=== PATIENT | female | born 1985 | race Caucasian/White ===

== ENCOUNTER 2017-04-29 09:31 | Day surgery (SDC) | payer BC, SELFPAY ==
[2017-04-29] VITALS (7 sets, daily range): BP systolic 102–147; BP diastolic 75–96; PULSE 61–97; RESP 16; TEMP 35.9–37.1; O2SAT 97–99; BMI 26.3
[2017-04-29 10:06] LABS: Internal QC Validated? YES +Cl - CLEAR BKGD; Pregnancy, Urine Negative Negative
[2017-04-29 10:07] LABS: Hematocrit 41.3 % (37-47); Hemoglobin 13.9 g/dl (12.0-15.0); Mean Corp Hgb Conc 33.7 g/gl (32-36); Mean Corpuscular Volume 89.2 fL (81-99); Mean Platelet Vol. 10.2 fl (6.2-12.0); Platelet Count 238 K/mm3 (150-450); RBC Distribution Width CV 13.4 % (11.6-14.6); RBC Distribution Width SD 43.4 fl (35.1-43.9); Red Blood Count 4.63 M/mm3 (4.2-5.4)
[2017-04-29 10:08] LABS: Scan Indicated on CBC? Y/N NO
[2017-04-29] MEDS: Bupivacaine 0.25% 30 ML Vial (10:28)
--- NOTE | 2017-04-29 10:47 | DCINST_ITS ---
You will use the following diet at home:: No restrictions Discharge Activity: Return to Normal Activity, May not drive while taking narcotic pain medications., May Shower May shower in (days): 1 May resume sexual activity in: 4 weeks Call your doctor if your incision/area has: Continuous Slow Oozing, Sudden Increased Bleeding, Increased Pain/ Swelling, Increased Redness, Foul Smelling Discharge, Swelling at the incision site Call your doctor if you observe: Fever of 101 or Higher, Uncontrolled pain Cleanse incision/area with: Soap & Water, - - you have glue over your incisions , do not pick it off. You may let soap and water run over them and dab dry. Allergies/Adverse Reactions: Allergies amoxicillin Allergy (Verified 04/27/17 08:18) Other SHARP PAIN TO ABD Z-PACK Allergy (Uncoded 04/27/17 08:18) Other SHARP PAINS TO ABD Medications to take at Discharge Norethindrone-E.estradiol-Iron [Junel Fe 24 Tablet] 1 each PO DAILY 04/27/17 Primary Care Physician: All Rodriguez MD [Primary Care Provider] - Please Follow Up With: Pily Izquierdo MD When: 2 weeks post op
--- NOTE | 2017-04-29 11:45 | FALS_PTH ---
PATIENT: SREE VERDUGO LOC: [facility] [place] U#:[id number] AGE/SX: 31/F ROOM: RE04/29/[address]: Dr. Pily Izquierdo, MDDOB: 1985 BED: DIS: 04/29/2017 SPEC #: [id number] RECD: 04/29/17 12:12 STATUS: CECILIO RAFAEL #: [id number] YANELY: 04/29/17 11:[address]: Pily Izquierdo DEPT: SURGICAL PATHOLOGY RECD BY: Jus Bustillo ENTERED: 04/29/17 13:12 SP TYPE: FALL TUBES OTHR DR: Dr. All Rodriguez MD Tissues: Fallopian tube Procedures: Surgery Specimen Level II HEADER OPERATION: Laparoscopic salpingectomy PRE-OP DIAGNOSIS: Sterilization request TISSUE SUBMITTED: Bilateral fallopian tubes MICROSCOPIC DIAGNOSIS Bilateral fallopian tubes, salpingectomy: Bilateral fallopian tubes including fimbrial ends, no pathologic diagnosis. SJ:yaya 04/30/17 MICROSCOPIC DESCRIPTION Slides are reviewed. GROSS DESCRIPTION Received is one container labeled with the patient's name and designated bilateral fallopian tubes. The specimen consists of bilateral fallopian tubes. The fallopian tubes are not identified as right or left. One fallopian tube measures 4.5 cm in length and 0.4 cm in diameter. The fimbrial end is identified. The second fallopian tube is received in two pieces. The proximal end measures 3.5 cm in length and 0.4 cm in diameter. The fimbrial end is noted separately and measures 0.5 x 0.5 x 0.2 cm. Sections of both fallopian tubes reveal unremarkable cut surfaces. Representatives sections are submitted in two cassettes as follows: 1 ? one fallopian tube, 2 ? the second fallopian tube received in two pieces. / TIMUR:yaya 04/29/17 TC:4 CPT: 96890 x2
--- NOTE | 2017-04-29 11:58 | PCM.OP.BLANK ---
Operative Report Date of Procedure: 04/29/17 Surgeon: Dr. Pily Izquierdo Android Platform Developer: none Preoperative diagnosis: Sterilization request Procedure performed: Laparoscopic bilateral salpingectomy Postoperative diagnosis: Sterilization request complications: none Estimated blood loss: minimal Drains: none Specimens collected: Bilateral tubes Findings: Normal tubes and ovaries bilaterally uterus sounded to approximately 7 cm. anesthesia: General Operative note: After informed consent was obtained patient was taken to the operating room she was placed in supine position she was given anesthesia. She was then placed in the [facility] and she was prepped and draped in normal sterile fashion. Bladder was drained prior to the start of procedure approximately 75 cc of clear yellow urine was expelled. At this time attention was turned to the vaginal portion where weighted speculum placed at posterior fornix vagina single-tooth tenaculum was used to gently grasp the internal the cervix. uterus was gently sounded to approximately 7cm. Uterine manipulator was placed without difficulty. Legs then placed in parallel with the abdomen the tenaculum and the weighted speculum were removed. 2 towel clamps were placed superior to umbilicus. After Marcaine was injected superior to umbilicus a small incision was made and a 5 mm trocar was placed under direct visualization. CO2 gas was used to insufflate the intra-abdominal cavity. Upon inspection no gross abnormalities uterus tubes and ovaries appeared to be normal. At this time then the LLQ port was placed again Marcaine was injected small incision was made a knife and the 5 mm trocar was placed. Alligator clamp was then placed suprapubically. At this time then tubes were traced back to the fimbriated ends. Ligasure was used to coagulate and ligate along mesosalpinx bilaterally until tubes removed completely. Good hemostasis was appreciated. At this time procedure was deemed complete successful. The gas was desufflated on from the intra-abdominal cavity. The trochars were removed. Skin was closed using 4-0 Monocryl in a subcutaneous fashion. Dermabond glue was placed. Instrument lap and needle counts were correct ?2. The uterine manipulator was removed. Vaginal sweep was performed it was negative. There were no complications anticipated normal postoperative course for this patient.
== END 2017-04-29 12:55 | disposition home or self-care (01) ==
LOC: SDC 09:35 → AC 09:35
PROVIDERS: Anesthesiology; Family Provider Family Medicine; PCP Family Medicine; Visit Provider Obstetrics & Gynecology
PROC: (CPT 58661; principal; 2017-04-29 11:30)
DX: Z30.2 Encounter for sterilization (principal); F17.210 Nicotine dependence, cigarettes, uncomplicated
CPT/HCPCS: 58661; 36415; 81025; 85027; 88302; J7120; J2405

== ENCOUNTER → 2018-03-16 08:55 | Outpatient (CLI) | payer BC, SELFPAY ==
--- NOTE | 2018-03-16 09:00 | RAD_ITS ---
STUDY: X-RAY - LEFT ANKLE REASON FOR EXAM: Female, 32 years old. Pain. No known injury. TECHNIQUE: 3 view(s) of the ankle. COMPARISON: None. FINDINGS: Normal visualized distal tibia and fibula. Normal medial and lateral malleoli. Normal tibiotalar articulation and ankle mortise. Plantar spur. The visualized subtalar, talonavicular, calcaneocuboid and tarsal articulations are normal. The soft tissue structures are unremarkable. RAD/Ankle min 3 Views IMPRESSION: Plantar spur. Electronically Signed: Sabino Wood MD at 16:01 EST Tel [phone], Service support ,
--- OUTSIDE RECORDS SUMMARY | 2018-05-21 00:23 | XMS RPT_ITS ---
:1985 Author Organization OHIP Care Team Providers Name Role Phone YOMI GALLARDO Attending Unavailable ANTONIO LUGO (CN) Referring Unavailable YOMI GALLARDO Attending Unavailable YOMI GALLARDO Attending Unavailable Farzana Sierra Attending Unavailable Farzana Sierra Referring Unavailable All Rodriguez Primary Care Unavailable Yomi Izquierdo Attending Unavailable Yomi Izquierdo Referring Unavailable Rodriguez, All Primary Care Unavailable PROBLEMS PROBLEMS DATE TYPE CONDITION / CODE ATTENDING STATUS SOURCE 03/16/2018 Unknown M77.52 - Other Farzana Sierra Active [place] [facility] left foot / Hospital M77.52(ICD-10) Repository 04/06/2017 Active Unknown / NECAIO Active [facility] UNK(Unknown) AVINASH [facility] YOMI Repository PROCEDURES PROCEDURES No Procedure Records FoundRESULTS RESULTS ANKLE MIN 3 VIEWS Observed: 03/16/2018 Status: F Source: [place] 9:00 AM [facility] [place] [facility] Imaging Services [address] [place] [address] Ankle min 3 Views MR#: [id number] Acct: [id number] Name: SREE VERDUGO Rep #: [id number] : 1985 F 32 From: Sabino Wood MD PCP: All Rodriguez MD Status: REG CLI Study: Ankle min 3 Views Date of Exam: 03/16/18 Exam# [id number] Ordering Dr: Farzana Sierra MD STUDY: X-RAY - LEFT ANKLE REASON FOR EXAM: Female, 32 years old. Pain. No known injury. TECHNIQUE: 3 view(s) of the ankle. COMPARISON: None. FINDINGS: Normal visualized distal tibia and fibula. Normal medial and lateral malleoli. Normal tibiotalar articulation and ankle mortise. Plantar spur. The visualized subtalar, talonavicular, calcaneocuboid and tarsal articulations are normal. The soft tissue structures are unremarkable. RAD/Ankle min 3 Views IMPRESSION: Plantar spur. Electronically Signed: Sabino Wood MD at 16:01 EST Tel [phone], Service support , CC: Farzana Sierra MD; All Rodriguez MD Montessori Lead Teacher: Signed LUIS ALBERTO Observed: 05/14/2017 Status: COMPLETED Source: [place] 9:40 AM [facility] REPOSITORY Office Visit (WOOB) SREE VERDUGO ([id number]) 1985 F Date Time Provider Department 05/14/17 9:40 AM YOMI GALLARDO During your visit today, we recorded the following information about you: Blood pressure Weight 110/60 73.5 kg Yomi Izquierdo MD 05/14/2017 9:53 AM Signed SUBJECTIVE: 31 year old female presents for 2 week post-op exam. Pt reports new pain on RLQ. OBJECTIVE: Incision: Healed Abdomen: Soft, Non-tender and No palpable masses PLAN: RTO for annual exams and PRN Motrin for pain Likely ovarian cyst- recently stopped ocps. Monitor and if worsening- call office. I have reviewed and updated past medical and surgical history, medications and allergies. Yomi Izquierdo MD Referring Provider: SELF [200] Allergies As of Date: 05/14/2017 Noted Allergy Reaction AMOXICILLIN 08/30/2007 8 - GI Upset Comments: ABD. PAIN, NAUSEA, DIZZINESS ZITHROMAX (AZITHROMYCIN) 08/10/2008 8 - GI Upset Comments: Nausea and stomach pains Date Reviewed: 05/14/2017 Reviewed by: Yomi Mccord - Fully Assessed Reason for Visit: Post-Op Visit [1236] Primary Visit Diagnosis:Post-operative state [Z98.890] Order(s):ibuprofen (MOTRIN) 600 mg tabletTake 1 tablet by mouth every 6 hours as needed for Pain.Disp: 30 tabletRfl: 1 Prescriptions as of 05/14/2017 Sig: IBUPROFEN 600 MG TABLET Take 1 tablet by mouth every * NORETHINDRONE 1.5 MG-ETHINYL * Take 1 tablet by mouth once d* Problem List As Of Date 05/14/2017 Noted Resolved Premenopausal menorrhagia [N92.4] INVALID FOR* Tobacco abuse [Z72.0] INVALID FOR* Prescriptions ordered this encounter Disp Refills Start End IBUPROFEN 600 MG TABLET 30 t* 1 05/14/2017 Route: ORAL Sig: Take 1 tablet by mouth every 6 hours as needed for Pain. Medications Discontinued During This Encounter ibuprofen (MOTRIN) 600 mg tablet 30 t* 0 04/26/2017 05/14/2017 Route: ORAL Sig: Take 1 tablet by mouth every 6 hours as needed for Pain. Disc: Reason for discontinue is not on file. Encounter Status:Closed by YOMI MCCORD MD on 05/14/17 PROGRESS Observed: 05/14/2017 Status: COMPLETED Source: [place] 9:34 AM [facility] [place] REPOSITORY O ID: [id number] Author: Yomi Mccord Service: (none) Author Type: Physician Type: Progress Notes Filed: 05/14/2017 9:53 AM Note Text: SUBJECTIVE: 31 year old female presents for 2 week post-op exam. Pt reports new pain on RLQ. OBJECTIVE: Incision: Healed Abdomen: Soft, Non-tender and No palpable masses PLAN: RTO for annual exams and PRN Motrin for pain Likely ovarian cyst- recently stopped ocps. Monitor and if worsening- call office. I have reviewed and updated past medical and surgical history, medications and allergies. Yomi Izquierdo MD OPERATIVE REPORT Observed: 04/29/2017 Status: F Source: [place] 12:01 PM [facility] [place] [facility] Medical Records Department [address] [place] [address] Operative Report 04/29/17 1158 MR#: [id number] Acct: [id number] Name: SREE VERDUGO Rep #: [id number] : 1985 31 From: Yomi Mccord MD PCP: All Rodriguez MD Status: [facility] [place] Location: [place] [address] Operative Report Date of Procedure: 04/29/17 Surgeon: Dr. Yomi Izquierdo Apple Turner: none Preoperative diagnosis: Sterilization request Procedure performed: Laparoscopic bilateral salpingectomy Postoperative diagnosis: Sterilization request complications: none Estimated blood loss: minimal Drains: none Specimens collected: Bilateral tubes Findings: Normal tubes and ovaries bilaterally uterus sounded to approximately 7 cm. anesthesia: General Operative note: After informed consent was obtained patient was taken to the operating room she was placed in supine position she was given anesthesia. She was then placed in the [facility] and she was prepped and draped in normal sterile fashion. Bladder was drained prior to the start of procedure approximately 75 cc of clear yellow urine was expelled. At this time attention was turned to the vaginal portion where weighted speculum placed at posterior fornix vagina single-tooth tenaculum was used to gently grasp the internal the cervix. uterus was gently sounded to approximately 7cm. Uterine manipulator was placed without difficulty. Legs then placed in parallel with the abdomen the tenaculum and the weighted speculum were removed. 2 towel clamps were placed superior to umbilicus. After Marcaine was injected superior to umbilicus a small incision was made and a 5 mm trocar was placed under direct visualization. CO2 gas was used to insufflate the intra-abdominal cavity. Upon inspection no gross abnormalities uterus tubes and ovaries appeared to be normal. At this time then the LLQ port was placed again Marcaine was injected small incision was made a knife and the 5 mm trocar was placed. Alligator clamp was then placed suprapubically. At this time then tubes were traced back to the fimbriated ends. Ligasure was used to coagulate and ligate along mesosalpinx bilaterally until tubes removed completely. Good hemostasis was appreciated. At this time procedure was deemed complete successful. The gas was desufflated on from the intra-abdominal cavity. The trochars were removed. Skin was closed using 4-0 Monocryl in a subcutaneous fashion. Dermabond glue was placed. Instrument lap and needle counts were correct 2. The uterine manipulator was removed. Vaginal sweep was performed it was negative. There were no complications anticipated normal postoperative course for this patient. 04/29/17 1201 <Electronically signed by Yomi Mccord MD> Date Yomi Izquierdo MD CC: Yomi Izquierdo MD; All Rodriguez MD Signed FALLOPIAN TUBES/STERILIZATION Observed: 04/29/2017 Status: F Source: [place] 11:45 AM [facility] [place] Patient: SREE VERDUGO : 1985 (31/F) Acct Num: [id number] Phys: Felecia SALAZAR,Yomi Unit Num: [id number] [place] [facility] Specimen: [id number] Received: 04/29/17 1212 Spec Type: FALL TUBES TISSUES TISSUES: Fallopian tube GROSS DESCRIPTION Received is one container labeled with the patient's name and designated bilateral fallopian tubes. The specimen consists of bilateral fallopian tubes. The fallopian tubes are not identified as right or left. One fallopian tube measures 4.5 cm in length and 0.4 cm in diameter. The fimbrial end is identified. The second fallopian tube is received in two pieces. The proximal end measures 3.5 cm in length and 0.4 cm in diameter. The fimbrial end is noted separately and measures 0.5 x 0.5 x 0.2 cm. Sections of both fallopian tubes reveal unremarkable cut surfaces. Representatives sections are submitted in two cassettes as follows: 1 one fallopian tube, 2 the second fallopian tube received in two pieces. / SJ:yaya 04/29/17 TC:4 CPT: 55932 x2 HEADER OPERATION: Laparoscopic salpingectomy PRE-OP DIAGNOSIS: Sterilization request TISSUE SUBMITTED: Bilateral fallopian tubes MICROSCOPIC DESCRIPTION Slides are reviewed. MICROSCOPIC DIAGNOSIS Bilateral fallopian tubes, salpingectomy: Bilateral fallopian tubes including fimbrial ends, no pathologic diagnosis. SJ:yaya 04/30/17 Signed Jorge Fernandes 04/30/17 <signature on file> Performed By: #### PFALS #### [facility] [address] [place], [address] DISCHARGE INSTRUCTION Observed: 04/29/2017 Status: F Source: [place] 10:47 AM [facility] [place] [facility] Medical Records Department [address] [place] [address] Instructions for Home/Discharge Instructions 04/29/17 1045 MR#: [id number] Acct: [id number] Name: SREE VERDUGO Venkat Rep #: [id number] : 1985 31 From: Yomi Mccord MD PCP: All Rodriguez MD Status: [facility] You will use the following diet at home:: No restrictions Discharge Activity: Return to Normal Activity, May not drive while taking narcotic pain medications., May Shower May shower in (days): 1 May resume sexual activity in: 4 weeks Call your doctor if your incision/area has: Continuous Slow Oozing, Sudden Increased Bleeding, Increased Pain/ Swelling, Increased Redness, Foul Smelling Discharge, Swelling at the incision site Call your doctor if you observe: Fever of 101 or Higher, Uncontrolled pain Cleanse incision/area with: Soap AND Water, - - you have glue over your incisions, do not pick it off. You may let soap and water run over them and dab dry. Allergies/Adverse Reactions: Allergies amoxicillin Allergy (Verified 04/27/17 08:18) Other SHARP PAIN TO ABD Z-PACK Allergy (Uncoded 04/27/17 08:18) Other SHARP PAINS TO ABD Medications to take at Discharge Norethindrone-E.estradiol-Iron [June Fe 24 Tablet] 1 each PO DAILY 04/27/17 Primary Care Physician: All Rodriguez MD [Primary Care Provider] - Please Follow Up With: Yomi Izquierdo MD When: 2 weeks post op 04/29/17 1047 <Electronically signed by Yomi Mccord MD> Date Yomi Izquierdo MD CC: All Rodriguez MD CBC-COMPLETE BLOOD CNT Collected: 04/29/2017 Status: F Source: [place] 9:50 AM [facility] [place] TYPE CODE TESTS RESULT OUT OF RANGE REFERENCE UNITS LAB L100.1000 4.4-11.0 K/mm3 Normal WBC 7.0 LAB L100.1200 4.2-5.4 M/mm3 Normal RBC 4.63 LAB L100.1300 12.0-15.0 g/dl Normal HGB 13.9 LAB L100.1400 37-47 % Normal HCT 41.3 LAB L100.1500 81-99 fL Normal MCV 89.2 LAB L100.1600 27.0-32.0 pg Normal MCH 30.0 LAB L100.1700 32-36 g/gl Normal MCHC 33.7 LAB L100.1810 11.6-14.6 % Normal RDW CV 13.4 LAB L100.1820 35.1-43.9 fl Normal RDW SD 43.4 LAB L100.1900 150-450 K/mm3 Normal PLT 238 LAB L100.2000 6.2-12.0 fl Normal MPV 10.2 Performed By: #### L400.7600, L100.0500 #### [facility] [address] [place], [address] ,URINE Collected: 04/29/2017 Status: F Source: [place] 9:45 AM [facility] [place] TYPE CODE TESTS RESULT OUT OF REFERENCE UNITS RANGE LAB L400.8000 Negative Normal HCGUQUAL Negative Result Comment: Very dilute urine specimens, as indicated by a low specific gravity, may not contain sales representative leather goods levels of hCG. If is still suspected, a first morning urine specimen should be collected 48 hours later and tested. Performed By: #### L400.7600, L100.0500 #### [facility] [address] [place], [address] HISTORY PHYSICAL Observed: 04/26/2017 Status: COMPLETED Source: [place] 12:17 PM [facility] [place] REPOSITORY HNO ID: [id number] Author: Yomi Mccord Service: (none) Author Type: Physician Type: HANDP Filed: 04/26/2017 12:19 PM Note Text: Sree Verdugo is a 31 year old female who presents for preop visit for Laparoscopic Salpingectomy- Pt reports no concerns today. Pt is certain she does not desire more children. PAST MEDICAL HISTORY Diagnosis Date - PMH - PAST MEDICAL HISTORY OF 2001 ovarian cysts PAST SURGICAL HISTORY Procedure Laterality Date - APPENDECTOMY 1994 - OVARIAN CYSTECTOMY FAMILY HISTORY Problem Relation Age of Onset - Hypertension Mother - Thyroid Mother - Endometrosis [OTHER] Mother Hysterectomy in later 30's - Hypertension Maternal Grandmother - Prostate Cancer Maternal Grandfather - Breast Cancer Paternal Grandmother - Breast Cancer Paternal Aunt - Thyroid Sister Social History Marital status: Single Spouse name: Years of education: 12 Number of children: 1 Occupational History Occupation Employer Comment [employer] Social History Main Topics Smoking status: Current Every Day Smoker Packs/day: 1.00 Years: 0.00 Types: Cigarettes Smokeless status: Never Used Alcohol use: No Drug use: No Sexual activity: Yes Partners with: Male control/protection: Pill Current Outpatient Prescriptions: oxyCODONE-acetaminophen (PERCOCET) 5-325 mg tablet Take 1 tablet by mouth every 6 hours as needed for Pain for up to 3 days. ibuprofen (MOTRIN) 600 mg tablet Take 1 tablet by mouth every 6 hours as needed for Pain. Norethin Brendan-Eth Estrad-FE (,) 1.5 mg-30 mcg (21)/75 mg (7) tablet Take 1 tablet by mouth once daily. No current facility-administered medications for this visit. Allergies As of Date: 04/26/2017 Allergen Noted Reaction AMOXICILLIN 08/30/2007 GI Upset ZITHROMAX [AZITHROMYCIN] 08/10/2008 GI Upset Fully Assessed 04/26/2017 REVIEW OF SYSTEMS Abdomen: No abdominal pain, nausea, vomiting, diarrhea, or constipation. Bladder: no dsyuria .. Expanded ROS: GENERAL: No weight loss, malaise or fevers Allergies and current medication updated:Yes EXAM: BP 112/76 Pulse 88 Resp 12 Ht 5' 5 (1.65m) Wt 165 lb (74.8kg) LMP 04/20/2017 BMI 27.46 kg/(m2). GENERAL: pleasant, female in no apparent distress HEENT: Normocephalic and atraumatic NECK: full range of motion DERMATOLOGY: Normal and without lesions NEURO: alert and oriented x3,exam grossly non-focal EXTREMITIES: normal ASSESSMENT AND PLAN: Encounter Diagnosis ICD-10-CM 1. Post-op pain G89.18 oxyCODONE-acetaminophen (PERCOCET) 5-325 mg tablet 2. Pt was counseled on risks of Bilateral salpingectomy including but not limited to bleeding, infection, permanency, risks of regret and injury to pelvic structures including but not limited to bladder, bowel, vessels, ureters. Pt wishes to proceed. Yomi Izquierdo MD PROGRESS Observed: 04/06/2017 Status: COMPLETED Source: [place] 11:14 AM [facility] REPOSITORY HNO ID: [id number] Author: Yomi Mccord Service: (none) Author Type: Physician Type: Progress Notes Filed: 04/06/2017 11:41 AM Note Text: Sree Verdugo is a 31 year old female who presents for sterilization request. Pt reports has one daughter age 13, she has always known only wanted one child. 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 Pt reports is a smoker and does not want and knows she can't continue to take OCPs. Pt is not interested in LARC for control but would like Permanent sterilization. PAST MEDICAL HISTORY Diagnosis Date - PMH - PAST MEDICAL HISTORY OF 2001 ovarian cysts PAST SURGICAL HISTORY Procedure Laterality Date - APPENDECTOMY 1994 - OVARIAN CYSTECTOMY FAMILY HISTORY Problem Relation Age of Onset - Hypertension Mother - Thyroid Mother - Endometrosis [OTHER] Mother Hysterectomy in later 30's - Hypertension Maternal Grandmother - Prostate Cancer Maternal Grandfather - Breast Cancer Paternal Grandmother - Breast Cancer Paternal Aunt - Thyroid Sister Social History Marital status: Single Spouse name: Years of education: 12 Number of children: 1 Occupational History Occupation Employer Comment [employer] Social History Main Topics Smoking status: Current Every Day Smoker Packs/day: 1.00 Years: 0.00 Types: Cigarettes Smokeless status: Never Used Alcohol use: No Drug use: No Sexual activity: Yes Partners with: Male control/protection: Pill Current Outpatient Prescriptions: Norethin Brendan-Eth Estrad-FE (, ,) 1.5 mg-30 mcg (21)/75 mg (7) tablet Take 1 tablet by mouth once daily. No current facility-administered medications for this visit. Allergies As of Date: 04/06/2017 Allergen Noted Reaction AMOXICILLIN 08/30/2007 GI Upset ZITHROMAX [AZITHROMYCIN] 08/10/2008 GI Upset Fully Assessed 04/06/2017 REVIEW OF SYSTEMS Abdomen: no pain Bladder: no dysuria.. Expanded ROS: GENERAL: Negative for fever Allergies and current medication updated:Yes EXAM: There were no vitals taken for this visit. GENERAL: pleasant, female in no apparent distress HEENT: Normocephalic and atraumatic NECK: full range of motion DERMATOLOGY: Normal, without lesions, non-icteric and non-hirsute NEURO: alert and oriented x3,exam grossly non-focal EXTREMITIES: normal ASSESSMENT AND PLAN: 31yo here for sterilization consultation 1) options for permanent sterilization reviewed- Hysteroscopic vs laparoscopy - pt would like to proceed with Laparoscopic bilateral salpingectomy 2) risks of surgery reviewed, risk of regret reviewed 3) will schedule and notify patient of surgery date All questions answered prior to leaving office today Yomi Izquierdo MD ALLERGIES ALLERGIES DATE TYPE / CODE NAME / CODE REACTION SEVERITY SOURCE Drug amoxicillin/F0060 Other Unknown [place] 8 Allergy/309856920( 54729(RXNORM) [facility] SNOMED CT) Hospital Repository Miscellaneous Z-PACK Other Unknown [place] 8 Allergy/536751611( [facility] SNOMED CT) Hospital Repository DRUG AZITHROMYCIN GI UPSET [place] 9 INGREDI/[id number]( [facility]OM[facility]) [place] Repository DRUG AMOXICILLIN GI UPSET [place] 8 INGREDI/[id number]( [facility] SNOMED [facility]) [place] Repository ENCOUNTERS ENCOUNTERS ADMIT/DISCHARGE ACCOUNT ADMITTING ENCOUNTER LOCATION SOURCE NUMBER CLASS 03/16/2018 [id number] [facility] Repository 05/14/2017/05/19/[id number] Repository 04/29/2017/04/30/[id number] ing:SDC Repository 04/26/2017/04/26/[id number] Repository 04/06/2017 [id number] [facility] Repository PAYERS PAYERS ENCOUNTER GUARANTOR PAYER SUBSCRIBER SOURCE 03/16/2018 SREE L Primary SREE L [place] [id number] Insurance:ANTHEMPolic SACHARIATDOB: [facility] [place], y Number: [id number] [id number]: [id number] Repository Date:[id number] [address] () [address] [place] [id number]: 03/16/2018 Secondary NOT GIVENUNK [place] Insurance:SELF PAY [facility] Number: Effective Repository Date:2018-03-16 04/29/2017 Sree L Primary Sree L [place] [id number] Insurance:ANTHEMPolic SachariatDOB: [facility], y Number: [id number] [id number]: [id number] Repository Date:[id number] [address] () [id number] [place] [id number]: 04/29/2017 Secondary NOT GIVENUNK [place] Insurance:SELF PAY [facility] Number: Effective Repository Date:2017-04-12
== END ==
PROVIDERS: Family Provider Family Medicine; PCP Family Medicine; Referring Provider Family Medicine; Visit Provider Family Medicine
DX: M77.52 Other enthesopathy of left foot and ankle (principal)
CPT/HCPCS: 73610

== ENCOUNTER → 2020-10-16 | Outpatient (CLI) | payer BC, SELFPAY | END | disposition home or self-care (01) | PROVIDERS: Visit Provider Family Medicine | DX: U07.1 COVID-19 (principal) | CPT/HCPCS: 87635; U0005; U0003 ==

== ENCOUNTER → 2020-10-24 | Outpatient (CLI) | payer BC, SELFPAY | END | disposition home or self-care (01) | LOC: LABSPEC 16:47 | PROVIDERS: Visit Provider Family Medicine | DX: J39.9 Disease of upper respiratory tract, unspecified (principal) | CPT/HCPCS: 87633 ==

== ENCOUNTER 2021-03-13 15:09 | Outpatient (CLI) | payer BC, SELFPAY ==
--- NOTE | 2021-03-13 15:14 | RAD_ITS ---
STUDY: X-RAY - FACIAL BONES REASON FOR STUDY: Female, 35 years old. SINUSITIS TECHNIQUE: 3 view(s) of the facial bones. COMPARISON: None. FINDINGS: Normal bilateral frontozygomatic and zygomatic-temporal arches. Normal bilateral medial and inferior orbital batres. Normal bilateral orbits. Normal visualized nasal bones. Normal anterior nasal spine. The remaining visualized osseous structures are normal. Normal visualized paranasal sinuses. RAD/Facial Bones min 3 Views IMPRESSION: Normal x-ray examination of the facial bones. Electronically Signed: Sabino Wood MD at 15:41 EST , Service support ,
== END 2021-03-13 23:59 | disposition short-term general hospital (02) ==
LOC: MTRAD 15:12
PROVIDERS: PCP Family Medicine; Referring Provider Family Medicine; Visit Provider Family Medicine
DX: J32.9 Chronic sinusitis, unspecified (principal)
CPT/HCPCS: 70150

== ENCOUNTER → 2021-09-17 | Outpatient (CLI) | payer BC, SELFPAY ==
[2021-09-17 10:03] LABS: Absolute Lymphocyte Count 2.19 X10^3/uL (0.83-4.51); Absolute Neutrophil Count 3.7 X10^3/uL (2.0-7.7); Basophil# 0.04 X10^3/uL; Basophil% 0.6 % (0-1); Eosinophil# 0.14 X10^3/uL; Eosinophils% 2.2 % (0-5); Hematocrit 45.7 % (37-47); Hemoglobin 15.2 g/dL (12.0-15.0); Lymphocyte # 2.19 X10^3/ul (0.83-4.51); Lymphocyte % 33.7 % (19-41); Mean Corp Hgb Conc 33.3 g/dL (32-36); Mean Corpuscular Hgb 30.2 pg (27.0-32.0); Mean Corpuscular Volume 90.7 fL (81-99); Mean Platelet Vol. 10.6 fl (6.2-12.0); Monocyte# 0.41 X10^3/uL; Monocyte% 6.3 % (0-10); NRBC Flagged by Analyzer 0 % (0-5); Neutrophil # 3.69 X10^3/uL (2.7-7.7); Neutrophil % 56.7 % (47-70); Platelet Count 249 K/mm3 (150-450); RBC Distribution Width CV 12.9 % (11.6-14.6); RBC Distribution Width SD 42.6 fl (35.1-43.9); Red Blood Count 5.04 M/mm3 (4.2-5.4); White Blood Count 6.5 K/mm3 (4.4-11.0)
[2021-09-17 10:56] LABS: AST(SGOT) 15 U/L (15-37); Alanine Aminotransfer ALT/SGPT 20 U/L (13-56); Albumin, Serum 3.9 g/dL (3.2-5.0); Alkaline Phosphatase 51 U/L (45-117); Anion Gap 7 (5-15); BUN 10 mg/dL (7-18); BUN/Creat Ratio 10.2 RATIO (10-20); Calcium,Total 9.1 mg/dL (8.5-10.1); Chloride 105 mmol/L (98-107); Cholesterol 181 mg/dL (200); Creatinine, Serum 0.98 mg/dL (0.55-1.02); EST Glomerular Filtration Rate 68 mL/min (>60); Est Glom Filt Rate - Afr Amer 82 mL/min (>60); Ferritin 53 ng/mL (8-252); Globulin 3.8 g/dL (2.2-4.2); Glucose 88 mg/dL (74-106); High Density Lipoprotein 45 mg/dL; Potassium 3.6 mmol/L (3.5-5.1); Protein, Total 7.7 g/dL (6.4-8.2); Sodium Level 137 mmol/L (136-145); Thyroid Stim Hormone (TSH) 2.63 uIU/mL (0.358-3.74); Triglycerides 78 mg/dL; Very Low Density Lipoprotein 16 mg/dL (5-40)
== END | disposition home or self-care (01) ==
PROVIDERS: PCP Family Medicine; Referring Provider Family Medicine; Visit Provider Family Medicine
DX: N92.0 Excessive and frequent menstruation with regular cycle (principal); Z13.220 Encounter for screening for lipoid disorders; K21.9 Gastro-esophageal reflux disease without esophagitis
CPT/HCPCS: 36415; 80053; 80061; 82728; 84443; 85025

== ENCOUNTER 2021-11-26 10:41 | Outpatient (CLI) | payer BC, SELFPAY ==
[2021-12-04 13:38] LABS: HPV APTIMA, High Risk Negative (Negative); HPV Reflexed? YES, CHARGE PATIENT
== END 2021-11-26 23:59 | disposition home or self-care (01) ==
PROVIDERS: PCP Family Medicine; Referring Provider Family Medicine; Visit Provider Nurse Practitioner Family
DX: Z12.4 Encounter for screening for malignant neoplasm of cervix (principal)
CPT/HCPCS: 87624; 88175; G0145

== ENCOUNTER 2022-10-01 08:23 | Day surgery (SDC) | payer OTHER, SELFPAY ==
--- NOTE | 2022-09-16 12:17 | PCM.HP.BLA ---
History and Physical Date of Admission: 10/01/22 Pre-Op History and Physical ? HPI: The patient is a 37 year old female presenting for pre-operative visit. She is scheduled for laparoscopic right ovarian cystectomy possible oopohorectomy, for right ovarian dermoid cyst and pelvic pain on 10/01/22. Procedure discussed along with risks, benefits and complications. Other alternatives discussed for management. Consent form signed? Yes. ? ? PAST MEDICAL HISTORY PAST MEDICAL HISTORY Diagnosis Date ? PMH - PAST MEDICAL HISTORY OF 2001 ? ovarian cysts ? ? PAST SURGICAL HISTORY PAST SURGICAL HISTORY Procedure Laterality Date ? APPENDECTOMY ? 1994 ? LAPAROSCOPY SALPINGOSTOMY ? 04/01/2017 ? Laparoscopic bilateral salpingectomy ? OVARIAN CYSTECTOMY ? CURRENT MEDICATIONS Current Outpatient Medications Medication Sig Dispense Refill ? famotidine (PEPCID) 0.25 mg/mL syrg ? norethindrone (AYGESTIN) 5 mg tablet Take 1 tablet by mouth once daily. 30 tablet 2 ? drospirenone, contraceptive, (SLYND) 4 mg (28) tabet Take 1 tablet by mouth once daily. Take pills continuously 84 tablet 3 ? ibuprofen (MOTRIN) 600 mg tablet Take 1 tablet by mouth every 6 hours as needed for Pain. 30 tablet 1 ? No current facility-administered medications for this visit. ? ? ALLERGIES: Amoxicillin and Zithromax [Azithromycin] ? PERSONAL HISTORY: SOCIAL HISTORY Social History ? Tobacco Use ? Smoking status: Every Day ? ? Packs/day: 1.00 ? ? Types: Cigarettes ? Smokeless tobacco: Never Vaping Use ? Vaping Use: Never used Substance Use Topics ? Alcohol use: No ? Drug use: No ? FAMILY HISTORY: FAMILY HISTORY FAMILY HISTORY Problem Relation Age of Onset ? Hypertension Mother ? ? Thyroid Mother ? ? other (Endometrosis) Mother ? ? Hysterectomy in later 30's ? Hypertension Maternal Grandmother ? ? Prostate Cancer Maternal Grandfather ? ? Breast Cancer Paternal Grandmother ? ? Breast Cancer Paternal Aunt ? ? Thyroid Sister ? ? ? REVIEW OF SYMPTOMS: negative except as noted above PHYSICAL EXAMINATION: ? VITALS: Blood pressure 110/70, weight 171 lb (77.6 kg), last menstrual period 08/26/2022. ? GENERAL: The patient is well nourished, well hydrated in no acute distress. , The patient is oriented to time, place, and person. NECK: full range of motion LUNGS: Clear to auscultation bilaterally. no wheezes, rhonchi or rales HEART: Regular rate and rhythm, Normal heart sounds, and No murmurs or gallops ? ? IMPRESSION: 37yo with right sided pelvic pain and right dermoid cyst ? PLAN: Laparoscopic right ovarian cystectomy possible oophorectomy ? Pt has been counseled on risks/benefits and alternatives of surgery including but not limited to anesthesia, bleeding, infection, injury to pelvic structures including bowel, bladder, ureters and vessels. Pt wishes to proceed with surgery at this time. Reviewed that we will try to not rupture cyst in the abdomen. Discussed that dermoids are typically benign however unable to say this with certainty without pathology. We did discuss that there is a chance of malignancy. Discussed that we will try to not rupture cyst intra abdominally but rather remove in Endobag. ? Pre and post op instructions reviewed ? Changed from SLYND to aygestin due to cost- pt paid $600 for 3 mo supply. ? I have reviewed and updated past medical and surgical history, medications and allergies Pily Mccord MD
--- NOTE | 2022-09-16 12:21 | DCINST_ITS ---
Discharge Instructions Follow Up Care Test Results: Test results from this visit will be discussed in further detail at your follow- up appointment, if applicable. Discharge Plan Admission Attending Provider: Pily Izquierdo Primary Care Provider: All Rodriguez Discharge Orders/Prescriptions Prescriptions: No Action norethindrone-e.estradiol-iron [] 1 EACH tablet 1 ea PO DAILY Referrals / Follow Up: All Rodriguez MD [Primary Care Provider] - Disposition Disposition (needs filled in before D/C Order can be placed): Home, Self Care
--- NOTE | 2022-09-28 07:00 | EKG12_ITS ---
Test Reason : PRE OP Blood Pressure : / mmHG Vent. Rate : 083 BPM Atrial Rate : 083 BPM P-R Int : 162 ms QRS Dur : 062 ms QT Int : 374 ms P-R-T Axes : 042 053 055 degrees QTc Int : 439 ms Normal sinus rhythm Low voltage QRS Borderline ECG When compared with ECG of 30-APR-2008 08:13, No significant change was found Confirmed by DOUGLAS SALAZAR, JULEE ([id number]), publishing editor SARA GEORGE ([id number]) on 09/28/2022 1:26:19 PM Referred By: Pily Izquierdo Confirmed By:JULEE COLE MD
[2022-09-28 07:29] LABS: Hematocrit 43.2 % (37-47); Hemoglobin 14.5 g/dL (12.0-15.0); Mean Corp Hgb Conc 33.6 g/dL (32-36); Mean Corpuscular Hgb 29.9 pg (27.0-32.0); Mean Corpuscular Volume 89.1 fL (81-99); Platelet Count 258 K/mm3 (150-450); RBC Distribution Width CV 13.2 % (11.6-14.6); RBC Distribution Width SD 42.7 fl (35.1-43.9); Red Blood Count 4.85 M/mm3 (4.2-5.4); White Blood Count 7.3 K/mm3 (4.4-11.0)
[2022-10-01] VITALS (7 sets, daily range): BP systolic 106–140; BP diastolic 69–92; PULSE 64–93; RESP 16; TEMP 36.3–37; O2SAT 96–100; BMI 27.4
[2022-10-01] MEDS: Lactated Ringers 1,000 ML 15 ML IV (09:04)
[2022-10-01] MEDS: Bupivacaine Mpf 0.5% 30 ML VIAL (10:39)
[2022-10-01] MEDS: Sugammadex Sodium 200 MG/2 ML VIAL IV (10:50)
--- NOTE | 2022-10-01 10:51 | PCM.OPRPT ---
Report of Operation Date of Procedure: 10/01/22 Pre-Operative Diagnosis: Right ovarian cyst Post-Operative Diagnosis: Same- resolved Surgery/Procedure Performed:: Diagnostic laparoscopy Description of Surgical Findings:: Normal ovaries bilaterally, no ovarian cyst appreciated Dr. Dyer assisted with manipulating camera- procedure was anticipated for cyst removal but cyst had resolved. Surgeon: Pily Izquierdo registration scheduling specialist: Le Dyer Type of Anesthesia: General and Local Special Medications: 0.5%marcaine Specimen's removed: none Estimated Blood Loss (mL): <5cc Fluids Replaced: 800 Description of Procedure: patient placed in supine position she was given anesthesia. She was then placed in the [facility] stirrups and she was prepped and draped in normal sterile fashion. Bladder was drained prior to the start of procedure. At this time attention was turned to the vaginal portion where weighted speculum placed at posterior fornix vagina single-tooth tenaculum was used to gently grasp the internal the cervix. uterus was gently sounded to approximately 8 cm. Uterine manipulator was placed after dilation performed Legs then placed in parallel with the abdomen the tenaculum and the weighted speculum were removed. 2 towel clamps were placed at level of umbilicus. Marcaine was injected infraumbilical and a small incision was made. The 5 mm trocar was placed under direct visualization. CO2 gas was used to insufflate the intra-abdominal cavity. Upon inspection no gross abnormalities appreciated- the uterus was normal, cul[place] had small peritoneal window. Ovaries normal. No right ovarian cyst noted. No other masses appreciated. The trochar was removed. Skin was closed using 4-0 Monocryl in a subcutaneous fashion. Dermabond glue was placed. Instrument lap and needle counts were correct ?2. The uterine manipulator was removed. Vaginal sweep was performed it was negative. There were no complications anticipated normal postoperative course for this patient. Grafts/Implants Used: none Procedure Start Time: 10:38 Procedure Stop Time: 10:50 Complications none Admit VTE Documentation VTE Present on Admission: Yes VTE Mechan Device Prophylaxis: SCD's VTE Pharm Prophylaxis ordered?: No Reason prophylaxis not ordered:: Procedure Not Indicated
--- NOTE | 2022-10-01 10:56 | DCINST_ITS ---
Discharge Instructions Diet Discharge Diet: No restrictions Activity May resume sexual activity in: 2 weeks Dressing / Incision Call your doctor if your incision/area has: Continuous Slow Oozing, Sudden Increased Bleeding, Increased Pain/ Swelling, Increased Redness, Foul Smelling Discharge and Swelling at the incision site Call your doctor if you observe: Fever of 101 or Higher, Inability to urinate, Inability to have a bowel movement, Using more than 1 pad per hour and Uncontrolled pain Additional Dressing/Incision Instructions:: You have skin glue over your incision sites, do not pick off. You may shower and let the soap and water run over the incision sites and dab dry. Follow Up Care Please Follow Up With: Pily Izquierdo MD Test Results: Test results from this visit will be discussed in further detail at your follow- up appointment, if applicable. Discharge Plan Admission Attending Provider: Pily Izquierdo Primary Care Provider: All Rodriguez Discharge Orders/Prescriptions Prescriptions: No Action Slynd 4 mg (28) tablet 1 tab PO DAILY famotidine [Acid-Pep] 20 mg tablet 20 mg PO DAILY Referrals / Follow Up: All Rodriguez MD [Primary Care Provider] - Disposition Disposition (needs filled in before D/C Order can be placed): Home, Self Care
== END 2022-10-01 12:40 | disposition home or self-care (01) ==
LOC: SDC 08:26 → AC 08:29
PROVIDERS: PCP Family Medicine; Referring Provider Obstetrics & Gynecology; Visit Provider Obstetrics & Gynecology
PROC: (CPT 49320; principal; 2022-10-01 09:50)
DX: Z03.89 Encounter for observation for other suspected diseases and conditions ruled out (principal); F17.210 Nicotine dependence, cigarettes, uncomplicated; Z98.51 Tubal ligation status; Z79.899 Other long term (current) drug therapy
CPT/HCPCS: 49320; 00840; 36415; 85027; 93005; J7120; J2405

== ENCOUNTER → 2023-06-14 | Outpatient (CLI) | payer OTHER, SELFPAY ==
[2023-06-14 17:47] LABS: Hematocrit 43.8 % (37-47); Hemoglobin 14.6 g/dL (12.0-15.0); Mean Corp Hgb Conc 33.3 g/dL (32-36); Mean Corpuscular Hgb 28.9 pg (27.0-32.0); Mean Corpuscular Volume 86.7 fL (81-99); Mean Platelet Vol. 10.5 fl (6.2-12.0); Platelet Count 280 K/mm3 (150-450); RBC Distribution Width CV 13.7 % (11.6-14.6); RBC Distribution Width SD 43.9 fl (35.1-43.9); Red Blood Count 5.05 M/mm3 (4.2-5.4); White Blood Count 7.8 K/mm3 (4.4-11.0)
[2023-06-14 18:10] LABS: Hemoglobin A1c 5.4 % (3.8-5.6)
[2023-06-14 18:50] LABS: Anion Gap 3 (5-15); BUN 7 mg/dL (7-18); BUN/Creat Ratio 7.7 RATIO (10-20); Calcium,Total 9.3 mg/dL (8.5-10.1); Chloride 108 mmol/L (98-107); Creatinine, Serum 0.91 mg/dL (0.55-1.02); EST Glomerular Filtration Rate 73 mL/min (>60); Est Glom Filt Rate - Afr Amer 88 mL/min (>60); Glucose 82 mg/dL (74-106); Potassium 3.5 mmol/L (3.5-5.1); Sodium Level 138 mmol/L (136-145)
[2023-06-14 18:59] LABS: Vitamin D,25 Hydroxy 29.7 ng/mL
== END | disposition home or self-care (01) ==
PROVIDERS: PCP Family Medicine; Referring Provider Nurse Practitioner Family; Visit Provider Nurse Practitioner Family
DX: R53.83 Other fatigue (principal)
CPT/HCPCS: 36415; 80048; 82306; 83036; 85027

== ENCOUNTER → 2023-07-12 | Outpatient (CLI) | payer OTHER, SELFPAY ==
[2023-07-12 18:23] LABS: Vitamin B12 323 pg/mL (211-911)
[2023-07-12 18:32] LABS: CRP 6.92 mg/L (0.0-3.0); Ferritin 20 ng/mL (8-252)
[2023-07-14 13:08] LABS: ANTINUCLEAR ANTIBODIES DIRECT Negative (Negative)
[2023-07-14 14:10] LABS: Deamidated Gliadin IgA 4 units (0-19); Deamidated Gliadin IgG 2 units (0-19); Endomysial Antibody IgA Negative (Negative); Immunoglobulin A 192 mg/dL (87-352); t-Transglutaminase IgA <2 U/mL (0-3)
== END | disposition home or self-care (01) ==
LOC: MFPLAB 17:01
PROVIDERS: PCP Family Medicine; Visit Provider Family Medicine
DX: R53.83 Other fatigue (principal); E61.1 Iron deficiency; R19.7 Diarrhea, unspecified
CPT/HCPCS: 36415; 82607; 82728; 82746; 82784; 83516; 86038; 86140; 86255

== ENCOUNTER → 2023-11-18 | Outpatient (CLI) | payer OTHER, SELFPAY ==
[2023-11-18 12:39] LABS: Absolute Lymphocyte Count 2.74 X10^3/uL (0.83-4.51); Absolute Neutrophil Count 6.2 X10^3/uL (2.0-7.7); Basophil# 0.05 X10^3/uL; Basophil% 0.5 % (0-1); Eosinophil# 0.17 X10^3/uL; Eosinophils% 1.8 % (0-5); Hematocrit 45.3 % (37-47); Hemoglobin 14.5 g/dL (12.0-15.0); Lymphocyte # 2.74 X10^3/ul (0.83-4.51); Lymphocyte % 28.3 % (19-41); Mean Corpuscular Hgb 28.4 pg (27.0-32.0); Mean Corpuscular Volume 88.8 fL (81-99); Mean Platelet Vol. 11.3 fl (6.2-12.0); Monocyte% 5.2 % (0-10); NRBC Flagged by Analyzer 0 % (0-5); Neutrophil # 6.19 X10^3/uL (2.7-7.7); Neutrophil % 63.9 % (47-70); Platelet Count 255 K/mm3 (150-450); RBC Distribution Width CV 13.8 % (11.6-14.6); White Blood Count 9.7 K/mm3 (4.4-11.0)
[2023-11-18 14:46] LABS: Anion Gap 7 (5-15); BUN 9 mg/dL (7-18); BUN/Creat Ratio 10.1 RATIO (10-20); Calcium,Total 9.7 mg/dL (8.5-10.1); Chloride 107 mmol/L (98-107); Cholesterol 179 mg/dL (200); Creatinine, Serum 0.89 mg/dL (0.55-1.02); EST Glomerular Filtration Rate 75 mL/min (>60); Est Glom Filt Rate - Afr Amer 90 mL/min (>60); Glucose 83 mg/dL (74-106); High Density Lipoprotein 39 mg/dL; Potassium 4.4 mmol/L (3.5-5.1); Sodium Level 140 mmol/L (136-145); Triglycerides 144 mg/dL; Very Low Density Lipoprotein 29 mg/dL (5-40)
== END | disposition home or self-care (01) ==
LOC: MFPLAB 10:45
PROVIDERS: PCP Family Medicine; Visit Provider Family Medicine
DX: Z00.00 Encounter for general adult medical examination without abnormal findings (principal); D64.9 Anemia, unspecified
CPT/HCPCS: 36415; 80048; 80061; 85025

== ENCOUNTER 2024-01-28 05:27 | Day surgery (SDC) | payer OTHER, SELFPAY ==
[2024-01-22 08:33] LABS: Hematocrit 44.7 % (37-47); Hemoglobin 14.9 g/dL (12.0-15.0); Mean Corp Hgb Conc 33.3 g/dL (32-36); Mean Corpuscular Hgb 29.2 pg (27.0-32.0); Mean Corpuscular Volume 87.5 fL (81-99); Platelet Count 299 K/mm3 (150-450); RBC Distribution Width CV 13.5 % (11.6-14.6); RBC Distribution Width SD 43.2 fl (35.1-43.9); Red Blood Count 5.11 M/mm3 (4.2-5.4); White Blood Count 8.1 K/mm3 (4.4-11.0)
[2024-01-22 08:48] LABS: Magnesium 2.1 mg/dL (1.6-2.6)
--- NOTE | 2024-01-26 12:21 | HP.PCM.OB_ITS ---
History and Physical Date of Admission: 01/28/24 Expand All Collapse All Pre-Op History and Physical HPI: The patient is a 38 year old female presenting for pre-operative visit. She is scheduled for TLH, Bilateral , Cysto, for Pelvic pain, AUB, dysmenorrhea, adenomyosis on 01/28/24. Pt has failed medical mgmt with Mirena IUD and PO progesterone therapy. Pt can't can't combined hormonal therapy due to smoking history and is not good ablation candidate due to suspected adenomyosis. Procedure discussed along with risks, benefits and complications. Other alternatives discussed for management. Consent form signed? Yes. PAST MEDICAL HISTORY PAST MEDICAL HISTORY Diagnosis Date ? IUD (intrauterine device) in place 11/19/2023 ? PMH - PAST MEDICAL HISTORY OF 03/01/2001 ovarian cysts PAST SURGICAL HISTORY PAST SURGICAL HISTORY Procedure Laterality Date ? APPENDECTOMY 1994 ? COLONOSCOPY FLX DX W/COLLJ SPEC WHEN PFRMD 10/28/2022 repeat in 10 years ? EGD W/O [facility] SPEC VARICIES INJ 10/28/2022 ? L'SCOPE DX W/WO BRUSHINGS/WASHINGS 10/01/2022 was scheduled to be ovarian cystectomy, but ovarian cyst had resolved ? LAPAROSCOPY SALPINGOSTOMY 04/01/2017 Laparoscopic bilateral salpingectomy ? OVARIAN CYSTECTOMY CURRENT MEDICATIONS Current Outpatient Medications Medication Sig Dispense Refill ? levonorgestrel (MIRENA) 21 mcg/24 hours (8 yrs) 52 mg IUD 1 Each by INTRAUTERINE route as directed. 1 Each 0 ? omeprazole (PRILOSEC) 40 mg capsule Take 1 capsule by mouth once daily. (Patient taking differently: Take 20 mg by mouth once daily.) 30 capsule 2 ? ibuprofen (MOTRIN) 600 mg tablet Take 1 tablet by mouth every 6 hours as needed for Pain. 30 tablet 1 No current facility-administered medications for this visit. ALLERGIES: Amoxicillin and Zithromax [Azithromycin] PERSONAL HISTORY: SOCIAL HISTORY Social History Tobacco Use ? Smoking status: Every Day Current packs/day: 1.00 Types: Cigarettes ? Smokeless tobacco: Never Vaping Use ? Vaping status: Never Used Substance Use Topics ? Alcohol use: No ? Drug use: No FAMILY HISTORY: FAMILY HISTORY FAMILY HISTORY Problem Relation Age of Onset ? Hypertension Mother ? Thyroid Mother ? other (Endometrosis) Mother Hysterectomy in later 30's ? Hypertension Maternal Grandmother ? Prostate Cancer Maternal Grandfather ? Breast Cancer Paternal Grandmother ? Breast Cancer Paternal Aunt ? Thyroid Sister REVIEW OF SYMPTOMS: negative except as noted above PHYSICAL EXAMINATION: VITALS: Blood pressure 122/80, pulse 80, height 165.1 cm (5' 5), weight 83 kg (183 lb), last menstrual period 01/21/2023, SpO2 92%. GENERAL: The patient is well nourished, well hydrated in no acute distress. , The patient is oriented to time, place, and person. NECK: full range of motion LUNGS: Clear to auscultation bilaterally. no wheezes, rhonchi or rales HEART: Regular rate and rhythm, Normal heart sounds, and No murmurs or gallops IMPRESSION: 38 yo with AUB, dysmenorrhea, pelvic pain, Adenomyosis PLAN: TLH, Cystoscopy Pt has been counseled on risks/benefits and alternatives of surgery including but not limited to anesthesia, bleeding, infection, injury to pelvic structures including bowel, bladder, ureters and vessels. Pt wishes to proceed with surgery at this time. Pre and post op instructions reviewed - advised not to smoke day of surgery. I have reviewed and updated past medical and surgical history, medications and allergies
[2024-01-28] VITALS (19 sets, daily range): BP systolic 82–113; BP diastolic 52–71; PULSE 52–81; RESP 16–18; TEMP 36.6–36.8; O2SAT 79–100; BMI 30.2
[2024-01-28 06:01] LABS: Internal QC Validated? YES +Cl - CLEAR BKGD; Pregnancy, Urine Negative Negative
[2024-01-28] MEDS: Gabapentin 600 MG Tablet PO (06:13)
[2024-01-28] MEDS: Acetaminophen 500 MG Tablet 1000 MG PO (06:13)
[2024-01-28] MEDS: Phenazopyridine 95 MG Tablet 190 MG PO (06:13)
[2024-01-28] MEDS: Scopolamine 1mg/72hr Patch 1 PATCH TD (06:14)
[2024-01-28] MEDS: Celecoxib 200 MG Capsule 400 MG PO (06:14)
[2024-01-28] MEDS: Enoxaparin 40 MG/0.4 ML Syringe SC (06:15)
[2024-01-28] MEDS: Lactated Ringers 1,000 ML 40 ML IV (06:16)
[2024-01-28] MEDS: Magnesium 1 GM over 15 mins IV (06:16)
--- NOTE | 2024-01-28 06:42 | PRE.ANES_ITS ---
ASA Classification* ASA Classification ASA Classification: 2 Assessment & Plan Anesthesia* Anesthesia Assessment Anesthesia Assessment: Discussed sedation and/or anesthesia options, risks, benefits, and alternatives with patient/parents/legal guardian/POA. Questions invited. The patient/parents/legal guardian/POA seems to understand and agrees to proceed with anesthesia plan. Reviewed the physical assessment, medical history, allergy history and patient home medications list prior to surgery/procedure/anesthetic and documented any changes. Performed airway and anesthesia risk assessments. Anesthesia Type Anesthesia Type: General Anesthesia Focused Assessment* Temperature: 98 F Pulse Rate: 81 Blood Pressure: 113/71 Respiratory Rate: 16 Pulse Ox: 96 Airway Assessment Mouth opens: >3 cm Mallampati Score: II Focused Labs Anesthesia Preop lab: CBC WBC 8.1 K/mm3 (4.4-11.0) 01/22/24 08:11 RBC 5.11 M/mm3 (4.2-5.4) 01/22/24 08:11 Hgb 14.9 g/dL (12.0-15.0) 01/22/24 08:11 Hct 44.7 % (37-47) 01/22/24 08:11 Plt Count 299 K/mm3 (150-450) 01/22/24 08:11 CHEMISTRY Potassium 4.4 mmol/L (3.5-5.1) 11/18/23 10:46 Sodium 140 mmol/L (136-145) 11/18/23 10:46 Magnesium 2.1 mg/dL (1.6-2.6) 01/22/24 08:08 BUN 9 mg/dL (7-18) 11/18/23 10:46 Creatinine 0.89 mg/dL (0.55-1.02) 11/18/23 10:46 Glucose 83 mg/dL (74-106) 11/18/23 10:46 TSH 2.63 uIU/mL (0.358-3.74) 09/17/21 09:13 COAG Urine Test Negative Negative 01/28/24 05:40 Pre-Assessment Diagnosis/Proposed Procedure Planned Operative Procedure(s): ERAS, Hysterectomy,TLH, possible bilateral oophorectomy, cytoscopy Anesthesia History Anesthesia History - regulatory compliance coordinator: Anesthesia History - regulatory compliance coordinator Hx Hospitalization No 01/13/24 11:00 Any Problems With Anesthesia No 01/13/24 11:00 Cholinesterase deficiency No 01/13/24 11:00 You/Your Family Experience No 01/13/24 11:00 fever (hyperthermia) with Relationship Recent Exposure to Contagious No 01/28/24 06:08 Disease Does patient have nerve No 01/13/24 11:00 stimulator Patient instructed to have device shut off --Does patient have Pacemaker No 01/28/24 06:08 or ICD? When Was Last Pacemaker Check QUESTION #4 FULL TEXT: You/Your Family Experience fever (hyperthermia) with Anesthesia Last Oral Intake Last Oral intake: Last Oral Intake NPO since 04:00 01/28/24 06:08 Meds taken in AM with sips of Yes 01/28/24 06:08 water? Meds patient instructed to see mar 01/28/24 06:08 take am of surgery PONV PONV - regulatory compliance coordinator: PONV - regulatory compliance coordinator Female Yes 01/13/24 11:00 HX of Motion Sickness No 01/13/24 11:00 HX of N/V After Surgery No 01/13/24 11:00 Non-Smoker Yes 01/13/24 11:00 Duration of Surgery greater Yes 01/13/24 11:00 than 60 minutes Number of Risk Factors 3 01/13/24 11:00 PONV Score Moderate Risk 01/13/24 11:00 Height & Weight Height & Weight: Anesthesia: Height & Weight Height 5 ft 6 in 01/28/24 06:08 Weight: 84.822 kg 01/28/24 06:08 Body Mass Index (BMI) 30.2 01/28/24 06:08 Respiratory Assessment Respiratory Assessment - regulatory compliance coordinator: Respiratory Tract Infection Hx - regulatory compliance coordinator Hx Respiratory Tract Infection No 01/13/24 11:00 STOP Sleep Apnea STOP Sleep Apnea - regulatory compliance coordinator: STOP Sleep Apnea - regulatory compliance coordinator Hx Hypertension No 01/13/24 11:00 Hx Sleep Apnea No 01/13/24 11:00 CPAP No 01/13/24 11:00 BIPAP Do you snore loudly (louder No 01/13/24 11:00 than talking or can be heard Do you often feel tired/ No 01/13/24 11:00 fatigued/ sleepy during daytime? Has anyone observed you stop No 01/13/24 11:00 breathing during sleep? STOP Results Negative 01/13/24 11:00 QUESTION #5 FULL TEXT : Do you snore loudly (louder than talking or can be heard through closed doors)? Tobacco Use History Tobacco Use History - regulatory compliance coordinator: Tobacco Use History - regulatory compliance coordinator Tobacco Use Smoking Status Current every day smoker 01/13/24 11:00 Hx Tobacco Use Yes 01/13/24 11:00 Years Smoking Packs Smoked per Day Smoking Cessation Date was within the last 15 years Hx Smoking Cessation Date Hx Smoking Cessation Counseling Hematologic Medial History Hematologic Hx - regulatory compliance coordinator: Hematologic Medical Hx - [employer] Hx of Blood Transfusion No 01/13/24 11:00 Hx of Transfusion in last 3 No 01/13/24 11:00 Months Date of Last Transfusion (if within last 3 months) Ever experience any problems No 01/13/24 11:00 with transfusion(s)? Specify any problems Hx of Preganancy in last 3 No 01/13/24 11:00 Months Nurse Filling Out Transfusion VCHRISTIN 01/13/24 11:00 & Questions: Date: 01/13/24 01/13/24 11:00 Time: 11:01 01/13/24 11:00 Patient unable to answer at this time (ie. confused, unrespo /Reproduction History /Reproductive History - regulatory compliance coordinator: /Reproductive Hx- regulatory compliance coordinator Hx Now No 01/13/24 11:00 Gestational Age (in weeks): EDC: Hx Hx Para Hx Section SAB No 01/13/24 11:00 Active Medications Active Medications: Current Medications Generic Name Dose Route Start Last Admin Trade Name Jean-Pierre PRN Reason Stop Dose Admin Acetaminophen 1,000 mg 01/28/24 07:30 01/28/24 06:13 Acetaminophen 500 Mg Tablet PO 01/28/24 07:31 1,000 mg PREOP ONE Administration Celecoxib 400 mg 01/28/24 07:30 01/28/24 06:14 Celecoxib 200 Mg Capsule PO 01/28/24 07:31 400 mg X1 ONE Administration Dexamethasone Sodium Phosphate 8 mg 01/28/24 07:30 Dexamethasone 4 Mg/Ml Vial IV 01/28/24 07:31 X1 ONE Enoxaparin Sodium 40 mg 01/28/24 07:30 01/28/24 06:15 Enoxaparin 40 Mg/0.4 Ml Syringe SC 01/28/24 07:31 40 mg X1 ONE Administration Gabapentin 600 mg 01/28/24 07:30 01/28/24 06:13 Gabapentin 600 Mg Tablet PO 01/28/24 07:31 600 mg PREOP ONE Administration Lactated Ringer's 1,000 mls @ 40 mls/hr 01/28/24 07:30 01/28/24 06:16 IV 40 mls/hr .Q25H RUBI Administration Lactated Ringer's 1,000 mls @ 70 mls/hr 01/28/24 08:30 IV .[id number] RUBI Cefazolin Sodium 2 gm/ N/A 20 mls @ 400 mls/hr 01/28/24 07:30 IV 01/28/24 07:32 PREOP ONE Magnesium Sulfate 1 gm/ 102 mls @ 408 mls/hr 01/28/24 07:30 01/28/24 06:16 Dextrose IV 01/28/24 07:44 408 mls/hr X1 ONE Administration Insulin Human Lispro 0 unit 01/28/24 07:30 Insulin Lispro 100 Unit/Ml Insuln.Pen SC 01/28/24 13:30 Q4H PRN PRN BG >/= 180, SEE PROTOCOL Protocol Ondansetron HCl 4 mg 01/28/24 08:00 Ondansetron 4 Mg/2 Ml Vial IV 01/28/24 08:01 X1 ONE Phenazopyridine HCl 190 mg 01/28/24 07:30 01/28/24 06:13 Phenazopyridine 95 Mg Tablet PO 01/28/24 07:31 190 mg X1 ONE Administration Scopolamine HBr 1 patch 01/28/24 07:30 01/28/24 06:14 Scopolamine 1mg/72hr Patch TD 01/28/24 07:31 1 patch X1 ONE Administration PFSH Medical History Abrasion Migraine headache Gastric reflux Smoker Home Medications ?Medication ?Instructions ?Recorded ?Last Taken ?Type ibuprofen 800 mg tablet 800 mg PO Q8H PRN PRN migraine 01/13/24 Unknown History levonorgestrel (Mirena) 1 device intrauterine .Q8YRS 01/13/24 Unknown History multivitamin (Daily Multi-Vitamin 1 tab PO DAILY 01/13/24 Unknown History tablet) omeprazole 20 mg capsule,delayed 20 mg PO DAILY 01/13/24 01/28/24 History release Allergy/AdvReac Type Severity Reaction Status Date / Time amoxicillin AdvReac Other Verified 01/28/24 05:59 azithromycin AdvReac Other Verified 01/28/24 05:59 Surgical History Hx of ovarian cystectomy History of tubal ligation History of appendectomy Social History Smoking Status: Current every day smoker tobacco type: cigarettes Review of Systems (Anesthesia) ROS Narrative System reviewed and no additional complaints, except as documented.
[2024-01-28 06:44] LABS: Bedside Glucose 130 mg/dL (74-106)
--- NOTE | 2024-01-28 07:24 | HP.PCM.OB_ITS ---
History and Physical Date of Admission: 01/28/24 History and Physical Date of Admission: 01/28/24 Expand All Collapse All Pre-Op History and Physical HPI: The patient is a 38 year old female presenting for pre-operative visit. She is scheduled for TLH, Bilateral , Cysto, for Pelvic pain, AUB, dysmenorrhea, adenomyosis on 01/28/24. Pt has failed medical mgmt with Mirena IUD and PO progesterone therapy. Pt can't can't combined hormonal therapy due to smoking history and is not good ablation candidate due to suspected adenomyosis. Procedure discussed along with risks, benefits and complications. Other alternatives discussed for management. Consent form signed? Yes. PAST MEDICAL HISTORY PAST MEDICAL HISTORY DiagnosisDate ?IUD (intrauterine device) in place11/19/2023 ?PMH - PAST MEDICAL HISTORY OF03/01/2001 ovarian cysts PAST SURGICAL HISTORY PAST SURGICAL HISTORY ProcedureLateralityDate ?APPENDECTOMY 1994 ?COLONOSCOPY FLX DX W/COLLJ SPEC WHEN PFRMD 10/28/2022 repeat in 10 years ?EGD W/O [facility] SPEC VARICIES INJ 10/28/2022 ?L'SCOPE DX W/WO BRUSHINGS/WASHINGS 10/01/2022 was scheduled to be ovarian cystectomy, but ovarian cyst had resolved ?LAPAROSCOPY SALPINGOSTOMY 04/01/2017 Laparoscopic bilateral salpingectomy ?OVARIAN CYSTECTOMY CURRENT MEDICATIONS Current Outpatient Medications MedicationSigDispenseRefill ?levonorgestrel (MIRENA) 21 mcg/24 hours (8 yrs) 52 mg IUD1 Each by INTRAUTERINE route as directed.1 Each0 ?omeprazole (PRILOSEC) 40 mg capsuleTake 1 capsule by mouth once daily. (Patient taking differently: Take 20 mg by mouth once daily.)30 capsule2 ?ibuprofen (MOTRIN) 600 mg tabletTake 1 tablet by mouth every 6 hours as needed for Pain.30 tablet1 No current facility-administered medications for this visit. ALLERGIES: Amoxicillin and Zithromax [Azithromycin] PERSONAL HISTORY: SOCIAL HISTORY Social History Tobacco Use ?Smoking status:Every Day Current packs/day:1.00 Types:Cigarettes ?Smokeless tobacco:Never Vaping Use ?Vaping status:Never Used Substance Use Topics ?Alcohol use:No ?Drug use:No FAMILY HISTORY: FAMILY HISTORY FAMILY HISTORY ProblemRelationAge of Onset ?HypertensionMother ?ThyroidMother ?other (Endometrosis)Mother Hysterectomy in later 30's ?HypertensionMaternal Grandmother ?Prostate CancerMaternal Grandfather ?Breast CancerPaternal Grandmother ?Breast CancerPaternal Aunt ?ThyroidSister REVIEW OF SYMPTOMS: negative except as noted above PHYSICAL EXAMINATION: VITALS: Blood pressure 122/80, pulse 80, height 165.1 cm (5' 5), weight 83 kg (183 lb), last menstrual period 01/21/2023, SpO2 92%. GENERAL: The patient is well nourished, well hydrated in no acute distress. , The patient is oriented to time, place, and person. NECK: full range of motion LUNGS: Clear to auscultation bilaterally. no wheezes, rhonchi or rales HEART: Regular rate and rhythm, Normal heart sounds, and No murmurs or gallops IMPRESSION: 38 yo with AUB, dysmenorrhea, pelvic pain, Adenomyosis PLAN: TLH, Cystoscopy Pt has been counseled on risks/benefits and alternatives of surgery including but not limited to anesthesia, bleeding, infection, injury to pelvic structures including bowel, bladder, ureters and vessels. Pt wishes to proceed with surgery at this time. Pre and post op instructions reviewed - advised not to smoke day of surgery. I have reviewed and updated past medical and surgical history, medications and allergies 01/26/24 1221 <Electronically signed by Pily Izquierdo MD> Cosigner Signature (if applicable): CC: Dr Pily Izquierdo MD; Dr. Oliver Wong MD~
--- NOTE | 2024-01-28 07:27 | PCM.DC ---
Discharge Instructions Diet Discharge Diet: No restrictions DC O2, CPAP, BIPAP needs Additional Home O2 Discharge instructions: No Dressing / Incision Discharge Activity: May Not Drive (while taking narcotics. may drive when pain controlled. ) and May Shower Return to work on:: 03/10/24 May shower in (days): 1 May resume sexual activity in: 6-8 weeks Weight Bearing Status: Full weight bearing Lifting Restrictions: 20 Additional Activity Instructions:: NOTHING IN THE VAGINA x 6-8 weeks. (until cleared at 6 weeks post op check) Dressing / Incision Call your doctor if your incision/area has: Continuous Slow Oozing, Sudden Increased Bleeding, Increased Pain/ Swelling, Increased Redness, Foul Smelling Discharge and Swelling at the incision site Call your doctor if you observe: Fever of 101 or Higher, Inability to have a bowel movement, Using more than 1 pad per hour and Uncontrolled pain Change Dressing in: leave in place till F/U (you have skin glue over incision sites- do not pick off) Cleanse incision/area with: Soap & Water, Keep Dressing Clean & Dry and - (you may let soap and water run over incision sites and dab dry. ) Follow Up Care Please Follow Up With: Pily Izquierdo MD When: 2 weeks as scheduled for post op visit Test Results: Test results from this visit will be discussed in further detail at your follow-up appointment, if applicable. Discharge Plan Admission Attending Provider: Pily Izquierdo Primary Care Provider: Oliver Wong Consulting Providers: Prashant Yanes Instructions Print Language: Egyptian Discharge Orders/Prescriptions Prescriptions: No Action Mirena 21 mcg/24hr (up to 8 yrs) 52 mg intrauterine device 1 device intrauterine .Q8YRS omeprazole 20 mg capsule,delayed release(DR/EC) 20 mg PO DAILY multivitamin [Daily Multi-Vitamin] Tablet 1 tab PO DAILY ibuprofen 800 mg tablet 800 mg PO Q8H PRN PRN (Reason: migraine) Referrals / Follow Up: Oliver Wong MD [Primary Care Provider] - Disposition Disposition (needs filled in before D/C Order can be placed): Home, Self Care
[2024-01-28] MEDS: Cefazolin 2 GM in Syringe IV (07:30)
--- NOTE | 2024-01-28 07:30 | HYST_PTH ---
PATIENT: SREE VERDUGO LOC: [facility] [place] U#:[id number] AGE/SX: 38/F ROOM: RE01/28/[address]: Dr. Pily Izquierdo, MDDOB: 1985 BED: DIS: 01/28/2024 SPEC #: [id number] RECD: 01/28/24 11:02 STATUS: CECILIO RAFAEL #: [id number] YANELY: 01/28/24 07:[address]: Pily Izquierdo DEPT: SURGICAL PATHOLOGY RECD BY: Krishan Sosa ENTERED: 01/28/24 11:51 SP TYPE: HYSTERECT OTHR DR: MD Dr. Oliver Henriquez MD Tissues: Uterus, NOS Procedures: Surgery Specimen Level V HEADER OPERATION: Hysterectomy, cystoscopy PRE-OP DIAGNOSIS: Pelvic pain, abnormal uterine bleeding, dysmenorrhea, adenomyosis TISSUE SUBMITTED: Uterus and cervix MICROSCOPIC DIAGNOSIS Uterus, hysterectomy: Cervix - Nabothian cysts, squamous metaplasia and mild chronic inflammation. 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 Myometrium - Superficial adenomyosis. AM. 01/31/2024 MICROSCOPIC DESCRIPTION Slides are reviewed. GROSS DESCRIPTION Received in fixative is one container labeled with the patient's name and designated uterus. The specimen consists of a uterus with attached cervix without fallopian tubes and ovaries. The uterus with cervix measures 8.2 x 5.0 x 3.3 cm and weighs 64.4 gm. The ectocervix is unremarkable. The cervical os is oval in contour. The endocervical canal measures 2.8 cm in length and is grossly unremarkable. The triangular endometrial cavity measures 3.0 x 2.8 cm. The velvety, light montoya endometrium measures up to 0.2 cm in thickness. The myometrium measures 2.0 cm in average thickness and is free of mass lesions. Physician Practice Consultant sections are submitted as follows: 1 - anterior cervix, 2 - posterior cervix, 3 & 4 - anterior uterine wall, 5 & 6 - posterior uterine wall. / AM: 01/28/2024 TC:3 CPT: 70130
[2024-01-28] MEDS: dexAMETHasone 4 MG/ML Vial 8 MG IV (07:38)
[2024-01-28] MEDS: Lactated Ringers 1,000 ML 15 ML IV (09:00)
--- NOTE | 2024-01-28 09:04 | OP.PCM_ITS ---
Operative Report (Standard) Operative Information Surgery/Procedure Performed: TLH, Cystoscopy Surgeon: Pily Izquierdo Date of Procedure: 01/28/24 Procedure Start Time: 07:51 Procedure Stop Time: :07 Pre-Operative Diagnosis: AUB, dysmenorrhea, Pelvic pain, adenomyosis Post-Operative Diagnosis: same Select all DRAINS/GRAFTS/IMPLANTS that apply: None Type of Anesthesia: General and Local Estimated Blood Loss: 25 Fluids Replaced: 1400 Specimen collected: Yes Description of specimen(s) removed: uterus, cervix Description of surgery: Patient take to OR and prepped and draped in usual sterile fashion in dorsal li thotomy position with her arms tucked in a neurologically safe and neutral position. IUD strings noted- removed prior to manipulator placement. The uterus sounded to 7.5 cm. The yard associate 3.0cm uterine manipulator was sutured into place at 3/9:00 position and leon were placed. Attention was turned to the abdomen. All port sites were infiltrated with 0.5% marcaine before the incisions were made. The anterior abdominal wall was tented up with towel clamps and using a direct entry approach a 5 mm infraumbilical port was placed. Intraperitoneal placement was confirmed with the laparoscope and the pneumoperitoneum was created. The patient was placed in Trendelenburg and 5 mm right and left lower quadrant ports were placed under direct visualization. Air seal rapid insufflator was used. The bowel was swept away. Ovaries appeared normal. The round ligaments were divided. The anterior peritoneum was dissected down to create the bladder flap with blunt dissection and the LigaSure. The uterine arteries were isolated, clamped, sealed and cut. There was minimal back bleeding from the uterus. Straight bites on uterine arteries performed to drop them off the cuff. The manipulator was used as guide to create colpotomy using monopolar tip of ligasure. once specimen was removed attention was turned to vaginal portion. The specimen was handed off. the posterior peritoneum was run to cuff with 2-0 vicryl for hemostasis. The cuff was closed with interrupted 0-vicryl figure of 8 sutures. Cystoscopy was performed bilateral ureters were visualized with good efflux. bladder was intact. leon replaced and sponge stick placed in vagina. The pneumoperitoneum was recreated and the cuff and pedicles were hemostatic. Hemoblast was placed over cuff and pedicles. The skin incisions were closed with skin glue and 3-0 monocryl in the LLQ port site. The vaginal sweep was completed by me. Grafts/Implants Used: none Surgical Findings: normal ovaries. IUD - mirena intact- it was removed before manipulator placed. Foundry Operator gutter mouth cutter: Yes Logistics Engineering Manager: Vandana Infante Tasks completed by pediatric assistant: Opening & closing, Removing tissue, Insert Trochanter and Retracting Additional administrative assistant coordinator?: No Complications Complications: No Admit VTE Documentation VTE Present on Admission: Yes VTE Mechan Device Prophylaxis: SCD's VTE Pharm Prophylaxis ordered?: Yes
[2024-01-28] MEDS: Bupivacaine Mpf 0.5% 30 ML VIAL (09:06)
--- NOTE | 2024-01-28 09:24 | PCM.POST.ANE ---
Anesthesia: Postop Eval I Current Vital Signs Temperature: 98.2 F Pulse Rate: 67 Blood Pressure: 82/52 Respiratory Rate: 18 Pulse Ox: 93 Assessment Airway patent: Yes Spontaneous unlabored respirations: Yes nausea: No Vomiting: No Anesthesia Complication: No Fluid Hydration Crystalloid volume administer (ml): 1,400 Total IV fluid infused: 1,400 Progress Note Anesthesia document: Postop Eval 1 completed: Yes
[2024-01-28] MEDS: Lactated Ringers 1,000 ML 70 ML IV (10:54)
--- NOTE | 2024-01-28 11:05 | POSTOPAN2_ITS ---
Anesthesia Postop Eval I Sum Postop Eval Completion status Anesthesia document: Postop Eval 1 completed: Yes Anesthesia Postop Eval I Summary Anesthesia Postop Eval I Summary: Anesthesia Postop Eval I: Assessment Summary Airway patent Yes 01/28/24 09:24 MAINTENANCE [email or web address] Spontaneous unlabored Yes 01/28/24 09:24 MAINTENANCE CONTROLLER.CSIR respirations Mental status nausea No 01/28/24 09:24 MAINTENANCE CONTROLLER.CSIR Vomiting No 01/28/24 09:24 MAINTENANCE CONTROLLER.CSIR Anesthesia Postop Eval I: Fluid Summary Crystalloid volume administer 1,400 01/28/24 09:24 MAINTENANCE CONTROLLER.CSIR (ml) Colloids volume administered ( ml) Blood Product volume administered (ml) Total IV fluid infused 1,400 01/28/24 09:24 MAINTENANCE CONTROLLER.CSIR Anesthesia Postop Eval I: Summary Notes Anesthesia Complication No 01/28/24 09:24 MAINTENANCE CONTROLLER.CSIR Anesthesia Complication Comment: Post-operative progress note Anesthesia: Postop Eval II Evaluation Mental status: Awake Pain Level: 0 nausea: No Vomiting: No
--- NOTE | 2024-01-28 11:05 | PCM.POSTANE2 ---
Anesthesia Postop Eval I Sum Postop Eval Completion status Anesthesia document: Postop Eval 1 completed: Yes Anesthesia Postop Eval I Summary Anesthesia Postop Eval I Summary: Anesthesia Postop Eval I: Assessment Summary Airway patent Yes 01/28/24 09:24 SLURRY [email or web address] Spontaneous unlabored Yes 01/28/24 09:24 SLURRY BLENDER.CSIR respirations Mental status nausea No 01/28/24 09:24 SLURRY BLENDER.CSIR Vomiting No 01/28/24 09:24 SLURRY BLENDER.CSIR Anesthesia Postop Eval I: Fluid Summary Crystalloid volume administer 1,400 01/28/24 09:24 SLURRY BLENDER.CSIR (ml) Colloids volume administered ( ml) Blood Product volume administered (ml) Total IV fluid infused 1,400 01/28/24 09:24 SLURRY BLENDER.CSIR Anesthesia Postop Eval I: Summary Notes Anesthesia Complication No 01/28/24 09:24 SLURRY BLENDER.CSIR Anesthesia Complication Comment: Post-operative progress note Anesthesia: Postop Eval II Evaluation Mental status: Awake Pain Level: 0 nausea: No Vomiting: No
== END 2024-01-28 12:28 | disposition home or self-care (01) ==
LOC: SDC 05:27 → AC 05:27
PROVIDERS: Anesthesiology; PCP Family Medicine; Referring Provider Family Medicine; Visit Provider Obstetrics & Gynecology
PROC: 0UT94ZZ Resection of Uterus, Percutaneous Endoscopic Approach (ICD-10-PCS; CPT 58570; principal; 2024-01-28 07:10)
DX: N85.01 Benign endometrial hyperplasia (principal); N93.9 Abnormal uterine and vaginal bleeding, unspecified; N94.6 Dysmenorrhea, unspecified; F17.210 Nicotine dependence, cigarettes, uncomplicated; Z79.899 Other long term (current) drug therapy; N72 Inflammatory disease of cervix uteri; K21.9 Gastro-esophageal reflux disease without esophagitis
CPT/HCPCS: 58570; 00840; 36415; 81025; 82962; 83735; 85027; 86850; 86900; 86901; 88307; J2405; J3475

== ENCOUNTER → 2024-05-17 | Outpatient (CLI) | payer OTHER, SELFPAY ==
[2024-05-17 10:21] LABS: Absolute Lymphocyte Count 2.35 X10^3/uL (0.83-4.51); Absolute Neutrophil Count 4.3 X10^3/uL (2.0-7.7); Basophil# 0.05 X10^3/uL; Basophil% 0.7 % (0-1); Eosinophil# 0.17 X10^3/uL; Eosinophils% 2.3 % (0-5); Hematocrit 44.4 % (37-47); Hemoglobin 14.6 g/dL (12.0-15.0); Lymphocyte # 2.35 X10^3/ul (0.83-4.51); Lymphocyte % 31.8 % (19-41); Mean Corp Hgb Conc 32.9 g/dL (32-36); Mean Corpuscular Volume 88.3 fL (81-99); Mean Platelet Vol. 10.5 fl (6.2-12.0); Monocyte# 0.52 X10^3/uL; NRBC Flagged by Analyzer 0 % (0-5); Neutrophil # 4.26 X10^3/uL (2.7-7.7); Neutrophil % 57.7 % (47-70); Platelet Count 286 K/mm3 (150-450); RBC Distribution Width CV 13.5 % (11.6-14.6); Red Blood Count 5.03 M/mm3 (4.2-5.4); White Blood Count 7.4 K/mm3 (4.4-11.0)
[2024-05-17 10:56] LABS: Anion Gap 11 (5-15); BUN 10 mg/dL (4-19); BUN/Creat Ratio 12.1 RATIO (10-20); Calcium,Total 9.9 mg/dL (7.6-11.0); Carbon Dioxide 25.1 mmol/L (21.0-32.0); Chloride 102 mmol/L (98-108); Creatinine, Serum 0.81 mg/dL (0.70-1.20); EST Glomerular Filtration Rate 94 (>60); Glucose 72 mg/dL (70-99); Potassium 4.4 mmol/L (3.3-5.1); Sodium Level 137 mmol/L (133-145)
== END | disposition home or self-care (01) ==
LOC: MFPLAB 09:26
PROVIDERS: PCP Family Medicine; Referring Provider Family Medicine; Visit Provider Family Medicine
DX: R00.0 Tachycardia, unspecified (principal)
CPT/HCPCS: 36415; 80048; 84443; 85025

== ENCOUNTER → 2024-07-26 | Outpatient (CLI) | payer OTHER, SELFPAY ==
[2024-07-26 11:02] LABS: Absolute Lymphocyte Count 2.49 X10^3/uL (0.83-4.51); Absolute Neutrophil Count 5.6 X10^3/uL (2.0-7.7); Basophil# 0.05 X10^3/uL; Basophil% 0.6 % (0-1); Eosinophil# 0.17 X10^3/uL; Eosinophils% 1.9 % (0-5); Hematocrit 45.2 % (37-47); Hemoglobin 14.8 g/dL (12.0-15.0); Lymphocyte # 2.49 X10^3/ul (0.83-4.51); Lymphocyte % 28.1 % (19-41); Mean Corp Hgb Conc 32.7 g/dL (32-36); Mean Corpuscular Volume 88.6 fL (81-99); Mean Platelet Vol. 10.5 fl (6.2-12.0); Monocyte# 0.53 X10^3/uL; NRBC Flagged by Analyzer 0 % (0-5); Neutrophil # 5.58 X10^3/uL (2.7-7.7); Neutrophil % 62.9 % (47-70); Platelet Count 291 K/mm3 (150-450); RBC Distribution Width CV 13.3 % (11.6-14.6); RBC Distribution Width SD 43.6 fl (35.1-43.9); White Blood Count 8.9 K/mm3 (4.4-11.0)
[2024-07-26 12:34] LABS: Anion Gap 11 (5-15); BUN 13 mg/dL (4-19); BUN/Creat Ratio 14.8 RATIO (10-20); Calcium,Total 9.8 mg/dL (7.6-11.0); Carbon Dioxide 24.7 mmol/L (21.0-32.0); Chloride 101 mmol/L (98-108); Creatinine, Serum 0.89 mg/dL (0.70-1.20); EST Glomerular Filtration Rate 84 (>60); Glucose 79 mg/dL (70-99); Magnesium 2.2 mg/dL (1.5-2.2); Potassium 4.4 mmol/L (3.3-5.1); Sodium Level 137 mmol/L (133-145)
== END | disposition home or self-care (01) ==
PROVIDERS: PCP Family Medicine; Referring Provider Internal Medicine Cardiovascular Disease; Visit Provider Internal Medicine Cardiovascular Disease
DX: I49.3 Ventricular premature depolarization (principal); R07.89 Other chest pain; R00.0 Tachycardia, unspecified
CPT/HCPCS: 36415; 80048; 83735; 84443; 85025

== ENCOUNTER → 2024-08-23 | Outpatient (CLI) | payer OTHER, SELFPAY ==
--- OUTSIDE RECORDS SUMMARY | 2024-08-23 06:05 | XMS RPT_ITS | CCD ---
Author Organization [facility] Care Team Providers Care Welcome Hostess Name Role Phone Edenilson Espino Primary Care Provider Unavailalice Rodriguez MD, Bernard A Primary Care Provider [phone] Michael SALAZAR, Bernard A Primary Care Provider Marvin SALAZAR, Dr. Boyd Primary Care Provider Dr. Oliver Wong MD Referring Provider Felecia SALAZAR, Dr. Nascimento Attending Formerly [facility] er Farzana SALAZAR, Dr. Cerda Other Provider Dr. Oliver Wong MD Attending Provider USAMA MODI DO Attending Unavailable LOUIS SALAZAR, DR BERNARD Primary Care Unavailalice RODRIGUEZ MD, BERNARD A Primary Care Unavailable MARCO ANTONIO KHALIL DO Attending Unavailable RODRIGUEZ, BERNARD A Primary Care Unavailable PILY GALLARDO Attending Unavail able RODRIGUEZ, BERNARD A Primary Care Unavailable PILY GALLARDO Attending Unavail able RODRIGUEZ, BERNARD A Primary Care Unavailable PILY GALLARDO Attending Unavail able RODRIGUEZ, BERNARD A Primary Care Unavailable PILY GALLARDO Attending Unavail able JANIE HOPKINS Attending Unavailable RODRIGUEZ, BERNARD A Primary Care Unavailable YISSEL MELTON Referring Unavailable RODRIGUEZ, BERNARD A Primary Care Unavailable PILY GALLARDO Attending Unavail able SELF Referring Unavailable RODRIGUEZ, BERNARD A Primary Care Unavailable PILY GALLARDO Referring Unavail able RODRIGUEZ, BERNARD A Primary Care Unavailable RODRIGUEZ, BERNARD A Primary Care Unavailable PILY GALLARDO Attending Unavail able Marvin SALAZAR, Dr. Boyd Primary Care Provider Dr. Oliver Wong MD Referring Provider [phone] Tylor SALAZAR, Dr. Tsai Attending Provider Tylor SALAZAR, Dr. Tsai Referring Provider Marvin, Oliver Referring Unavailable Wong, Oliver Primary Care Unavailable Tylor, Quin Attending Unavailable Wong, Oliver Referring Unavailable Pily Izquierdo Attending Unavail able [employer]ash[employer] Unavailable Wong, Oliver Primary Care Unavailable Wong, Oliver Referring Unavailable Wong, Oliver Primary Care Unavailable Wong, Oliver Attending Unavailable Wong, Oliver Primary Care Unavailable Tylor, Quin Attending Unavailable Tylor, Quin Referring Unavailable Wong, Oliver Attending Unavailable Wong, Oliver Primary Care Unavailable Wong, Oliver Primary Care Unavailable Tylor, Quin Attending Unavailable Tylor, Quin Referring Unavailable Allergies Allergy Classification Reported Allergen(s) Allergy Type Date of Onset Reaction(s) Facility (20 sources) Amoxicillin; Translations: [AMOXICILLIN] Drug Allergy [address] [facility] Work Phone: Comment on above: SHARP PAIN TO ABD (20 sources) Azithromycin; Translations: [AZITHROMYCIN] Drug Allergy 9 GI Upset, Hives [facility] Work Phone: Comment on above: ABDOMINAL PAIN (1 source) Amoxicillin Drug Allergy 5 [facility] Rep[facility] (1 source) Azithromycin Drug Allergy 5 [facility] Medications Current Medications Medication Drug Class(es) Dates Sig (Normalized) Sig (Original) Norethindrone-E.Es tradiol-Iron (2 sources) Estrogen Start: 04-27-2017 Norethindrone-E.E stradiol-Iron (Junel Fe 24 Tablet) 1 EACH tablet Active 1 EACH PO DAILY April 27, 2017 1:00am ibuprofen 800 mg oral tablet (20 sources) Nonsteroidal Anti-inflammatory Drug Start: 01-13-2024 take 1 tablet by mouth every eight hours as needed Ibuprofen 800 mg tablet Active 800 mg PO EVERY 8 HOURS NEEDED as needed for migraine January 13, 2024 1:00am Start: 05-14-2017 take 1 tablet by peri th every six hours as needed ibuprofen (MOTRIN) 600 mg tablet Take 1 tablet by mouth every 6 hours as needed for Pain. 30 tablet 1 05/14/2017 Active Comment on above: Take 1 tablet by [facility] every 6 hours as needed for Pain. Magnesium Citrate,Mag Oxide 250 mg capsule (2 sources) Start: 5 Magnesium Citrate,Mag Oxide 250 mg capsule Active 150 mg PO DAILY July 26, 2024 12:00am multivit,thx,calcium, iron,mins (MULTIVITAMIN AND MINERAL ORAL) (11 sources) multivit,thx,maria cium ,iron,mins (MULTIVITAMIN AND MINERAL ORAL) Take by mouth. Active Multivitamin (Daily Multi-Vitamin) tablet (3 sources) Start: 4 Multivitamin (Daily Multi-Vitamin) tablet Active 1 {tbl} PO DAILY January 13, 2024 1:00am [place] 9-Mti-Yjy-Fish Oil 200-300-1,000 mg capsule (2 sources) Start: 5 take 200-300 capsules by mouth once daily [place] 5-Ytq-Auo-Fish Oil 200-300-1,000 mg capsule Active 1 NMA PO DAILY July 26, 2024 12:00am omeprazole 20 mg delayed release oral capsule (20 sources) Proton Pump Inhibitor Start: 4 take 1 capsule by mouth once daily Omeprazole 20 mg capsule,delayed release(DR/EC) Active 20 mg PO DAILY January 13, 2024 1:00am Start: 11-05-2022 take 1 capsule by [facility] once daily omeprazole (PRILOSEC) 40 mg capsule Take 1 capsule by mouth once daily. 30 capsule 2 11/05/2022 Active Comment on above: Take 1 capsule by [facility] once daily. Potassium (2 sources) Start: 07-26-2024 take 1 tablet by mouth once daily potassium tablet Active 200 mg PO DAILY July 26, 2024 12:00am Completed/Discontinued Medications Medication Drug Class(es) Dates Sig (Normalized) Sig (Original) acetaminophen 325 mg / oxyCODONE hydrochloride 5 mg oral tablet (2 sources) Opioid Agonist Start: 10-02-2022 End: 10-05-2022 take 1 tablet by mouth once daily as needed for pain oxyCODONE-acetamino phen (PERCOCET) 5-325 mg tablet Indications: Postoperative pain Take 1 tablet by mouth once daily as needed for pain for up to 3 days. 3 tablet 0 10/02/2022 10/05/2022 Comment on above: Take 1 tablet by peri th once daily as needed for pain for up to 3 days. drospirenone 4 mg oral tablet (5 sources) Progestin Start: 09-24-2022 End: 01-13-2024 take 1 tablet by mouth once daily Drospirenone (Contraceptive) (Drospirenone (Contraceptive) 4 Mg (28) Tablet) 4 mg (28) tablet Discontinued 1 {tbl} PO DAILY September 24, 2022 12:00am January 13, 2024 11:55am drospirenone, contraceptive, (SLYND) 4 mg (28) tabet (5 sources) Start: 08-19-2022 take 1 tablet by mouth once daily drospirenone, contraceptive, (SLYND) 4 mg (28) tabet Take 1 tablet by mouth once daily. Take pills continuously 84 tablet 3 08/19/2022 Active Comment on above: Take 1 tablet by peri once daily. Take pills continuously enteric contrast (will be provided with radiology test) (1 source) Start: 11-05-2022 End: 11-06-2022 enteric contrast (will be provided with radiology test) For CT CHESTABD/PEL W IVCON Routine order Administer, As Directed One Time Only, via Oral, Rectal, both Oral and Rectal, Enteric Tube, Stoma or Indwelling Catheter, Enteric Contrast as designated per enteric contrast guidelines 1 Each 0 11/05/2022 11/06/2022 Comment on above: For CT CHESTABD/PEL W IVCON Routine order Administer, As Directed One Time Only, via Oral, Rectal, both Oral and Rectal, Enteric Tube, Stoma or Indwelling Catheter, Enteric Contrast as designated per enteric contrast guidelines famotidine 20 mg oral tablet (5 sources) Histamine-2 Receptor Antagonist Start: 09-24-2022 End: 01-13-2024 take 1 tablet by mouth once daily Famotidine (Acid-Pep) 20 mg tablet Discontinued 20 mg PO DAILY September 24, 2022 12:00am January 13, 2024 11:55am famotidine (PEPCID) 0.25 mg/mL syrg (8 sources) Start: 12-30-2020 End: 11-05-2022 famotidine (PEPCID) 0.25 mg/mL syrg Start: 12-30-2020 famotidine (PE PCID) 0.25 mg/mL syrg iv contrast (will be provide d with radiology test) (2 sources) Start: 11-05-2022 End: 11-06-2022 iv contrast (will be provide d with radiology test) CT Chest ABD/PEL-Inject, intravenously, once for 1 dose.No IV access, insert saline lock prior to the beginning of sedation, infusion, injection of imaging exam. Discontinue saline lock post exam. If Pt. has a central line or IVAD, may access for administration according to line specific nursing protocol. Once exam is complete flush line and de-access according to line specific nursing protocol in the CT contrast administration guidelines link. 1 Each 0 11/05/2022 11/06/2022 Start: 07-24-2022 End: 07-25-2022 iv contrast (will be provide d with radiology test) MRI Pelvis Inject, intravenously, once for 1 dose. No IV access, insert saline lock prior to the beginning of sedation, infusion, injection of imaging exam. Discontinue saline lock post exam. If Pt has a central line or IVAD, may access for administration according to line specific nursing protocol. Once exam is complete flush line and de-access according to line specific nursing protocol in the MR contrast administration guidelines link. 1 Each 0 07/24/2022 07/25/2022 Comment on above: MRI Pelvis Inject, i ntravenously, once for 1 dose. No IV access, insert saline lock prior to the beginning of sedation, infusion, injection of imaging exam. Discontinue saline lock post exam. If Pt has a central line or IVAD, may access for administration according to line specific nursing protocol. Once exam is complete flush line and de-access according to line specific nursing protocol in the MR contrast administration guidelines link. CT Chest ABD/PEL-Inj ect, intravenously, once for 1 dose.No IV access, insert saline lock prior to the beginning of sedation, infusion, injection of imaging exam. Discontinue saline lock post exam. If Pt. has a central line or IVAD, may access for administration according to line specific nursing protocol. Once exam is complete flush line and de-access according to line specific nursing protocol in the CT contrast administration guidelines link. levonorgestrel 0.880491 mg/hr intrauterine system (20 sources) Progestin, Progestin-containing Intrauterine Device Start: 01-13-2024 End: 07-26-2024 Levonorgestrel (Mirena) 21 mcg/24hr (up to 8 yrs) 52 mg intrauterine device Discontinued 1 NMA INTRA-UTER .Q8YRS January 13, 2024 1:00am July 26, 2024 8:57am Start: 02-03-2023 End: 02-03-2023 levonorgestrel 21 mcg/24 isaias rs (8 yrs) 52 mg 1 Each intrauterine device (MIRENA) Start: 02-03-2023 End: 02-01-2031 levonorgestrel (MIRENA) 21 m cg/24 hours (8 yrs) 52 mg IUD 1 Each by INTRAUTERINE route as directed. 1 Each 02/03/2023 07/12/2024 Discontinued Comment on above: 1 Each by INTRAUTERI NE route as directed. norethindrone acetate 5 mg oral tablet (20 sources) Start: 09-17-19 End: 11-23-19 take 1 tablet by mouth once daily, then take 1 tablet by mouth three times daily, then take 1 tablet by mouth twice daily, then take 1 tablet by mouth once daily norethindrone (AYGESTIN) 5 mg tablet Take 1 tablet by mouth once daily. Take 1 tab TID until bleeding stops then take 1 tab BID x 3 days then take 1 tab daily (continue other rx for aygestin for daily use). 30 tablet 10/20/2022 11/23/2023 Discontinued Comment on above: Take 1 tablet by peri th once daily. Take 1 tablet by peri th once daily. Take 1 tab TID until bleeding stops then take 1 tab BID x 3 days then take 1 tab daily (continue other rx for aygestin for daily use). polyethylene glycol 3350 897202 mg / potassium chloride 2980 mg / sodium bicarbonate 6720 mg / sodium chloride 5840 mg / sodium sulfate 33434 mg powder for oral solution (1 source) Osmotic Laxative Start: 10-21-19 End: 10-21-19 peg 3350-electrolytes (COLYTE) 240-22.72-6.72 -5.84 gram solution Take 4,000 mL by mouth one time only for 1 dose. 1 Each 0 10/20/2022 10/20/2022 Comment on above: Take 4,000 mL by peri th one time only for 1 dose. Problems Active Problems Problem Classification Problem Date Documented Da te Episodic/Chronic Abdominal hernia (6 sources) Hiatal hernia; Translations: [Diaphragmatic hernia without obstruction or gangrene] Onset: 5 11-05-2022 Episodic Cardiac dysrhythmias (6 sources) Multiple premature ventricular complexes; Translations: [Ventricular premature depolarization] Onset: 5 07-26-2024 Chronic Cardiac dysrhythmias (4 sources) Tachycardia; Translations: [Tachycardia, unspecified] Onset: 5 07-17-2024 Episodic Endometriosis (3 sources) Uterine adenomyosis; Translations: [Adenomyosis] 11-23-2023 Chronic Esophageal disorders (2 sources) Gastroesophageal reflux disease without esophagitis; Translations: [Gastro-esophageal reflux disease without esophagitis] 11-05-2022 Chronic Menopausal disorders (20 sources) Menorrhagia; Translations: [Excessive bleeding in the premenopausal period] Onset: 3 09-12-2012 Chronic Menstrual disorders (3 sources) Dysmenorrhea; Translations: [Dysmenorrhea, unspecified] Chronic Nonspecific chest pain (8 sources) Atypical chest pain; Translations: [Other chest pain] Onset: 5 07-17-2024 Episodic Other and unspecified benign neoplasm (2 sources) Mature cystic teratoma of right ovary; Translations: [Benign neoplasm of right ovary] Episodic Other female genital disorders (1 source) Mittelschmerz; 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] Chronic Other female genital disorders (6 sources) Abnormal uterine bleeding; Translations: [Abnormal uterine and vaginal bleeding, unspecified] 02-03-2023 Chronic Other female genital disorders (2 sources) Abnormal uterine and vaginal bleeding, unspecified; Translations: [Abnormal uterine bleeding (AUB)] Onset: 4 Chronic Other gastrointestinal disorders (1 source) Abdominal bloating; Translations: [Abdominal distension (gaseous)] 10-12-2022 Episodic Other nervous system disorders (1 source) Postoperative pain ; Translations: [Other acute postprocedural pain] 10-02-2022 Episodic Other screening for suspected conditions (not mental disorders or infectious disease) (2 sources) Encounter for screening mammogram for malignant neoplasm of breast; Translations: [Encounter for screening mammogram for breast cancer] Onset: 5 Episodic Residual codes; unclassified (4 sources) Postoperative state; Translations: [Other specified postprocedural states] 10-12-2022 Episodic Residual codes; unclassified (1 source) Flushing; Translations: [Flushing] 04-14-2023 Episodic Sprains and strains (1 source) Sprain of unspecified ligament of unspecified ankle, initial encounter; Translations: [Sprain of unspecified ligament of unspecified ankle, initial encounter] Onset: 5 Episodic Substance-related disorders (5 sources) Nicotine dependence; Translations: [Nicotine dependence, unspecified, uncomplicated] Onset: 5 07-26-2024 Chronic Past or Other Problems Problem Classification Problem Date Documented Date Episodic/Chronic Abdominal pain (12 sources) Pelvic and perineal pain; Translations: [Pelvic and perineal pain] Onset: 11-18-2023 Episodic Contraceptive and procreative management (20 sources) Patient encounter status; Translations: [Encounter for insertion of intrauterine contraceptive device] Onset: 11-19-2023 12-28-2022 Episodic Residual codes; unclassified (20 sources) Tobacco user; Translations: [Tobacco use] Onset: 09-12-2012 09-12-2012 Episodic Unclassified (2 sources) Patient encounter status 07-12-2024 Results Test Name Value Interpretation Reference Range Facility Absolute lymphocyte countOrd ered By: Quin Snider on 07-26-2024 Lymphocytes Auto (Unsp spec) [#/Vol] 2.49 10*3/uL 0.83-4.51 [facility] Absolute neutrophil countOrd ered By: Quin Snider on 07-26-2024 Neutrophils (Bld) [#/Vol] 5.6 10*3/uL 2.0-7.7 [facility] Anion gap in Serum or Plasma Ordered By: Quin Snider on 07-26-2024 Anion gap [Moles/Vol] 11 mmol/L - [facility] Automated lymphocyte count a s percentage of total leukocytesOrdered By: Quin Snider on 07-26-2024 Lymphocytes/100 WBC Auto (Unsp spec) 28.1 % - [facility] BUN/creatinine ratioOrdered By: Quin Snider on 07-26-2024 Urea nitrogen/Creatinine [Mass ratio] 14.8 mg/mg 10- [facility] Basic Metabolic Profile (BMP )on 07-26-2024 BUN/CRE 14.8 RATIO Normal - [facility] Comment on above: Performed By: #### L 100.0100, L500.2500, L500.4100 #### [facility] [address] [place], [address] Calcium [Mass/Vol] 9.8 mg/dL Normal 7.6-11.0 [facility] Comment on above: Performed By: #### L 100.0100, L500.2500, L500.4100 #### [facility] [address] [place], [address] Chloride [Moles/Vol] 101 mmol/L Normal 98-108 [facility] Comment on above: Performed By: #### L 100.0100, L500.2500, L500.4100 #### [facility] [address] [place], [address] CO2 [Moles/Vol] 24.7 mmol/L Normal 21.0-32.0 [facility] Comment on above: Performed By: #### L 100.0100, L500.2500, L500.4100 #### [facility] [address] [place], [address] Creatinine [Mass/Vol] 0.89 mg/dL Normal 0.70-1.20 [facility] Comment on above: Performed By: #### L 100.0100, L500.2500, L500.4100 #### [facility] [address] [place], [address] GAP 11 Normal 5-15 [facility] Comment on above: Performed By: #### L 100.0100, L500.2500, L500.4100 #### [facility] [address] [place], [address] GFR/1.73 sq M.predicted among non-blacks MDRD (S/P/Bld) [Vol rate/Area] 84 mL/min/{1.73_m2} Normal >60 [facility] Comment on above: Result Comment: mL/m in/1.73m2 CKD-EPI Creatinine Equation (2020) Performed By: #### L 100.0100, L500.2500, L500.4100 #### [facility] [address] [place], [address] Glucose [Mass/Vol] 79 mg/dL Normal 70-99 [facility] Comment on above: Performed By: #### L 100.0100, L500.2500, L500.4100 #### [facility] [address] [place], [address] Potassium [Moles/Vol] 4.4 mmol/L Normal 3.3-5.1 [facility] Comment on above: Performed By: #### L 100.0100, L500.2500, L500.4100 #### [facility] [address] [place], [address] Sodium [Moles/Vol] 137 mmol/L Normal 133-145 [facility] Comment on above: Performed By: #### L 100.0100, L500.2500, L500.4100 #### [facility] [address] [place], [address] Urea nitrogen [Mass/Vol] 13 mg/dL Normal 4-19 [facility] Comment on above: Performed By: #### L 100.0100, L500.2500, L500.4100 #### [facility] [address] [place], [address] Basophil percentageOrdered B y: Quin Snider on 07-26-2024 Basophils/100 WBC (Bld) 0.6 % 0-1 [facility] CBC W/Diff, Automatedon 06-30 Absolute Lymph 2.49 X10 3/uL Normal 0.83-4.51 [facility] Comment on above: Performed By: #### L 100.0100, L500.2500, L500.4100 #### [facility] [address] [place], [address] Absolute Neut 5.6 X10 3/uL Normal 2.0-7.7 [facility] Comment on above: Performed By: #### L 100.0100, L500.2500, L500.4100 #### [facility] [address] [place], [address] Basophils/100 WBC (Bld) 0.6 % Normal 0-1 [facility] Comment on above: Performed By: #### L 100.0100, L500.2500, L500.4100 #### [facility] [address] [place], [address] Eosinophils/100 WBC (Bld) 1.9 % Normal 0-5 [facility] Comment on above: Performed By: #### L 100.0100, L500.2500, L500.4100 #### [facility] [address] [place], [address] Erythrocyte distribution width (RBC) [Ratio] 13.3 % Normal 11.6-14.6 [facility] Comment on above: Performed By: #### L 100.0100, L500.2500, L500.4100 #### [facility] [address] [place], [address] Hematocrit (Bld) [Volume fraction] 45.2 % Normal 37-47 [facility] Comment on above: Performed By: #### L 100.0100, L500.2500, L500.4100 #### [facility] [address] [place], [address] Hemoglobin (Bld) [Mass/Vol] 14.8 g/dL Normal 12.0-15.0 [facility] Comment on above: Performed By: #### L 100.0100, L500.2500, L500.4100 #### [facility] [address] [place], [address] IG% 0.500 Normal 0.0-0.9 [facility] Comment on above: Result Comment: IG% - Immature Granulocytes (promyelocytes, myelocytes and metamyelocytes) > 1% indicates that a LEFT SHIFT is Present. Performed By: #### L 100.0100, L500.2500, L500.4100 #### [facility] [address] [place], [address] Lymphocytes/100 WBC (Bld) 28.1 % Normal 19-41 [facility] Comment on above: Performed By: #### L 100.0100, L500.2500, L500.4100 #### [facility] [address] [place], [address] MCH (RBC) [Entitic mass] 29.0 pg Normal 27.0-32.0 [facility] Comment on above: Performed By: #### L 100.0100, L500.2500, L500.4100 #### [facility] [address] [place], [address] MCHC (RBC) [Mass/Vol] 32.7 g/dL Normal 32-36 [facility] Comment on above: Performed By: #### L 100.0100, L500.2500, L500.4100 #### [facility] [address] [place], [address] MCV (RBC) [Entitic vol] 88.6 fL Normal 81-99 [facility] Comment on above: Performed By: #### L 100.0100, L500.2500, L500.4100 #### [facility] [address] [place], [address] Monocytes/100 WBC (Bld) 6.0 % Normal 0-10 [facility] Comment on above: Performed By: #### L 100.0100, L500.2500, L500.4100 #### [facility] [address] [place], [address] Neutrophils/100 WBC (Bld) 62.9 % Normal 47-70 [facility] Comment on above: Performed By: #### L 100.0100, L500.2500, L500.4100 #### [facility] [address] [place], [address] Nucleated RBC (Bld) [#/Vol] 0 10*3/uL Normal 0-5 [facility] Comment on above: Performed By: #### L 100.0100, L500.2500, L500.4100 #### [facility] [address] [place], [address] Platelet mean volume (Bld) [Entitic vol] 10.5 fL Normal 6.2-12.0 [facility] Comment on above: Performed By: #### L 100.0100, L500.2500, L500.4100 #### [facility] [address] [place], [address] Platelets (Bld) [#/Vol] 291 10*3/uL Normal 150-450 [facility] Comment on above: Performed By: #### L 100.0100, L500.2500, L500.4100 #### [facility] [address] [place], [address] RBC (Bld) [#/Vol] 5.10 10*6/uL Normal 4.2-5.4 [facility] Comment on above: Performed By: #### L 100.0100, L500.2500, L500.4100 #### [facility] [address] [place], [address] RDW SD 43.6 fl Normal 35.1-43.9 [facility] Comment on above: Performed By: #### L 100.0100, L500.2500, L500.4100 #### [facility] [address] [place], [address] WBC (Bld) [#/Vol] 8.9 10*3/uL Normal 4.4-11.0 [facility] Comment on above: Performed By: #### L 100.0100, L500.2500, L500.4100 #### [facility] [address] [place], [address] Carbon dioxide, total [Moles /volume] in Central venous bloodOrdered By: Quin Snider on 07-26-2024 CO2 [Moles/Vol] 24.7 mmol/L 21.0-32.0 [facility] Cardiology Visit Reporton Cardiology Visit Report [facility] [address] [place] [address] OFFICE VISIT Date of Service: 07/26/24 MR#: [id number] Acct: [id number] Name: SREE CESAR Rep #: [id number] : 1985 Provider: Dr. Quin Snider MD Age/Sex: 39/F Location: [facility] [place] Status: Signed HPI HPI History of Present Illness Details: This lady has been referred to us for her complaints of chest discomfort and arrhythmia. Patient has past medical history significant for hiatal hernia and nicotine dependence. According to her, for the past few months, she has intermittent chest discomfort. She describes it as anterior chest tightness that lasts about 2 minutes. This mostly occurs at rest. No relationship to exertion. No relieving or exacerbating factors identified. No radiation to the arm neck or jaw. No associated shortness of breath, diaphoresis, nausea or vomiting. The symptoms started when about 2 or 3 months ago, the patient woke up with sharp anterior chest discomfort. Per her, she noticed some palpitations as well. According to her, her heart rate was around 150 at the time. Workup at the emergency room included a CT scan of her chest which was negative for pulmonary embolism. She was noted to have sinus tachycardia at 115 bpm. Her PCP subsequently ordered a 7-day event monitor for her. This showed rare PVCs. Upon review, 1 fusion beat followed by a ventricular triplet is noted. Patient denies any history of intermittent palpitations. Denies any lightheadedness or dizziness. No syncope or presyncope. Denies any orthopnea or PND. No family history of premature coronary artery disease. No family history of sudden cardiac . 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 Accompanied by: Self Is patient in pain?: No Allergies amoxicillin Adverse Reaction (Verified 07/26/24 08:57) Other azithromycin Adverse Reaction (Verified 07/26/24 08:57) Other Medications ???Medication ???Instructions ???Recorded ???Confirmed ???Type ibuprofen 800 mg tablet 800 mg PO Q8H PRN PRN migraine 07/26/24 History multivitamin (Daily Multi-Vitamin 1 tab PO DAILY 01/13/24 07/26/24 History tablet) omeprazole 20 mg capsule,delayed 20 mg PO DAILY 01/13/24 07/26/24 H istory release magnesium citrate,mag oxide 250 mg 150 mg PO DAILY 07/26/24 5 History capsule omega 3-dha 200 mg-epa 300 mg-fish 1 cap PO DAILY 07/26/24 07/26/24 History oil 1,000 mg capsule potassium 200 mg PO DAILY 07/26/24 History Have you fallen in the past year?: Yes (ankle sprain; orthopedic boot recently removed) PFSH Medical History Chest pain radiating to arm Hiatal hernia Tachycardia Atypical chest pain Abrasion Migraine headache Gastric reflux Smoker Surgical History (Updated 07/26/24 @ 08:56 by Que Catalan, RN) S/P partial hysterectomy Hx of ovarian cystectomy History of tubal ligation History of appendectomy Social History household members: spouse and children current occupational status: employed current occupation: [employer] Daily pets and animals: Yes pets and animals: cat(s) and dog(s) Smoking Status: Current every day smoker tobacco type: cigarettes ROS Const Const: Positive for fatigue (persistent; unchanged) and headache(s) (Hx of migraines; S/P hysterectomy with improvement); Negative for weakness or weight gain ENT ENT: Positive for headache(s) (Hx of migraines; S/P hysterectomy with improvement) and dizziness (episodic vertigo per pt); Negative for Nosebleed/epistaxis or balance problems Cardio Chest Pain: Yes Frequency: daily Character: other (pressure) Onset: at rest and exercise Location: left chest Duration: minutes Palpitations: Yes Edema: None Muscle aches with walking: None Resp Respiratory: Negative for SOB with activity, SOB at rest or SOB orthopnea SOB lying down GI GI: Negative nausea, vomiting or heartburn Musc Musc: Positive for joint pain (s/p fall; ankle sprain); Negative for muscle aches/ myalgia, muscle weakness or balance problems Neuro Neuro: Positive for dizziness (episodic vertigo per pt) and headache(s) (Hx of migraines; S/P hysterectomy with improvement); Negative for lightheadedness, near syncope, syncope or weakness Endo Endo: Positive for fatigue (persistent; unchanged) Cardiology Exam Const Appearance: comfortable and no acute distress Nutritional Appearance: well nourished Neck Ne (more content not included)... Normal [facility] Chloride assayOrdered By: Chung Snider on 07-26-2024 Chloride [Moles/Vol] 101 mmol/L 98-108 [facility] Eosinophil percentageOrdered By: Quin Snider on 07-26-2024 Eosinophils/100 WBC (Bld) 1.9 % 0-5 [facility] Erythrocyte distribution wid th ratioOrdered By: Quin Snider on 07-26-2024 Erythrocyte distribution width (RBC) [Ratio] 13.3 % 11.6-14.6 [facility] Erythrocyte distribution wid th standard deviationOrdered By: Quin Snider on 07-26-2024 Erythrocyte distribution width (RBC) [Ratio] 43.6 fl 35.1-43.9 [facility] Glomerular filtration rate ( GFR) estimation/1.73 sq m using serum, plasma, or whole bOrdered By: Quin Snider on 07-26-2024 GFR/1.73 sq M.predicted among non-blacks MDRD (S/P/Bld) [Vol rate/Area] 84 mL/min/{1.73_m2} >60 [facility] Comment on above: mL/min/1.73m2 CKD-EP I Creatinine Equation (2020) Hematocrit Auto (Bld) [Volum e fraction]Ordered By: Quin Snider on 07-26-2024 Hematocrit (Bld) [Volume fraction] 45.2 % 37-47 [facility] Hemoglobin measurementOrdere d By: Quin Snider on 07-26-2024 Hemoglobin (Bld) [Mass/Vol] 14.8 g/dL 12.0-15.0 [facility] Immature granulocytes/100 WB C Auto (Bld)Ordered By: Quincely Snider on 07-26-2024 Immature granulocytes/100 WBC (Bld) 0.500 % 0.0-0.9 [facility] Comment on above: IG% - Immature Granu locytes (promyelocytes, myelocytes and metamyelocytes) > 1% indicates that a LEFT SHIFT is Present. MCV (mean corpuscular volume ) determinationOrdered By: Quin Snider on 07-26-2024 MCV (RBC) [Entitic vol] 88.6 fL 81-99 [facility] Magnesiumon 07-26-2024 Magnesium [Mass/Vol] 2.2 mg/dL Normal 1.5-2.2 [facility] Comment on above: Performed By: #### L 100.0100, L500.2500, L500.4100 #### [facility] [place], [address] Magnesium measurement (mass/ volume)Ordered By: Quin Snider on 07-26-2024 Magnesium (Unsp spec) [Mass/Vol] 2.2 mg/dL 1.5-2.2 [facility] Mean corpuscular hemoglobin (MCH) determinationOrdered By: Quin Snider on 07-26-2024 MCH (RBC) [Entitic mass] 29.0 pg 27.0-32.0 [facility] Mean corpuscular hemoglobin concentration (MCHC) determinationOrdered By: Quin Snider on 07-26-2024 MCHC (RBC) [Mass/Vol] 32.7 g/dL 32-36 [facility] Mean platelet volume determi nationOrdered By: Quin Snider on 07-26-2024 Platelet mean volume (Bld) [Entitic vol] 10.5 fL 6.2-12.0 [facility] Monocyte percentageOrdered B y: Quin Snider on 07-26-2024 Monocytes/100 WBC (Bld) 6.0 % 0-10 [facility] Neutrophil percentageOrdered By: Quin Snider on 07-26-2024 Neutrophils/100 WBC (Bld) 62.9 % 47-70 [facility] Nucleated red blood cell per centageOrdered By: Quin Snider on 07-26-2024 Nucleated RBC/100 WBC (Bld) [Ratio] 0 % 0-5 [facility] Platelet countOrdered By: Chung Snider on 07-26-2024 Platelets (Bld) [#/Vol] 291 10*3/uL 150-450 [facility] Potassium measurement (mass/ volume)Ordered By: Quin Snider on 07-26-2024 Potassium (Unsp spec) [Mass/Vol] 4.4 mmol/L 3.3-5.1 [facility] RBC Auto (Bld) [#/Vol]Ordere d By: Quin Snider on 07-26-2024 RBC (Bld) [#/Vol] 5.10 10*6/uL 4.2-5.4 [facility] Serum creatinine measurement (mass/volume)Ordered By: Quin Snider on 07-26-2024 Creatinine [Mass/Vol] 0.89 mg/dL 0.70-1.20 [facility] Serum glucose measurement (m ass/volume)Ordered By: Quin Snider on 07-26-2024 Glucose [Mass/Vol] 79 mg/dL 70-99 [facility] Serum or plasma calcium gabino urement (mass/volume)Ordered By: Quin Snider on 07-26-2024 Calcium [Mass/Vol] 9.8 mg/dL 7.6-11.0 [facility] Serum or plasma urea nitroge n measurement (mass/volume)Ordered By: Quin Snider on 07-26-2024 Urea nitrogen [Mass/Vol] 13 mg/dL 4-19 [facility] Sodium levelOrdered By: Graham Snider on 07-26-2024 Sodium [Moles/Vol] 137 mmol/L 133-145 [facility] TSH DL <= 0.005 mIU/L QnOrde red By: Quin Snider on 07-26-2024 TSH Qn 1.620 uIU/mL 0.300-4.200 [facility] Thyroid Stim Hormone (TSH)on 07-26-2024 TSH 1.620 uIU/mL Normal 0.300-4.200 [facility] Comment on above: Performed By: #### L 100.0100, L500.2500, L500.4100 #### [facility] [place], [address] White blood cell (WBC) count Ordered By: Quin Snider on 07-26-2024 WBC (Bld) [#/Vol] 8.9 10*3/uL 4.4-11.0 [facility] CNPLeida 07-13-2024 MADONNA Telephone (NAYE) SREE CESAR ([id number]) 1985 F Date Time Provider Department 07/13/24 JOE MYERS During your visit today, we recorded the following information about you: Allergies As of Date: 07/13/2024 Noted Allergy Reaction AMOXICILLIN 08/30/2007 8 - GI Upset Comments: ABD. PAIN, NAUSEA, DIZZINESS ZITHROMAX (AZITHROMYCIN) 08/10/2008 4 - Hives 8 - GI Upset Comments: Nausea and stomach pains Date Reviewed: 07/12/2024 Reviewed by: Jessenia Cabrera MA - Fully Assessed Reason for Visit: Mammogram Result Call Back [[id number]] Cmt: right breast diag mamm and us per Prescriptions as of 07/13/2024 - multivit,thx,calcium ,iron,mins (MULTIVITAMIN AND MINERAL ORAL) Take by mouth. - omeprazole (PRILOSEC) 40 mg capsule Take 1 capsule by mouth once daily. - ibuprofen (MOTRIN) 600 mg tablet Take 1 tablet by mouth every 6 hours as needed for Pain. Problem List As Of Date 07/13/2024 Noted Resolved Premenopausal menorrhagia [N92.4] 09/12/2012 Tobacco abuse [Z72.0] 09/12/2012 IUD (intrauterine device) in place [Z97.5] 11/19/2023 Encounter Status:Closed by TRACIE PERKINS on 07/13/24 [facility] Karla 07-12-2024 CNOV Office Visit (OBGYWM) SREE CESAR ([id number]) 1985 F Date Time Provider Department 07/12/24 9:50 AM PILY GALLARDO OBGYWM During your visit today, we recorded the following information about you: Blood pressure Weight Height Last Period 122/74 83 kg 1.676 m 01/27/24 Pily Gallardo MD 07/12/2024 10:20 AM Signed Test Facility Engineer offered: Patient declines. Obstetrics [facility] Gynecology [place] Annual Exam Subjective Recording using Rackwise software for draft documentation of the visit was discussed with the patient/authorized ambulatory services representative; all questions welcomed and answered. Patient/authorized ambulatory services representative agreed to proceed CHIEF COMPLAINT: The patient is a 39-year-old female with a history of hysterectomy presenting for her annual visit. HPI: Hysterectomy - Underwent a hysterectomy in December of last year. - Reports doing well since the procedure with no major complaints. - Still feels ovulation symptoms occasionally. Breast Lump - Noticed a lump in the left breast accompanied by pain, but reports that both the lump and pain have resolved. Vaginal Discharge - Reports increased vaginal discharge since the hysterectomy, but denies any associated itching, burning, or pelvic pain. - Denies vaginal dryness, discharge, or odors. Urinary Frequency - Reports frequent urination, attributing it to high water intake. Foot Injury - Currently wearing a boot on her left foot due to a recent fall down the stairs last month, resulting in an ankle sprain. Medications - Takes a multivitamin and omeprazole as needed. Past Diagnostic Results: - Pap Smear (2022): Normal - Mammogram (Today): Results pending HISTORY: OB History Gravida1 Para1 Term1 Preterm0 AB0 Living1 SAB0 IAB0 Ectopic0 Multiple0 Live Births0 Ambulatory Services Representative History LMP: 01/27/2024, Hysterectomy Age at Menarche: Age at First : Age at Menopause: Ambulatory Services Representative History Comments: Sexual Activity: Yes; Male Contraception: Tubal Ligation PAST MEDICAL HISTORY Diagnosis Date IUD (intrauterine device) in place 11/19/2023 PMH - PAST MEDICAL HISTORY OF 03/01/2001 ovarian cysts PAST SURGICAL HISTORY Procedure Laterality Date APPENDECTOMY 1994 COLONOSCOPY FLX DX W/COLLJ SPEC WHEN PFRMD 10/28/2022 repeat in 10 years EGD W/O [facility] SPEC VARICIES INJ 10/28/2022 HYSTERECTOMY 01/28/2024 [facility], cystoscopy L'SCOPE DX W/WO BRUSHINGS/WASHINGS 10/01/2022 was scheduled to be ovarian cystectomy, but ovarian cyst had resolved LAPAROSCOPY SALPINGOSTOMY 04/01/2017 Laparoscopic bilateral salpingectomy OVARIAN CYSTECTOMY FAMILY HISTORY Problem Relation Age of Onset Hypertension Mother Thyroid Mother other (Endometrosis) Mother Hysterectomy in later 30's Hypertension Maternal Grandmother Prostate Cancer Maternal Grandfather Breast Cancer Paternal Grandmother Breast Cancer Paternal Aunt Thyroid Sister Social History Tobacco Use Smoking status: Every Day Current packs/day: 1.00 Types: Cigarettes Smokeless tobacco: Never Vaping Use Vaping status: Never Used Substance Use Topics Alcohol use: No Drug use: No Current Outpatient Medications Medication Sig multivit,thx,calcium ,iron,mins (MULTIVITAMIN AND MINERAL ORAL) Take by mouth. omeprazole (PRILOSEC) 40 mg capsule Take 1 capsule by mouth once daily. (Patient taking differently: Take 20 mg by mouth once daily.) ibuprofen (MOTRIN) 600 mg tablet Take 1 tablet by mouth every 6 hours as needed for Pain. No current facility-administere d medications for this visit. ALLERGIES Allergen Reactions Amoxicillin GI Upset ABD. PAIN, NAUSEA, DIZZINESS Zithromax [Azithrom* Hives, GI Upset Nausea and stomach pains Screening tools reviewed and discussed with patient-. Please see Patient Entered Data. REVIEW OF SYSTEMS: Abdomen: No abdominal pain, nausea, vomiting, diarrhea, or constipation. No bloating, early satiety, indigestion, or increased flatulence. Bladder: No dysuria, gross hematuria, urinary frequency, urinary urgency, or incontinence. Breast: No breast lumps, nipple d/c, overlying skin changes, redness or skin retraction and ? Muscle strain vs breast lump in right . Objective SENSITIVE EXAM: The sensitive examination was discussed with the Patient or Patient's Authorized Slip Cover Maker. As applicable, any other physician, advance practice provider, medical student, or other health professional student that will be observing or involved in the sensitive examination for educational or training purposes was discussed with the Patient or Authorized Slip Cover Maker. The Patient or Authorized Slip Cover Maker has agreed to proceed with the sensitive examination. (Sensitive examination includes inspection and/or palpation of the breasts, pelvis, prostate and anorectal regions). PHYSICAL EXAM: BP 122/74 Ht 5' 6 (1.68m) Wt 183 l (more content not included)... Normal [facility] DBT Breast - bilateral scree francesca 07-12-2024 IMPRESSION: The focal asymmetry in the upper inner quadrant of the right breast, posterior depth requires additional evaluation. Diagnostic mammogram and ultrasound are recommended. BI-RADS Category 0: Incomplete: Needs Additional Imaging Evaluation RISK: Based on the Tyrer-Cuzick (TC) risk assessment model, this patient has a 25.5% lifetime risk of developing breast cancer, meaning they are at high risk for developing breast cancer. However, this is only an estimate based on available history provided on the patient's questionnaire. Because patients with a lifetime risk of 20% or greater may benefit from additional supplemental screening, we encourage a full breast clinical evaluation and comprehensive breast cancer risk assessment to guide further decision making. For more information regarding the management of high-risk patients, the following is a link to the [facility] care path [email or web address]/docume nts/?jarow=32491. Additionally, a referral to the [facility] Breast Clinic is also appropriate. Interpreting Radiologist: Joe Myers M.D. Electronically signed on: 07/12/2024 Burr Sander: SAVANA Transcribella Date/Time: Jul 12 2024 8:35A Dictated by: JOE MYERS MD This examination was interpreted and the report reviewed and electronically signed by: JOE MYERS MD on Jul 12 2024 11:17AM [facility] DIVISION OF RADIOLOGY * * *Final Report* * * DATE OF EXAM: Jul 12 2024 9:07AM [facility] 0582 - PERRI SCREENING W ASHLEY / PROCEDURE REASON: Encounter for screening mammogram for malignant neoplasm of breast * * * * Physician Interpretation * * * * RESULT: [place] [address] #[id number] - PERRI SCREENING W ASHLEY HISTORY: 39 year-old patient seen for screening. Patient is asymptomatic in both breasts. Patient states no personal history of breast cancer. The patient has a family history of breast cancer. COMPARISON STUDIES: The present examination has been compared to a prior imaging study dated 07/07/2023 (mammogram). MAMMOGRAM TECHNIQUE: The study was acquired using full field digital technology and interpreted from soft copy. Digital Breast Tomosynthesis (DBT) images were obtained and used to assist in the interpretation of this examination. MAMMOGRAM FINDINGS: The breasts are extremely dense, which lowers the sensitivity of mammography. There is a focal asymmetry in the upper inner quadrant of the right breast, posterior depth. No suspicious masses, calcifications or other abnormalities are seen in the left breast. DIVISION OF RADIOLOGY Provider, [facility] [place] - 07/12/2024 * * *Final Report* * * DATE OF EXAM: Jul 12 2024 9:07AM [facility] [id number] - PERRI SCREENING W ASHLEY / PROCEDURE REASON: Encounter for screening mammogram for malignant neoplasm of breast * * * * Physician Interpretation * * * * RESULT: [place] [address] [place] [id number] #[id number] - PERRI SCREENING W ASHLEY HISTORY: 39 year-old patient seen for screening. Patient is asymptomatic in both breasts. Patient states no personal history of breast cancer. The patient has a family history of breast cancer. COMPARISON STUDIES: The present examination has been compared to a prior imaging study dated 07/07/2023 (mammogram). MAMMOGRAM TECHNIQUE: The study was acquired using full field digital technology and interpreted from soft copy. Digital Breast Tomosynthesis (DBT) images were obtained and used to assist in the interpretation of this examination. MAMMOGRAM FINDINGS: The breasts are extremely dense, which lowers the sensitivity of mammography. There is a focal asymmetry in the upper inner quadrant of the right breast, posterior depth. No suspicious masses, calcifications or other abnormalities are seen in the left breast. IMPRESSION IMPRESSION: The focal asymmetry in the upper inner quadrant of the right breast, posterior depth requires additional evaluation. Diagnostic mammogram and ultrasound are recommended. BI-RADS Category 0: Incomplete: Needs Additional Imaging Evaluation RISK: Based on the Tyrer-Cuzick (TC) risk assessment model, this patient has a 25.5% lifetime risk of developing breast cancer, meaning they are at high risk for developing breast cancer. However, this is only an estimate based on available history provided on the patient's questionnaire. Because patients with a lifetime risk of 20% or greater may benefit from additional supplemental screening, we encourage a full breast clinical evaluation and comprehensive breast cancer risk assessment to guide further decision making. For more information regarding the management of high-risk patients, the following is a link to the [facility] care path https://ccf.[email or web address]/dotNet/docume nts/?ntjfh=59299. Additionally, a referral to the [facility] Breast Clinic is also appropriate. Interpreting Radiologist: Joe Myers M.D. Electronically signed on: 07/12/2024 Burr Sander: SAVANA Transcribe Date/Time: Jul 12 2024 8:35A Dictated by: JOE MYERS MD This examination was interpreted and the report reviewed and electronically signed by: JOE MYERS MD on Jul 12 2024 11:17AM EST [facility] Radiology Study observation (narrative) Trisha ta [facility] DBT Breast - bilateral scree ningOrdered By: Ccf Provider on 07-12-[address] [facility] PERRI SCREENING W TOMOon 07-12 PERRI SCREENING W ASHLEY * * *Final Report* * * DATE OF EXAM: Jul 12 2024 9:07AM [facility] 0582 - PERRI SCREENING W ASHLEY / PROCEDURE REASON: Encounter for screening mammogram for malignant neoplasm of breast * * * * Physician Interpretation * * * * RESULT: [place] [address] #[id number] - PERRI SCREENING W ASHLEY HISTORY: 39 year-old patient seen for screening. Patient is asymptomatic in both breasts. Patient states no personal history of breast cancer. The patient has a family history of breast cancer. COMPARISON STUDIES: The present examination has been compared to a prior imaging study dated 07/07/2023 (mammogram). MAMMOGRAM TECHNIQUE: The study was acquired using full field digital technology and interpreted from soft copy. Digital Breast Tomosynthesis (DBT) images were obtained and used to assist in the interpretation of this examination. MAMMOGRAM FINDINGS: The breasts are extremely dense, which lowers the sensitivity of mammography. There is a focal asymmetry in the upper inner quadrant of the right breast, posterior depth. No suspicious masses, calcifications or other abnormalities are seen in the left breast. IMPRESSION: The focal asymmetry in the upper inner quadrant of the right breast, posterior depth requires additional evaluation. Diagnostic mammogram and ultrasound are recommended. BI-RADS Category 0: Incomplete: Needs Additional Imaging Evaluation RISK: Based on the Tyrer-Cuzick (TC) risk assessment model, this patient has a 25.5% lifetime risk of developing breast cancer, meaning they are at high risk for developing breast cancer. However, this is only an estimate based on available history provided on the patient's questionnaire. Because patients with a lifetime risk of 20% or greater may benefit from additional supplemental screening, we encourage a full breast clinical evaluation and comprehensive breast cancer risk assessment to guide further decision making. For more information regarding the management of high-risk patients, the following is a link to the [facility] care path [email or web address]/DecisionView/docume nts/?cgwvh=30336. Additionally, a referral to the [facility] Medical Breast Clinic is also appropriate. Interpreting Radiologist: Joe Myers M.D. Electronically signed on: 07/12/2024 Burr Sander: SAVANA Transcribe Date/Time: Jul 12 2024 8:35A Dictated by: JOE MYERS MD This examination was interpreted and the report reviewed and electronically signed by: JOE MYERS MD on Jul 12 2024 11:17AM EST [id number] CN Normal [facility] CNPNon 07-03-2024 CNPN Telephone (RDXWS) SREE CESAR ([id number]) 1985 F Date Time Provider Department 07/03/24 PILY GALLARDO RDXWS During your visit today, we recorded the following information about you: Cristina Keane, Mammo Tech 07/03/2024 3:17 PM Signed Could we have a order for a screening mammogram order? Pt has appt 07/12. Thanks a Tyesha Mcclellan RN 07/03/2024 3:37 PM Signed Linked order to mammogram appt. Tyesha Marti RN Allergies As of Date: 07/03/2024 Noted Allergy Reaction AMOXICILLIN 08/30/2007 8 - GI Upset Comments: ABD. PAIN, NAUSEA, DIZZINESS ZITHROMAX (AZITHROMYCIN) 08/10/2008 4 - Hives 8 - GI Upset Comments: Nausea and stomach pains Date Reviewed: 03/09/2024 Reviewed by: Jessenia Cabrera MA - Fully Assessed Reason for Visit: Orders [[id number]] Prescriptions as of 07/04/2024 - multivit,thx,calcium ,iron,mins (MULTIVITAMIN AND MINERAL ORAL) Take by mouth. - levonorgestrel (MIRENA) 21 mcg/24 hours (8 yrs) 52 mg IUD 1 Each by INTRAUTERINE route as directed. - omeprazole (PRILOSEC) 40 mg capsule Take 1 capsule by mouth once daily. - ibuprofen (MOTRIN) 600 mg tablet Take 1 tablet by mouth every 6 hours as needed for Pain. Problem List As Of Date 07/03/2024 Noted Resolved Premenopausal menorrhagia [N92.4] 09/12/2012 Tobacco abuse [Z72.0] 09/12/2012 IUD (intrauterine device) in place [Z97.5] 11/19/2023 Encounter Status:Closed by TYESHA MARTI on 07/03/24 Normal [facility] XR ANKLE AND FOOT 6 VIEWS LE FTon 06-14-2024 XR ANKLE AND FOOT 6 VIEWS LEFT ORIGINAL EXAMINATION: 6XRAY VIEWS OF THE ANKLE AND FOOT LEFT 06/14/2024 7:31 am COMPARISON: None. HISTORY: ORDERING SYSTEM PROVIDED HISTORY: Reason for Exam: foot/ankle pain FINDINGS: No acute fracture or dislocation. The joint spaces are maintained. Calcaneal enthesopathy. No radiopaque retained foreign body or appreciable soft tissue swelling. IMPRESSION: No definite acute traumatic findings by radiograph. I have personally reviewed the images of this examination and agree with the resident's findings and interpretation. Interpreted by: Norm Rubio MD Preliminary Report By: Kush Rodriguez Electronically signed By Norm Rubio MD Dictated Date: 06/14/2024 7:46:01 AM Prelim Date: 06/14/2024 7:51:04 AM Sign Date: 06/14/2024 8:16:41 AM Ordering Provider: MARCO ANTONIO KHALIL [facility] Absolute lymphocyte countOrd ered By: Oliver Wong on 05-17-2024 Lymphocytes Auto (Unsp spec) [#/Vol] 2.35 10*3/uL 0.83-4.51 [facility] Absolute neutrophil countOrd ered By: Oliver Wong on 05-17-2024 Neutrophils (Bld) [#/Vol] 4.3 10*3/uL 2.0-7.7 [facility] Anion gap in Serum or Plasma Ordered By: Oliver Wong on 05-17-2024 Anion gap [Moles/Vol] 11 mmol/L 07-13 [facility] Automated lymphocyte count a s percentage of total leukocytesOrdered By: Oliver Wong on 05-17-2024 Lymphocytes/100 WBC Auto (Unsp spec) 31.8 % [facility] BUN/creatinine ratioOrdered By: Oliver Wong on 05-17-2024 Urea nitrogen/Creatinine [Mass ratio] 12.1 mg/mg 12-18 [facility] Basic Metabolic Profile (BMP )on 05-17-2024 BUN/CRE 12.1 RATIO Normal 12-18 [facility] Comment on above: Performed By: #### L 501.9520, L500.2500, L100.0100 #### [facility] [address] [place], [address] Calcium [Mass/Vol] 9.9 mg/dL Normal 7.6-11.0 [facility] Comment on above: Performed By: #### L 501.9520, L500.2500, L100.0100 #### [facility] [address] [place], [address] Chloride [Moles/Vol] 102 mmol/L Normal 98-108 [facility] Comment on above: Performed By: #### L 501.9520, L500.2500, L100.0100 #### [facility] [address] [place], [address] CO2 [Moles/Vol] 25.1 mmol/L Normal 21.0-32.0 [facility] Comment on above: Performed By: #### L 501.9520, L500.2500, L100.0100 #### [facility] [address] [place], [address] Creatinine [Mass/Vol] 0.81 mg/dL Normal 0.70-1.20 [facility] Comment on above: Performed By: #### L 501.9520, L500.2500, L100.0100 #### [facility] [address] [place], [address] GAP 11 Normal 5-15 [facility] Comment on above: Performed By: #### L 501.9520, L500.2500, L100.0100 #### [facility] [address] [place], [address] GFR/1.73 sq M.predicted among non-blacks MDRD (S/P/Bld) [Vol rate/Area] 94 mL/min/{1.73_m2} Normal >60 [facility] Comment on above: Result Comment: mL/m in/1.73m2 CKD-EPI Creatinine Equation (2020) Performed By: #### L 501.9520, L500.2500, L100.0100 #### [facility] [address] [place], [address] Glucose [Mass/Vol] 72 mg/dL Normal 70-99 [facility] Comment on above: Performed By: #### L 501.9520, L500.2500, L100.0100 #### [facility] [address] [place], [address] Potassium [Moles/Vol] 4.4 mmol/L Normal 3.3-5.1 [facility] Comment on above: Performed By: #### L 501.9520, L500.2500, L100.0100 #### [facility] [address] [place], [address] Sodium [Moles/Vol] 137 mmol/L Normal 133-145 [facility] Comment on above: Performed By: #### L 501.9520, L500.2500, L100.0100 #### [facility] [address] [place], [address] Urea nitrogen [Mass/Vol] 10 mg/dL Normal 4-19 [facility] Comment on above: Performed By: #### L 501.9520, L500.2500, L100.0100 #### [facility] [address] [place], [address] Basophil percentageOrdered B y: Oliver Wong on 05-17-2024 Basophils/100 WBC (Bld) 0.7 % 0-1 [facility] CBC W/Diff, Automatedon 04-29 Absolute Lymph 2.35 X10 3/uL Normal 0.83-4.51 [facility] Comment on above: Performed By: #### L 501.9520, L500.2500, L100.0100 #### [facility] [address] [place], [address] Absolute Neut 4.3 X10 3/uL Normal 2.0-7.7 [facility] Comment on above: Performed By: #### L 501.9520, L500.2500, L100.0100 #### [facility] [address] [place], [address] Basophils/100 WBC (Bld) 0.7 % Normal 0-1 [facility] Comment on above: Performed By: #### L 501.9520, L500.2500, L100.0100 #### [facility] [address] [place], [address] Eosinophils/100 WBC (Bld) 2.3 % Normal 0-5 [facility] Comment on above: Performed By: #### L 501.9520, L500.2500, L100.0100 #### [facility] [address] [place], [address] Erythrocyte distribution width (RBC) [Ratio] 13.5 % Normal 11.6-14.6 [facility] Comment on above: Performed By: #### L 501.9520, L500.2500, L100.0100 #### [facility] [address] [place], [address] Hematocrit (Bld) [Volume fraction] 44.4 % Normal 37-47 [facility] Comment on above: Performed By: #### L 501.9520, L500.2500, L100.0100 #### [facility] [address] [place], [address] Hemoglobin (Bld) [Mass/Vol] 14.6 g/dL Normal 12.0-15.0 [facility] Comment on above: Performed By: #### L 501.9520, L500.2500, L100.0100 #### [facility] [address] [place], [address] IG% 0.500 Normal 0.0-0.9 [facility] Comment on above: Result Comment: IG% - Immature Granulocytes (promyelocytes, myelocytes and metamyelocytes) > 1% indicates that a LEFT SHIFT is Present. Performed By: #### L 501.9520, L500.2500, L100.0100 #### [facility] [address] [place], [address] Lymphocytes/100 WBC (Bld) 31.8 % Normal 19-41 [facility] Comment on above: Performed By: #### L 501.9520, L500.2500, L100.0100 #### [facility] [address] [place], [address] MCH (RBC) [Entitic mass] 29.0 pg Normal 27.0-32.0 [facility] Comment on above: Performed By: #### L 501.9520, L500.2500, L100.0100 #### [facility] [address] [place], [address] MCHC (RBC) [Mass/Vol] 32.9 g/dL Normal 32-36 [facility] Comment on above: Performed By: #### L 501.9520, L500.2500, L100.0100 #### [facility] [address] [place], [address] MCV (RBC) [Entitic vol] 88.3 fL Normal 81-99 [facility] Comment on above: Performed By: #### L 501.9520, L500.2500, L100.0100 #### [facility] [address] [place], [address] Monocytes/100 WBC (Bld) 7.0 % Normal 0-10 [facility] Comment on above: Performed By: #### L 501.9520, L500.2500, L100.0100 #### [facility] [address] [place], [address] Neutrophils/100 WBC (Bld) 57.7 % Normal 47-70 [facility] Comment on above: Performed By: #### L 501.9520, L500.2500, L100.0100 #### [facility] [address] [place], [address] Nucleated RBC (Bld) [#/Vol] 0 10*3/uL Normal 0-5 [facility] Comment on above: Performed By: #### L 501.9520, L500.2500, L100.0100 #### [facility] [address] [place], [address] Platelet mean volume (Bld) [Entitic vol] 10.5 fL Normal 6.2-12.0 [facility] Comment on above: Performed By: #### L 501.9520, L500.2500, L100.0100 #### [facility] [address] [place], [address] Platelets (Bld) [#/Vol] 286 10*3/uL Normal 150-450 [facility] Comment on above: Performed By: #### L 501.9520, L500.2500, L100.0100 #### [facility] [address] [place], [address] RBC (Bld) [#/Vol] 5.03 10*6/uL Normal 4.2-5.4 [facility] Comment on above: Performed By: #### L 501.9520, L500.2500, L100.0100 #### [facility] [address] [place], [address] RDW SD 44.0 fl High 35.1-43.9 [facility] Comment on above: Performed By: #### L 501.9520, L500.2500, L100.0100 #### [facility] [address] [place], [address] WBC (Bld) [#/Vol] 7.4 10*3/uL Normal 4.4-11.0 [facility] Comment on above: Performed By: #### L 501.9520, L500.2500, L100.0100 #### [facility] [address] [place], [address] Carbon dioxide, total [Moles /volume] in Central venous bloodOrdered By: Oliver Wong on 05-17-2024 CO2 [Moles/Vol] 25.1 mmol/L 21.0-32.0 [facility] Chloride assayOrdered By: Zeyad Wong on 05-17-2024 Chloride [Moles/Vol] 102 mmol/L 98-108 [facility] Eosinophil percentageOrdered By: Oliver Wong on 05-17-2024 Eosinophils/100 WBC (Bld) 2.3 % 0-5 [facility] Erythrocyte distribution wid th ratioOrdered By: Oliver Wong on 05-17-2024 Erythrocyte distribution width (RBC) [Ratio] 13.5 % 11.6-14.6 [facility] Erythrocyte distribution wid th standard deviationOrdered By: Oliver Wong on 05-17-2024 Erythrocyte distribution width (RBC) [Entitic vol] 44.0 fL High 35.1-43.9 [facility] Erythrocyte distribution width (RBC) [Ratio] 44.0 fl High 35.1-43.9 [facility] GFR/1.73 sq M.predicted janna g non-blacks MDRD (S/P/Bld) [Vol rate/Area]Ordered By: Oliver Wong on 05-17-2024 Estimated GFR (MDRD) Non-Af Amer 94 >60 [facility] Comment on above: mL/min/1.73m2 CKD-EP I Creatinine Equation (2020) Glomerular filtration rate ( GFR) estimation/1.73 sq m using serum, plasma, or whole bOrdered By: Oliver Wong on 05-17-2024 GFR/1.73 sq M.predicted among non-blacks MDRD (S/P/Bld) [Vol rate/Area] 94 mL/min/{1.73_m2} >60 [facility] Comment on above: mL/min/1.73m2 CKD-EP I Creatinine Equation (2020) Hematocrit Auto (Bld) [Volum e fraction]Ordered By: Oliver Wong on 05-17-2024 Hematocrit (Bld) [Volume fraction] 44.4 % 37-47 [facility] Hemoglobin measurementOrdere d By: Oliver Wong on 05-17-2024 Hemoglobin (Bld) [Mass/Vol] 14.6 g/dL 12.0-15.0 [facility] Immature granulocytes/100 WB C Auto (Bld)Ordered By: Oliver Wong on 05-17-2024 Immature granulocytes/100 WBC (Bld) 0.500 % 0.0-0.9 [facility] Comment on above: IG% - Immature Granu locytes (promyelocytes, myelocytes and metamyelocytes) > 1% indicates that a LEFT SHIFT is Present. Lymphocytes Auto (Unsp spec) [#/Vol]Ordered By: Oliver Wong on 05-17-2024 Lymphocytes (Bld) [#/Vol] 2.35 10*3/uL 0.83-4.51 [facility] Lymphocytes/100 WBC Auto (Un sp spec)Ordered By: Oliver Wong on 05-17-2024 Lymphocytes/100 WBC (Bld) 31.8 % 19-41 [facility] MCV (mean corpuscular volume ) determinationOrdered By: Oliver Wong on 05-17-2024 MCV (RBC) [Entitic vol] 88.3 fL 81-99 [facility] Mean corpuscular hemoglobin (MCH) determinationOrdered By: Oliver Wong on 05-17-2024 MCH (RBC) [Entitic mass] 29.0 pg 27.0-32.0 [facility] Mean corpuscular hemoglobin concentration (MCHC) determinationOrdered By: Oliver Wong on 05-17-2024 MCHC (RBC) [Mass/Vol] 32.9 g/dL 32-36 [facility] Mean platelet volume determi nationOrdered By: Oliver Wong on 05-17-2024 Platelet mean volume (Bld) [Entitic vol] 10.5 fL 6.2-12.0 [facility] Monocyte percentageOrdered B y: Oliver Wong on 05-17-2024 Monocytes/100 WBC (Bld) 7.0 % 0-10 [facility] Neutrophil percentageOrdered By: Oliver Wong on 05-17-2024 Neutrophils/100 WBC (Bld) 57.7 % 47-70 [facility] Nucleated red blood cell per centageOrdered By: Oliver Wong on 05-17-2024 Nucleated RBC/100 WBC (Bld) [Ratio] 0 % 0-5 [facility] Platelet countOrdered By: Zeyad Wong on 05-17-2024 Platelets (Bld) [#/Vol] 286 10*3/uL 150-450 [facility] Potassium (Unsp spec) [Mass/ Vol]Ordered By: Oliver Wong on 05-17-2024 Potassium [Moles/Vol] 4.4 mmol/L 3.3-5.1 [facility] Potassium measurement (mass/ volume)Ordered By: Oliver Wong on 05-17-2024 Potassium (Unsp spec) [Mass/Vol] 4.4 mmol/L 3.3-5.1 [facility] RBC Auto (Bld) [#/Vol]Ordere d By: Oliver Wong on 05-17-2024 RBC (Bld) [#/Vol] 5.03 10*6/uL 4.2-5.4 [facility] Serum creatinine measurement (mass/volume)Ordered By: Oliver Wong on 05-17-2024 Creatinine [Mass/Vol] 0.81 mg/dL 0.70-1.20 [facility] Serum glucose measurement (m ass/volume)Ordered By: Oliver Wong on 05-17-2024 Glucose [Mass/Vol] 72 mg/dL 70-99 [facility] Serum or plasma calcium gabino urement (mass/volume)Ordered By: Oliver Wong on 05-17-2024 Calcium [Mass/Vol] 9.9 mg/dL 7.6-11.0 [facility] Serum or plasma urea nitroge n measurement (mass/volume)Ordered By: Oliver Wong on 05-17-2024 Urea nitrogen [Mass/Vol] 10 mg/dL 4-19 [facility] Sodium levelOrdered By: Oliver Wong on 05-17-2024 Sodium [Moles/Vol] 137 mmol/L 133-145 [facility] TSH DL <= 0.005 mIU/L QnOrde red By: Oliver Wong on 05-17-2024 Thyroid Stimulating Hormone (TSH) 1.820 uIU/mL 0.300-4.200 [facility] TSH Qn 1.820 uIU/mL 0.300-4.200 [facility] Thyroid Stim Hormone (TSH)on 05-17-2024 TSH 1.820 uIU/mL Normal 0.300-4.200 [facility] Comment on above: Performed By: #### L 100.0100, L500.2500, L500.4100 #### [facility] [address] [place], [place] [address]all [facility] [place], [place], [id number] White blood cell (WBC) count Ordered By: Oliver Wong on 05-17-2024 WBC (Bld) [#/Vol] 7.4 10*3/uL 4.4-11.0 [facility] .Auto Diffon 05-06-2024 Basophil, Absolute 0.1 10 3/mcL Normal 0.0-0.2 [facility] Comment on above: Performed By: #### T ROPHS, MG, DIMER, CMP, ADIFF, PBNP, GFR, CBC, ANEU, PRO, APTT, MDW #### [address] [address] Basophils/100 WBC (Bld) 0.8 % Normal 0.0-2.5 [facility] Comment on above: Performed By: #### T ROPHS, MG, DIMER, CMP, ADIFF, PBNP, GFR, CBC, ANEU, PRO, APTT, MDW #### [address] [address] Eosinophil, Absolute 0.2 10 3/mcL Normal 0.0-0.7 [facility] Comment on above: Performed By: #### T ROPHS, MG, DIMER, CMP, ADIFF, PBNP, GFR, CBC, ANEU, PRO, APTT, VILMA #### [address] [address] Eosinophils/100 WBC (Bld) 2.4 % Normal 0.0-7.0 [facility] Comment on above: Performed By: #### T ROPHS, MG, DIMER, CMP, ADIFF, PBNP, GFR, CBC, ANEU, PRO, APTT, VILMA #### [address] [address] Lymphocyte, Absolute 1.7 10 3/mcL Normal 0.9-4.3 [facility] Comment on above: Performed By: #### T ROPHS, MG, DIMER, CMP, ADIFF, PBNP, GFR, CBC, ANEU, PRO, APTT, VILMA #### [address] [address] Lymphocytes/100 WBC (Bld) 26.0 % Normal 20.0-40.0 [facility] Comment on above: Performed By: #### T ROPHS, MG, DIMER, CMP, ADIFF, PBNP, GFR, CBC, ANEU, PRO, APTT, VILMA #### [address] [address] Monocyte, Absolute 0.5 10 3/mcL Normal 0.1-1.4 [facility] Comment on above: Performed By: #### T ROPHS, MG, DIMER, CMP, ADIFF, PBNP, GFR, CBC, ANEU, PRO, APTT, MDW #### [address] [address] Monocytes/100 WBC (Bld) 7.1 % Normal 2.0-13.0 [facility] Comment on above: Performed By: #### T ROPHS, MG, DIMER, CMP, ADIFF, PBNP, GFR, CBC, ANEU, PRO, APTT, MDW #### [facility] [address] [place], [place] [address] Neutrophils/100 WBC (Bld) 63.7 % Normal 50.0-75.0 [facility] Comment on above: Performed By: #### T ROPHS, MG, DIMER, CMP, ADIFF, PBNP, GFR, CBC, ANEU, PRO, APTT, MDW #### [place] [address] [place], [place] [address] .GFRon 05-06-2024 Estimated Glomerular Filtration Rate 86 ml/min/1.73sqm Normal [facility] Comment on above: Result Comment: Stages of Chronic Kidney Disease (CKD) Stage Description eGFR(ml/min/1.73 sq.m.) CKD 1 Normal kidney function or >=90 normal kindney function with possible kidney damage (ex. Proteinuria) CKD 2 Kidney damage with mild loss 60-89 of kidney function CKD 3a Mild to moderate loss of kidney 45-59 function CKD 3b Moderate to severe loss of 30-44 of kindey function CKD 4 Severe loss of kidney function 15-29 CKD 5 Kidney failure <15 Note: (go live 2024) the eGFR calculation was updated to the 2020 CKD-EPI creatinine equation without a race factor to calculate the eGFR results. Performed By: #### T ROPHS, MG, DIMER, CMP, ADIFF, PBNP, GFR, CBC, ANEU, PRO, APTT, MDW ####[facility] [place], [place] [address] .MDWon 05-06-2024 Monocyte Distribution Width 18.80 Normal 0.00-20.00 [facility] Comment on above: Result Comment: For ED adult patients suspected of sepsis, MDW<=20.0 does not rule out sepsis or risk of sepsis Performed By: #### T ROPHS, MG, DIMER, CMP, ADIFF, PBNP, GFR, CBC, ANEU, PRO, APTT, MDW #### [address] [address] .NEUABSon 05-06-2024 Neutrophil, Absolute 4.3 10 3/mcL Normal 2.3-8.1 [facility] Comment on above: Performed By: #### T SOTERO, MG, DIMER, CMP, ADIFF, PBNP, GFR, CBC, ANEU, PRO, APTT, MDEstrella #### [place] [address] APTTon 05-06-2024 aPTT Coag (Bld) [Time] 32.6 s Normal 25.0-35.0 [facility] Comment on above: Result Comment: For Heparin anticoagulation therapy, the recommended therapeutic range is: 45.4-75.9 seconds. Patients on heparin therapy may have an extreme result. Performed By: #### T SOTERO, MG, DIMER, CMP, ADIFF, PBNP, GFR, CBC, ANEU, PRO, APTT, VIMLA ####[place] [address] CBCon 05-06-2024 Erythrocyte distribution width (RBC) [Ratio] 14.3 % Normal 11.5-15.5 [facility] Comment on above: Performed By: #### T HIMAHS, MG, DIMER, CMP, ADIFF, PBNP, GFR, CBC, ANEU, PRO, APTT, VILMA #### [place] [address] Hematocrit (Bld) [Volume fraction] 42.7 % Normal 34.0-46.0 [facility] Comment on above: Performed By: #### T ROPHS, MG, DIMER, CMP, ADIFF, PBNP, GFR, CBC, ANEU, PRO, APTT, W #### [place] [address] Hgb 14.6 G/dL Normal 12.0-16.0 [facility] Comment on above: Performed By: #### T HIMAHS, MG, DIMER, CMP, ADIFF, PBNP, GFR, CBC, ANEU, PRO, APTT, W #### [address] [address] MCH (RBC) [Entitic mass] 29.3 pg Normal 27.0-33.0 [facility] Comment on above: Performed By: #### T ROPHS, MG, DIMER, CMP, ADIFF, PBNP, GFR, CBC, ANEU, PRO, APTT, VILMA #### [address] [address] MCHC 34.2 G/dL Normal 32.0-36.0 [facility] Comment on above: Performed By: #### T HIMAHS, MG, DIMER, CMP, ADIFF, PBNP, GFR, CBC, ANEU, PRO, APTT, VILMA #### [address] [address] MCV (RBC) [Entitic vol] 85.6 fL Normal 80.0-99.0 [facility] Comment on above: Performed By: #### T ROPHS, MG, DIMER, CMP, ADIFF, PBNP, GFR, CBC, ANEU, PRO, APTT, VILMA #### [address] [address] Platelet 249 10 3/mcL Normal 150-450 [facility] Comment on above: Performed By: #### T ROPHS, MG, DIMER, CMP, ADIFF, PBNP, GFR, CBC, ANEU, PRO, APTT, VILMA #### [address] [address] Platelet mean volume (Bld) [Entitic vol] 7.8 fL Normal 6.6-10.5 [facility] Comment on above: Performed By: #### T ROPHS, MG, DIMER, CMP, ADIFF, PBNP, GFR, CBC, ANEU, PRO, APTT, VILMA #### [address] [address] RBC 4.98 10 6/mcL Normal 4.10-5.30 [facility] Comment on above: Performed By: #### T ROPHS, MG, DIMER, CMP, ADIFF, PBNP, GFR, CBC, ANEU, PRO, APTT, MDW #### [place] [address] [place], [place] [address] WBC 6.7 10 3/mcL Normal 4.5-10.8 [facility] Comment on above: Performed By: #### T ROPHS, MG, DIMER, CMP, ADIFF, PBNP, GFR, CBC, ANEU, PRO, APTT, MDW #### [place] [address] [place], [place] [address] CMPon 05-06-2024 Albumin Level 3.7 G/dL Normal 3.5-5.0 [facility] Comment on above: Performed By: #### T ROPHS, MG, DIMER, CMP, ADIFF, PBNP, GFR, CBC, ANEU, PRO, APTT, W ####[place] [id number] [place], [place] [address] Albumin/Globulin [Mass ratio] 1.2 {ratio} Normal 1.1-2.5 [facility] Comment on above: Performed By: #### T ROPHS, MG, DIMER, CMP, ADIFF, PBNP, GFR, CBC, ANEU, PRO, APTT, VILMA ####[address] [address] ALP [Catalytic activity/Vol] 60 U/L Normal 40-135 [facility] Comment on above: Performed By: #### T ROPHS, MG, DIMER, CMP, ADIFF, PBNP, GFR, CBC, ANEU, PRO, APTT, VILMA ####[address] [address] ALT [Catalytic activity/Vol] 24 U/L Normal 14-59 [facility] Comment on above: Performed By: #### T ROPHS, MG, DIMER, CMP, ADIFF, PBNP, GFR, CBC, ANEU, PRO, APTT, MDW ####[place] [id number] [place], [place] [address] AST [Catalytic activity/Vol] 13 U/L Normal 10-40 [facility] Comment on above: Performed By: #### T ROPHS, MG, DIMER, CMP, ADIFF, PBNP, GFR, CBC, ANEU, PRO, APTT, MDW ####[place] [id number] [place], [place] [address] Bili Total 0.4 mg/dL Normal 0.2-1.0 [facility] Comment on above: Result Comment: Use of this assay is not recommended for patients undergoing treatment with eltrombopag due to the potential for falsely elevated results. Performed By: #### T ROPHS, MG, DIMER, CMP, ADIFF, PBNP, GFR, CBC, ANEU, PRO, APTT, MDW ####[address] [place], [place] [address] BUN/Creatinine Ratio 11 ratio Normal 7-27 [facility] Comment on above: Performed By: #### T ROPHS, MG, DIMER, CMP, ADIFF, PBNP, GFR, CBC, ANEU, PRO, APTT, MDW ####[id number] [place], [place] [address] Calcium [Mass/Vol] 9.1 mg/dL Normal 8.4-10.2 [facility] Comment on above: Performed By: #### T SOTERO, MG, DIMER, CMP, ADIFF, PBNP, GFR, CBC, ANEU, PRO, APTT, MDW ####[address] [place], [place] [address] Chloride [Moles/Vol] 106 mmol/L Normal 98-107 [facility] Comment on above: Performed By: #### T ROPHS, MG, DIMER, CMP, ADIFF, PBNP, GFR, CBC, ANEU, PRO, APTT, W ####[id number] [place], [place] [address] CO2 [Moles/Vol] 27 mmol/L Normal 22-29 [facility] Comment on above: Performed By: #### T ROPHS, MG, DIMER, CMP, ADIFF, PBNP, GFR, CBC, ANEU, PRO, APTT, MDW ####[place] [id number] [place], [place] [address] Creatinine [Mass/Vol] 0.87 mg/dL Normal 0.55-1.02 [facility] Comment on above: Result Comment: Test ing performed on Siemens Dimension EXL analyzer using a modified kinetic Ariel technique. Performed By: #### T HIMAHS, MG, DIMER, CMP, ADIFF, PBNP, GFR, CBC, ANEU, PRO, APTT, MDW ####[address] [address] Electrolyte Balance 7.0 mEq/L Normal 4.0-15.0 [facility] Comment on above: Performed By: #### T ROPHS, MG, DIMER, CMP, ADIFF, PBNP, GFR, CBC, ANEU, PRO, APTT, MDW ####[address] [address] Globulin 3.2 G/dL Normal 1.5-3.8 [facility] Comment on above: Performed By: #### T SOTERO, MG, DIMER, CMP, ADIFF, PBNP, GFR, CBC, ANEU, PRO, APTT, VILMA ####[address] [address] Glucose [Mass/Vol] 99 mg/dL Normal 70-105 [facility] Comment on above: Performed By: #### T HIMAHS, MG, DIMER, CMP, ADIFF, PBNP, GFR, CBC, ANEU, PRO, APTT, MDW ####[address] [address] Potassium [Moles/Vol] 3.9 mmol/L Normal 3.5-5.1 [facility] Comment on above: Performed By: #### T HIMAHS, MG, DIMER, CMP, ADIFF, PBNP, GFR, CBC, ANEU, PRO, APTT, MDEstrella ####[address] [address] Sodium [Moles/Vol] 140 mmol/L Normal 136-145 [facility] Comment on above: Performed By: #### T HIMAHS, MG, DIMER, CMP, ADIFF, PBNP, GFR, CBC, ANEU, PRO, APTT, VILMA ####[place] [address] [place] [address] Total Protein 6.9 G/dL Normal 6.4-8.2 [facility] Comment on above: Performed By: #### T ROPHS, MG, DIMER, CMP, ADIFF, PBNP, GFR, CBC, ANEU, PRO, APTT, MDW ####[place] [facility], [place] [address] Urea nitrogen [Mass/Vol] 10 mg/dL Normal 7-18 [facility] Comment on above: Performed By: #### T ROPHS, MG, DIMER, CMP, ADIFF, PBNP, GFR, CBC, ANEU, PRO, APTT, MDW ####[facility], [place] [address] CT ANGIOGRAPHY CHEST W/CONTR Rossana 05-06-2024 CT ANGIOGRAPHY CHEST W/CONTRAST ORIGINAL EXAMINATION: CTA OF THE CHEST 05/06/2024 8:31 am TECHNIQUE: CTA of the chest was performed after the administration of intravenous contrast. Multiplanar reformatted images are provided for review. MIP images are provided for review. Automated exposure control, iterative reconstruction, and/or weight based adjustment of the mA/kV was utilized to reduce the radiation dose to as low as reasonably achievable. COMPARISON: None. HISTORY: ORDERING SYSTEM PROVIDED HISTORY: Reason for Exam: chest pain; suspect PE FINDINGS: Pulmonary Arteries: There is adequate contrast opacification the pulmonary artery at 333 Hounsfield units.. No evidence of intraluminal filling defect to the segmental level bilaterally.. There is no evidence of right heart strain. Mediastinum: Thyroid gland is only partially visualized and homogeneous on CT. Bilateral prominent but subcentimeter axillary lymph nodes. No pathologically enlarged mediastinal adenopathy. There are multiple subcentimeter mediastinal lymph nodes. The aorta and main pulmonary artery normal in caliber. The heart is normal in size. There is no pericardial effusion. Lungs/pleura: The airways are patent. There is no pneumothorax or focal consolidation. No pleural effusion. There are bibasilar linear bands of ground-glass at the dependent lung zones that are favored to reflect areas of atelectasis. There is a 3 mm solid noncalcified inferior lingular pulmonary nodule on series 2, image 135. Upper Abdomen: Limited images of the upper abdomen are unremarkable. Soft Tissues/Bones: No acute bone or soft tissue abnormality. IMPRESSION: There is no evidence of pulmonary embolism to the segmental level bilaterally. There are basilar lower lung areas of dependent ground-glass favored to reflect areas of subsegmental atelectasis. 3 mm solid noncalcified inferior lingular pulmonary nodule, follow-up per Fleischner society criteria. Interpreted by: Ele Walters Preliminary Report By: Ele Walters Electronically signed By Ele Walters Dictated Date: 05/06/2024 8:37:10 AM Prelim Date: 05/06/2024 8:44:45 AM Sign Date: 05/06/2024 8:44:45 AM Ordering Provider: ADY Villalobos [facility] DIMERon 05-06-2024 D-Dimer 234 ng/mL D-DU High 0-230 [facility] Comment on above: Result Comment: Resu lts reported in D-DU ng/mL. Positive for D-dimer. A positive D-Dimer may occur in the following: DVT, PE, DIC, Trauma, Cancer, Sepsis, , Rheumatoid arthritis, Myocardial infarction and Cirrhosis. The presence of Rheumatoid Factor and HAMA (human mouse antibody) produces an overestimation of test results. The result of the D-Dimer test should be evaluated in the context of all the clinical and laboratory data available. In those instances where the laboratory result does not agree with the clinical evaluation, additional tests should be performed accordingly. If the D-Dimer result is used to exclude DVT or PE, the recommended cutoff value is less than 230 ng/mL. The D-Dimer result should not be used alone to rule in DVT/PE, but should be used in conjunction with a clinical pretest probability (PTP)assessment model to exclude venous thromboembolism (VTE) in patients suspected of deep venous thrombosis (DVT) and pulmonary embolism (PE). Performed By: #### T ROPHS, MG, DIMER, CMP, ADIFF, PBNP, GFR, CBC, ANEU, PRO, APTT, MDW ####[facility] [place], [place] [address] MGon 05-06-2024 Magnesium [Mass/Vol] 1.9 mg/dL Normal 1.8-2.4 [facility] Comment on above: Performed By: #### T ROPHS, MG, DIMER, CMP, ADIFF, PBNP, GFR, CBC, ANEU, PRO, APTT, VILMA #### [facility] [address], [place] [address] PBNPon 05-06-2024 Natriuretic peptide B (Bld) [Mass/Vol] 24 pg/mL Normal 0-125 [facility] Comment on above: Result Comment: NT-p roBNP results of less than 300 pg/mL effectively rules out acute congestive heart failure with 99% negative predictive value. Performed By: #### T SOTERO, MG, DIMER, CMP, ADIFF, PBNP, GFR, CBC, ANEU, PRO, APTT, VILMA ####[facility] [place], [place] [address] PROon 05-06-2024 PT Coag (PPP) [Time] 12.2 s Normal 9.0-14.4 [facility] Comment on above: Performed By: #### T SOTERO, MG, DIMER, CMP, ADIFF, PBNP, GFR, CBC, ANEU, PRO, APTT, VILMA ####[facility] [place], [place] [address] PT International Ratio 1.1 Normal [facility] Comment on above: Result Comment: The [employer] (CHEST, 1992, 102:312S-25S) recommended therapeutic range for oral anticoagulant therapy is: LOW RISK: Prophylaxis of venous thrombosis INR: 2.0-3.0 Treatment of pulmonary embolism 2.0-3.0 Prevention of systemic embolism 2.0-3.0 HIGH RISK: Mechanical prosthetic valves 2.5-3.5 Performed By: #### T SOTERO, MG, DIMER, CMP, ADIFF, PBNP, GFR, CBC, ANEU, PRO, APTT, VILMA ####[facility] [place], [place] [address] TROPHSon 05-06-2024 High Sensitivity Troponin I 6 ng/L Normal 0-51 [facility] Comment on above: Result Comment: High Sensitive Troponin I Reference Ranges: Female: 0-51 ng/L Male: 0-76 ng/L Testing performed on Trendyol using a homogeneous sandwich chemiluminescent immunoassay based on [employer] technology. Performed By: #### T SOTERO #### [facility] [address], [place] [address] High Sensitivity Troponin I <4 Normal 0-51 [facility] Comment on above: Result Comment: High Sensitive Troponin I Reference Ranges: Female: 0-51 ng/L Male: 0-76 ng/L Testing performed on Trendyol using a homogeneous sandwich chemiluminescent immunoassay based on [employer] technology. Performed By: #### T ROPHS, MG, DIMER, CMP, ADIFF, PBNP, GFR, CBC, ANEU, PRO, APTT, MDW #### [facility] [address], [place] [address] XR CHEST 1 VIEWon 05-06-2024 XR CHEST 1 VIEW ORIGINAL EXAMINATION: ONE XRAY VIEW OF THE CHEST 05/06/2024 6:44 am COMPARISON: None. HISTORY: ORDERING SYSTEM PROVIDED HISTORY: Reason for Exam: chest pain FINDINGS: The heart size and mediastinal contours are normal. There is no lung infiltrate or edema. No pneumothorax or pleural fluid is present. The skeletal structures are unremarkable. IMPRESSION: No acute cardiopulmonary process. Interpreted by: Surjit Glover MD Preliminary Report By: Surjit Glover MD Electronically signed By Surjit Glover MD Dictated Date: 05/06/2024 6:46:57 AM Prelim Date: 05/06/2024 6:47:33 AM Sign Date: 05/06/2024 6:47:33 AM Ordering Provider: USAMA Villalobos [facility] Yovanny 03-10-2024 MADONNA Telephone (OBGYWM) SREE CESAR ([id number]) 1985 F Date Time Provider Department 03/10/24 PILY GALLARDO OBANGELA During your visit today, we recorded the following information about you: Annie Peter RN 03/10/2024 12:10 PM Signed Pt states was seen in office 03/09/24 and had given a return to work form to be filled out/signed and her employer has not received it. Advised Pt would check into this and would call her back. DANIEL Mosquera Tara, RN 03/10/2024 12:31 PM Signed Called Pt back to inform her a staff member in our office will be working on this paperwork and as soon as it is signed by the provider we will fax and let her know. Pt states she is scheduled to work on Wednesday and was hoping it could be sent SHANON. Again advised her we will complete and send as soon as we are able. Pt voiced understanding. DANIEL Mosquera Deidre, MD 03/10/2024 1:[address] in my box and I will sign while I am here Andrea Hamm MA 03/10/2024 1:56 PM Addendum Return to work form has been signed and faxed to employer. Patient notified via [email or web address]. Andrea Hamm MA Allergies As of Date: 03/10/2024 Noted Allergy Reaction AMOXICILLIN 08/30/2007 8 - GI Upset Comments: ABD. PAIN, NAUSEA, DIZZINESS ZITHROMAX (AZITHROMYCIN) 08/10/2008 4 - Hives 8 - GI Upset Comments: Nausea and stomach pains Date Reviewed: 03/09/2024 Reviewed by: Jessenia Cabrera MA - Fully Assessed Prescriptions as of 03/10/2024 - multivit,thx,calcium ,iron,mins (MULTIVITAMIN AND MINERAL ORAL) Take by mouth. - levonorgestrel (MIRENA) 21 mcg/24 hours (8 yrs) 52 mg IUD 1 Each by INTRAUTERINE route as directed. - omeprazole (PRILOSEC) 40 mg capsule Take 1 capsule by mouth once daily. - ibuprofen (MOTRIN) 600 mg tablet Take 1 tablet by mouth every 6 hours as needed for Pain. Problem List As Of Date 03/10/2024 Noted Resolved Premenopausal menorrhagia [N92.4] 09/12/2012 Tobacco abuse [Z72.0] 09/12/2012 IUD (intrauterine device) in place [Z97.5] 11/19/2023 Encounter Status:Closed by ANDREA HAMM on 03/10/24 Normal [facility] CNOVon 03-09-2024 CNOV Office Visit (OBGYWM) SREE CESAR ([id number]) 1985 F Date Time Provider Department 03/09/24 8:10 AM PILY GALLARDO OBGYWM During your visit today, we recorded the following information about you: Blood pressure Weight 104/72 83.9 kg Pily Gallardo MD 03/09/2024 8:30 AM Signed SUBJECTIVE: 38 year old female presents for 6 week post-op exam. Doing well- no bleeding, no discharge, no pain. No issues with BM or voiding. Going back to work Wednesday per her schedule. Objective: Incision: Healed Abdomen: Soft, Non-tender, No palpable masses, and No hepatosplenomegaly. Genitalia: Normal external genitalia, Urethral meatus normal, Bladder nontender, normal vagina and normal vaginal tone, cervix absent, uterus absent, normal adnexa without masses or tenderness, and perineum WNL. Cuff intact. No pain on palpation. Impression: Post-Op Exam Plan: Return to office annual exam. I have reviewed and updated past medical and surgical history, medications and allergies. Pily Izquierdo MD Allergies As of Date: 03/09/2024 Noted Allergy Reaction AMOXICILLIN 08/30/2007 8 - GI Upset Comments: ABD. PAIN, NAUSEA, DIZZINESS ZITHROMAX (AZITHROMYCIN) 08/10/2008 4 - Hives 8 - GI Upset Comments: Nausea and stomach pains Date Reviewed: 03/09/2024 Reviewed by: Jessenia Cabrera MA - Fully Assessed Reason for Visit: Post-Op Visit [1236] Primary Visit Diagnosis:Post-opera tive state [Z98.890] Other Visit Diagnosis:Encounter for screening mammogram for malignant neoplasm of breast [Z12.31] Order(s):PRERI SCREENING W ASHLEY [[id number]] Order #: [id number] FUTURE Prescriptions as of 03/09/2024 - multivit,thx,calcium ,iron,mins (MULTIVITAMIN AND MINERAL ORAL) Take by mouth. - levonorgestrel (MIRENA) 21 mcg/24 hours (8 yrs) 52 mg IUD 1 Each by INTRAUTERINE route as directed. - omeprazole (PRILOSEC) 40 mg capsule Take 1 capsule by mouth once daily. - ibuprofen (MOTRIN) 600 mg tablet Take 1 tablet by mouth every 6 hours as needed for Pain. Problem List As Of Date 03/09/2024 Noted Resolved Premenopausal menorrhagia [N92.4] 09/12/2012 Tobacco abuse [Z72.0] 09/12/2012 IUD (intrauterine device) in place [Z97.5] 11/19/2023 Disposition: Return in about 1 year (around 03/09/2025). Follow-up and Disposition History for Encounter Date Provider Department Center 03/09/2024 [id number] GALLARDO Encounter Status:Closed by PILY DA SILVA on 03/09/24 [facility] CNOVon 02-09-2024 CNOV Office Visit (OBGYWM) SREE CESAR ([id number]) 1985 F Date Time Provider Department 02/09/24 9:40 AM PILY GALLARDO During your visit today, we recorded the following information about you: Blood pressure Weight 116/68 83 kg Pily Gallardo MD 02/09/2024 9:51 AM Signed SUBJECTIVE: 38 year old female presents for 2 week post-op exam. Was having some diarrhea- started fiber supplement- better now. No fever. No vaginal bleeding. OBJECTIVE: Incision: Dry and intact, without redness- reports some discharge-but nothing noted on exam today- all are clean, dry and intact- glue removed. No ecchymosis. Abdomen: Soft and Non-tender PLAN: RTO for 6 week check I have reviewed and updated past medical and surgical history, medications and allergies. Pily Izquierdo MD Allergies As of Date: 02/09/2024 Noted Allergy Reaction AMOXICILLIN 08/30/2007 8 - GI Upset Comments: ABD. PAIN, NAUSEA, DIZZINESS ZITHROMAX (AZITHROMYCIN) 08/10/2008 4 - Hives 8 - GI Upset Comments: Nausea and stomach pains Date Reviewed: 02/09/2024 Reviewed by: Jsesenia Cabrera MA - Fully Assessed Reason for Visit: Post-Op Visit [1236] Primary Visit Diagnosis:Post-opera tive state [Z98.890] Prescriptions as of 02/09/2024 - multivit,thx,calcium ,iron,mins (MULTIVITAMIN AND MINERAL ORAL) Take by mouth. - levonorgestrel (MIRENA) 21 mcg/24 hours (8 yrs) 52 mg IUD 1 Each by INTRAUTERINE route as directed. - omeprazole (PRILOSEC) 40 mg capsule Take 1 capsule by mouth once daily. - ibuprofen (MOTRIN) 600 mg tablet Take 1 tablet by mouth every 6 hours as needed for Pain. Problem List As Of Date 02/09/2024 Noted Resolved Premenopausal menorrhagia [N92.4] 09/12/2012 Tobacco abuse [Z72.0] 09/12/2012 IUD (intrauterine device) in place [Z97.5] 11/19/2023 Disposition: Return in about 4 weeks (around 03/08/2024). Follow-up and Disposition History for Encounter Date Provider Department Center 02/09/2024 [id number] MCINTOSH,LUIS Amador Encounter Status:Closed by [facility]VA [facility] [place] Tele[facility] (JEFFREY) SREE CESAR ([id number]) 1985 F Date Time Provider Department 02/03/24 PILY GALLARDO OBGYWJose During your visit today, we recorded the following information about you: Pily Gallardo MD 02/03/2024 3:32 PM Signed Please notify patient of benign Pathology from Hysterectomy. Will see her back for post op appts as scheduled. Tyesha Marti RN 02/03/2024 3:42 PM Signed Left message for patient to call office. DANIEL Coto Jennifer, RN 02/03/2024 4:10 PM Signed Patient notified. Yolanda Helton RN Allergies As of Date: 02/03/2024 Noted Allergy Reaction AMOXICILLIN 08/30/2007 8 - GI Upset Comments: ABD. PAIN, NAUSEA, DIZZINESS ZITHROMAX (AZITHROMYCIN) 08/10/2008 4 - Hives 8 - GI Upset Comments: Nausea and stomach pains Date Reviewed: 02/01/2024 Reviewed by: Jessenia Cabrera MA - Fully Assessed Prescriptions as of 02/03/2024 - multivit,thx,calcium ,iron,mins (MULTIVITAMIN AND MINERAL ORAL) Take by mouth. - levonorgestrel (MIRENA) 21 mcg/24 hours (8 yrs) 52 mg IUD 1 Each by INTRAUTERINE route as directed. - omeprazole (PRILOSEC) 40 mg capsule Take 1 capsule by mouth once daily. - ibuprofen (MOTRIN) 600 mg tablet Take 1 tablet by mouth every 6 hours as needed for Pain. Problem List As Of Date 02/03/2024 Noted Resolved Premenopausal menorrhagia [N92.4] 09/12/2012 Tobacco abuse [Z72.0] 09/12/2012 IUD (intrauterine device) in place [Z97.5] 11/19/2023 Encounter Status:Closed by YOLANDA HELTON on 02/03/24 [facility] CNOVon 02-01-2024 CNOV Office Visit (OBGYWM) ARSENIOSREE ([id number]) 1985 F Date Time Provider Department 02/01/24 11:20 AM PILY GALLARDO OBGYWM During your visit today, we recorded the following information about you: Blood pressure Weight 112/62 83.5 kg Pily Gallardo MD 02/01/2024 11:57 AM Signed SUBJECTIVE: 38 year old female presents for 4 day post-op exam- has not taken any pain medication except motrin last night. Pt reports has some clear/yellow drainage from umbilical incision site this morning and some small bruising around umbilical incision site this morning. Pt denies fever, no vaginal bleeding. No difficulty with BM or Voiding. OBJECTIVE: Incision: healing well- no erythema, no induration. Scant clear drainage noted at umbilical incision- some of the glue removed, no purulent drainage noted. Small yellow ecchymosis inferior to umbilical port site- soft. Abdomen: Soft and appropriately tender PLAN: RTO for 2 and 6 week check Reassurance given I have reviewed and updated past medical and surgical history, medications and allergies. Pily Izquierdo MD Allergies As of Date: 02/01/2024 Noted Allergy Reaction AMOXICILLIN 08/30/2007 8 - GI Upset Comments: ABD. PAIN, NAUSEA, DIZZINESS ZITHROMAX (AZITHROMYCIN) 08/10/2008 4 - Hives 8 - GI Upset Comments: Nausea and stomach pains Date Reviewed: 02/01/2024 Reviewed by: Jessenia Cabrera MA - Fully Assessed Reason for Visit: Post Op [174] Post-Op Visit [1236] Primary Visit Diagnosis:Post-opera tive state [Z98.890] Prescriptions as of 02/01/2024 - multivit,thx,calcium ,iron,mins (MULTIVITAMIN AND MINERAL ORAL) Take by mouth. - levonorgestrel (MIRENA) 21 mcg/24 hours (8 yrs) 52 mg IUD 1 Each by INTRAUTERINE route as directed. - omeprazole (PRILOSEC) 40 mg capsule Take 1 capsule by mouth once daily. - ibuprofen (MOTRIN) 600 mg tablet Take 1 tablet by mouth every 6 hours as needed for Pain. Problem List As Of Date 02/01/2024 Noted Resolved Premenopausal menorrhagia [N92.4] 09/12/2012 Tobacco abuse [Z72.0] 09/12/2012 IUD (intrauterine device) in place [Z97.5] 11/19/2023 Encounter Status:Closed by PILY DA SILVA on 02/01/24 Normal [facility] 02-01-2024 CNPN Telephone (OBGYWM) SREE CESAR ([id number]) 1985 F Date Time Provider Department 02/01/24 PILY GALLARDO OBGYWM During your visit today, we recorded the following information about you: Yolanda Helton RN 02/01/2024 8:09 AM Signed Patient had a TLH on 01/27. Calling to report that the incision at her umbilicus is draining a small amount of yellowish drainage. She also noticed bruising that wasn't there before. Denies fever or chills. Asking if this is normal. Would you like patient seen in office? DANIEL Caal Deidre, MD 02/01/2024 8:36 AM Signed A small amount of drainage can be normal as can be bruising - happy to see her today- She can come at 11:20 or at 9:20am Pily Gallardo MD 02/01/2024 8:37 AM Signed Or 11:40 sorry- that is a post op appt slot Deanne Pickard RN 02/01/2024 9:29 AM Signed Patient notified and voiced understanding, appointment given for today. Deanne Pickard RN Allergies As of Date: 02/01/2024 Noted Allergy Reaction AMOXICILLIN 08/30/2007 8 - GI Upset Comments: ABD. PAIN, NAUSEA, DIZZINESS ZITHROMAX (AZITHROMYCIN) 08/10/2008 4 - Hives 8 - GI Upset Comments: Nausea and stomach pains Date Reviewed: 01/12/2024 Reviewed by: Jessenia Cabrera MA - Fully Assessed Reason for Visit: Post Op Drainage [1985] Prescriptions as of 02/01/2024 - multivit,thx,calcium ,iron,mins (MULTIVITAMIN AND MINERAL ORAL) Take by mouth. - levonorgestrel (MIRENA) 21 mcg/24 hours (8 yrs) 52 mg IUD 1 Each by INTRAUTERINE route as directed. - omeprazole (PRILOSEC) 40 mg capsule Take 1 capsule by mouth once daily. - ibuprofen (MOTRIN) 600 mg tablet Take 1 tablet by mouth every 6 hours as needed for Pain. Problem List As Of Date 02/01/2024 Noted Resolved Premenopausal menorrhagia [N92.4] 09/12/2012 Tobacco abuse [Z72.0] 09/12/2012 IUD (intrauterine device) in place [Z97.5] 11/19/2023 Encounter Status:Closed by DEANNE PICKARD on 02/01/24 Normal [facility] Bedside Glucoseon 01-28-2024 FINGERSTICK GLU 130 mg/dL High 74-106 [facility] Comment on above: Result Comment: SHARON LOWERY OF PATIENT CARE PER NURSING PROTOCOL Performed By: #### L 501.080 #### [facility] [address]. [place], [place], [id number] Discharge Instructionon 12-31 Discharge Instruction [facility] Medical Records Department [address] [place] [address] Instructions for Home/Discharge Instructions 01/28/24 0727 MR#: [id number] Acct: [id number] Name: SREE CESAR Rep #: [id number] : 1985 38 From: Pily Izquierdo MD PCP: Dr. Oliver Wong MD [place] [facility] [place]charge Instructions Diet Discharge Diet: No restrictions DC O2, CPAP, BIPAP needs Additional Home O2 Discharge instructions: No Dressing / Incision Discharge Activity: May Not Drive (while taking narcotics. may drive when pain controlled. ) and May Shower Return to work on:: 03/10/24 May shower in (days): 1 May resume sexual activity in: 6-8 weeks Weight Bearing Status: Full weight bearing Lifting Restrictions: 20 Additional Activity Instructions:: NOTHING IN THE VAGINA x 6-8 weeks. (until cleared at 6 weeks post op check) Dressing / Incision Call your doctor if your incision/area has: Continuous Slow Oozing, Sudden Increased Bleeding, Increased Pain/ Swelling, Increased Redness, Foul Smelling Discharge and Swelling at the incision site Call your doctor if you observe: Fever of 101 or Higher, Inability to have a bowel movement, Using more than 1 pad per hour and Uncontrolled pain Change Dressing in: leave in place till F/U (you have skin glue over incision sites- do not pick off) Cleanse incision/area with: Soap Water, Keep Dressing Clean Dry and - (you may let soap and water run over incision sites and dab dry. ) Follow Up Care Please Follow Up With: Figueroa MD When: 2 weeks as scheduled for post op visit Test Results: Test results from this visit will be discussed in further detail at your follow-up appointment, if applicable. Discharge Plan Admission Attending Provider: Figueroa Primary Care Provider: Oliver Wong Consulting Providers: Prashant Yanes Instructions Print Language: Serbian Discharge Orders/Prescriptions Prescriptions: No Action Mirena 21 mcg/24hr (up to 8 yrs) 52 mg intrauterine device 1 device intrauterine .Q8YRS omeprazole 20 mg capsule,delayed release(DR/EC) 20 mg PO DAILY multivitamin [Daily Multi-Vitamin] Tablet 1 tab PO DAILY ibuprofen 800 mg tablet 800 mg PO Q8H PRN PRN (Reason: migraine) Referrals / Follow Up: Oliver Wong MD [Primary Care Provider] - Disposition Disposition (needs filled in before D/C Order can be placed): Home, Self Care 01/28/24728 Pily Izquierdo MD CC: Dr. Prashant Yanes MD; Dr. 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 Oliver Wong MD [place] [facility] [place] Location: [place] [address] History and Physical Date of Admission: 01/28/24 History and Physical Date of Admission: 01/28/24 Expand All Collapse All Pre-Op History and Physical HPI: The patient is a 38 year old female presenting for pre-operative visit. She is scheduled for TLH, Bilateral , Cysto, for Pelvic pain, AUB, dysmenorrhea, adenomyosis on 01/28/24. Pt has failed medical mgmt with Mirena IUD and PO progesterone therapy. Pt can't can't combined hormonal therapy due to smoking history and is not good ablation candidate due to suspected adenomyosis. Procedure discussed along with risks, benefits and complications. Other alternatives discussed for management. Consent form signed? Yes. PAST MEDICAL HISTORY PAST MEDICAL HISTORY DiagnosisDate ???IUD (intrauterine device) in place11/19/2023 ???PMH - PAST MEDICAL HISTORY OF03/01/2001 ovarian cysts PAST SURGICAL HISTORY PAST SURGICAL HISTORY ProcedureLateralityD ate ???APPENDECTOMY 1994 ???COLONOSCOPY FLX DX W/COLLJ SPEC WHEN PFRMD 10/28/2022 repeat in 10 years ???EGD W/O [facility] SPEC VARICIES INJ 10/28/2022 ???L'SCOPE DX W/WO BRUSHINGS/WASHINGS 10/01/2022 was scheduled to be ovarian cystectomy, but ovarian cyst had resolved ???LAPAROSCOPY SALPINGOSTOMY 04/01/2017 Laparoscopic bilateral salpingectomy ???OVARIAN CYSTECTOMY CURRENT MEDICATIONS Current Outpatient Medications MedicationSigDispens eRefill ???levonorgestrel (MIRENA) 21 mcg/24 hours (8 yrs) 52 mg IUD1 Each by INTRAUTERINE route as directed.1 Each0 ???omeprazole (PRILOSEC) 40 mg capsuleTake 1 capsule by mouth once daily. (Patient taking differently: Take 20 mg by mouth once daily.)30 capsule2 ???ibuprofen (MOTRIN) 600 mg tabletTake 1 tablet by mouth every 6 hours as needed for Pain.30 tablet1 No current facility-administere d medications for this visit. ALLERGIES: Amoxicillin and Zithromax [Azithromycin] PERSONAL HISTORY: SOCIAL HISTORY Social History Tobacco Use ???Smoking status:Every Day Current packs/day:1.00 Types:Cigarettes ???Smokeless tobacco:Never Vaping Use ???Vaping status:Never Used Substance Use Topics ???Alcohol use:No ???Drug use:No FAMILY HISTORY: FAMILY HISTORY FAMILY HISTORY ProblemRelationAge of Onset ???HypertensionMothe r ???ThyroidMother ???other (Endometrosis)Mother Hysterectomy in later 30's ???HypertensionMater nal Grandmother ???Prostate CancerMaternal Grandfather ???Breast CancerPaternal Grandmother ???Breast CancerPaternal Aunt ???ThyroidSister REVIEW OF SYMPTOMS: negative except as noted above PHYSICAL EXAMINATION: VITALS: Blood pressure 122/80, pulse 80, height 165.1 cm (5' 5), weight 83 kg (183 lb), last menstrual period 01/21/2023, SpO2 92%. GENERAL: The patient is well nourished, well hydrated in no acute distress. , The patient is oriented to time, place, and person. NECK: full range of motion LUNGS: Clear to auscultation bilaterally. no wheezes, rhonchi or rales HEART: Regular rate and rhythm, Normal heart sounds, and No murmurs or gallops IMPRESSION: 38 yo with AUB, dysmenorrhea, pelvic pain, Adenomyosis PLAN: TLH, Cystoscopy Pt has been counseled on risks/benefits and alternatives of surgery including but not limited to anesthesia, bleeding, infection, injury to pelvic structures including bowel, bladder, ureters and vessels. Pt wishes to proceed with surgery at this time. Pre and post op instructions reviewed - advised not to smoke day of surgery. I have reviewed and updated past medical and surgical history, medications and allergies 01/26/24 1221 Cosigner Signature (if applicable): CC: Dr Pily Izquierdo MD; Dr. Oliver Wong MD 01/28/24723 Cosigner Signature (if applicable): CC: Dr Pily Izquierdo MD; Dr. Oliver Wong MD Signed [facility] MR/POSTOP.[facility] 01-28-2024 MR/POSTOP.[facility] Medical Records Department [address] [place] [address] Anesthesia Postop Eval I 01/28/24923 MR#: [id number] Acct: [id number] Name: SREE CESAR Rep #: [id number] : 1985 38 From: Leena Pugh PCP: Dr. Oliver Wong MD Status:REG [facility] [place] Race: C Location: [place] [address] Anesthesia: Postop Eval I Current Vital Signs Temperature: 98.2 F Pulse Rate: 67 Blood Pressure: 82/52 Respiratory Rate: 18 Pulse Ox: 93 Assessment Airway patent: Yes Spontaneous unlabored respirations: Yes nausea: No Vomiting: No Anesthesia Complication: No Fluid Hydration Crystalloid volume administer (ml): 1,400 Total IV fluid infused: 1,400 Progress Note Anesthesia document: Postop Eval 1 completed: Yes 01/28/24930 Date Leena Pugh Cosigner Signature: Date CC: Signed [facility] MR/[id number] 01-28-2024 MR/POSTOPAN2 [facility] Medical Records Department [address] [place] [address] Anesthesia Postop Eval II 01/28/24 1105 MR#: [id number] Acct: [id number] Name: SREE CESAR Rep #: [id number] : 1985 38 From: Prashant Yanes MD PCP: Dr. 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 Anesthesia Postop Eval I: Fluid Summary Crystalloid volume administer 1,400 01/28/24 09:24 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 (ml) Colloids volume administered ( ml) Blood Product volume administered (ml) Total IV fluid infused 1,400 01/28/24 09:24 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 Anesthesia Postop Eval I: Summary Notes Anesthesia Complication No 01/28/24 09:24 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 Oliver Wong MD Status:[facility] Location: [place] [address] Operative Report (Standard) Operative Information Surgery/Procedure Performed: TLH, Cystoscopy Surgeon: Choe anca Date of Procedure: 01/28/24 Procedure Start Time: 07:51 Procedure Stop Time: 09:07 Pre-Operative Diagnosis: AUB, dysmenorrhea, Pelvic pain, adenomyosis Post-Operative Diagnosis: same Select all DRAINS/GRAFTS/IMPLAN TS that apply: None Type of Anesthesia: General and Local Estimated Blood Loss: 25 Fluids Replaced: 1400 Specimen collected: Yes Description of specimen(s) removed: uterus, cervix Description of surgery: Patient take to OR and prepped and draped in usual sterile fashion in dorsal lithotomy position with her arms tucked in a neurologically safe and neutral position. IUD strings noted- removed prior to manipulator placement. The uterus sounded to 7.5 cm. The racquet maker 3.0cm uterine manipulator was sutured into place at 3/9:00 position and leon were placed. Attention was turned to the abdomen. All port sites were infiltrated with 0.5% marcaine before the incisions were made. The anterior abdominal wall was tented up with towel clamps and using a direct entry approach a 5 mm infraumbilical port was placed. Intraperitoneal placement was confirmed with the laparoscope and the pneumoperitoneum was created. The patient was placed in Trendelenburg and 5 mm right and left lower quadrant ports were placed under direct visualization. Air seal rapid insufflator was used. The bowel was swept away. Ovaries appeared normal. The round ligaments were divided. The anterior peritoneum was dissected down to create the bladder flap with blunt dissection and the LigaSure. The uterine arteries were isolated, clamped, sealed and cut. There was minimal back bleeding from the uterus. Straight bites on uterine arteries performed to drop them off the cuff. The manipulator was used as guide to create colpotomy using monopolar tip of ligasure. once specimen was removed attention was turned to vaginal portion. The specimen was handed off. the posterior peritoneum was run to cuff with 2-0 vicryl for hemostasis. The cuff was closed with interrupted 0-vicryl figure of 8 sutures. Cystoscopy was performed bilateral ureters were visualized with good efflux. bladder was intact. leon replaced and sponge stick placed in vagina. The pneumoperitoneum was recreated and the cuff and pedicles were hemostatic. Hemoblast was placed over cuff and pedicles. The skin incisions were closed with skin glue and 3-0 monocryl in the LLQ port site. The vaginal sweep was completed by me. Grafts/Implants Used: none Surgical Findings: normal ovaries. IUD - mirena intact- it was removed before manipulator placed. 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 Prashant Yanes MD; Dr. Oliver Wong MD Signed Normal [facility] ,Urineon 01-28-2024 Beta HCG ( test) Ql (U) Negative Normal [facility] Comment on above: Result Comment: Very dilute urine specimens, as indicated by a low specific gravity, may not contain ambulatory services representative levels of hCG. If is still suspected, a first morning urine specimen should be collected 48 hours later and tested. Performed By: #### L 400.7600 #### [facility] [address] [place], [address] Surgery Specimen Level Von 1 03-29-2023 Surgery Specimen Level V ----- Patient Age/Sex Location Account Attending Physician SREE CESAR 38/F [facility] [id number] [place] Pily Izquierdo, Specimen: [id number] Received: 01/28/24 Status: CECILIO Lantigua Num: [id number] Spec Type: HYSTERECT Subm Dr: Dr Pily Izquierdo MD HEADER OPERATION: Hysterectomy, cystoscopy PRE-OP DIAGNOSIS: Pelvic pain, abnormal uterine bleeding, dysmenorrhea, adenomyosis TISSUE SUBMITTED: Uterus and cervix MICROSCOPIC DIAGNOSIS Uterus, hysterectomy: Cervix - Nabothian cysts, squamous metaplasia and mild chronic inflammation. 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 Myometrium - Superficial adenomyosis. AM. 01/31/2024 MICROSCOPIC DESCRIPTION Slides are reviewed. GROSS DESCRIPTION Received in fixative is one container labeled with the patient's name and designated uterus. The specimen consists of a uterus with attached cervix without fallopian tubes and ovaries. The uterus with cervix measures 8.2 x 5.0 x 3.3 cm and weighs 64.4 gm. The ectocervix is unremarkable. The cervical os is oval in contour. The endocervical canal measures 2.8 cm in length and is grossly unremarkable. The triangular endometrial cavity measures 3.0 x 2.8 cm. The velvety, light montoya endometrium measures up to 0.2 cm in thickness. The myometrium measures 2.0 cm in average thickness and is free of mass lesions. Slip Cover Maker sections are submitted as follows: 1 - anterior cervix, 2 - posterior cervix, 3 4 - anterior uterine wall, 5 6 - posterior uterine wall. / AM: 01/28/2024 TC:3 [facility]: [id number] Patient Age/Sex Location Account Attending Physician SREE CESAR 38/F [facility] [id number] Dr Pily Armendariz-Suri, Signed (signature on file) Dr. Jaycob Griffin DO 01/31/24 1202 Normal [facility] Comment on above: Performed By: #### L 100.0100, L500.2500, L500.4100 #### [facility] [address] [facility] [place], [place], [address] Urine testOrdered By: Pily Izquierdo on 01-28-2024 HCG ( test) Ql (U) Negative [facility] Comment on above: Very dilute urine sp ecimens, as indicated by a low specificgravity, may not contain ambulatory services representative levels of hCG. If is still suspected, a first morning urinespecimen should be collected 48 hours later and tested. 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 Oliver Wong MD Status:[facility] Location: [place] [address] History and Physical Date of Admission: 01/28/24 Expand All Collapse All Pre-Op History and Physical HPI: The patient is a 38 year old female presenting for pre-operative visit. She is scheduled for TLH, Bilateral , Cysto, for Pelvic pain, AUB, dysmenorrhea, adenomyosis on 01/28/24. Pt has failed medical mgmt with Mirena IUD and PO progesterone therapy. Pt can't can't combined hormonal therapy due to smoking history and is not good ablation candidate due to suspected adenomyosis. Procedure discussed along with risks, benefits and complications. Other alternatives discussed for management. Consent form signed? Yes. PAST MEDICAL HISTORY PAST MEDICAL HISTORY Diagnosis Date ??? IUD (intrauterine device) in place 11/19/2023 ??? PMH - PAST MEDICAL HISTORY OF 03/01/2001 ovarian cysts PAST SURGICAL HISTORY PAST SURGICAL HISTORY Procedure Laterality Date ??? APPENDECTOMY 1995 ??? COLONOSCOPY FLX DX W/COLLJ SPEC WHEN PFRMD 10/28/2022 repeat in 10 years ??? EGD W/O [facility] SPEC VARICIES INJ 10/28/2022 ??? L'SCOPE DX W/WO BRUSHINGS/WASHINGS 10/01/2022 was scheduled to be ovarian cystectomy, but ovarian cyst had resolved ??? LAPAROSCOPY SALPINGOSTOMY 04/01/2017 Laparoscopic bilateral salpingectomy ??? OVARIAN CYSTECTOMY CURRENT MEDICATIONS Current Outpatient Medications Medication Sig Dispense Refill ??? levonorgestrel (MIRENA) 21 mcg/24 hours (8 yrs) 52 mg IUD 1 Each by INTRAUTERINE route as directed. 1 Each 0 ??? omeprazole (PRILOSEC) 40 mg capsule Take 1 capsule by mouth once daily. (Patient taking differently: Take 20 mg by mouth once daily.) 30 capsule 2 ??? ibuprofen (MOTRIN) 600 mg tablet Take 1 tablet by mouth every 6 hours as needed for Pain. 30 tablet 1 No current facility-administere d medications for this visit. ALLERGIES: Amoxicillin and Zithromax [Azithromycin] PERSONAL HISTORY: SOCIAL HISTORY Social History Tobacco Use ??? Smoking status: Every Day Current packs/day: 1.00 Types: Cigarettes ??? Smokeless tobacco: Never Vaping Use ??? Vaping status: Never Used Substance Use Topics ??? Alcohol use: No ??? Drug use: No FAMILY HISTORY: FAMILY HISTORY FAMILY HISTORY Problem Relation Age of Onset ??? Hypertension Mother ??? Thyroid Mother ??? other (Endometrosis) Mother Hysterectomy in later 30's ??? Hypertension Maternal Grandmother ??? Prostate Cancer Maternal Grandfather ??? Breast Cancer Paternal Grandmother ??? Breast Cancer Paternal Aunt ??? Thyroid Sister REVIEW OF SYMPTOMS: negative except as noted above PHYSICAL EXAMINATION: VITALS: Blood pressure 122/80, pulse 80, height 165.1 cm (5' 5), weight 83 kg (183 lb), last menstrual period 01/21/2023, SpO2 92%. GENERAL: The patient is well nourished, well hydrated in no acute distress. , The patient is oriented to time, place, and person. NECK: full range of motion LUNGS: Clear to auscultation bilaterally. no wheezes, rhonchi or rales HEART: Regular rate and rhythm, Normal heart sounds, and No murmurs or gallops IMPRESSION: 38 yo with AUB, dysmenorrhea, pelvic pain, Adenomyosis PLAN: TLH, Cystoscopy Pt has been counseled on risks/benefits and alternatives of surgery including but not limited to anesthesia, bleeding, infection, injury to pelvic structures including bowel, bladder, ureters and vessels. Pt wishes to proceed with surgery at this time. Pre and post op instructions reviewed - advised not to smoke day of surgery. I have reviewed and updated past medical and surgical history, medications and allergies 01/26/24 1221 Cosigner Signature (if applicable): CC: Dr Pily Izquierdo MD; Dr. Oliver Wong MD Signed ADDENDUM by Dr Pily Izquierdo MD on 01/28/24 at 0723 Addendum I have examined the patient and the H P has been reviewed. There are no clinical changes since date of exam. 01/28/24 0723 Cosigner Signature (if applicable): cc: Dr Pily Izquierdo MD; Dr. Oliver Wong MD * Signed Normal [facility] CBC-Complete Blood Cnt No Di ffon 01-22-2024 Erythrocyte distribution width (RBC) [Ratio] 13.5 % Normal 11.6-14.6 [facility] Comment on above: Performed By: #### L 100.0500, BTSPAT #### [facility] [address] [facility]. [place], [place], [id number] Hematocrit (Bld) [Volume fraction] 44.7 % Normal 37-47 [facility] Comment on above: Performed By: #### L 100.0500, BTSPAT #### [facility] [address] [place], [address] Hemoglobin (Bld) [Mass/Vol] 14.9 g/dL Normal 12.0-15.0 [facility] Comment on above: Performed By: #### L 100.0500, BTSPAT #### [facility] [address] [place], [address] MCH (RBC) [Entitic mass] 29.2 pg Normal 27.0-32.0 [facility] Comment on above: Performed By: #### L 100.0500, BTSPAT #### [facility] [address] [place], [address] MCHC (RBC) [Mass/Vol] 33.3 g/dL Normal 32-36 [facility] Comment on above: Performed By: #### L 100.0500, BTSPAT #### [facility] [address] [place], [address] MCV (RBC) [Entitic vol] 87.5 fL Normal 81-99 [facility] Comment on above: Performed By: #### L 100.0500, BTSPAT #### [facility] [address] [place], [address] Platelet mean volume (Bld) [Entitic vol] 10.0 fL Normal 6.2-12.0 [facility] Comment on above: Performed By: #### L 100.0500, BTSPAT #### [facility] [address] [place], [address] Platelets (Bld) [#/Vol] 299 10*3/uL Normal 150-450 [facility] Comment on above: Performed By: #### L 100.0500, BTSPAT #### [facility] [address] [place], [address] RBC (Bld) [#/Vol] 5.11 10*6/uL Normal 4.2-5.4 [facility] Comment on above: Performed By: #### L 100.0500, BTSPAT #### [facility] [address] [place], [address] RDW SD 43.2 fl Normal 35.1-43.9 [facility] Comment on above: Performed By: #### L 100.0500, BTSPAT #### [facility] [address] [place], [address] WBC (Bld) [#/Vol] 8.1 10*3/uL Normal 4.4-11.0 [facility] Comment on above: Performed By: #### L 100.0500, BTSPAT #### [facility] [address] [place], [address] Erythrocyte distribution wid th ratioOrdered By: Pily Izquierdo on 01-22-2024 Erythrocyte distribution width (RBC) [Ratio] 13.5 % 11.6-14.6 [facility] Erythrocyte distribution wid th standard deviationOrdered By: Pily Da Silva on 01-22-2024 Erythrocyte distribution width (RBC) [Entitic vol] 43.2 fL 35.1-43.9 [facility] Hematocrit Auto (Bld) [Volum e fraction]Ordered By: Pily Izquierdo on 01-22-2024 Hematocrit (Bld) [Volume fraction] 44.7 % 37-47 [facility] Hemoglobin measurementOrdere d By: Pily Izquierdo on 01-22-2024 Hemoglobin (Bld) [Mass/Vol] 14.9 g/dL 12.0-15.0 [facility] MCV (mean corpuscular volume ) determinationOrdered By: Pily Izquierdo on 01-22-2024 MCV (RBC) [Entitic vol] 87.5 fL 81-99 [facility] Magnesiumon 01-22-2024 Magnesium [Mass/Vol] 2.1 mg/dL Normal 1.6-2.6 [facility] Comment on above: Performed By: #### L 501.5200 #### [facility] [address] [place], [place], [id number] Magnesium measurementOrdered By: Prashant Yanes on 01-22-2024 Magnesium [Mass/Vol] 2.1 mg/dL 1.6-2.6 [facility] Mean corpuscular hemoglobin (MCH) determinationOrdered By: Pily Da Silva on 01-22-2024 MCH (RBC) [Entitic mass] 29.2 pg 27.0-32.0 [facility] Mean corpuscular hemoglobin concentration (MCHC) determinationOrdered By: Pily Izquierdo on 01-22-2024 MCHC (RBC) [Mass/Vol] 33.3 g/dL 32-36 [facility] Mean platelet volume determi nationOrdered By: Pily Izquierdo on 01-22-2024 Platelet mean volume (Bld) [Entitic vol] 10.0 fL 6.2-12.0 [facility] Platelet countOrdered By: Gonzalez on 01-22-2024 Platelets (Bld) [#/Vol] 299 10*3/uL 150-450 [facility] RBC Auto (Bld) [#/Vol]Ordere d By: Pily Izquierdo on 01-22-2024 RBC (Bld) [#/Vol] 5.11 10*6/uL 4.2-5.4 [facility] Type AND Screen - PAT ONLYon 01-22-2024 ABO and Rh group Nom (Bld) Blood group O Rh(D) positive Normal [facility] Comment on above: Order Comment: Surge ry Date: 01/28/24 Reason for Laboratory Test PRE-OP [id number] No N N S ERAS, Hysterectomy,TLH, possible bilateral oophorectomy Performed By: #### L 100.0500, BTSPAT #### [facility] [address] [place], [place], [id number] White blood cell (WBC) count Ordered By: Pily Izquierdo on 01-22-2024 WBC (Bld) [#/Vol] 8.1 10*3/uL 4.4-11.0 [facility] CNOVon 01-12-2024 CNOV Office Visit (OBGYWM) SREE CESAR ([id number]) 1985 F Date Time Provider Department 01/12/24 8:10 AM PILY GALLARDO OBGYWM During your visit today, we recorded the following information about you: Pulse Blood pressure Weight Height 80/minute 122/80 83 kg 1.651 m Pily Gallardo MD 01/12/2024 10:35 AM Signed Pre-Op History and Physical HPI: The patient is a 38 year old female presenting for pre-operative visit. She is scheduled for TLH, Bilateral , Cysto, for Pelvic pain, AUB, dysmenorrhea, adenomyosis on 01/28/24. Pt has failed medical mgmt with Mirena IUD and PO progesterone therapy. Pt can't can't combined hormonal therapy due to smoking history and is not good ablation candidate due to suspected adenomyosis. Procedure discussed along with risks, benefits and complications. Other alternatives discussed for management. Consent form signed? Yes. PAST MEDICAL HISTORY Diagnosis Date IUD (intrauterine device) in place 11/19/2023 PMH - PAST MEDICAL HISTORY OF 03/01/2001 ovarian cysts PAST SURGICAL HISTORY Procedure Laterality Date APPENDECTOMY 1994 COLONOSCOPY FLX DX W/COLLJ SPEC WHEN PFRMD 10/28/2022 repeat in 10 years EGD W/O BRSH SPEC VARICIES INJ 10/28/2022 L'SCOPE DX W/WO BRUSHINGS/WASHINGS 10/01/2022 was scheduled to be ovarian cystectomy, but ovarian cyst had resolved LAPAROSCOPY SALPINGOSTOMY 04/01/2017 Laparoscopic bilateral salpingectomy OVARIAN CYSTECTOMY Current Outpatient Medications Medication Sig Dispense Refill levonorgestrel (MIRENA) 21 mcg/24 hours (8 yrs) 52 mg IUD 1 Each by INTRAUTERINE route as directed. 1 Each 0 omeprazole (PRILOSEC) 40 mg capsule Take 1 capsule by mouth once daily. (Patient taking differently: Take 20 mg by mouth once daily.) 30 capsule 2 ibuprofen (MOTRIN) 600 mg tablet Take 1 tablet by mouth every 6 hours as needed for Pain. 30 tablet 1 No current facility-administere d medications for this visit. ALLERGIES: Amoxicillin and Zithromax [Azithromycin] PERSONAL HISTORY: Social History Tobacco Use Smoking status: Every Day Current packs/day: 1.00 Types: Cigarettes Smokeless tobacco: Never Vaping Use Vaping status: Never Used Substance Use Topics Alcohol use: No Drug use: No FAMILY HISTORY: FAMILY HISTORY Problem Relation Age of Onset Hypertension Mother Thyroid Mother other (Endometrosis) Mother Hysterectomy in later 30's Hypertension Maternal Grandmother Prostate Cancer Maternal Grandfather Breast Cancer Paternal Grandmother Breast Cancer Paternal Aunt Thyroid Sister REVIEW OF SYMPTOMS: negative except as noted above PHYSICAL EXAMINATION: VITALS: Blood pressure 122/80, pulse 80, height 165.1 cm (5' 5), weight 83 kg (183 lb), last menstrual period 01/21/2023, SpO2 92%. GENERAL: The patient is well nourished, well hydrated in no acute distress. , The patient is oriented to time, place, and person. NECK: full range of motion LUNGS: Clear to auscultation bilaterally. no wheezes, rhonchi or rales HEART: Regular rate and rhythm, Normal heart sounds, and No murmurs or gallops IMPRESSION: 38 yo with AUB, dysmenorrhea, pelvic pain, Adenomyosis PLAN: TLH, Cystoscopy Pt has been counseled on risks/benefits and alternatives of surgery including but not limited to anesthesia, bleeding, infection, injury to pelvic structures including bowel, bladder, ureters and vessels. Pt wishes to proceed with surgery at this time. Pre and post op instructions reviewed - advised not to smoke day of surgery. I have reviewed and updated past medical and surgical history, medications and allergies Medical Decision Making: Problems: Moderate: 1+ chronic illnesses with change Risk: High: Decision on elective major surgery w/ risk factors Medical Decision Making Level: 4 - Moderate Pily Da Silva MD Allergies As of Date: 01/12/2024 Noted Allergy Reaction AMOXICILLIN 08/30/2007 8 - GI Upset Comments: ABD. PAIN, NAUSEA, DIZZINESS ZITHROMAX (AZITHROMYCIN) 08/10/2008 4 - Hives 8 - GI Upset Comments: Nausea and stomach pains Date Reviewed: 01/12/2024 Reviewed by: Jessenia Cabrera MA - Fully Assessed Reason for Visit: Pre-Op Exam [87] Primary Visit Diagnosis:Abnormal uterine bleeding (AUB) [N93.9] Other Visit Diagnoses:Pelvic pain in female [R10.2] Dysmenorrhea [N94.6] Adenomyosis [N80.03] Pre-op exam [Z01.818] Prescriptions as of 01/12/2024 - multivit,thx,calcium ,iron,mins (MULTIVITAMIN AND MINERAL ORAL) Take by mouth. - levonorgestrel (MIRENA) 21 mcg/24 hours (8 yrs) 52 mg IUD 1 Each by INTRAUTERINE route as directed. - omeprazole (PRILOSEC) 40 mg capsule Take 1 capsule by mouth once daily. - ibuprofen (MOTRIN) 600 mg tablet Take 1 tablet by mouth every 6 hours as needed for Pain. Problem List As Of Date 01/12/2024 Noted Resolved Premenopausal menorrhagia [N92.4] 07 (more content not included)... Normal [facility] HISTORY PHYSICALon 4 HISTORY PHYSICAL HNO ID: [id number] Author: PILY GALLARDO MD Service: ? Author Type: Physician Type: H&P Filed: 01/12/2024 10:35 Note Text: Pre-Op History and Physical HPI: The patient is a 38 year old female presenting for pre-operative visit. She is scheduled for TLH, Bilateral , Cysto, for Pelvic pain, AUB, dysmenorrhea, adenomyosis on 01/28/24. Pt has failed medical mgmt with Mirena IUD and PO progesterone therapy. Pt can't can't combined hormonal therapy due to smoking history and is not good ablation candidate due to suspected adenomyosis. Procedure discussed along with risks, benefits and complications. Other alternatives discussed for management. Consent form signed? Yes. PAST MEDICAL HISTORY Diagnosis Date IUD (intrauterine device) in place 11/19/2023 H - PAST MEDICAL HISTORY OF 03/01/2001 ovarian cysts PAST SURGICAL HISTORY Procedure Laterality Date APPENDECTOMY 1994 COLONOSCOPY FLX DX W/COLLJ SPEC WHEN PFRMD 10/28/2022 repeat in 10 years EGD W/O [facility] SPEC VARICIES INJ 10/28/2022 L'SCOPE DX W/WO BRUSHINGS/WASHINGS 10/01/2022 was scheduled to be ovarian cystectomy, but ovarian cyst had resolved LAPAROSCOPY SALPINGOSTOMY 04/01/2017 Laparoscopic bilateral salpingectomy OVARIAN CYSTECTOMY Current Outpatient Medications Medication Sig Dispense Refill levonorgestrel (MIRENA) 21 mcg/24 hours (8 yrs) 52 mg IUD 1 Each by INTRAUTERINE route as directed. 1 Each 0 omeprazole (PRILOSEC) 40 mg capsule Take 1 capsule by mouth once daily. (Patient taking differently: Take 20 mg by mouth once daily.) 30 capsule 2 ibuprofen (MOTRIN) 600 mg tablet Take 1 tablet by mouth every 6 hours as needed for Pain. 30 tablet 1 No current facility-administere d medications for this visit. ALLERGIES: Amoxicillin and Zithromax [Azithromycin] PERSONAL HISTORY: Social History Tobacco Use Smoking status: Every Day Current packs/day: 1.00 Types: Cigarettes Smokeless tobacco: Never Vaping Use Vaping status: Never Used Substance Use Topics Alcohol use: No Drug use: No FAMILY HISTORY: FAMILY HISTORY Problem Relation Age of Onset Hypertension Mother Thyroid Mother other (Endometrosis) Mother Hysterectomy in later 30's Hypertension Maternal Grandmother Prostate Cancer Maternal Grandfather Breast Cancer Paternal Grandmother Breast Cancer Paternal Aunt Thyroid Sister REVIEW OF SYMPTOMS: negative except as noted above PHYSICAL EXAMINATION: VITALS: Blood pressure 122/80, pulse 80, height 165.1 cm (5' 5), weight 83 kg (183 lb), last menstrual period 01/21/2023, SpO2 92%. GENERAL: The patient is well nourished, well hydrated in no acute distress. , The patient is oriented to time, place, and person. NECK: full range of motion LUNGS: Clear to auscultation bilaterally. no wheezes, rhonchi or rales HEART: Regular rate and rhythm, Normal heart sounds, and No murmurs or gallops IMPRESSION: 38 yo with AUB, dysmenorrhea, pelvic pain, Adenomyosis PLAN: TLH, Cystoscopy Pt has been counseled on risks/benefits and alternatives of surgery including but not limited to anesthesia, bleeding, infection, injury to pelvic structures including bowel, bladder, ureters and vessels. Pt wishes to proceed with surgery at this time. Pre and post op instructions reviewed - advised not to smoke day of surgery. I have reviewed and updated past medical and surgical history, medications and allergies Medical Decision Making: Problems: Moderate: 1+ chronic illnesses with change Risk: High: Decision on elective major surgery w/ risk factors Medical Decision Making Level: 4 - Moderate Pily Da Silva MD Normal [facility] CNOVon 12-06-2023 CNOV Office Visit (OBGYWM) SREE CESAR ([id number]) 1985 F Date Time Provider Department 12/06/23 8:20 AM PILY GALLARDO OBGYWM During your visit today, we recorded the following information about you: Blood pressure Weight 130/78 83.5 kg Pily Gallardo MD 12/06/2023 8:58 AM Signed Sree Cesar is a 38 year old female who presents for discussion regarding surgical intervention for pelvic pain. Pt reports pelvic pain all the time but worse with ovulation. Pain can be as high as 12/10 - pt takes 800mg ibuprofen which only helps minimally. pain is not localized to any specific area anymore as it used to be more on right side. 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 Bleeding after sex, pain with sex. Pt can't take combined ocps which worked well for in past bc she smokes. Pt had previous tubal - is not interested in further childbearing capabilities. Pt offers no other concerns. OB History T1 L1 SAB0 IAB0 Ectopic0 Multiple0 Live Births0 Ambulatory Services Representative History LMP: 01/21/2023 (Approximate), IUD Age at Menarche: Age at First : Age at Menopause: Ambulatory Services Representative History Comments: Sexual Activity: Yes; Male Contraception: Tubal Ligation PAST MEDICAL HISTORY Diagnosis Date IUD (intrauterine device) in place 11/19/2023 H - PAST MEDICAL HISTORY OF 03/01/2001 ovarian cysts PAST SURGICAL HISTORY Procedure Laterality Date APPENDECTOMY 1994 COLONOSCOPY FLX DX W/COLLJ SPEC WHEN PFRMD 10/28/2022 repeat in 10 years EGD W/O [facility]SH SPEC VARICIES INJ 10/28/2022 L'SCOPE DX W/WO BRUSHINGS/WASHINGS 10/01/2022 was scheduled to be ovarian cystectomy, but ovarian cyst had resolved LAPAROSCOPY SALPINGOSTOMY 04/01/2017 Laparoscopic bilateral salpingectomy OVARIAN CYSTECTOMY FAMILY HISTORY Problem Relation Age of Onset Hypertension Mother Thyroid Mother other (Endometrosis) Mother Hysterectomy in later 30's Hypertension Maternal Grandmother Prostate Cancer Maternal Grandfather Breast Cancer Paternal Grandmother Breast Cancer Paternal Aunt Thyroid Sister Social History Tobacco Use Smoking status: Every Day Current packs/day: 1.00 Types: Cigarettes Smokeless tobacco: Never Vaping Use Vaping status: Never Used Substance Use Topics Alcohol use: No Drug use: No Current Outpatient Medications Medication Sig levonorgestrel (MIRENA) 21 mcg/24 hours (8 yrs) 52 mg IUD 1 Each by INTRAUTERINE route as directed. omeprazole (PRILOSEC) 40 mg capsule Take 1 capsule by mouth once daily. (Patient taking differently: Take 20 mg by mouth once daily.) ibuprofen (MOTRIN) 600 mg tablet Take 1 tablet by mouth every 6 hours as needed for Pain. No current facility-administere d medications for this visit. Allergies As of Date: 12/06/2023 Allergen Noted Reaction AMOXICILLIN 08/30/2007 GI Upset ZITHROMAX [AZITHROMYCIN] 08/10/2008 Hives and GI Upset Fully Assessed 11/23/2023 REVIEW OF SYSTEMS Abdomen: no diarrhea or constipation. Had colonoscopy and upper endoscopy last year. Bladder: no dysuria.. Expanded ROS: N/A Allergies and current medication updated:Yes SENSITIVE EXAM: The sensitive examination was discussed with the Patient or Patient's Authorized Slip Cover Maker. As applicable, any other physician, advance practice provider, medical student, or other health professional student that will be observing or involved in the sensitive examination for educational or training purposes was discussed with the Patient or Authorized Slip Cover Maker. The Patient or Authorized Slip Cover Maker has agreed to proceed with the sensitive examination. (Sensitive examination includes inspection and/or palpation of the breasts, pelvis, prostate and anorectal regions). EXAM: BP 130/78 Wt 184 lb (83.5kg) LMP 01/21/2023 GENERAL: pleasant, female in no apparent distress HEENT: Normocephalic, atraumatic, mucus membranes moist, and no lesions NECK: full range of motion DERMATOLOGY: Normal, without lesions, and non-icteric ABDOMEN: soft, non-tender, and no masses PELVIC: external genitalia normal, normal Bartholin's glands, urethra, Hilbert's glands, no vulvar lesions, no cervical lesions, good vaginal support, physiologic discharge present, normal appearing perineal body and perianal region, IUD strings visible BIMANUAL: uterus normal size, shape and consistency, no adnexal masses, and Mild tenderness NEURO: alert and oriented x3,exam grossly non-focal EXTREMITIES: normal ASSESSMENT AND PLAN: Encounter Diagnosis ICD-10-CM 1. Dysmenorrhea N94.6 2. Abnormal uterine bleeding (AUB) N93.9 3. Adenomyosis N80.03 4. Discussed surgical intervention with [facility], Cystoscopy, possible oophorectomy. Discussed would not want to remove both ovaries due to increased risk for bone (more content not included)... Normal [facility] 11-25-2023 [facility] ([facility]WM[facility] SREE CESAR ([id number]) 1985 F Date Time Provider Department 11/25/23 JANIE HOPKINS OBGYWM During your visit today, we recorded the following information about you: Janie Hopkins APRN.[facility] 11/25/2023 9:23 AM Signed ----- Message from Pily Da Silva MD sent at 11/24/2023 4:39 PM EDT ----- She can schedule to discuss other options if she wants to talk about surgery- if she declines other hormonal options. Thank you. ----- Message ----- From: Janie Hopkins APRN.CNP Sent: 11/23/2023 4:00 PM EDT To: Pily Da Silva MD I seen Sree to review her ultrasound. She states that she is having daily bleeding whether it is heavy or spotting for the past 2 months. Along with severe cramping during ovulation time. I did discuss a little bit with her about the adenomyosis possible surgical interventions. Do you want her to make an appointment to discuss surgical options? BRIDGETTE Webster Renee, APRN.CNP 11/25/2023 9:24 AM Signed Please assist pt with scheduling an appt with DM to discuss surgical options. BRIDGETTE Webster Jennifer, RN 11/25/2023 9:49 AM Signed Patient notified. Appointment scheduled. Yolanda Helton RN Allergies As of Date: 11/25/2023 Noted Allergy Reaction AMOXICILLIN 08/30/2007 8 - GI Upset Comments: ABD. PAIN, NAUSEA, DIZZINESS ZITHROMAX (AZITHROMYCIN) 08/10/2008 4 - Hives 8 - GI Upset Comments: Nausea and stomach pains Date Reviewed: 11/23/2023 Reviewed by: Elena Bush MA - Fully Assessed Reason for Visit: Appointment [186] Prescriptions as of 11/25/2023 - levonorgestrel (MIRENA) 21 mcg/24 hours (8 yrs) 52 mg IUD 1 Each by INTRAUTERINE route as directed. - omeprazole (PRILOSEC) 40 mg capsule Take 1 capsule by mouth once daily. - ibuprofen (MOTRIN) 600 mg tablet Take 1 tablet by mouth every 6 hours as needed for Pain. Problem List As Of Date 11/25/2023 Noted Resolved Premenopausal menorrhagia [N92.4] 09/12/2012 Tobacco abuse [Z72.0] 09/12/2012 IUD (intrauterine device) in place [Z97.5] 11/19/2023 Encounter Status:Closed by YOLANDA HELTON on 11/25/23 [facility] CNOVon 11-23-2023 CNOV Office Visit (OBGYWM) SREE CESAR ([id number]) 1985 F Date Time Provider Department 11/23/23 3:00 PM JANIE HOPKINS OBGYWM During your visit today, we recorded the following information about you: Blood pressure Weight 120/64 84.4 kg Janie Hopkins APRN.[employer] 11/23/2023 3:57 PM Signed Sree Cesar is a 38 year old female who presents for a follow up from her ultrasound and to discuss her IUD. HPI: Sree presents for a follow up visit to go over her ultrasound results and to discuss her IUD. She had her ultrasound done on 11/18/2023. Patient states that for the past 2 months that she has had daily bleeding whether it is heavier like a menses or spotting. She reports that every month at ovulation time she has severe abdominal cramping that resolves ovulation. She is wanting to know what her other options are at this point to relieve her symptoms. OB History T1 L1 SAB0 IAB0 Ectopic0 Multiple0 Live Births0 Ambulatory Services Representative History LMP: 01/21/2023 (Approximate), IUD Age at Menarche: Age at First : Age at Menopause: Ambulatory Services Representative History Comments: Sexual Activity: Yes; Male Contraception: Tubal Ligation PAST MEDICAL HISTORY Diagnosis Date IUD (intrauterine device) in place 11/19/2023 [facility] - PAST MEDICAL HISTORY OF 03/01/2001 ovarian cysts PAST SURGICAL HISTORY Procedure Laterality Date APPENDECTOMY 1994 COLONOSCOPY FLX DX W/COLLJ SPEC WHEN PFRMD 10/28/2022 repeat in 10 years EGD W/O BRSH SPEC VARICIES INJ 10/28/2022 L'SCOPE DX W/WO BRUSHINGS/WASHINGS 10/01/2022 was scheduled to be ovarian cystectomy, but ovarian cyst had resolved LAPAROSCOPY SALPINGOSTOMY 04/01/2017 Laparoscopic bilateral salpingectomy OVARIAN CYSTECTOMY FAMILY HISTORY Problem Relation Age of Onset Hypertension Mother Thyroid Mother other (Endometrosis) Mother Hysterectomy in later 30's Hypertension Maternal Grandmother Prostate Cancer Maternal Grandfather Breast Cancer Paternal Grandmother Breast Cancer Paternal Aunt Thyroid Sister Social History Tobacco Use Smoking status: Every Day Current packs/day: 1.00 Types: Cigarettes Smokeless tobacco: Never Vaping Use Vaping status: Never Used Substance Use Topics Alcohol use: No Drug use: No Current Outpatient Medications Medication Sig levonorgestrel (MIRENA) 21 mcg/24 hours (8 yrs) 52 mg IUD 1 Each by INTRAUTERINE route as directed. omeprazole (PRILOSEC) 40 mg capsule Take 1 capsule by mouth once daily. (Patient taking differently: Take 20 mg by mouth once daily.) ibuprofen (MOTRIN) 600 mg tablet Take 1 tablet by mouth every 6 hours as needed for Pain. norethindrone (AYGESTIN) 5 mg tablet Take 1 tablet by mouth once daily. Take 1 tab TID until bleeding stops then take 1 tab BID x 3 days then take 1 tab daily (continue other rx for aygestin for daily use). norethindrone (AYGESTIN) 5 mg tablet Take 1 tablet by mouth once daily. No current facility-administere d medications for this visit. Allergies As of Date: 11/23/2023 Allergen Noted Reaction AMOXICILLIN 08/30/2007 GI Upset ZITHROMAX [AZITHROMYCIN] 08/10/2008 Hives and GI Upset Fully Assessed 11/23/2023 REVIEW OF SYSTEMS Expanded ROS: N/A Allergies and current medication updated:Yes SENSITIVE EXAM: Sensitive exam not performed. EXAM: BP 120/64 Wt 186 lb (84.4kg) LMP 01/21/2023 GENERAL: pleasant, female in no apparent distress HEENT: Normocephalic, atraumatic, mucus membranes moist, and no lesions CHEST: Normal inspiratory effort ASSESSMENT/PLAN: 1. Abnormal uterine bleeding (AUB) - ICD9: 626.9, ICD10: N93.9 (primary diagnosis) 2. Adenomyosis - ICD9: 617.0, ICD10: N80.03 Will have Review ultrasound and give her recommendations next with this patient and the possibility of surgery Janie Hopkins APRN.[facility] Medical Decision Making: Problems: Low: Acute, uncomplicated illness or injury Data: Independent interpretation of test from other physician[facility] Risk: Low: Low risk from testing/treatment Medical Decision Making Level: 3 - Low Allergies As of Date: 11/23/2023 Noted Allergy Reaction AMOXICILLIN 08/30/2007 8 - GI Upset Comments: ABD. PAIN, NAUSEA, DIZZINESS ZITHROMAX (AZITHROMYCIN) 08/10/2008 4 - Hives 8 - GI Upset Comments: Nausea and stomach pains Date Reviewed: 11/23/2023 Reviewed by: Elena Bush MA - Fully Assessed Reason for Visit: Follow Up [171] Primary Visit Diagnosis:Abnormal uterine bleeding (AUB) [N93.9] Other Visit Diagnosis:Adenomyosi s [N80.03] Prescriptions as of 11/23/2023 - levonorgestrel (MIRENA) 21 mcg/24 hours (8 yrs) 52 mg IUD 1 Each by INTRAUTERINE route as directed. - omeprazole (PRILOSEC) 40 mg capsule Take 1 capsule by mouth once daily. - ibuprofen (MOTRIN) 600 mg tablet Take 1 tablet by mouth every 6 hours as needed for Pain. Problem List As Of Date 11/23/2023 Noted Resolved (more content not included)... Normal [facility] US Pelvison 11-19-2023 Indication Pelvic pain in female, Abnormal uterine bleeding (AUB), Localization of IUD Impression 3D rendering of the uterus confirms the proper location of the IUD within the endometrial cavity. The uterus is anteverted and measures 77 mm x 37 mm x 44 mm. The myometrium is heterogeneous, asymmetrically thickened but no obvious fibroids are observed. This finding is suggestive of adenomyosis. The endometrial thickness is 4.8 mm. The right ovary measures 29 mm x 17 mm x 16 mm. The left ovary measures 16 mm x 17 mm x 21 mm. There is no free fluid visualized. Technique: Three dimensional imaging was created on a dedicated stand-alone 3D workstation with images created and archived, and supervised and reviewed by the interpreting physician utilizing images from a US Scan performed on 11/18/23. Recommendations Ultrasound findings suggestive for adenomyosis. Clinical correlation is recommended. 3D rendering confirms the IUD to be in the proper location within the fundal endometrial cavity. Menstrual History LMP on 10/31/2023. Contraception: Intrauterine contraceptive device Method Transabdominal, transvaginal, 3D ultrasound examination, Color Doppler examination. View: Adequate visualization Uterus Uterus: Visualized Uterus position: anteverted Description of uterine malformations: none Myometrium: heterogeneous, asymmetrically thickened Endometrium: normal Cervix details: cystic lesions identified suggesting superficial Nabothian cysts Uterus length 77 mm Uterus width 44 mm Uterus height 37 mm Uterus Vol 65.9 cm Endometrial thickness, total 4.8 mm Fibroids: No fibroids identified Polyps: No polyps identified IUCD Position control IUCD type: Mirena intrauterine system. Location: positioned correctly at the fundus of the uterus Right Ovary Rt ovary: Visualized Rt ovary morphology: premenopausal normal follicular Rt ovary D1 29 mm Rt ovary D2 17 mm Rt ovary D3 16 mm Rt ovary Vol 4.1 cm Rt ovarian cyst(s): No cysts identified Left Ovary Lt ovary: Visualized Lt ovary morphology: premenopausal normal follicular Lt ovary D1 16 mm Lt ovary D2 17 mm Lt ovary D3 21 mm Lt ovary Vol 2.9 cm Lt ovarian cyst(s): No cysts identified Cul de Sac Visualized. no free fluid visualized Procedure To characterize the IUD, three dimensional imaging was created on a dedicated stand-alone 3D workstation with images created and archived, and supervised and reviewed by the interpreting physician utilizing images from an ultrasound scan performed today. Performed By: Ngozi Ordoñez RDMS Read By: Little Trevino M.D. MATERNAL MEDICINE [facility] Basic Metabolic Profile (BMP )on 11-18-2023 BUN/CRE 10.1 RATIO Normal 10-20 [facility] Comment on above: Performed By: #### L 100.0100, L500.2500, L500.4100 #### [facility] [address] [place], [address] CA,Total 9.7 mg/dL Normal 8.5-10.1 [facility] Comment on above: Performed By: #### L 100.0100, L500.2500, L500.4100 #### [facility] [address] [place], [address] Chloride [Moles/Vol] 107 mmol/L Normal 98-107 [facility] Comment on above: Performed By: #### L 100.0100, L500.2500, L500.4100 #### [facility] [address] [place], [address] CO2 [Moles/Vol] 26.0 mmol/L Normal 21.0-32.0 [facility] Comment on above: Performed By: #### L 100.0100, L500.2500, L500.4100 #### [facility] [address] [place], [address] Creatinine [Mass/Vol] 0.89 mg/dL Normal 0.55-1.02 [facility] Comment on above: Result Comment: The validity of the calculated GFR GFRAA in patients over 70 years has not been determined. Clinical correlation is essential. Performed By: #### L 100.0100, L500.2500, L500.4100 #### [facility] [address] [place], [address] EST GFR - AA 90 mL/min Normal >60 [facility] Comment on above: Result Comment: Afri can [place] GFR Calc Performed By: #### L 100.0100, L500.2500, L500.4100 #### [facility] [address] [place], [address] GAP 7 Normal 5-15 [facility] Comment on above: Performed By: #### L 100.0100, L500.2500, L500.4100 #### [facility] [address] [place], [address] GFR/1.73 sq M.predicted among non-blacks MDRD (S/P/Bld) [Vol rate/Area] 75 mL/min/{1.73_m2} Normal >60 [facility] Comment on above: Result Comment: Non- GFR Calc Performed By: #### L 100.0100, L500.2500, L500.4100 #### [facility] [address] [place], [address] Glucose [Mass/Vol] 83 mg/dL Normal 74-106 [facility] Comment on above: Performed By: #### L 100.0100, L500.2500, L500.4100 #### [facility] [address] [place], [address] Potassium [Moles/Vol] 4.4 mmol/L Normal 3.5-5.1 [facility] Comment on above: Performed By: #### L 100.0100, L500.2500, L500.4100 #### [facility] [address] [place], [address] Sodium [Moles/Vol] 140 mmol/L Normal 136-145 [facility] Comment on above: Performed By: #### L 100.0100, L500.2500, L500.4100 #### [facility] [address] [place], [address] Urea nitrogen [Mass/Vol] 9 mg/dL Normal 7-18 [facility] Comment on above: Performed By: #### L 100.0100, L500.2500, L500.4100 #### [facility] [address] [place], [address] CBC W/Diff, Automatedon - Absolute Lymph 2.74 X10 3/uL Normal 0.83-4.51 [facility] Comment on above: Performed By: #### L 100.0100, L500.2500, L500.4100 #### [facility] [address] [place], [address] Absolute Neut 6.2 X10 3/uL Normal 2.0-7.7 [facility] Comment on above: Performed By: #### L 100.0100, L500.2500, L500.4100 #### [facility] [address] [place], [address] Basophils/100 WBC (Bld) 0.5 % Normal 0-1 [facility] Comment on above: Performed By: #### L 100.0100, L500.2500, L500.4100 #### [facility] [address] [place], [address] Eosinophils/100 WBC (Bld) 1.8 % Normal 0-5 [facility] Comment on above: Performed By: #### L 100.0100, L500.2500, L500.4100 #### [facility] [address] [place], [address] Erythrocyte distribution width (RBC) [Ratio] 13.8 % Normal 11.6-14.6 [facility] Comment on above: Performed By: #### L 100.0100, L500.2500, L500.4100 #### [facility] [address] [place], [address] Hematocrit (Bld) [Volume fraction] 45.3 % Normal 37-47 [facility] Comment on above: Performed By: #### L 100.0100, L500.2500, L500.4100 #### [facility] [address] [place], [address] Hemoglobin (Bld) [Mass/Vol] 14.5 g/dL Normal 12.0-15.0 [facility] Comment on above: Performed By: #### L 100.0100, L500.2500, L500.4100 #### [facility] [address] [place], [address] IG% 0.300 Normal 0.0-0.9 [facility] Comment on above: Result Comment: IG% - Immature Granulocytes (promyelocytes, myelocytes and metamyelocytes) > 1% indicates that a LEFT SHIFT is Present. Performed By: #### L 100.0100, L500.2500, L500.4100 #### [facility] [address] [place], [address] Lymphocytes/100 WBC (Bld) 28.3 % Normal 19-41 [facility] Comment on above: Performed By: #### L 100.0100, L500.2500, L500.4100 #### [facility] [address] [place], [address] MCH (RBC) [Entitic mass] 28.4 pg Normal 27.0-32.0 [facility] Comment on above: Performed By: #### L 100.0100, L500.2500, L500.4100 #### [facility] [address] [place], [address] MCHC (RBC) [Mass/Vol] 32.0 g/dL Normal 32-36 [facility] Comment on above: Performed By: #### L 100.0100, L500.2500, L500.4100 #### [facility] [address] [place], [address] MCV (RBC) [Entitic vol] 88.8 fL Normal 81-99 [facility] Comment on above: Performed By: #### L 100.0100, L500.2500, L500.4100 #### [facility] [address] [place], [address] Monocytes/100 WBC (Bld) 5.2 % Normal 0-10 [facility] Comment on above: Performed By: #### L 100.0100, L500.2500, L500.4100 #### [facility] [address] [place], [address] Neutrophils/100 WBC (Bld) 63.9 % Normal 47-70 [facility] Comment on above: Performed By: #### L 100.0100, L500.2500, L500.4100 #### [facility] [address] [place], [address] Nucleated RBC (Bld) [#/Vol] 0 10*3/uL Normal 0-5 [facility] Comment on above: Performed By: #### L 100.0100, L500.2500, L500.4100 #### [facility] [address] [place], [address] Platelet mean volume (Bld) [Entitic vol] 11.3 fL Normal 6.2-12.0 [facility] Comment on above: Performed By: #### L 100.0100, L500.2500, L500.4100 #### [facility] [address] [place], [address] Platelets (Bld) [#/Vol] 255 10*3/uL Normal 150-450 [facility] Comment on above: Performed By: #### L 100.0100, L500.2500, L500.4100 #### [facility] [address] [place], [address] RBC (Bld) [#/Vol] 5.10 10*6/uL Normal 4.2-5.4 [facility] Comment on above: Performed By: #### L 100.0100, L500.2500, L500.4100 #### [facility] [address] [place], [address] RDW SD 45.0 fl High 35.1-43.9 [facility] Comment on above: Performed By: #### L 100.0100, L500.2500, L500.4100 #### [facility] [address] [place], [address] WBC (Bld) [#/Vol] 9.7 10*3/uL Normal 4.4-11.0 [facility] Comment on above: Performed By: #### L 100.0100, L500.2500, L500.4100 #### [facility] [address] [place], [address] Lipid Profileon 11-18-2023 Cholesterol [Mass/Vol] 179 mg/dL Normal 200 [facility] Comment on above: Result Comment: <200 mg/dL Desirable 200-240 mg/dL Borderline >240 mg/dL High Risk Performed By: #### L 100.0100, L500.2500, L500.4100 #### [facility] [address] [place], [address] Cholesterol in HDL [Mass/Vol] 39 mg/dL Low [facility] Comment on above: Result Comment: The drugs N-Acetylcysteine and Metamizole may falsely depress this assay. Reference Range HDL <40 mg/dL Low HDL Cholesterol HDL >or= 60 mg/dL High HDL Cholesterol Performed By: #### L 100.0100, L500.2500, L500.4100 #### [facility] [address] [place], [address] Cholesterol in LDL [Mass/Vol] 111 mg/dL Normal 0-130 [facility] Comment on above: Performed By: #### L 100.0100, L500.2500, L500.4100 #### [facility] [address] [place], [address] Cholesterol in VLDL [Mass/Vol] 29 mg/dL Normal 5-40 [facility] Comment on above: Performed By: #### L 100.0100, L500.2500, L500.4100 #### [facility] [address] [place], [address] Triglyceride [Mass/Vol] 144 mg/dL Normal [facility] Comment on above: Result Comment: The drugs N-Acetylcysteine and Metamizole may falsely depress this assay. Serum Triglycerides Reference Interval Normal <150 mg/dL Borderline high 150 - 199 mg/dL High 200 - 499 mg/dL Very High > or = 500 mg/dL Performed By: #### L 100.0100, L500.2500, L500.4100 #### [facility] [address] [place], [address] [place] Pel[place]ison 11-18-2023 Radiology Study observation (narrative) [facility] Basophil percentageOrdered B y: Rakel Stattiaraoulos on 06-14-2023 Chloride [Moles/Vol] 108 mmol/L 98-107 [facility] Glucose [Mass/Vol] 82 mg/dL 74-106 [facility] Hemoglobin (Bld) [Mass/Vol] 14.6 g/dL 12.0-15.0 [facility] Potassium [Moles/Vol] 3.5 mmol/L 3.5-5.1 [facility] Sodium [Moles/Vol] 138 mmol/L 136-145 [facility] WBC (Bld) [#/Vol] 7.8 10*3/uL 4.4-11.0 [facility] Determination of erythrocyte mean corpuscular volume (MCV)Ordered By: Rakel Stathopoulos on 06-14-2023 MCV (RBC) [Entitic vol] 86.7 fL 81-99 [facility] Erythrocyte distribution wid th ratioOrdered By: [facility] on 06-14-2023 Erythrocyte distribution width (RBC) [Ratio] 13.7 % 11.6-14.6 [facility] Erythrocyte distribution wid th standard deviationOrdered By: [facility] on 06-14-2023 Erythrocyte distribution width (RBC) [Entitic vol] 43.9 fL 35.1-43.9 [facility] Hematocrit Auto (Bld) [Volum e fraction]Ordered By: [facility] on 06-14-2023 Hematocrit (Bld) [Volume fraction] 43.8 % 37-47 [facility] - Chemistry and C hemistry - challengeOrdered By: [facility] Stathopoulos on 06-14-2023 CO2 [Moles/Vol] 27.0 mmol/L 21.0-32.0 [facility] Urea nitrogen/Creatinine [Mass ratio] 7.7 mg/mg 10-20 [facility] - Hematology and Cell countsOrdered By: [facility] Stathopoulos on 06-14-2023 MCH (RBC) [Entitic mass] 28.9 pg 27.0-32.0 [facility] MCHC (RBC) [Mass/Vol] 33.3 g/dL 32-36 [facility] Platelet mean volume (Bld) [Entitic vol] 10.5 fL 6.2-12.0 [facility] Platelets (Bld) [#/Vol] 280 10*3/uL 150-450 [facility] No Panel InformationOrdered By: Rakel Mauricio on 06-14-2023 Estimated GFR (MDRD) Amer 88 mL/min >60 [facility] Comment on above: GFR Calc Estimated GFR (MDRD) Non-Af Amer 73 mL/min >60 [facility] Comment on above: Non- GFR Calc Vitamin D 25-Hydroxy 29.7 ng/mL [facility] Comment on above: Vitamin D 25(OH) Sta tus Range Deficiency <20 ng/mL (50nmol/L) Insufficiency 20 - 30 ng/mL (50 - 75 nmol/L) Sufficiency 30 - 100 ng/mL (75 - 250 nmol/L) Toxicity >100 ng/mL (>250 nmol/L) RBC Auto (Bld) [#/Vol]Ordere d By: Rakel Mauricio on 06-14-2023 RBC (Bld) [#/Vol] 5.05 10*6/uL 4.2-5.4 [facility] Serum or plasma calcium gabino urement (mass/volume)Ordered By: Rakel Mauricio on 06-14-2023 Calcium [Mass/Vol] 9.3 mg/dL 8.5-10.1 [facility] Serum or plasma creatinine m easurement (mass/volume)Ordered By: Rakel Mauricio on 06-14-2023 Creatinine [Mass/Vol] 0.91 mg/dL 0.55-1.02 [facility] Comment on above: The validity of the calculated GFR & GFRAA in patients over 70 years has not been determined. Clinical correlation is essential. Serum or plasma urea nitroge n measurement (mass/volume)Ordered By: Rakel Mauricio on 06-14-2023 Urea nitrogen [Mass/Vol] 7 mg/dL 7-18 [facility] Thin prep Papanicolaou smear with manual screeningOrdered By: Rakel Mauricio on 06-14-2023 Thin prep Papanicolaou smear with manual screening 3 07-13 [facility] Whole blood hemoglobin A1c/t otal hemoglobin ratio (mass fraction)Ordered By: Rakel Mauricio on 06-14-2023 HbA1c (Bld) [Mass fraction] 5.4 % 3.8-5.6 [facility] Comment on above: Normal < 5.7 % Predi abetic 5.7 - 6.4 % Diabetic >or= 6.5 % Please note range changes. HCG QUAL UR B/Oon 02-03-2023 status Negative neg - pos [facility] Quality Check Yes [facility] CT ABD/PEL W IVCONon [address] [facility] SURGICAL PATHOLOGYon 023 Case Report Surgical Pathology Report Case: [id number] Authorizing Provider: Lena Patricia MD Collected: 10/28/2022 10:27 AM Ordering Location: Ambulatory Surgery Received: 10/28/2022 02:09 PM Pathologist: Jerry Nazario MD Specimens: A) - ANTRUM (STOMACH) BIOPSY, Antral bx h/h B) - ESOPHAGOGASTRIC JUNCTION BIOPSY, GE Junction bx [facility] FINAL DIAGNOSIS A. Stomach, biopsy: - Antral mucosa with no significant pathologic changes. B. Esophagogastric junction, biopsy: - Mildly reactive squamous mucosa. [facility] Gross Description A. ANTRUM (STOMACH) BIOPSY Received in formalin are two pieces of montoya, soft tissue aggregating to 0.8 x 0.2 x 0.1 cm. Totally submitted in one cassette. B. ESOPHAGOGASTRIC JUNCTION BIOPSY Received in formalin is one piece of montoya-white, soft tissue measuring 0.3 x 0.2 x 0.2 cm. Totally submitted in one cassette. Gross examination performed at [facility], [address] [place] [address] FFS 10/29/2022 1:[address] [facility] Performing Lab Diagnostic interpretation performed at [facility] [place], [address] [facility], [place] [address] CLIA# [id number] Rotor Pilot: Joe Pinto M.D. [facility] COLONOSCOPY SCREENINGon 10-01 [facility] EGD DIAGNOSTICon 10-28-[address] [facility] Basophil percentageOrdered B y: Jose Izquierdo on 09-28-2022 WBC (Bld) [#/Vol] 7.3 10*3/uL 4.4-11.0 [facility] Blood erythrocytes count (nu mber/volume)Ordered By: Jose Izquierdo on 09-28-2022 RBC (Bld) [#/Vol] 4.85 10*6/uL 4.2-5.4 [facility] Blood hemoglobin measurement (mass/volume)Ordered By: Jose Izquierdo on 09-28-2022 Hemoglobin (Bld) [Mass/Vol] 14.5 g/dL 12.0-15.0 [facility] Blood platelet mean volumeOr dered By: Jose Izquierdo on 09-28-2022 Platelet mean volume (Bld) [Entitic vol] 10.0 fL 6.2-12.0 [facility] Determination of erythrocyte mean corpuscular volume (MCV)Ordered By: Jose Izquierdo on 09-28-2022 MCV (RBC) [Entitic vol] 89.1 fL 81-99 [facility] Hematocrit Auto (Bld) [Volum e fraction]Ordered By: Jose Izquierdo on 09-28-2022 Hematocrit (Bld) [Volume fraction] 43.2 % 37-47 [facility] - Hematology and Cell countsOrdered By: Jose Izquierdo on 09-28-2022 Erythrocyte distribution width (RBC) [Entitic vol] 42.7 fL 35.1-43.9 [facility] Erythrocyte distribution width (RBC) [Ratio] 13.2 % 11.6-14.6 [facility] MCH (RBC) [Entitic mass] 29.9 pg 27.0-32.0 [facility] MCHC Auto (RBC) [Mass/Vol]Or dered By: Jose Izquierdo on 09-28-2022 MCHC (RBC) [Mass/Vol] 33.6 g/dL 32-36 [facility] Platelets bldOrdered By: Jose Izquierdo on 09-28-2022 Platelets (Bld) [#/Vol] 258 10*3/uL 150-450 [facility] No Panel Informationon 07-29 Radiology Result ACTIONABLE Abnormal [facility]isha [facility] Absolute lymphocyte counton 09-17-2021 Lymphocytes Auto (Unsp spec) [#/Vol] 2.19 10*3/uL 0.83-4.51 [facility] Work Phone: Basophil percentageon 2021 Basophils/100 WBC (Bld) 0.6 % 0-1 [facility] Work Phone: Bilirubin [Mass/Vol] 0.50 mg/dL 0.20-1.00 [facility] Work Phone: Comment on above: For patients on eltr ombopag therapy, use of Dimension [place] TBIL is not recommended. Chloride [Moles/Vol] 105 mmol/L 98-107 [facility] Work Phone: Cholesterol [Mass/Vol] 181 mg/dL <200 [facility] Work Phone: Comment on above: <200 mg/dL Desirable 200-240 mg/dL Borderline >240 mg/dL High Risk Eosinophils/100 WBC (Bld) 2.2 % 0-5 [facility] Work Phone: Glucose [Mass/Vol] 88 mg/dL 74-106 [facility] Work Phone: Neutrophils (Bld) [#/Vol] 3.7 10*3/uL 2.0-7.7 [facility] Work Phone: [phone] Neutrophils/100 WBC (Bld) 56.7 % 47-70 [facility] Work Phone: Potassium [Moles/Vol] 3.6 mmol/L 3.5-5.1 [facility] Work Phone: Protein [Mass/Vol] 7.7 g/dL 6.4-8.2 [facility] Work Phone: Sodium [Moles/Vol] 137 mmol/L 136-145 [facility] Work Phone: Triglyceride [Mass/Vol] 78 mg/dL <199 [facility] Work Phone: Comment on above: The drugs N-Acetylcy steine and Metamizole may falsely depress this assay.Serum Triglycerides Reference Interval Normal <150 mg/dL Borderline high 150 - 199 mg/dL High 200 - 499 mg/dL Very High > or = 500 mg/dL WBC (Bld) [#/Vol] 6.5 10*3/uL 4.4-11.0 [facility] Work Phone: Blood erythrocytes count (nu mber/volume)on 09-17-2021 RBC (Bld) [#/Vol] 5.04 10*6/uL 4.2-5.4 [facility] Work Phone: Blood hemoglobin measurement (mass/volume)on 09-17-2021 Hemoglobin (Bld) [Mass/Vol] 15.2 g/dL 12.0-15.0 [facility] Work Phone: Blood lymphocytes/100 leukoc yteson 09-17-2021 Lymphocytes/100 WBC (Bld) 33.7 % 19-41 [facility] Work Phone: Blood monocytes/100 leukocyt eson 09-17-2021 Monocytes/100 WBC (Bld) 6.3 % 0-10 [facility] Work Phone: Blood platelet mean volumeon 09-17-2021 Platelet mean volume (Bld) [Entitic vol] 10.6 fL 6.2-12.0 [facility] Work Phone: Determination of erythrocyte mean corpuscular volume (MCV)on 09-17-2021 MCV (RBC) [Entitic vol] 90.7 fL 81-99 [facility] Work Phone: Hematocrit Auto (Bld) [Volum e fraction]on 09-17-2021 Hematocrit (Bld) [Volume fraction] 45.7 % 37-47 [facility] Work Phone: Laboratory - Chemistry and C hemistry - challengeon 09-17-2021 ALP [Catalytic activity/Vol] 51 U/L 45-117 [facility] Work Phone: ALT [Catalytic activity/Vol] 20 U/L 13-56 [facility] Work Phone: [phone] CO2 [Moles/Vol] 25.0 mmol/L 21.0-32.0 [facility] Work Phone: [phone] Globulin (S) [Mass/Vol] 3.8 g/dL 2.2-4.2 [facility] Work Phone: [phone] Urea nitrogen/Creatinine [Mass ratio] 10.2 mg/mg 10-20 [facility] Work Phone: [phone] Laboratory - Hematology and Cell countson 09-17-2021 Erythrocyte distribution width (RBC) [Entitic vol] 42.6 fL 35.1-43.9 [facility] Work Phone: [phone] Erythrocyte distribution width (RBC) [Ratio] 12.9 % 11.6-14.6 [facility] Work Phone: [phone] Immature granulocytes/100 WBC (Bld) 0.500 % 0.0-0.9 [facility] Work Phone: Comment on above: IG% - Immature Granu locytes (promyelocytes, myelocytes and metamyelocytes) > 1% indicates that a LEFT SHIFT is Present. MCH (RBC) [Entitic mass] 30.2 pg 27.0-32.0 [facility] Work Phone: Nucleated RBC/100 WBC (Bld) [Ratio] 0 % 0-5 [facility] Work Phone: [phone] MCHC Auto (RBC) [Mass/Vol]on 09-17-2021 MCHC (RBC) [Mass/Vol] 33.3 g/dL 32-36 [facility] Work Phone: No Panel Informationon 09-17 Estimated GFR (MDRD) Amer 82 mL/min >60 [facility] Work Phone: Comment on above: GFR Calc Estimated GFR (MDRD) Non-Af Amer 68 mL/min >60 [facility] Work Phone: Comment on above: Non- GFR Calc Thyroid Stimulating Hormone (TSH) 2.63 uIU/mL 0.358-3.74 [facility] Work Phone: Platelets bldon 09-17-2021 Platelets (Bld) [#/Vol] 249 10*3/uL 150-450 [facility] Work Phone: Serum or plasma albumin gabino urement (mass/volume)on 09-17-2021 Albumin [Mass/Vol] 3.9 g/dL 3.2-5.0 [facility] Work Phone: Serum or plasma albumin/glob ulin mass ratioon 09-17-2021 Albumin/Globulin [Mass ratio] 1.0 {ratio} 0.9-2.4 [facility] Work Phone: Serum or plasma calcium gabino urement (mass/volume)on 09-17-2021 Calcium [Mass/Vol] 9.1 mg/dL 8.5-10.1 [facility] Work Phone: Serum or plasma cholesterol in HDL measurement (mass/volume)on 09-17-2021 Cholesterol in HDL [Mass/Vol] 45 mg/dL >40 [facility] Work Phone: Comment on above: The drugs N-Acetylcy steine and Metamizole may falsely depress this assay. Reference Range HDL <40 mg/dL Low HDL Cholesterol HDL >or= 60 mg/dL High HDL Cholesterol Serum or plasma cholesterol in VLDL measurement (mass/volume)on 09-17-2021 Cholesterol in VLDL [Mass/Vol] 16 mg/dL 5-40 [facility] Work Phone: Serum or plasma creatinine m easurement (mass/volume)on 09-17-2021 Creatinine [Mass/Vol] 0.98 mg/dL 0.55-1.02 [facility] Work Phone: Comment on above: The validity of the calculated GFR & GFRAA in patients over 70 years has not been determined. Clinical correlation is essential. Serum or plasma ferritin amado surement (mass/volume)on 09-17-2021 Ferritin [Mass/Vol] 53 ng/mL 8-252 [facility] Work Phone: Serum or plasma low density lipoprotein (LDL) cholesterol measurement (mass/volume)on 09-17-2021 Cholesterol in LDL [Mass/Vol] 120 mg/dL 0-130 [facility] Work Phone: Serum or plasma urea nitroge n measurement (mass/volume)on 09-17-2021 Urea nitrogen [Mass/Vol] 10 mg/dL 7-18 [facility] Work Phone: Thin prep Papanicolaou smear with manual screeningon 09-17-2021 Thin prep Papanicolaou smear with manual screening 15 U/L 15-37 [facility] Work Phone: Thin prep Papanicolaou smear with manual screening 7 5-15 [facility] Work Phone: Vital Signs Date Time Vital Sign Value Performing Clinician Faci lity 07-26-2024 08:29-0400 Body height 165.[address] Oliver Wong MD Work Phone: [facility] 07-17-2024 09:42-0400 Body mass index (BMI) [Ratio] 30.7 kg/m2 Dr. Oliver Wong MD Work Phone: [facility] 07-17-2024 09:42-0400 Body weight 83.[address] Oliver Wong MD Work Phone: [facility] 07-17-2024 09:42-0400 Diastolic blood pressure 85 mm[Hg] Dr. Oliver Wong MD Work Phone: [facility] 07-17-2024 09:42-0400 Heart rate 98 /min Dr. Oliver Wong MD Work Phone: [facility] 07-17-2024 09:42-0400 Respiratory rate 18 /min Dr. Oliver Wong MD Work Phone: [facility] 07-17-2024 09:42-0400 Systolic blood pressure 125 mm[Hg] Dr. Oliver Wong MD Work Phone: [facility] 07-12-2024 09:50-0400 Body height 167.6 cm Pily Da Silva MD Work Phone: [facility] 07-12-2024 09:50-0400 Body mass index (BMI) [Ratio] 29.54 kg/m2 Pily Da Silva MD Work Phone: [facility] 07-12-2024 09:50-0400 Body weight 83.01 kg Pily Da Silva MD Work Phone: [facility] 07-12-2024 09:50-0400 Diastolic blood pressure 74 mm[Hg] Pily Da Silva MD Work Phone: [facility] 07-12-2024 09:50-0400 Systolic blood pressure 122 mm[Hg] Pily Da Silva MD Work Phone: [facility] 03-09-2024 07:59-0500 Body mass index (BMI) [Ratio] 30.79 kg/m2 Pily Da Silva MD Work Phone: [facility] 03-09-2024 07:59-0500 Body weight 83.92 kg Pily Da Silva MD Work Phone: [facility] 03-09-2024 07:59-0500 Diastolic blood pressure 72 mm[Hg] Pily Da Silva MD Work Phone: [facility] 03-09-2024 07:59-0500 Systolic blood pressure 104 mm[Hg] Pily Da Silva MD Work Phone: [facility] 02-09-2024 09:33-0500 Body mass index (BMI) [Ratio] 30.45 kg/m2 Pily Da Silva MD Work Phone: [facility] 02-09-2024 09:33-0500 Body weight 83.01 kg Pily Da Silva MD Work Phone: [facility] 02-09-2024 09:33-0500 Diastolic blood pressure 68 mm[Hg] Pily Da Silva MD Work Phone: [facility] 02-09-2024 09:33-0500 Systolic blood pressure 116 mm[Hg] Pily Da Silva MD Work Phone: [facility] 02-01-2024 11:22-0500 Body mass index (BMI) [Ratio] 30.62 kg/m2 Pily Da Silva MD Work Phone: [facility] 02-01-2024 11:22-0500 Body weight 83.46 kg Pily Da Silva MD Work Phone: [facility] 02-01-2024 11:22-0500 Diastolic blood pressure 62 mm[Hg] Pily Da Silva MD Work Phone: [facility] 02-01-2024 11:22-0500 Systolic blood pressure 112 mm[Hg] Pily Da Silva MD Work Phone: [facility] 01-28-2024 11:45-0500 Body temperature 98.3 [degF] Dr. Oliver Wong MD Work Phone: [facility] 01-28-2024 11:45-0500 Diastolic blood pressure 58 mm[Hg] Dr. Oliver Wong MD Work Phone: [facility] 01-28-2024 11:45-0500 Heart rate 71 /min Dr. Oliver Wong MD Work Phone: [facility] 01-28-2024 11:45-0500 Respiratory rate 16 /min Dr. Oliver Wong MD Work Phone: [facility] 01-28-2024 11:45-0500 SaO2% (BldA) [Mass fraction] 93 % Dr. Oliver Wong MD Work Phone: [facility] 01-28-2024 11:45-0500 Systolic blood pressure 92 mm[Hg] Dr. Oliver Wong MD Work Phone: [facility] 01-28-2024 11:30-0500 Inhaled oxygen flow rate 4 L/min Dr. Oliver Wong MD Work Phone: [facility] 01-28-2024 06:08-0500 Body height 167.[address] Oliver Wong MD Work Phone: [facility] 01-28-2024 06:08-0500 Body mass index (BMI) [Ratio] 30.2 kg/m2 Dr. Oliver Wong MD Work Phone: [facility] 01-28-2024 06:08-0500 Body weight 84.[address] Oliver Wogn MD Work Phone: [facility] 01-12-2024 08:05-0500 Body height 165.1 cm Pily Da Silva MD Work Phone: [facility] 01-12-2024 08:05-0500 Body mass index (BMI) [Ratio] 30.45 kg/m2 Pily Da Silva MD Work Phone: [facility] 01-12-2024 08:05-0500 Body weight 83.01 kg Pily Da Silva MD Work Phone: [facility] 01-12-2024 08:05-0500 Diastolic blood pressure 80 mm[Hg] Pily Da Silva MD Work Phone: [facility] 01-12-2024 08:05-0500 Heart rate 80 /min Pily Da Silva MD Work Phone: [facility] 01-12-2024 08:05-0500 SaO2% (BldA) [Mass fraction] 92 % Pily Da Silva MD Work Phone: [facility] 01-12-2024 08:05-0500 Systolic blood pressure 122 mm[Hg] Pily Da Silva MD Work Phone: [facility] 12-06-2023 08:11-0400 Body mass index (BMI) [Ratio] 30.15 kg/m2 Pily Da Silva MD Work Phone: [facility] 12-06-2023 08:11-0400 Body weight 83.46 kg Pily Da Silva MD Work Phone: [facility] 12-06-2023 08:11-0400 Diastolic blood pressure 78 mm[Hg] Pily Da Silva MD Work Phone: [facility] 12-06-2023 08:11-0400 Systolic blood pressure 130 mm[Hg] Pily Da Silva MD Work Phone: [facility] 11-23-2023 14:51-0400 Body mass index (BMI) [Ratio] 30.48 kg/m2 Janie [place] [employer] Work Phone: [facility] 11-23-2023 14:51-0400 Body weight 84.37 kg Janie [place] [employer] Work Phone: [facility] 11-23-2023 14:51-0400 Diastolic blood pressure 64 mm[Hg] Janie [place] [employer] Work Phone: [facility] 11-23-2023 14:51-0400 Systolic blood pressure 120 mm[Hg] Janie [place] [employer] Work Phone: [facility] 02-03-2023 14:49-0500 Body weight 79.38 kg Pily Da Silva MD Work Phone: [facility] 02-03-2023 14:49-0500 Diastolic blood pressure 70 mm[Hg] Pily Da Silva MD Work Phone: [facility] 02-03-2023 14:49-0500 Heart rate 100 /min Pily Da Silva MD Work Phone: [facility] 02-03-2023 14:49-0500 SaO2% (BldA) [Mass fraction] 100 % Pily Da Silva MD Work Phone: [facility] 02-03-2023 14:49-0500 Systolic blood pressure 112 mm[Hg] Pily Da Silva MD Work Phone: [facility] 11-05-2022 15:58-0400 Body temperature 99 [degF] Anita Miguel Ángel PA-C Work Phone: [facility] 11-05-2022 15:58-0400 Diastolic blood pressure 80 mm[Hg] Anita Miguel Ángel PA-C Work Phone: [facility] 11-05-2022 15:58-0400 Heart rate 99 /min Anita [facility] PA-C Work Phone: [facility] 11-05-2022 15:58-0400 SaO2% (BldA) [Mass fraction] 99 % Anita Miguel Ángel PA-C Work Phone: [facility] 11-05-2022 15:58-0400 Systolic blood pressure 118 mm[Hg] Anita Miguel Ángel PA-C Work Phone: [facility] 10-28-2022 11:48-0400 Diastolic blood pressure 63 mm[Hg] Lena Patricia MD Work Phone: [facility] 10-28-2022 11:48-0400 Heart rate 81 /min Lena Patricia MD Work Phone: [facility] 10-28-2022 11:48-0400 SaO2% (BldA) [Mass fraction] 100 % Lena Patricia MD Work Phone: [facility] 10-28-2022 11:48-0400 Systolic blood pressure 106 mm[Hg] Lena Patricia MD Work Phone: [facility] 10-28-2022 11:38-0400 Respiratory rate 16 /min Lena Patricia MD Work Phone: [facility] 10-28-2022 09:59-0400 Body temperature 97.3 [degF] Lena Patricia MD Work Phone: [facility] 10-28-2022 09:59-0400 Body weight 78 kg Lena Patricia MD Work Phone: [facility] 10-12-2022 08:12-0400 Body weight 77.02 kg Pily Da Silva MD Work Phone: [facility] 10-12-2022 08:12-0400 Diastolic blood pressure 60 mm[Hg] Pily Da Silva MD Work Phone: [facility] 10-12-2022 08:12-0400 Systolic blood pressure 102 mm[Hg] Pily Da Silva MD Work Phone: [facility] 10-01-2022 12:39-0400 Body temperature 98.6 [degF] [facility] 10-01-2022 12:39-0400 Diastolic blood pressure 69 mm[Hg] [facility] 10-01-2022 12:39-0400 Heart rate 73 /min [facility] 10-01-2022 12:39-0400 Respiratory rate 16 /min [facility] 10-01-2022 12:39-0400 SaO2% (BldA) [Mass fraction] 100 % [facility] 10-01-2022 12:39-0400 Systolic blood pressure 106 mm[Hg] [facility] 10-01-2022 09:01-0400 Body height 167.64 cm [facility] 10-01-2022 09:01-0400 Body mass index (BMI) [Ratio] 27.4 kg/m2 [facility] 10-01-2022 09:01-0400 Body weight 77.1 kg [facility] 09-16-2022 09:30-0400 Body weight 77.56 kg Pily Da Silva MD Work Phone: [facility] 09-16-2022 09:30-0400 Diastolic blood pressure 70 mm[Hg] Pily Da Silva MD Work Phone: [facility] 09-16-2022 09:30-0400 Systolic blood pressure 110 mm[Hg] Pily Da Silva MD Work Phone: [facility] 08-19-2022 14:54-0400 Body weight 76.66 kg Pily Da Silva MD Work Phone: [facility] 08-19-2022 14:54-0400 Diastolic blood pressure 76 mm[Hg] Pily Da Silva MD Work Phone: [facility] 08-19-2022 14:54-0400 Systolic blood pressure 110 mm[Hg] Pily Da Silva MD Work Phone: [facility] Encounters Encounter Date Encounter Type Care Provider Facility Start: 08-23-2024 ambulatory Oliver Wong Facility:[facility] Start: 07-26-2024 End: 07-26-[address] Oliver Wong MD Work Phone: [facility] Work Phone: Start: 07-26-2024 End: 07-26-[address] Quin Snider MD -Laboratory Work Phone: Start: 07-26-2024 End: 07-26-[address] Quin Snider MD -[facility] Work Phone: Start: 07-26-2024 End: 07-26-[address] Oliver Wong MD Work Phone: [facility] Work Phone: Start: 07-26-2024 End: 07-26-2024 ambulatory Oliver Wong Facility:[facility] Start: 07-13-2024 End: 07-13-2024 Telephone encounter Joe Myers MD Work Phone: Mammography Comment on above: Mammogram Result Maria l Back (right breast diag mamm and us per ) Start: 07-12-2024 End: 07-12-2024 Patient encounter procedure Pily Da Silva MD Work Phone: OB/Gynecology Comment on above: Encounter for gyneco logical examination (general) (routine) without abnormal findings (Primary Dx); Encounter for screening mammogram for breast cancer Start: 07-12-2024 End: 07-12-2024 Patient encounter status Pily Da Silva MD Work Phone: [facility] Start: 07-12-2024 Encounter for gynecological examination (general) (routine) without abnormal findings PILY DA SILVA [facility] Start: 07-12-2024 End: 07-12-2024 ambulatory PILY DA SILVA Facility:[facility] Start: 07-12-2024 End: 07-12-2024 Subsequent hospital visit by physician Screen Mammo [facility] Mammogram Comment on above: Encounter for screen ing mammogram for malignant neoplasm of breast [Z12.31] Start: 07-03-2024 End: 07-03-2024 Telephone encounter Pily Da Silva MD Work Phone: Mammogram Comment on above: Orders Start: 06-14-2024 End: 06-14-2024 Emergency department patient visit BERNARD RODRIGUEZ MD Facility:[facility] Start: 05-17-2024 End: 05-17-[address] Oliver Wong MD Work Phone: [facility] Work Phone: Start: 05-17-2024 End: 05-17-[address] Oliver Wong MD -Laboratory, [facility] Start: 05-17-2024 End: 05-17-2024 ambulatory Oliver Hargroveelsen Facility:[facility] Start: 05-06-2024 End: 05-06-2024 Emergency department patient visit USAMA MODI Facility:[facility] Start: 03-10-2024 End: 03-10-2024 Telephone encounter Pily Da Silva MD Work Phone: OB/Gynecology Start: 03-09-2024 End: 03-09-2024 ambulatory [facility] Salima LARKSPUR Facility:[facility] Start: 03-09-2024 End: 03-09-2024 Patient encounter procedure Pily Da Silva MD Work Phone: OB/Gynecology Comment on above: Post-operative state (Primary Dx); Encounter for screening mammogram for malignant neoplasm of breast Start: 02-09-2024 End: 02-09-2024 [facility] BERNARD Salima LARKSPUR Facility:[facility] Start: 02-09-2024 End: 02-09-2024 Patient encounter procedure Pliy Da Silva MD Work Phone: OB/Gynecology Comment on above: Post-operative state (Primary Dx) Start: 02-03-2024 End: 02-03-2024 Telephone encounter Pily Da Silva MD Work Phone: OB/Gynecology Start: 02-01-2024 End: 02-01-2024 Telephone encounter Pily Da Silva MD Work Phone: OB/Gynecology Comment on above: Post Op Drainage Start: 02-01-2024 End: 02-01-2024 [facility] Salima LARKSPUR Facility:[facility] Start: 02-01-2024 End: 02-01-2024 Patient encounter procedure Pily Da Silva MD Work Phone: OB/Gynecology Comment on above: Post-operative state (Primary Dx) Start: 01-28-2024 End: 01-28-2024 Admission to same day surgery center Dr Pily Izquierdo MD -[facility] Start: 01-28-2024 End: 01-28-2024 ambulatory Oliver Wong Facility:[facility] Start: 01-12-2024 End: 01-12-2024 ambulatory BERNARD RODRIGUEZ Facility:[facility] Start: 01-12-2024 End: 01-12-2024 Patient encounter procedure Pily Da Silva MD Work Phone: OB/Gynecology Comment on above: Abnormal uterine ble eding (AUB) (Primary Dx); Pelvic pain in female; Dysmenorrhea; Adenomyosis; Pre-op exam Start: 01-12-2024 End: 01-12-2024 Preprocedural examination done Pily Da Silva MD Work Phone: [facility] Start: 12-29-2023 End: 12-29-2023 Admission to same day surgery center [facility] Provider OB/Gynecology Comment on above: Surgery confirmation Start: 12-29-2023 End: 12-29-2023 E-mail encounter from caregiver [facility] Provider OB/Gynecology Start: 12-16-2023 Encounter for genera l adult medical examination without abnormal findings Oliver Marvin [facility] Start: 12-09-2023 End: 12-22-2023 ambulatory Pily Da Silva MD Work Phone: OB/Gynecology Comment on above: Papers Start: 12-06-2023 End: 01-03-2024 Admission to same day surgery center Pily Da Silva MD Work Phone: OB/Gynecology Comment on above: Surgery dates Start: 12-06-2023 End: 01-03-2024 E-mail encounter from caregiver Pily Da Silva MD Work Phone: OB/Gynecology Start: 12-06-2023 End: 12-06-2023 ambulatory BERNARD RODRIGUEZ Facility:[facility] Start: 12-06-2023 End: 12-06-2023 Patient encounter procedure Pily Da Silva MD Work Phone: OB/Gynecology Comment on above: Dysmenorrhea (Primar y Dx); Abnormal uterine bleeding (AUB); Adenomyosis Start: 11-25-2023 End: 11-25-2023 Telephone encounter Janie Hopkins ALYSSA.MANAGER [employer] Work Phone: OB/Gynecology Comment on above: Appointment Start: 11-23-2023 End: 11-23-2023 ambulatory JANIE HOPKINS Facility:[facility] Start: 11-23-2023 End: 11-23-2023 Patient encounter procedure Janie Hopkins FINISHED HARDWARE ERECTOR.MANAGER TELECOM Work Phone: OB/Gynecology Comment on above: Abnormal uterine ble eding (AUB) (Primary Dx); Adenomyosis Start: 11-18-2023 End: 11-18-2023 ambulatory YISSEL MELTON OB/Gynecology Start: 11-18-2023 End: 11-18-2023 Patient encounter procedure [employer] OB/Gynecology Start: 11-18-2023 End: 11-18-2023 ambulatory Oliver Wong Facility:[facility] Start: 11-15-2023 End: 11-15-2023 ambulatory Pily Da Silva MD Work Phone: OB/Gynecology Comment on above: iud Start: 07-08-2023 Documentation procedure Mammog nathan Coordinator [facility] Department Start: 07-08-2023 Letter encounter Mammography Coordinator [facility] Department Start: 07-07-2023 End: 07-07-2023 Subsequent hospital visit by physician Screen Mammo [facility] Mammogram Comment on above: Encounter for screen ing mammogram for breast cancer [Z12.31] Start: 06-14-2023 End: 06-14-2023 ambulatory [facility] Work Phone: Start: 06-14-2023 End: 06-14-2023 Patient encounter procedure [facility] Work Phone: Start: 04-14-2023 ambulatory Pily Da Silva MD Work Phone: OB/Gynecology Comment on above: Iud Hot flashes (Primary Dx) Start: 02-08-2023 Telephone encounter Lena Hernandez MD Work Phone: General Surgery Comment on above: Request Outside Medi maria Records (EGD & colonoscopy) Request Outside [facility] Records (OV notes from 09/2022 & 01/2023) Start: 02-03-2023 End: 02-03-2023 Patient encounter procedure Pily Da Silva MD Work Phone: OB/Gynecology Comment on above: Encounter for IUD in sertion (Primary Dx); Abnormal uterine bleeding (AUB) Start: 01-20-2023 ambulatory Anita Adan Work Phone: General Surgery Comment on above: Perscription Start: 12-28-2022 ambulatory Pily Da Silva MD Work Phone: OB/Gynecology Comment on above: Option Start: 12-14-2022 ambulatory Pily Da Silva MD Work Phone: OB/Gynecology Comment on above: Pills Over the counter Start: 11-25-2022 End: 11-25-2022 Subsequent hospital visit by physician Lisa [facility] (I-Stat) Work Phone: Cat Scan Comment on above: Right lower quadrant abdominal pain [R10.31] Start: 11-05-2022 End: 11-05-2022 Patient encounter procedure Anita Del Rosario PA-C Work Phone: General Surgery Comment on above: Hiatal hernia (Prima ry Dx); GERD without esophagitis; Generalized abdominal pain; Right lower quadrant abdominal pain Start: 11-05-2022 ambulatory Pily Da Silva MD Work Phone: OB/Gynecology Comment on above: Pills and spotting Start: 10-28-2022 End: 10-28-2022 Subsequent hospital visit by physician Lena Patricia MD Work Phone: Ambulatory Surgery Comment on above: GERD without esophag itis [K21.9] Start: 10-20-2022 Orders Only Lena michaels MD Work Phone: Ambulatory Surgery Start: 10-12-2022 End: 10-12-2022 Patient encounter procedure Pily Da Silva MD Work Phone: OB/Gynecology Comment on above: Post-operative state (Primary Dx); RLQ abdominal pain; Bloating Start: 10-05-2022 Admission to same da y surgery ora Pily Da Silva MD Work Phone: OB/Gynecology Comment on above: Discharge after surg enzo Start: 10-05-2022 ambulatory Pily Da Silva MD Work Phone: [facility] Start: 10-02-2022 Telephone encounter Pily Da Silva MD Work Phone: OB/Gynecology Comment on above: post op pain Start: 10-01-2022 End: 10-01-2022 Admission to same day surgery [facility] Start: 10-01-2022 End: 10-01-2022 ambulatory [facility] Work Phone: Start: 09-16-2022 End: 09-16-2022 Patient encounter procedure Pliy Da Silva MD Work Phone: OB/Gynecology Comment on above: Cyst, ovary, dermoid , right (Primary Dx); Pelvic pain in female; Pre-op exam Start: 09-16-2022 End: 09-16-2022 Preprocedural examination done Pily Da Silva MD Work Phone: [facility] Work Phone: Start: 08-19-2022 End: 08-19-2022 Patient encounter procedure Pily Da Silva MD Work Phone: OB/Gynecology Comment on above: Dermoid cyst of righ t ovary (Primary Dx); Pelvic pain in female; Dysmenorrhea; Ovulation pain Start: 07-29-2022 End: 07-29-2022 Subsequent hospital visit by physician [employer] [facility] (I-Stat/1.5t) Work Phone: Radiology Comment on above: Pelvic and perineal pain [R10.2] Start: 07-24-2022 Telephone encounter Janie ulloa APRN.CNP Work Phone: OB/Gynecology Comment on above: Results Start: 11-26-2021 End: 11-26-2021 ambulatory [facility] Work Phone: Start: 11-26-2021 End: 11-26-2021 Patient encounter procedure [facility]-Laboratory, Specimen Start: 09-17-2021 End: 09-17-2021 Patient encounter procedure [facility]-Laboratory, [place] Procedures Date Procedure Procedure Detail Performing Clinician Start: 07-12-2024 Screening digital breast tomosynthesis bi Pily Da Silva MD Work Phone: Start: 11-18-2023 Us pelvic nonobstetric real-time image complete Yissel Melton MD Work Phone: Start: 02-03-2023 Urine test visual color cmprsn meths Pily Da Silva MD Work Phone: Start: 11-25-2022 Ct abdomen & pelvis w/contrast material Anita Del Rosario PA-C Work Phone: Start: 10-28-2022 Level iv surg pathology gross&microscopic exam Lena Patricia MD Work Phone: Start: 10-28-2022 Esophagogastroduodenoscopy transoral diagnostic Que Chowdhury MD Work Phone: Start: 10-28-2022 Colonoscopy flx dx w/collj spec when pfrmd Que Chowdhury MD Work Phone: Start: 10-28-2022 Colonoscopy Pily Da Silva MD Work Phone: Start: 10-01-2022 Local destruction of ovary Start: 07-29-2022 Mri pelvis w/o & w/contrast material Janie Hopkins APRN.MANAGER TELECOM Work Phone: H/O: hysterectomy S/P partial hysterectomy Dr. Oliver Wong MD Work Phone: Comment on above: 12/2023 Plan of Treatment Date Care Activity Detail Author Start: 10-28-2032 Colonoscopy [address]oscopy [facility] Start: 10-28-2032 Colorectal Cancer Screening Colorectal Cancer Screening [facility] Start: 10-28-2032 Screening for malign ant neoplasm of colon [facility] Start: 11-27-2031 Urine microalbumin profile DTaP,Tdap,Td Vaccine (6 - Td or Tdap) [facility] Start: 07-24-2027 HPV TESTING HPV TESTING [facility] Start: 07-24-2027 PAP TESTING PAP TESTING [facility] Start: 07-24-2027 Screening for malign ant neoplasm of cervix [facility] Start: 07-16-2025 End: 07-16-2025 Patient encounter procedure Mammogram Comment on above: Encounter for screen ing mammogram for breast cancer [Z12.31] annual Start: 07-12-2025 Screening for malign ant neoplasm of breast Mammogram Screening [facility] Start: 10-30-2024 Influenza vaccination Influenz a Vaccine (Season Ended) [facility] Start: 08-23-2024 End: 08-23-2024 Patient encounter procedure Mammogram Comment on above: right breast diag ma mm and us per sm right breast diag ma m and us cb per sm Start: 07-26-2024 Evaluation of diagno stic study results [facility] Start: 07-12-2024 End: 07-12-2024 Patient encounter procedure Mammogram Comment on above: Screening Annual Exam did phone note for o rder 07/03 Screening Start: 07-06-2024 Screening for malign ant neoplasm of breast Mammogram Screening [facility] Start: 03-23-2024 End: 03-23-2024 Patient encounter procedure 03/23/2024 1:20 PM EST Office Visit OB/Gynecology [address] [place] [address] Pily Gallardo MD [address] [place] [address] Annual Exam OB/Gynecology Comment on above: Annual Exam Start: 03-09-2024 End: 03-09-2024 Patient encounter procedure OB/Gynecology Comment on above: PP Post-op Start: 02-09-2024 End: 02-09-2024 Patient encounter procedure OB/Gynecology Comment on above: PP Post-op Start: 01-28-2024 Anesthesia intraperitoneal lower abd w/laps nos ANESTH SURG LOWER ABDOMEN [facility] Start: 01-28-2024 Laparoscopy w total hysterectomy uterus 250 gm/< TLH UTERUS 250 G OR LESS [facility] Start: 01-28-2024 Patient discharge [facility] Start: 01-28-2024 Ambulation without limitation [facility] Start: 01-28-2024 Medication education [facility] Start: 01-28-2024 Planned voiding [facility] Start: 01-28-2024 Procedure discontinued [facility] Start: 01-28-2024 Taking patient vital signs [facility] Start: 01-28-2024 Vital signs measurements [facility] Start: 01-28-2024 [facility] Start: 01-12-2024 End: 01-12-2024 Patient encounter procedure 01/12/2024 8:10 AM EST Office Visit OB/Gynecology [address] [place] [address] Pily Gallardo MD [address] [place] [address] surgery 01/27 @[facility] OB/Gynecology Comment on above: surgery 01/27 @[facility] Start: 12-06-2023 End: 12-06-2023 Patient encounter procedure 12/06/2023 8:20 AM EDT Office Visit OB/Gynecology [address] [place] [address] Pily Gallardo MD [address] [place] [address] Discuss surgical options OB/Gynecology Comment on above: Discuss surgical opt ions Start: 11-23-2023 End: 11-23-2023 Patient encounter procedure 11/23/2023 3:00 PM EDT Office Visit OB/Gynecology [address] [place] [address] Janie Hopkins, ALYSSA.MANAGER [employer] [address] [place] [address] Discuss U/S and IUD OB/Gynecology Comment on above: Discuss U/S and IUD Start: 11-18-2023 End: 11-18-2023 Manual pelvic examination 11/18/2023 9:00 AM EDT Procedure OB/Gynecology [address] [place] [address] Pelvic Ultrasound OB/Gynecology Comment on above: Pelvic Ultrasound Start: 11-15-2023 End: 11-14-2024 US Pelvis PELVIC US [facility] Anc Imaging Routine Pelvic pain in female Abnormal uterine bleeding (AUB) Expected: 11/15/2023, Expires: 11/14/2024 [facility] Work Phone: Comment on above: Expected: 11/15/2023 , Expires: 11/14/2024 Start: 10-31-2023 Covid-19 Vaccine ( season) Covid-19 Vaccine () [facility] Start: 10-31-2023 Covid-19 Vaccine ( season) Covid-19 Vaccine () [facility] Start: 10-31-2023 Influenza vaccination C [facility] Start: 2023 Screening for malign ant neoplasm of breast Mammogram Screening [facility] Start: 04-14-2023 End: 07-14-2023 Estradiol (E2) [Mass/volume] in Serum or Plasma ESTRADIOL-17B BLD Lab Routine Hot flashes Expected: 04/14/2023, Expires: 07/14/2023 [facility] Work Phone: Comment on above: Expected: 04/14/2023 , Expires: 07/14/2023 Start: 04-14-2023 End: 07-14-2023 Follitropin [Units/volume] in Serum or Plasma FSH BLD Lab Routine Hot flashes Expected: 04/14/2023, Expires: 07/14/2023 [facility] Work Phone: Comment on above: Expected: 04/14/2023 , Expires: 07/14/2023 Start: 04-14-2023 End: 07-14-2023 Thyrotropin [Units/volume] in Serum or Plasma TSH BLD Lab Routine Hot flashes Expected: 04/14/2023, Expires: 07/14/2023 [facility] Work Phone: Comment on above: Expected: 04/14/2023 , Expires: 07/14/2023 Start: 03-01-2023 Behavioral Health Screening Behavioral Health Screening [facility] Start: 03-01-2023 [address] [facility] Start: 10-30-2022 Covid-19 Vaccine () Covid-19 Vaccine () [facility] Start: 10-30-2022 Influenza vaccination C [facility] Start: 10-01-2022 Patient discharge [facility] Start: 10-01-2022 Procedure discontinued [facility] Start: 10-01-2022 Ambulation without limitation [facility] Start: 10-01-2022 Medical regimen orde rs management [facility] Start: 10-01-2022 Medication education [facility] Start: 10-01-2022 Taking patient vital signs [facility] Start: 10-01-2022 Vital signs measurements [facility] Start: 10-01-2022 [facility] Start: 03-01-2022 [facility] Start: 09-06-2021 Urine microalbumin profile [facility] Start: 10-24-2019 PAP TESTING PAP TESTING [facility] Start: 06-08-2002 Hepatitis B Vaccine (1 of 3 - 19+ 3-dose series) Hepatitis B Vaccine (1 of 3 - 19+ 3-dose series) [facility] Start: 06-08-2002 Pneumococcal vaccination Pneum ococcal Vaccine (1 of 2 - PCV) [facility] Start: 06-08-2001 Anxiety Screening Anxiety Screening [facility] Start: 06-08-2001 Depression Screening Depression Scre ening [facility] Start: 06-08-2001 HEPATITIS C SCREENING HEPATITIS C [facility] Start: 06-08-2001 Hepatitis C screening Hepatitis C [facility] Start: 06-08-2001 HIV SCREENING HIV SCREENING [facility] Start: 06-08-2001 HIV screening HIV Screening [facility] Start: 06-08-1989 PNEUMOCOCCAL (1 - PCV) PNEUMOCOCCAL (1 - PCV) [facility] Start: 06-08-1989 Pneumococcal vaccination [facility] Start: 1983 COVID-19 VACCINE (#1) COVID-19 VACCI NE (#1) [facility] Start: 1983 HEPATITIS B (1 of 3 - 3-dose series) HEPATITIS B (1 of 3 - 3-dose series) [facility] Start: 1983 Hepatitis B Vaccine (1 of 3 - 3-dose series) Hepatitis B Vaccine (1 of 3 - 3-dose series) [facility] End: 12-05-2023 Ct abdomen & pelvis w/contrast material CT ABD/PEL W IVCON Radiology Routine Right lower quadrant abdominal pain 1 Occurrences starting 11/05/2022 until 12/05/2023 [facility] Work Phone: Comment on above: 1 Occurrences starti ng 11/05/2022 until 12/05/2023 End: 04-08-2025 DBT Breast - bilateral screening PERRI SCREENING W ASHLEY Radiology Routine Encounter for screening mammogram for malignant neoplasm of breast 1 Occurrences starting 03/09/2024 until 04/08/2025 [facility] Work Phone: Comment on above: 1 Occurrences starti ng 03/09/2024 until 04/08/2025 End: 08-11-2025 DBT Breast - bilateral screening PERRI SCREENING W ASHLEY Radiology Routine Encounter for screening mammogram for breast cancer 1 Occurrences starting 07/12/2024 until 08/11/2025 [facility] Work Phone: Comment on above: 1 Occurrences starti ng 07/12/2024 until 08/11/2025 Insertion intrauteri ne device iud INSERT INTRAUTERINE DEVICE Procedures Routine Encounter for IUD insertion Ordered: 12/28/2022 [facility] Work Phone: Comment on above: Ordered: 12/28/2022 [facility] Breast Screening PERRI SCREENIN G Radiology Routine Encounter for screening mammogram for breast cancer 07/07/2023 4:02 PM EDT [facility] Work Phone: Path report.final Dx Spec [facility] Work Phone: Patient referral [facility] Work Phone: Radionuclide imaging of perfusion of myocardium under exercise stress [facility] Immunizations Immunization Date Immunization Notes Care Provider Fa cili 11-26-2021 tetanus toxoid, redu ty diphtheria toxoid, and acellular pertussis vaccine, adsorbed Pily Da Silva MD Work Phone: [facility] 12-24-2015 influenza virus vaccine, unspecified formulation Pily Da Silva MD Work Phone: 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 Work Phone: 05-02-2010 diphtheria, tetanus toxoids and acellular pertussis vaccine Pily Da Silva MD Work Phone: 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 Work Phone: 09-10-1995 measles, mumps and rubella virus vaccine Pily Da Silva MD Work Phone: [facility] 09-29-1988 diphtheria, tetanus toxoids and acellular pertussis vaccine Pily Da Silva MD Work Phone: [facility] 09-29-1988 poliovirus vaccine, inactivated Pily Da Silva MD Work Phone: [facility] 11-30-1984 diphtheria, tetanus toxoids and acellular pertussis vaccine Pily Da Silva MD Work Phone: [facility] 11-30-1984 poliovirus vaccine, inactivated Pily Da Silva MD Work Phone: [facility] 09-09-1984 measles, mumps and rubella virus vaccine Pily Da Silva MD Work Phone: [facility] Payers Date Payer Category Payer Self-pay [id number] 2022 Private Health Insurance [id number] 2022 Private Health Insurance [id number] 1985 Unknown [id number] [id number] 1985 Unknown [id number] 2.16.8 [id number] Unknown [id number] Unknown [id number] 2.16.8 [id number] Unknown [id number] 2.16.8 [id number] Unknown [id number] 2.16.8 [id number] Unknown [id number] 2.16.8 [id number] Unknown [id number] 2.16.8 [id number] Unknown [id number] [id number] [id number] Social History Date Type Detail Facility Start: 04-27-2017 End: 09-24-2022 Tobacco smoking status AKIS Unknown if ever smoked [facility] Start: 1985 Sex Assigned At Female [facility] Start: 09-27-2013 End: 07-17-2024 Tobacco smoking status NHIS Smokes tobacco daily [facility] History of tobacco use Cigarette Smoker [facility] Start: 09-27-2013 End: 07-23-2022 Cigarettes smoked current (pack per day) - Reported [address] [facility] Start: 09-27-2013 End: 11-23-2023 Tobacco use and exposure Smokeless tobacco non-user [facility] Start: 07-23-2022 End: 07-12-2024 Alcohol intake Current non-drinker of alcohol (finding) [facility] Start: 1985 Sex Assigned At Not on file C [facility] Start: 07-23-2022 End: 09-16-2022 Tobacco use panel [facility] National Score (1-100), lower number is lower risk [address] [facility] Start: 06-14-2023 Gender identity Identifies as female gender (finding) [facility] Start: 06-14-2023 Sexual orientation Heterosexual (fin ding) [facility] Start: 05-24-2024 Sex Female (finding) [facility] NEGATED: Highlighted row [facility] NEGATED: Highlighted row Not [facility] Medical Equipment Procedure Code Equipment Code Equipment Origin al Text Equipment Identifier Dates Laparoscopic abdominal hysterectomy Collagen haemostatic agent, non-antimicrobial [id number] FDA Start: 01-28-2024 Goals Date Patient Goal Desired Activity /State Functional Status Date Assessment Result Facility 09-27-2013 Are you deaf, or do you have serious difficulty hearing No 09/27/2013 9:10 AM Deanne Charles RN [facility] 09-27-2013 Are you blind, or do you have serious difficulty seeing, even when wearing glasses No 09/27/2013 9:10 AM Deanne Charles RN [facility] 09-27-2013 Do you have serious difficulty walking or climbing stairs No 09/27/2013 9:10 AM Deanne Charles RN No [facility] 09-27-2013 Do you have difficul ty dressing or bathing No 09/27/2013 9:10 AM Deanne Charles RN No [facility] 09-27-2013 Because of a physica l, mental, or emotional condition, do you have difficulty doing errands alone such as visiting a physician's office or shopping No 09/27/2013 9:10 AM Deanne Charles RN No [facility] Mental Status Date Assessment Result Facility 01-28-2024 Cognitive function Level Of Cons ciousness Sedated [facility] Work Phone: 10-01-2022 Cognitive function Level Of Cons ciousness Appropriate;Drowsy [facility] Work Phone: 09-27-2013 Because of a physica l, mental, or emotional condition, do you have serious difficulty concentrating, remembering, or making decisions No 09/27/2013 9:10 AM Deanne Charles RN No [facility] Clinical Notes 07-29-2022 to 07-26-2024 Note Date & Type Note Facility 07-26-2024 Evaluation note Diagnosis Onset Date Resolution PVCs (premature ventricular contractions) acute July 26, 2024 8 :45am Chest discomfort chronic June 8:45am Hiatal hernia chronic July 26, 2 025 8:45am Nicotine dependence chronic June 302024 8:45am [facility] Work Phone: 1(343) 640-245705-28-2025 [facility] [address] [place], [place] [address] OFFICE VISIT Date of Service: 07/26/24 MR#: [id number] Acct: [id number] Name: SREE CESAR Rep #: [id number] : 1985 Provider: Dr. Graham Snider MD Age/Sex: 39/F Location: [facility] Status: Signed HPI HPI History of Present Illness Details: This lady has been referred to us for her complaints of chest discomfort and arrhythmia. Patient has past medical history significant for hiatal hernia and nicotine dependence. According to her, for the past few months, she has intermittent chest discomfort. She describes it as anterior chest tightness that lasts about2 minutes. This mostly occurs at rest. No relationship to exertion. No relieving or exacerbating factors identified. No radiation to the arm neck or jaw. No associated shortness of breath, diaphoresis, nausea or vomiting. The symptoms started when about 2 or 3 months ago, the patient woke up with sharp anterior chest discomfort. Per her, she noticed some palpitations as well. According to her, her heart rate was around 150 at the time. Workup at the emergency room included a CT scan of her chest which was negative for pulmonary embolism. She was noted to have sinus tachycardia at 115 bpm. Her PCP subsequently ordered a 7-day event monitor for her. This showed rare PVCs. Upon review, 1 fusion beat followed by a ventricular triplet is noted. Patient denies any history of intermittent palpitations. Denies any lightheadedness or dizziness. No syncope or presyncope. Denies any orthopnea or PND. No family history of premature coronary artery disease. No family history of sudden cardiac . 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 Accompanied by: Self Is patient in pain?: No Allergies amoxicillin Adverse Reaction (Verified 07/26/24 08:57) Other azithromycin Adverse Reaction (Verified 07/26/24 08:57) Other Medications ?Medication ?Instructions ?Recorded ?Confirmed ?Type ibuprofen 800 mg tablet 800 mg PO Q8H PRN PRN migrai ne 01/13/24 07/26/24 History multivitamin (Daily Multi-Vitamin 1 tab PO DAILY 01/1207/26/24 History tablet) omeprazole 20 mg capsule,delayed 20 mg PO DAILY 07/26/24 History release magnesium citrate,mag oxide 250 mg 150 mg PO DAILY 07/26/24 History capsule omega 3-dha 200 mg-epa 300 mg-fish 1 cap PO DAILY 06/3007/26/24 History oil 1,000 mg capsule potassium 200 mg PO DAILY 07/26/24 Hi story Have you fallen in the past year?: Yes (ankle sprain; orthopedic boot recently removed) PFSH Medical History Chest pain radiating to arm Hiatal hernia Tachycardia Atypical chest pain Abrasion Migraine headache Gastric reflux Smoker Surgical History (Updated 07/26/24 @ 08:56 by Que Catalan RN) S/P partial hysterectomy Hx of ovarian cystectomy History of tubal ligation History of appendectomy Social History household members: spouse and children current occupational status: employed current occupation: [employer] Daily pets and animals: Yes pets and animals: cat(s) and dog(s) Smoking Status: Current every day smoker tobacco type: cigarettes ROS Const Const: Positive for fatigue (persistent; unchanged) and headache(s) (Hx of migraines; S/P hysterectomy with improvement); Negative for weakness or weight gain ENT ENT: Positive for headache(s) (Hx of migraines; S/P hysterectomy with improvement) and dizziness (episodic vertigo per pt); Negative for Nosebleed/epistaxis or balance problems Cardio Chest Pain: Yes Frequency: daily Character: other (pressure) Onset: at rest and exercise Location: left chest Duration: minutes Palpitations: Yes Edema: None Muscle aches with walking: None Resp Respiratory: Negative for SOB with activity, SOB at rest or SOB orthopneaundefinedSOB lying down GI GI: Negative nausea, vomiting or heartburn Musc Musc: Positive for joint pain (s/p fall; ankle sprain); Negative for muscle aches/ myalgia, muscle weakness or balance problems Neuro Neuro: Positive for dizziness (episodic vertigo per pt) and headache(s) (Hx of migraines; S/P hysterectomy with improvement); Negative for lightheadedness, near syncope, syncope or weakness Endo Endo: Positive for fatigue (persistent; unchanged) Cardiology Exam Const Appearance: comfortable and no acute distress Nutritional Appearance: well nourished Neck Neck: no JVD Carotids: Negative bruit Chest Auscultation: Bilateral: Clear to Auscultation Cardio Rate: regular rate Rhythm: regular rhythm Heart sounds: S1 normal and S2 normal Neuro General: patient alert, patient awake and patient oriented x3 Extremities Lower Extremity Edema: None: Bilateral Supplemental Info Supplemental Information CT Angiography Chest w/ Contrast 05/06/2024: Impression: There is no evidence of pulmonary embolism to the segmental level bilaterally. There are basilar lower lung areas of dependent ground-glass favored to reflect areas of subsegmental atelectasis. 3mm solid noncalcified inferior lingular pulmonary nodule, follow-up per Fleishner society criteria CAM Report 05/24/2024: Findings Summary: -Predominant Rhythm: NSR -Ventricular Tachycardia (VT) 1 episode, 4 beats @ avg 123 bpm up to 155 bpm -PAC <0.1% -PVC <0.1% Assessment and Plan Assessment and Plan (1) PVCs (premature ventricular contractions): Status: Acute Plan: Check 2D echocardiogram. Check exercise stress. Check magnesium. (2) Chest discomfort: Status: Chronic Plan: Check exercise stress Myoview. (3) Nicotine dependence: Status: Chronic Plan: Counseled to quit. (4) Hiatal hernia: Status: Chronic Plan: As per PCP. Orders: Orders 12 Lead EKG performed by BMS Today R00.0 - Tachycardia, unspecified, R07.89 - Other chest pain Plan Details Follow Up: 3 Months Coding Level of Care Code Off vis,new,level 4 Diagnoses PVCs (premature ventricular contractions) I49.3 Chest discomfort R07.89 Nicotine dependence F17.200 Hiatal hernia K44.9 Coding Level of Care Code Off vis,new,level 4 Diagnoses PVCs (premature ventricular contractions) I49.3 Chest discomfort R07.89 Nicotine dependence F17.200 Hiatal hernia K44.9 Clinical Quality Measures Falls Risk Screening/Assistive Devices Have you fallen in the past year?: Yes (ankle sprain; orthopedic boot recently removed) 07/26/24 0931 > Date _ Quin Snider MD Cosigner Signature: Date (if applicable) CC: Dr. Oliver Wong MD ~ [facility]05-28-2025 Progress note Author Quin Snider [facility] Note Date/Time July 26, 2024 9:31a m [facility] [address] [place] [address] OFFICE VISIT Date of Service: 07/26/24 MR#: [id number] Acct: [id number] Name: SREE CESAR Rep #: [id number] : 1985 Provider: Dr. Graham Snider MD Age/Sex: 39/F Location: [facility] Status: Signed HPI HPI History of Present Illness Details: This lady has been referred to us for her complaints of chest discomfort and arrhythmia. Patient has past medical history significant for hiatal hernia and nicotine dependence. According to her, for the past few months, she has intermittent chest discomfort. She describes it as anterior chest tightness that lasts about2 minutes. This mostly occurs at rest. No relationship to exertion. No relieving or exacerbating factors identified. No radiation to the arm neck or jaw. No associated shortness of breath, diaphoresis, nausea or vomiting. The symptoms started when about 2 or 3 months ago, the patient woke up with sharp anterior chest discomfort. Per her, she noticed some palpitations as well. According to her, her heart rate was around 150 at the time. Workup at the emergency room included a CT scan of her chest which was negative for pulmonary embolism. She was noted to have sinus tachycardia at 115 bpm. Her PCP subsequently ordered a 7-day event monitor for her. This showed rare PVCs. Upon review, 1 fusion beat followed by a ventricular triplet is noted. Patient denies any history of intermittent palpitations. Denies any lightheadedness or dizziness. No syncope or presyncope. Denies any orthopnea or PND. No family history of premature coronary artery disease. No family history of sudden cardiac . 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 Accompanied by: Self Is patient in pain?: No Allergies amoxicillin Adverse Reaction (Verified 07/26/24 08:57) Other azithromycin Adverse Reaction (Verified 07/26/24 08:57) Other Medications ?Medication ?Instructions ?Recorded ?Confirmed ?Type ibuprofen 800 mg tablet 800 mg PO Q8H PRN PRN migrai ne 01/13/24 07/26/24 History multivitamin (Daily Multi-Vitamin 1 tab PO DAILY 01/1207/26/24 History tablet) omeprazole 20 mg capsule,delayed 20 mg PO DAILY 07/26/24 History release magnesium citrate,mag oxide 250 mg 150 mg PO DAILY 07/26/24 History capsule omega 3-dha 200 mg-epa 300 mg-fish 1 cap PO DAILY 06/3007/26/24 History oil 1,000 mg capsule potassium 200 mg PO DAILY 07/26/24 Hi story Have you fallen in the past year?: Yes (ankle sprain; orthopedic boot recently removed) PFSH Medical History Chest pain radiating to arm Hiatal hernia Tachycardia Atypical chest pain Abrasion Migraine headache Gastric reflux Smoker Surgical History (Updated 07/26/24 @ 08:56 by Que Catalan RN) S/P partial hysterectomy Hx of ovarian cystectomy History of tubal ligation History of appendectomy Social History household members: spouse and children current occupational status: employed current occupation: [employer] Daily pets and animals: Yes pets and animals: cat(s) and dog(s) Smoking Status: Current every day smoker tobacco type: cigarettes ROS Const Const: Positive for fatigue (persistent; unchanged) and headache(s) (Hx of migraines; S/P hysterectomy with improvement); Negative for weakness or weight gain ENT ENT: Positive for headache(s) (Hx of migraines; S/P hysterectomy with improvement) and dizziness (episodic vertigo per pt); Negative for Nosebleed/epistaxis or balance problems Cardio Chest Pain: Yes Frequency: daily Character: other (pressure) Onset: at rest and exercise Location: left chest Duration: minutes Palpitations: Yes Edema: None Muscle aches with walking: None Resp Respiratory: Negative for SOB with activity, SOB at rest or SOB orthopneaundefinedSOB lying down GI GI: Negative nausea, vomiting or heartburn Musc Musc: Positive for joint pain (s/p fall; ankle sprain); Negative for muscle aches/ myalgia, muscle weakness or balance problems Neuro Neuro: Positive for dizziness (episodic vertigo per pt) and headache(s) (Hx of migraines; S/P hysterectomy with improvement); Negative for lightheadedness, near syncope, syncope or weakness Endo Endo: Positive for fatigue (persistent; unchanged) Cardiology Exam Const Appearance: comfortable and no acute distress Nutritional Appearance: well nourished Neck Neck: no JVD Carotids: Negative bruit Chest Auscultation: Bilateral: Clear to Auscultation Cardio Rate: regular rate Rhythm: regular rhythm Heart sounds: S1 normal and S2 normal Neuro General: patient alert, patient awake and patient oriented x3 Extremities Lower Extremity Edema: None: Bilateral Supplemental Info Supplemental Information CT Angiography Chest w/ Contrast 05/06/2024: Impression: There is no evidence of pulmonary embolism to the segmental level bilaterally. There are basilar lower lung areas of dependent ground-glass favored to reflect areas of subsegmental atelectasis. 3mm solid noncalcified inferior lingular pulmonary nodule, follow-up per Fleishner society criteria CAM Report 05/24/2024: Findings Summary: -Predominant Rhythm: NSR -Ventricular Tachycardia (VT) 1 episode, 4 beats @ avg 123 bpm up to 155 bpm -PAC <0.1% -PVC <0.1% Assessment and Plan Assessment and Plan (1) PVCs (premature ventricular contractions): Status: Acute Plan: Check 2D echocardiogram. Check exercise stress. Check magnesium. (2) Chest discomfort: Status: Chronic Plan: Check exercise stress Myoview. (3) Nicotine dependence: Status: Chronic Plan: Counseled to quit. (4) Hiatal hernia: Status: Chronic Plan: As per PCP. Orders: Orders 12 Lead EKG performed by BMS Today R00.0 - Tachycardia, unspecified, R07.89 - Other chest pain Plan Details Follow Up: 3 Months Coding Level of Care Code Off vis,new,level 4 Diagnoses PVCs (premature ventricular contractions) I49.3 Chest discomfort R07.89 Nicotine dependence F17.200 Hiatal hernia K44.9 Coding Level of Care Code Off vis,new,level 4 Diagnoses PVCs (premature ventricular contractions) I49.3 Chest discomfort R07.89 Nicotine dependence F17.200 Hiatal hernia K44.9 Clinical Quality Measures Falls Risk Screening/Assistive Devices Have you fallen in the past year?: Yes (ankle sprain; orthopedic boot recently removed) 07/26/24 0931 <Electronically signed by Quin Snider MD> Date _ Quin Snider MD Cosigner Signature: Date (if applicable) CC: Dr. Oliver Wong MD ~ [employer] Work Phone: 1(434) 465-360905-14-2025 NoteHNO ID: [id number] Author: PILY GALLARDO MD Service: ? Author Type: Physician Type: Progress Notes Filed: 07/12/2024 10:20 Note Text: Test Facility Engineer offered: Patient declines. Obstetrics and Gynecology [place] Annual Exam Subjective Recording using [employer] software for draft documentation of the visit was discussed with the patient/authorized ambulatory services representative; all questions welcomed and answered. Patient/authorized ambulatory services representative agreed to proceed CHIEF COMPLAINT: The patient is a 39-year-old female with a history of hysterectomy presenting for her annual visit. HPI: Hysterectomy - Underwent a hysterectomy in December of last year. - Reports doing well since the procedure with no major complaints. - Still feels ovulation symptoms occasionally. Breast Lump - Noticed a lump in the left breast accompanied by pain, but reports that both the lump and pain have resolved. Vaginal Discharge - Reports increased vaginal discharge since the hysterectomy, but denies any associated itching, burning, or pelvic pain. - Denies vaginal dryness, discharge, or odors. Urinary Frequency - Reports frequent urination, attributing it to high water intake. Foot Injury - Currently wearing a boot on her left foot due to a recent fall down the stairs last month, resulting in an ankle sprain. Medications - Takes a multivitamin and omeprazole as needed. Past Diagnostic Results: - Pap Smear (2022): Normal - Mammogram (Today): Results pending HISTORY: OB History Gravida1 Para1 Term1 Preterm0 AB0 Living1 SAB0 IAB0 Ectopic0 Multiple0 Live Births0 Ambulatory Services Representative History LMP: 01/27/2024, Hysterectomy Age at Menarche: Age at First : Age at Menopause: Ambulatory Services Representative History Comments: Sexual Activity: Yes; Male Contraception: Tubal Ligation PAST MEDICAL HISTORY Diagnosis Date IUD (intrauterine device) in place 11/19/2023 [facility] - PAST MEDICAL HISTORY OF 03/01/2001 ovarian cysts PAST SURGICAL HISTORY Procedure Laterality Date APPENDECTOMY 1994 COLONOSCOPY FLX DX W/COLLJ SPEC WHEN PFRMD 10/28/2022 repeat in 10 years EGD W/O BRSH SPEC VARICIES INJ 10/28/2022 HYSTERECTOMY 01/28/2024 [facility], cystoscopy L'SCOPE DX W/WO BRUSHINGS/WASHINGS 10/01/2022 was scheduled to be ovarian cystectomy, but ovarian cyst had resolved LAPAROSCOPY SALPINGOSTOMY 04/01/2017 Laparoscopic bilateral salpingectomy OVARIAN CYSTECTOMY FAMILY HISTORY Problem Relation Age of Onset Hypertension Mother Thyroid Mother other (Endometrosis) Mother Hysterectomy in later s Hypertension Maternal Grandmother Prostate Cancer Maternal Grandfather Breast Cancer Paternal Grandmother Breast Cancer Paternal Aunt Thyroid Sister Social History Tobacco Use Smoking status: Every Day Current packs/day: 1.00 Types: Cigarettes Smokeless tobacco: Never Vaping Use Vaping status: Never Used Substance Use Topics Alcohol use: No Drug use: No Current Outpatient Medications Medication Sig multivit,thx,calcium,iron,mins (MULTIVITAMIN AND MINERAL ORAL) Take by mouth. omeprazole (PRILOSEC) 40 mg capsule Take 1 capsule by mouth once daily. (Patient taking differently: Take 20 mg by mouth once daily.) ibuprofen (MOTRIN) 600 mg tablet Take 1 tablet by mouth every 6 hours as needed for Pain. No current facility-administered medications for this visit. ALLERGIES Allergen Reactions Amoxicillin GI Upset ABD. PAIN, NAUSEA, DIZZINESS Zithromax [Azithrom* Hives, GI Upset Nausea and stomach pains Screening tools reviewed and discussed with patient-. Please see Patient Entered Data. REVIEW OF SYSTEMS: Abdomen: No abdominal pain, nausea, vomiting, diarrhea, or constipation. No bloating, early satiety, indigestion, or increased flatulence. Bladder: No dysuria, gross hematuria, urinary frequency, urinary urgency, or incontinence. Breast: No breast lumps, nipple d/c, overlying skin changes, redness or skin retraction and ? Muscle strain vs breast lump in right . Objective SENSITIVE EXAM: The sensitive examination was discussed with the Patient or Patient's Authorized Slip Cover Maker. As applicable, any other physician, advance practice provider, medical student, or other health professional student that will be observing or involved in the sensitive examination for educational or training purposes was discussed with the Patient or Authorized Slip Cover Maker. The Patient or Authorized Slip Cover Maker has agreed to proceed with the sensitive examination. (Sensitive examination includes inspection and/or palpation of the breasts, pelvis, prostate and anorectal regions). PHYSICAL EXAM: BP 122/74 Ht 5' 6 (1.68m) Wt 183 lb (83.0kg) LMP 01/27/2024 BMI 29.55 kg/(m2). GENERAL: pleasant, female in no apparent distress HEENT: Normocephalic, atraumatic, mucus membranes moist, and no lesions NECK: Supple, full range of motion, no adenopathy, and thyroid normal DERMATOLOGY: Norm (more content not included)...[facility] 07-12-2024 History of Present illness Narrative* Pily Gallardo MD - 07/12/2024 9:48 AM EDT Images from the original note were not included. Test Facility Engineer offered: Patient declines. Obstetrics and Gynecology [place] Annual Exam Subjective Recording using [employer] software for draft documentation of the visit was discussed with the patient/authorized ambulatory services representative; all questions welcomed and answered. Patient/authorized ambulatory services representative agreed to proceed CHIEF COMPLAINT: The patient is a 39-year-old female with a history of hysterectomy presenting for her annual visit. HPI: Hysterectomy - Underwent a hysterectomy in December of last year. - Reports doing well since the procedure with no major complaints. - Still feels ovulation symptoms occasionally. Breast Lump - Noticed a lump in the left breast accompanied by pain, but reports that both the lump and pain have resolved. Vaginal Discharge - Reports increased vaginal discharge since the hysterectomy, but denies any associated itching, burning, or pelvic pain. - Denies vaginal dryness, discharge, or odors. Urinary Frequency - Reports frequent urination, attributing it to high water intake. Foot Injury - Currently wearing a boot on her left foot due to a recent fall down the stairs last month, resulting in an ankle sprain. Medications - Takes a multivitamin and omeprazole as needed. Past Diagnostic Results: - Pap Smear (2022): Normal - Mammogram (Today): Results pending HISTORY: OB History Gravida1 Para1 Term1 Preterm0 AB0 Living1 SAB0 IAB0 Ectopic0 Multiple0 Live Births0 Ambulatory Services Representative History LMP: 01/27/2024, Hysterectomy Age at Menarche: Age at First : Age at Menopause: Ambulatory Services Representative History Comments: Sexual Activity: Yes; Male Contraception: Tubal Ligation PAST MEDICAL HISTORY Diagnosis Date IUD (intrauterine device) in place 11/19/2023 PMH - PAST MEDICAL HISTORY OF 03/01/2001 ovarian cysts PAST SURGICAL HISTORY Procedure Laterality Date APPENDECTOMY 1994 COLONOSCOPY FLX DX W/COLLJ SPEC WHEN PFRMD 10/28/2022 repeat in 10 years EGD W/O BRSH SPEC VARICIES INJ 10/28/2022 HYSTERECTOMY 01/28/2024 TLH, cystoscopy L'SCOPE DX W/WO BRUSHINGS/WASHINGS 10/01/2022 was scheduled to be ovarian cystectomy, but ovarian cyst had resolved LAPAROSCOPY SALPINGOSTOMY 04/01/2017 Laparoscopic bilateral salpingectomy OVARIAN CYSTECTOMY FAMILY HISTORY Problem Relation Age of Onset Hypertension Mother Thyroid Mother other (Endometrosis) Mother Hysterectomy in later 30's Hypertension Maternal Grandmother Prostate Cancer Maternal Grandfather Breast Cancer Paternal Grandmother Breast Cancer Paternal Aunt Thyroid Sister Social History Tobacco Use Smoking status: Every Day Current packs/day: 1.00 Types: Cigarettes Smokeless tobacco: Never Vaping Use Vaping status: Never Used Substance Use Topics Alcohol use: No Drug use: No Current Outpatient Medications Medication Sig multivit,thx,calcium,iron,mins (MULTIVITAMIN AND MINERAL ORAL) Take by mouth. omeprazole (PRILOSEC) 40 mg capsule Take 1 capsule by mouth once daily. (Patient taking differently: Take 20 mg by mouth once daily.) ibuprofen (MOTRIN) 600 mg tablet Take 1 tablet by mouth every 6 hours as needed for Pain. No current facility-administered medications for this visit. ALLERGIES Allergen Reactions Amoxicillin GI Upset ABD. PAIN, NAUSEA, DIZZINESS Zithromax [Azithrom* Hives, GI Upset Nausea and stomach pains Screening tools reviewed and discussed with patient-. Please see Patient Entered Data. REVIEW OF SYSTEMS: Abdomen: No abdominal pain, nausea, vomiting, diarrhea, or constipation. No bloating, early satiety, indigestion, or increased flatulence. Bladder: No dysuria, gross hematuria, urinary frequency, urinary urgency, or incontinence. Breast: No breast lumps, nipple d/c, overlying skin changes, redness or skin retraction and ? Muscle strain vs breast lump in right . Objective SENSITIVE EXAM: The sensitive examination was discussed with the Patient or Patient's Authorized Slip Cover Maker. As applicable, any other physician, advance practice provider, medical student, or other health professional student that will be observing or involved in the sensitive examination for educational or training purposes was discussed with the Patient or Authorized Slip Cover Maker. The Patient or Authorized Slip Cover Maker has agreed to proceed with the sensitive examination. (Sensitive examination includes inspection and/or palpation of the breasts, pelvis, prostate and anorectal regions). PHYSICAL EXAM: BP 122/74 Ht 5' 6 (1.68m) Wt 183 lb (83.0kg) LMP 01/27/2024 BMI 29.55 kg/(m^2). GENERAL: pleasant, female in no apparent distress HEENT: Normocephalic, atraumatic, mucus membranes moist, and no lesions NECK: Supple, full range of motion, no adenopathy, and thyroid normal DERMATOLOGY: Normal, without lesions, non-icteric, and non-hirsute BREAST: soft, non-tender, symmetric, no dominant mass, normal nipple-areolar complex, no lymphadenopathy, and no nipple discharge- no palpable mass In area of concern CHEST: Normal inspiratory effort ABDOMEN: soft, non-tender, and no masses PELVIC: external genitalia normal, normal Bartholin's glands, urethra, Hilbert's glands, no vulvar lesions, good vaginal support, physiologic discharge present, normal appearing perineal body and perianal region, cervix surgically absent BIMANUAL: no adnexal masses, non-tender, and uterus surgically absent RECTOVAGINAL: deferred. NEURO: alert and oriented x3,exam grossly non-focal EXTREMITIES: normal Assessment & Plan ASSESSMENT AND PLAN: 1. Encounter for gynecological examination (general) (routine) without abnormal findings (Z01.419) - Performed pelvic examination; no masses or granulation tissue noted at the vaginal cuff, which iswell-supported and mobile. - Discussed normal hormonal fluctuations post-hysterectomy, including potential for cyst formation. - Advised on normalcy of vaginal discharge, emphasizing absence of malodor, pruritus, or pelvic pain. - Educated on the importance of maintaining hydration and monitoring for any changes in discharge. - No further Pap smears required due to previous normal results and absence of cervix. - Recommended continuation of multivitamin and omeprazole as needed. - Discussed initiation of routine colonoscopy screening at age 43. 2. Encounter for screening mammogram for breast cancer (Z12.31) - Mammogram performed today; results pending. - Advised continuation of annual mammograms. Pily Izquierdo MD documented in this encounter[facility] History of Present illness Narrative* Cristina Keane Mammo Tech - 07/12/2024 8:50 AM EDT Radiology Service Progress Note PATIENT NAME: Sree Cesar DATE OF SERVICE: July 12, 2024 TIME: 8:55 AM PATIENT IDENTITY VERIFICATION COMPLETED USING TWO (2) IDENTIFIERS: Name and Date of confirmedby patient verbally. FALL SCREENING: Has the patient had 2 falls in the last year or 1 fall with injury or currently using an Ambulatory Assistive Device (Walker, Cane, Wheelchair, Crutches, etc.)? No PATIENT GENDER DATA: Assigned female at . status: : No status:NO. PATIENT RELEVANT IMPLANT DATA REVIEWED: Not Applicable PATIENT PRESENTS WITH AN IMPLANTABLE OR ATTACHED METAL HARDENER: No RADIOLOGY DEPARTMENT: Mammography PERIPHERAL IV DATA: Not applicable SIGNED BY: Cameron Monahan July 12, 2024 8:55 AM documented in this encounterMer[facility]05-14-2025 NoteHNO ID: [id number] Author: CRISTINA KEANE Mammo Tech Service: ? Author Type: Excelsior Machine Operator Type: Progress Notes Filed: 07/12/2024 08:55 Note Text: Radiology Service Progress Note PATIENT NAME: Sree Cesar DATE OF SERVICE: July 12, 2024 TIME: 8:55 AM PATIENT IDENTITY VERIFICATION COMPLETED USING TWO (2) IDENTIFIERS: Name and Date of confirmed by patient verbally. FALL SCREENING: Has the patient had 2 falls in the last year or 1 fall with injury or currently using an Ambulatory Assistive Device (Walker, Cane, Wheelchair, Crutches, etc.)? No PATIENT GENDER DATA: Assigned female at . status: : No status: NO. PATIENT RELEVANT IMPLANT DATA REVIEWED: Not Applicable PATIENT PRESENTS WITH AN IMPLANTABLE OR ATTACHED METAL HARDENER: No RADIOLOGY DEPARTMENT: Mammography PERIPHERAL IV DATA: Not applicable SIGNED BY: Cameron Monahan July 12, 2024 8:55 [facility]05-05-2025 Telephone encounter Note* Telephone Encounter - Tyesha Marti RN - 07/03/2024 3:36 PM EDT Linked order to mammogram appt. Tyesha Marti RN [facility]05-05-2025 Miscellaneous Notes* Telephone Encounter - Tyesha Marti RN - 07/03/2024 3:36 PM EDT Linked order to mammogram appt. Tyesha Marti RN * Telephone Encounter - Cristina Keane Mammo Tech - 07/03/2024 3:16 PM EDT Could we have a order for a screening mammogram order? Pt has appt 07/12. Thanks a million documented in this encounterMer[facility]05-[facility]-2025 Telephone encounter Note * Telephone Encounter - Cristina Keane Mammo Tech - 07/03/2024 3:16 PM EDT Could we have a order for a screening mammogram order? Pt has appt 07/12. Thanks a million [facility]01-10-2025 Telephone encounter Note* Telephone Encounter - Andrea Hamm MA - 03/10/2024 1:26 PM EST Return to work form has been signed and faxed to employer. Patient notified via [employer]. Andrea Hamm MA [facility]01-10-2025 Miscellaneous Notes* Telephone Encounter - Andrea Hamm MA - 03/10/2024 1:26 PM EST Return to work form has been signed and faxed to employer. Patient notified via [employer]. Andrea Hamm MA * Telephone Encounter - Pily Gallardo MD - 03/10/2024 1:[address] in my box and I will sign while I am here * Telephone Encounter - Annie Peter RN - 03/10/2024 12:26 PM EST Called Pt back to inform her a staff member in our office will be working on this paperwork and as soon as it is signed by the provider we will fax and let her know. Pt states she is scheduled to work on Wednesday and was hoping it could be sent SHANON. Again advised her we will complete and send as soon as we are able. Pt voiced understanding. Annie Peter RN * Telephone Encounter - Annie Peter RN - 03/10/2024 11:53 AM EST Pt states was seen in office 03/09/24 and had given a return to work form to be filled out/signed andher employer has not received it. Advised Pt would check into this and would call her back. Annie Peter RN documented in this encounterMer[facility]01-[facility]-2025 Telephone encounter Note * Telephone Encounter - Pily Gallardo MD - 03/10/2024 1:[address] in my box and I will sign while I am here [facility]01-10-2025 Telephone encounter Note* Telephone Encounter - Annie Peter RN - 03/10/2024 12:26 PM EST Called Pt back to inform her a staff member in our office will be working on this paperwork and as soon as it is signed by the provider we will fax and let her know. Pt states she is scheduled to work on Wednesday and was hoping it could be sent SHANON. Again advised her we will complete and send as soon as we are able. Pt voiced understanding. Annie Peter RN [facility]01-10-2025 Telephone encounter Note* Telephone Encounter - Annie Peter RN - 03/10/2024 11:53 AM EST Pt states was seen in office 03/09/24 and had given a return to work form to be filled out/signed andher employer has not received it. Advised Pt would check into this and would call her back. Annie Peter RN [facility]01-09-2025 NoteHNO ID: [id number] Author: PILY GALLARDO MD Service: ? Author Type: Physician Type: Progress Notes Filed: 03/09/2024 08:30 Note Text: SUBJECTIVE: 38 year old female presents for 6 week post-op exam. Doing well- no bleeding, no discharge, no pain. No issues with BM or voiding. Going back to work Wednesday per her schedule. Objective: Incision: Healed Abdomen: Soft, Non-tender, No palpable masses, and No hepatosplenomegaly. Genitalia: Normal external genitalia, Urethral meatus normal, Bladder nontender, normal vagina and normal vaginal tone, cervix absent, uterus absent, normal adnexa without masses or tenderness, and perineum WNL. Cuff intact. No pain on palpation. Impression: Post-Op Exam Plan: Return to office annual exam. I have reviewed and updated past medical and surgical history, medications and allergies. Pily Izquierdo [facility]01-09-2025 History of Present illness Narrative* Pily Gallardo MD - 03/09/2024 7:59 AM EST SUBJECTIVE: 38 year old female presents for 6 week post-op exam. Doing well- no bleeding, no discharge, no pain. No issues with BM or voiding. Going back to work Wednesday per her schedule. Objective: Incision: Healed Abdomen: Soft, Non-tender, No palpable masses, and No hepatosplenomegaly. Genitalia: Normal external genitalia, Urethral meatus normal, Bladder nontender, normal vagina and normal vaginal tone, cervix absent, uterus absent, normal adnexa without masses or tenderness, and perineum WNL. Cuff intact. No pain on palpation. Impression: Post-Op Exam Plan: Return to office annual exam. I have reviewed and updated past medical and surgical history, medications and allergies. Pily Izquierdo MD documented in this encounterMer[facility]12-11-2024 NoteHNO ID: [id number] Author: PILY GALLARDO MD Service: ? Author Type: Physician Type: Progress Notes Filed: 02/09/2024 09:51 Note Text: SUBJECTIVE: 38 year old female presents for 2 week post-op exam. Was having some diarrhea- started fiber supplement- better now. No fever. No vaginal bleeding. OBJECTIVE: Incision: Dry and intact, without redness- reports some discharge-but nothing noted on exam today- all are clean, dry and intact- glue removed. No ecchymosis. Abdomen: Soft and Non-tender PLAN: RTO for 6 week check I have reviewed and updated past medical and surgical history, medications and allergies. [facility] History of Present illness Narrative* Pily Gallardo MD - 02/09/2024 9:30 AM EST SUBJECTIVE: 38 year old female presents for 2 week post-op exam. Was having some diarrhea- started fiber supplement- better now. No fever. No vaginal bleeding. OBJECTIVE: Incision: Dry and intact, without redness- reports some discharge-but nothing noted on exam today- all are clean, dry and intact- glue removed. No ecchymosis. Abdomen: Soft and Non-tender PLAN: RTO for 6 week check I have reviewed and updated past medical and surgical history, medications and allergies. Pily Izquierdo MD documented in this encounterMer[facility]12-05-2024 Telephone encounter Note * Telephone Encounter - Yolanda Helton RN - 02/03/2024 4:10 PM EST Patient notified. Yolanda Helton RN [facility]12-05-2024 Miscellaneous Notes* Telephone Encounter - Yolanda Helton RN - 02/03/2024 4:10 PM EST Patient notified. Yolanda Helton RN * Telephone Encounter - Tyesha Marti RN - 02/03/2024 3:42 PM EST Left message for patient to call office. Tyesha Marti RN * Telephone Encounter - Pily Gallardo MD - 02/03/2024 3:31 PM EST Please notify patient of benign Pathology from Hysterectomy. Will see her back for post op appts asscheduled. documented in this encounterMer[facility]12-05-2024 Telephone encounter Note * Telephone Encounter - Tyesha Marti RN - 02/03/2024 3:42 PM EST Left message for patient to call office. Tyesha Marti RN [facility]12-05-2024 Telephone encounter Note* Telephone Encounter - Pily Gallardo MD - 02/03/2024 3:31 PM EST Please notify patient of benign Pathology from Hysterectomy. Will see her back for post op appts asscheduled. [facility]12-03-2024 NoteHNO ID: [id number] Author: PILY GALLARDO MD Service: ? Author Type: Physician Type: Progress Notes Filed: 02/01/2024 11:57 Note Text: SUBJECTIVE: 38 year old female presents for 4 day post-op exam- has not taken any pain medication except motrin last night. Pt reports has some clear/yellow drainage from umbilical incision site this morning and some small bruising around umbilical incision site this morning. Pt denies fever, no vaginal bleeding. No difficulty with BM or Voiding. OBJECTIVE: Incision: healing well- no erythema, no induration. Scant clear drainage noted at umbilical incision- some of the glue removed, no purulent drainage noted. Small yellow ecchymosis inferior to umbilical port site- soft. Abdomen: Soft and appropriately tender PLAN: RTO for 2 and 6 week check Reassurance given I have reviewed and updated past medical and surgical history, medications and allergies. [facility] History of Present illness Narrative* Pily Gallardo MD - 02/01/2024 11:22 AM EST SUBJECTIVE: 38 year old female presents for 4 day post-op exam- has not taken any pain medication except motrinlast night. Pt reports has some clear/yellow drainage from umbilical incision site this morning andsome small bruising around umbilical incision site this morning. Pt denies fever, no vaginal bleeding. No difficulty with BM or Voiding. OBJECTIVE: Incision: healing well- no erythema, no induration. Scant clear drainage noted at umbilical incision- some of the glue removed, no purulent drainage noted. Small yellow ecchymosis inferior to umbilical port site- soft. Abdomen: Soft and appropriately tender PLAN: RTO for 2 and 6 week check Reassurance given I have reviewed and updated past medical and surgical history, medications and allergies. Pily Izquierdo MD documented in this encounterMer[facility]12-03-2024 Telephone encounter Note * Telephone Encounter - Deanne Pickard RN - 02/01/2024 9:29 AM EST Patient notified and voiced understanding, appointment given for today. Deanne Pickard RN [facility]12-03-2024 Miscellaneous Notes* Telephone Encounter - Deanne Pickard RN - 02/01/2024 9:29 AM EST Patient notified and voiced understanding, appointment given for today. Deanne Pickard RN * Telephone Encounter - Pily Gallardo MD - 02/01/2024 8:37 AM EST Or 11:40 sorry- that is a post op appt slot * Telephone Encounter - Pily Gallardo MD - 02/01/2024 8:35 AM EST A small amount of drainage can be normal as can be bruising - happy to see her today- She can come at 11:20 or at 9:20am * Telephone Encounter - Yolanda Helton RN - 02/01/2024 8:06 AM EST Patient had a TLH on 01/27. Calling to report that the incision at her umbilicus is draining a small amount of yellowish drainage. She also noticed bruising that wasn't there before. Denies fever or chills. Asking if this is normal. Would you like patient seen in office? Yolanda Helton, RN documented in this encounterMer[facility]12-[facility]-2024 Telephone encounter Note * Telephone Encounter - Pily Gallardo MD - 02/01/2024 8:37 AM EST Or 11:40 sorry- that is a post op appt slot [facility]12-03-2024 Telephone encounter Note* Telephone Encounter - Pily Gallardo MD - 02/01/2024 8:35 AM EST A small amount of drainage can be normal as can be bruising - happy to see her today- She can come at 11:20 or at 9:20am [facility]12-03-2024 Telephone encounter Note* Telephone Encounter - Yolanda Helton RN - 02/01/2024 8:06 AM EST Patient had a TLH on 01/27. Calling to report that the incision at her umbilicus is draining a small amount of yellowish drainage. She also noticed bruising that wasn't there before. Denies fever or chills. Asking if this is normal. Would you like patient seen in office? Yolanda Helton RN [facility]11-13-2024 History and physical note* Pily Gallardo MD - 01/12/2024 8:04 AM EST Pre-Op History and Physical HPI: The patient is a 38 year old female presenting for pre-operative visit. She is scheduled for TLH, Bilateral , Cysto, for Pelvic pain, AUB, dysmenorrhea, adenomyosis on 01/28/24. Pt has failed medical mgmt with Mirena IUD and PO progesterone therapy. Pt can't can'tcombined hormonal therapy due to smoking history and is not good ablation candidate due to suspected adenomyosis. Procedure discussed along with risks, benefits and complications. Other alternatives discussed for management. Consent form signed? Yes. PAST MEDICAL HISTORY Diagnosis Date IUD (intrauterine device) in place 11/19/2023 PMH - PAST MEDICAL HISTORY OF 03/01/2001 ovarian cysts PAST SURGICAL HISTORY Procedure Laterality Date APPENDECTOMY 1994 COLONOSCOPY FLX DX W/COLLJ SPEC WHEN PFRMD 10/28/2022 repeat in 10 years EGD W/O BRSH SPEC VARICIES INJ 10/28/2022 L'SCOPE DX W/WO BRUSHINGS/WASHINGS 10/01/2022 was scheduled to be ovarian cystectomy, but ovarian cyst had resolved LAPAROSCOPY SALPINGOSTOMY 04/01/2017 Laparoscopic bilateral salpingectomy OVARIAN CYSTECTOMY Current Outpatient Medications Medication Sig Dispense Refill levonorgestrel (MIRENA) 21 mcg/24 hours (8 yrs) 52 mg IUD 1 Each by INTRAUTERINE route as directed.1 Each 0 omeprazole (PRILOSEC) 40 mg capsule Take 1 capsule by mouth once daily. (Patient taking differently: Take 20 mg by mouth once daily.) 30 capsule 2 ibuprofen (MOTRIN) 600 mg tablet Take 1 tablet by mouth every 6 hours as needed for Pain. 30 tablet1 No current facility-administered medications for this visit. ALLERGIES: Amoxicillin and Zithromax [Azithromycin] PERSONAL HISTORY: Social History Tobacco Use Smoking status: Every Day Current packs/day: 1.00 Types: Cigarettes Smokeless tobacco: Never Vaping Use Vaping status: Never Used Substance Use Topics Alcohol use: No Drug use: No FAMILY HISTORY: FAMILY HISTORY Problem Relation Age of Onset Hypertension Mother Thyroid Mother other (Endometrosis) Mother Hysterectomy in later 30's Hypertension Maternal Grandmother Prostate Cancer Maternal Grandfather Breast Cancer Paternal Grandmother Breast Cancer Paternal Aunt Thyroid Sister REVIEW OF SYMPTOMS: negative except as noted above PHYSICAL EXAMINATION: VITALS: Blood pressure 122/80, pulse 80, height 165.1 cm (5' 5), weight 83 kg (183 lb), last menstrual period 01/21/2023, SpO2 92%. GENERAL: The patient is well nourished, well hydrated in no acute distress. , The patient is oriented to time, place, and person. NECK: full range of motion LUNGS: Clear to auscultation bilaterally. no wheezes, rhonchi or rales HEART: Regular rate and rhythm, Normal heart sounds, and No murmurs or gallops IMPRESSION: 38 yo with AUB, dysmenorrhea, pelvic pain, Adenomyosis PLAN: TLH, Cystoscopy Pt has been counseled on risks/benefits and alternatives of surgery including but not limited to anesthesia, bleeding, infection, injury to pelvic structures including bowel, bladder, ureters and vessels. Pt wishes to proceed with surgery at this time. Pre and post op instructions reviewed - advised not to smoke day of surgery. I have reviewed and updated past medical and surgical history, medications and allergies Medical Decision Making: Problems: Moderate: 1+ chronic illnesses with change Risk: High: Decision on elective major surgery w/ risk factors Medical Decision Making Level: 4 - Moderate Pily Da Silva MD [facility]11-13-2024 History and physical note* Pily Gallardo MD - 01/12/2024 8:04 AM EST Pre-Op History and Physical HPI: The patient is a 38 year old female presenting for pre-operative visit. She is scheduled for TLH, Bilateral , Cysto, for Pelvic pain, AUB, dysmenorrhea, adenomyosis on 01/28/24. Pt has failed medical mgmt with Mirena IUD and PO progesterone therapy. Pt can't can'tcombined hormonal therapy due to smoking history and is not good ablation candidate due to suspected adenomyosis. Procedure discussed along with risks, benefits and complications. Other alternatives discussed for management. Consent form signed? Yes. PAST MEDICAL HISTORY Diagnosis Date IUD (intrauterine device) in place 11/19/2023 PMH - PAST MEDICAL HISTORY OF 03/01/2001 ovarian cysts PAST SURGICAL HISTORY Procedure Laterality Date APPENDECTOMY 1994 COLONOSCOPY FLX DX W/COLLJ SPEC WHEN PFRMD 10/28/2022 repeat in 10 years EGD W/O BRSH SPEC VARICIES INJ 10/28/2022 L'SCOPE DX W/WO BRUSHINGS/WASHINGS 10/01/2022 was scheduled to be ovarian cystectomy, but ovarian cyst had resolved LAPAROSCOPY SALPINGOSTOMY 04/01/2017 Laparoscopic bilateral salpingectomy OVARIAN CYSTECTOMY Current Outpatient Medications Medication Sig Dispense Refill levonorgestrel (MIRENA) 21 mcg/24 hours (8 yrs) 52 mg IUD 1 Each by INTRAUTERINE route as directed.1 Each 0 omeprazole (PRILOSEC) 40 mg capsule Take 1 capsule by mouth once daily. (Patient taking differently: Take 20 mg by mouth once daily.) 30 capsule 2 ibuprofen (MOTRIN) 600 mg tablet Take 1 tablet by mouth every 6 hours as needed for Pain. 30 tablet1 No current facility-administered medications for this visit. ALLERGIES: Amoxicillin and Zithromax [Azithromycin] PERSONAL HISTORY: Social History Tobacco Use Smoking status: Every Day Current packs/day: 1.00 Types: Cigarettes Smokeless tobacco: Never Vaping Use Vaping status: Never Used Substance Use Topics Alcohol use: No Drug use: No FAMILY HISTORY: FAMILY HISTORY Problem Relation Age of Onset Hypertension Mother Thyroid Mother other (Endometrosis) Mother Hysterectomy in later 30's Hypertension Maternal Grandmother Prostate Cancer Maternal Grandfather Breast Cancer Paternal Grandmother Breast Cancer Paternal Aunt Thyroid Sister REVIEW OF SYMPTOMS: negative except as noted above PHYSICAL EXAMINATION: VITALS: Blood pressure 122/80, pulse 80, height 165.1 cm (5' 5), weight 83 kg (183 lb), last menstrual period 01/21/2023, SpO2 92%. GENERAL: The patient is well nourished, well hydrated in no acute distress. , The patient is oriented to time, place, and person. NECK: full range of motion LUNGS: Clear to auscultation bilaterally. no wheezes, rhonchi or rales HEART: Regular rate and rhythm, Normal heart sounds, and No murmurs or gallops IMPRESSION: 38 yo with AUB, dysmenorrhea, pelvic pain, Adenomyosis PLAN: TLH, Cystoscopy Pt has been counseled on risks/benefits and alternatives of surgery including but not limited to anesthesia, bleeding, infection, injury to pelvic structures including bowel, bladder, ureters and vessels. Pt wishes to proceed with surgery at this time. Pre and post op instructions reviewed - advised not to smoke day of surgery. I have reviewed and updated past medical and surgical history, medications and allergies Medical Decision Making: Problems: Moderate: 1+ chronic illnesses with change Risk: High: Decision on elective major surgery w/ risk factors Medical Decision Making Level: 4 - Moderate Pily Da Silva MD documented [facility] Telephone encounter Note * Telephone Encounter - Andrea Hamm MA - 12/22/2023 3:50 PM EDT FMESTEE paperwork complete and signed. Patient picked up paperwork in office today. Andrea Hamm MA [facility]10-23-2024 Miscellaneous Notes* Telephone Encounter - Andrea Hamm MA - 12/22/2023 3:50 PM EDT FMLA paperwork complete and signed. Patient picked up paperwork in office today. Andrea Hamm MA * Telephone Encounter - Andrea Hamm MA - 12/22/2023 2:32 PM EDT I apologize, I did not realize that. I fixed the dates and papers are back on your desk for signature. Andrea Hamm MA * Telephone Encounter - Pily Gallardo MD - 12/19/2023 7:13 AM EDT Maximum 6 weeks for FMLA- not 8-12. If there are any complications we will adjust then. She should not need any more time then that. * Telephone Encounter - Andrea Hamm MA - 12/17/2023 3:40 PM EDT [place] papework completed and placed on providers desk for signature. Andrea Hamm MA * Telephone Encounter - Tyesha Marti RN - 12/10/2023 9:27 AM EDT Printed and placed in FMLA mailbox. Tyesha Marti RN documented in [facility] Telephone encounter Note * Telephone Encounter - Andrea Hamm MA - 12/22/2023 2:32 PM EDT I apologize, I did not realize that. I fixed the dates and papers are back on your desk for signature. Andrea Hamm MA [facility]10-20-2024 Telephone encounter Note* Telephone Encounter - Pily Gallardo MD - 12/19/2023 7:13 AM EDT Maximum 6 weeks for FMLA- not 8-12. If there are any complications we will adjust then. She should not need any more time then that. [facility]10-18-2024 Telephone encounter Note* Telephone Encounter - Andrea Hamm MA - 12/17/2023 3:40 PM EDT FMLA papework completed and placed on providers desk for signature. Andrea Hamm MA [facility]10-11-2024 Telephone encounter Note* Telephone Encounter - Tyesha Marti RN - 12/10/2023 9:27 AM EDT Printed and placed in FMLA mailbox. Tyesha Marti RN [facility]10-07-2024 NoteHNO ID: [id number] Author: PILY GALLARDO MD Service: ? Author Type: Physician Type: Progress Notes Filed: 12/06/2023 08:58 Note Text: Sree Cesar is a 38 year old female who presents for discussion regarding surgical intervention for pelvic pain. Pt reports pelvic pain all the time but worse with ovulation. Pain can be as high as 12/10 - pt takes 800mg ibuprofen which only helps minimally. pain is not localized to any specific area anymore as it used to be more on right side. 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 Bleeding after sex, pain with sex. Pt can't take combined ocps which worked well for in past bc she smokes. Pt had previous tubal - is not interested in further childbearing capabilities. Pt offers no other concerns. OB History T1 L1 SAB0 IAB0 Ectopic0 Multiple0 Live Births0 Ambulatory Services Representative History LMP: 01/21/2023 (Approximate), IUD Age at Menarche: Age at First : Age at Menopause: Ambulatory Services Representative History Comments: Sexual Activity: Yes; Male Contraception: Tubal Ligation PAST MEDICAL HISTORY Diagnosis Date IUD (intrauterine device) in place 11/19/2023 PMH - PAST MEDICAL HISTORY OF 03/01/2001 ovarian cysts PAST SURGICAL HISTORY Procedure Laterality Date APPENDECTOMY 1994 COLONOSCOPY FLX DX W/COLLJ SPEC WHEN PFRMD 10/28/2022 repeat in 10 years EGD W/O BRSH SPEC VARICIES INJ 10/28/2022 L'SCOPE DX W/WO BRUSHINGS/WASHINGS 10/01/2022 was scheduled to be ovarian cystectomy, but ovarian cyst had resolved LAPAROSCOPY SALPINGOSTOMY 04/01/2017 Laparoscopic bilateral salpingectomy OVARIAN CYSTECTOMY FAMILY HISTORY Problem Relation Age of Onset Hypertension Mother Thyroid Mother other (Endometrosis) Mother Hysterectomy in later 30s Hypertension Maternal Grandmother Prostate Cancer Maternal Grandfather Breast Cancer Paternal Grandmother Breast Cancer Paternal Aunt Thyroid Sister Social History Tobacco Use Smoking status: Every Day Current packs/day: 1.00 Types: Cigarettes Smokeless tobacco: Never Vaping Use Vaping status: Never Used Substance Use Topics Alcohol use: No Drug use: No Current Outpatient Medications Medication Sig levonorgestrel (MIRENA) 21 mcg/24 hours (8 yrs) 52 mg IUD 1 Each by INTRAUTERINE route as directed. omeprazole (PRILOSEC) 40 mg capsule Take 1 capsule by mouth once daily. (Patient taking differently: Take 20 mg by mouth once daily.) ibuprofen (MOTRIN) 600 mg tablet Take 1 tablet by mouth every 6 hours as needed for Pain. No current facility-administered medications for this visit. Allergies As of Date: 12/06/2023 Allergen Noted Reaction AMOXICILLIN 08/30/2007 GI Upset ZITHROMAX [AZITHROMYCIN] 08/10/2008 Hives and GI Upset Fully Assessed 11/23/2023 REVIEW OF SYSTEMS Abdomen: no diarrhea or constipation. Had colonoscopy and upper endoscopy last year. Bladder: no dysuria.. Expanded ROS: N/A Allergies and current medication updated:Yes SENSITIVE EXAM: The sensitive examination was discussed with the Patient or Patient's Authorized Slip Cover Maker. As applicable, any other physician, advance practice provider, medical student, or other health professional student that will be observing or involved in the sensitive examination for educational or training purposes was discussed with the Patient or Authorized Slip Cover Maker. The Patient or Authorized Slip Cover Maker has agreed to proceed with the sensitive examination. (Sensitive examination includes inspection and/or palpation of the breasts, pelvis, prostate and anorectal regions). EXAM: BP 130/78 Wt 184 lb (83.5kg) LMP 01/21/2023 GENERAL: pleasant, female in no apparent distress HEENT: Normocephalic, atraumatic, mucus membranes moist, and no lesions NECK: full range of motion DERMATOLOGY: Normal, without lesions, and non-icteric ABDOMEN: soft, non-tender, and no masses PELVIC: external genitalia normal, normal Bartholin's glands, urethra, Hilbert's glands, no vulvar lesions, no cervical lesions, good vaginal support, physiologic discharge present, normal appearing perineal body and perianal region, IUD strings visible BIMANUAL: uterus normal size, shape and consistency, no adnexal masses, and Mild tenderness NEURO: alert and oriented x3,exam grossly non-focal EXTREMITIES: normal ASSESSMENT AND PLAN: Encounter Diagnosis ICD-10-CM 1. Dysmenorrhea N94.6 2. Abnormal uterine bleeding (AUB) N93.9 3. Adenomyosis N80.03 4. Discussed surgical intervention with TLH, Cystoscopy, possible oophorectomy. Discussed would not want to remove both ovaries due to increased risk for bone disease, dementia, early menopause and need for hormone replacement therapy. Discussed that if either one of the ovaries looked disease or there was scar tissue/adhesions would remove. Patient was agreeable to this.OR booking sheet tati (more content not included)...[facility]10-07-2024 History of Present illness Narrative* Pily Gallardo MD - 12/06/2023 8:11 AM EDT Sree Cesar is a 38 year old female who presents for discussion regarding surgical interventionfor pelvic pain. Pt reports pelvic pain all the time but worse with ovulation. Pain can be as high as 12/10 - pt takes 800mg ibuprofen which only helps minimally. pain is not localized to any specific area anymore as it used to be more on right side. 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 Bleeding after sex, pain with sex. Pt can't take combined ocps which worked well for in past bc she smokes. Pt had previous tubal - is not interested in further childbearing capabilities. Pt offers no other concerns. OB History T1 L1 SAB0 IAB0 Ectopic0 Multiple0 Live Births0 Ambulatory Services Representative History LMP: 01/21/2023 (Approximate), IUD Age at Menarche: Age at First : Age at Menopause: Ambulatory Services Representative History Comments: Sexual Activity: Yes; Male Contraception: Tubal Ligation PAST MEDICAL HISTORY Diagnosis Date IUD (intrauterine device) in place 11/19/2023 PMH - PAST MEDICAL HISTORY OF 03/01/2001 ovarian cysts PAST SURGICAL HISTORY Procedure Laterality Date APPENDECTOMY 1994 COLONOSCOPY FLX DX W/COLLJ SPEC WHEN PFRMD 10/28/2022 repeat in 10 years EGD W/O BRSH SPEC VARICIES INJ 10/28/2022 L'SCOPE DX W/WO BRUSHINGS/WASHINGS 10/01/2022 was scheduled to be ovarian cystectomy, but ovarian cyst had resolved LAPAROSCOPY SALPINGOSTOMY 04/01/2017 Laparoscopic bilateral salpingectomy OVARIAN CYSTECTOMY FAMILY HISTORY Problem Relation Age of Onset Hypertension Mother Thyroid Mother other (Endometrosis) Mother Hysterectomy in later 30's Hypertension Maternal Grandmother Prostate Cancer Maternal Grandfather Breast Cancer Paternal Grandmother Breast Cancer Paternal Aunt Thyroid Sister Social History Tobacco Use Smoking status: Every Day Current packs/day: 1.00 Types: Cigarettes Smokeless tobacco: Never Vaping Use Vaping status: Never Used Substance Use Topics Alcohol use: No Drug use: No Current Outpatient Medications Medication Sig levonorgestrel (MIRENA) 21 mcg/24 hours (8 yrs) 52 mg IUD 1 Each by INTRAUTERINE route as directed. omeprazole (PRILOSEC) 40 mg capsule Take 1 capsule by mouth once daily. (Patient taking differently: Take 20 mg by mouth once daily.) ibuprofen (MOTRIN) 600 mg tablet Take 1 tablet by mouth every 6 hours as needed for Pain. No current facility-administered medications for this visit. Allergies As of Date: 12/06/2023 Allergen Noted Reaction AMOXICILLIN 08/30/2007 GI Upset ZITHROMAX [AZITHROMYCIN] 08/10/2008 Hives and GI Upset Fully Assessed 11/23/2023 REVIEW OF SYSTEMS Abdomen: no diarrhea or constipation. Had colonoscopy and upper endoscopy last year. Bladder: no dysuria.. Expanded ROS: N/A Allergies and current medication updated:Yes SENSITIVE EXAM: The sensitive examination was discussed with the Patient or Patient's Authorized Slip Cover Maker. As applicable, any other physician, advance practice provider, medical student, or other health professional student that will be observing or involved in the sensitive examination for educational or training purposes was discussed with the Patient or Authorized Slip Cover Maker. The Patient or Authorized Slip Cover Maker has agreed to proceed with the sensitive examination. (Sensitive examination includes inspection and/or palpation of the breasts, pelvis, prostate and anorectal regions). EXAM: BP 130/78 Wt 184 lb (83.5kg) LMP 01/21/2023 GENERAL: pleasant, female in no apparent distress HEENT: Normocephalic, atraumatic, mucus membranes moist, and no lesions NECK: full range of motion DERMATOLOGY: Normal, without lesions, and non-icteric ABDOMEN: soft, non-tender, and no masses PELVIC: external genitalia normal, normal Bartholin's glands, urethra, Hilbert's glands, no vulvar lesions, no cervical lesions, good vaginal support, physiologic discharge present, normal appearing perineal body and perianal region, IUD strings visible BIMANUAL: uterus normal size, shape and consistency, no adnexal masses, and Mild tenderness NEURO: alert and oriented x3,exam grossly non-focal EXTREMITIES: normal ASSESSMENT AND PLAN: Encounter Diagnosis ICD-10-CM 1. Dysmenorrhea N94.6 2. Abnormal uterine bleeding (AUB) N93.9 3. Adenomyosis N80.03 4. Discussed surgical intervention with TLH, Cystoscopy, possible oophorectomy. Discussed would notwant to remove both ovaries due to increased risk for bone disease, dementia, early menopause and need for hormone replacement therapy. Discussed that if either one of the ovaries looked disease or there was scar tissue/adhesions would remove. Patient was agreeable to this.OR booking sheet filled out. Pt would like after Thanksgiving. Medical Decision Making: Problems: Moderate: 1+ chronic illnesses with change Risk: High: Decision on elective major surgery w/ risk factors Medical Decision Making Level: 4 - Moderate Pily Izquierdo MD [facility] Telephone encounter Note * Telephone Encounter - Yolanda Helton RN - 11/25/2023 9:48 AM EDT Patient notified. Appointment scheduled. Yolanda Helton RN [facility]09-26-2024 Miscellaneous Notes* Telephone Encounter - Yolanda Helton RN - 11/25/2023 9:48 AM EDT Patient notified. Appointment scheduled. Yolanda eHlton RN * Telephone Encounter - Janie Hopkins APRN.CNP - 11/25/2023 9:23 AM EDT Please assist pt with scheduling an appt with DM to discuss surgical options. Janie Hopkins APRN.CNP * Telephone Encounter - Janie Hopkins APRN.CNP - 11/25/2023 9:23 AM EDT ----- Message from Pily Da Silva MD sent at 11/24/2023 4:39 PM EDT ----- She can schedule to discuss other options if she wants to talk about surgery- if she declines otherhormonal options. Thank you. ----- Message ----- From: Janie Hopkins APRN.CNP Sent: 11/23/2023 4:00 PM EDT To: Pily Da Silva MD I seen Sree to review her ultrasound. She states that she is having daily bleeding whether it is heavy or spotting for the past 2 months. Along with severe cramping during ovulation time. I did discuss a little bit with her about the adenomyosis possible surgical interventions. Do you want her to make an appointment to discuss surgical options? Janie Hopkins APRN.CNP documented in [facility] encounter[facility] Telephone encounter Note * Telephone Encounter - Janie Hopkins APRN.CNP - 11/25/2023 9:23 AM EDT Please assist pt with scheduling an appt with DM to discuss surgical options. Janie Hopkins APRN.CNP [facility] Work Phone: [phone] Telephone encounter Note* Telephone Encounter - Janie Hopkins APRN.CNP - 11/25/2023 9:23 AM EDT ----- Message from Pily Da Silva MD sent at 11/24/2023 4:39 PM EDT ----- She can schedule to discuss other options if she wants to talk about surgery- if she declines otherhormonal options. Thank you. ----- Message ----- From: Janie Hopkins APRN.CNP Sent: 11/23/2023 4:00 PM EDT To: Pily Da Silva MD I seen Sree to review her ultrasound. She states that she is having daily bleeding whether it is heavy or spotting for the past 2 months. Along with severe cramping during ovulation time. I did discuss a little bit with her about the adenomyosis possible surgical interventions. Do you want her to make an appointment to discuss surgical options? Janie Hopkins APRN.CNP [facility]09-24-2024 NoteHNO ID: [id number] Author: JANIE HOPKINS APRN.MANAGER [employer] Service: ? Author Type: Nurse Practitioner Type: Progress Notes Filed: 11/23/2023 15:57 Note Text: Sree Cesar is a 38 year old female who presents for a follow up from her ultrasound and to discuss her IUD. HPI: Sree presents for a follow up visit to go over her ultrasound results and to discuss her IUD. She had her ultrasound done on 11/18/2023. Patient states that for the past 2 months that she has had daily bleeding whether it is heavier like a menses or spotting. She reports that every month at ovulation time she has severe abdominal cramping that resolves ovulation. She is wanting to know what her other options are at this point to relieve her symptoms. OB History T1 L1 SAB0 IAB0 Ectopic0 Multiple0 Live Births0 Ambulatory Services Representative History LMP: 01/21/2023 (Approximate), IUD Age at Menarche: Age at First : Age at Menopause: Ambulatory Services Representative History Comments: Sexual Activity: Yes; Male Contraception: Tubal Ligation PAST MEDICAL HISTORY Diagnosis Date IUD (intrauterine device) in place 11/19/2023 PMH - PAST MEDICAL HISTORY OF 03/01/2001 ovarian cysts PAST SURGICAL HISTORY Procedure Laterality Date APPENDECTOMY 1994 COLONOSCOPY FLX DX W/COLLJ SPEC WHEN PFRMD 10/28/2022 repeat in 10 years EGD W/O [facility] SPEC VARICIES INJ 10/28/2022 L'SCOPE DX W/WO BRUSHINGS/WASHINGS 10/01/2022 was scheduled to be ovarian cystectomy, but ovarian cyst had resolved LAPAROSCOPY SALPINGOSTOMY 04/01/2017 Laparoscopic bilateral salpingectomy OVARIAN CYSTECTOMY FAMILY HISTORY Problem Relation Age of Onset Hypertension Mother Thyroid Mother other (Endometrosis) Mother Hysterectomy in later 30's Hypertension Maternal Grandmother Prostate Cancer Maternal Grandfather Breast Cancer Paternal Grandmother Breast Cancer Paternal Aunt Thyroid Sister Social History Tobacco Use Smoking status: Every Day Current packs/day: 1.00 Types: Cigarettes Smokeless tobacco: Never Vaping Use Vaping status: Never Used Substance Use Topics Alcohol use: No Drug use: No Current Outpatient Medications Medication Sig levonorgestrel (MIRENA) 21 mcg/24 hours (8 yrs) 52 mg IUD 1 Each by INTRAUTERINE route as directed. omeprazole (PRILOSEC) 40 mg capsule Take 1 capsule by mouth once daily. (Patient taking differently: Take 20 mg by mouth once daily.) ibuprofen (MOTRIN) 600 mg tablet Take 1 tablet by mouth every 6 hours as needed for Pain. norethindrone (AYGESTIN) 5 mg tablet Take 1 tablet by mouth once daily. Take 1 tab TID until bleeding stops then take 1 tab BID x 3 days then take 1 tab daily (continue other rx for aygestin for daily use). norethindrone (AYGESTIN) 5 mg tablet Take 1 tablet by mouth once daily. No current facility-administered medications for this visit. Allergies As of Date: 11/23/2023 Allergen Noted Reaction AMOXICILLIN 08/30/2007 GI Upset ZITHROMAX [AZITHROMYCIN] 08/10/2008 Hives and GI Upset Fully Assessed 11/23/2023 REVIEW OF SYSTEMS Expanded ROS: N/A Allergies and current medication updated:Yes SENSITIVE EXAM: Sensitive exam not performed. EXAM: BP 120/64 Wt 186 lb (84.4kg) LMP 01/21/2023 GENERAL: pleasant, female in no apparent distress HEENT: Normocephalic, atraumatic, mucus membranes moist, and no lesions CHEST: Normal inspiratory effort ASSESSMENT/PLAN: 1. Abnormal uterine bleeding (AUB) - ICD9: 626.9, ICD10: N93.9 (primary diagnosis) 2. Adenomyosis - ICD9: 617.0, ICD10: N80.03 Will have Review ultrasound and give her recommendations next with this patient and the possibility of surgery Janie Hopkins APRN.KENAN Medical Decision Making: Problems: Low: Acute, uncomplicated illness or injury Data: Independent interpretation of test from other physician/QHCP Risk: Low: Low risk from testing/treatment Medical Decision Making Level: [facility] - [facility] of Present illness Narrative* Janie Hopkins APRN.CNP - 11/23/2023 2:48 PM EDT Sree Cesar is a 38 year old female who presents for a follow up from her ultrasound and to discuss her IUD. HPI: Sree presents for a follow up visit to go over her ultrasound results and to discuss her IUD.She had her ultrasound done on 11/18/2023. Patient states that for the past 2 months that she has had daily bleeding whether it is heavier like a menses or spotting. She reports that every month at ovulation time she has severe abdominal cramping that resolves ovulation. She is wanting to know what her other options are at this point to relieve her symptoms. OB History T1 L1 SAB0 IAB0 Ectopic0 Multiple0 Live Births0 Ambulatory Services Representative History LMP: 01/21/2023 (Approximate), IUD Age at Menarche: Age at First : Age at Menopause: Ambulatory Services Representative History Comments: Sexual Activity: Yes; Male Contraception: Tubal Ligation PAST MEDICAL HISTORY Diagnosis Date IUD (intrauterine device) in place 11/19/2023 PMH - PAST MEDICAL HISTORY OF 03/01/2001 ovarian cysts PAST SURGICAL HISTORY Procedure Laterality Date APPENDECTOMY 1994 COLONOSCOPY FLX DX W/COLLJ SPEC WHEN PFRMD 10/28/2022 repeat in 10 years EGD W/O BRSH SPEC VARICIES INJ 10/28/2022 L'SCOPE DX W/WO BRUSHINGS/WASHINGS 10/01/2022 was scheduled to be ovarian cystectomy, but ovarian cyst had resolved LAPAROSCOPY SALPINGOSTOMY 04/01/2017 Laparoscopic bilateral salpingectomy OVARIAN CYSTECTOMY FAMILY HISTORY Problem Relation Age of Onset Hypertension Mother Thyroid Mother other (Endometrosis) Mother Hysterectomy in later 30's Hypertension Maternal Grandmother Prostate Cancer Maternal Grandfather Breast Cancer Paternal Grandmother Breast Cancer Paternal Aunt Thyroid Sister Social History Tobacco Use Smoking status: Every Day Current packs/day: 1.00 Types: Cigarettes Smokeless tobacco: Never Vaping Use Vaping status: Never Used Substance Use Topics Alcohol use: No Drug use: No Current Outpatient Medications Medication Sig levonorgestrel (MIRENA) 21 mcg/24 hours (8 yrs) 52 mg IUD 1 Each by INTRAUTERINE route as directed. omeprazole (PRILOSEC) 40 mg capsule Take 1 capsule by mouth once daily. (Patient taking differently: Take 20 mg by mouth once daily.) ibuprofen (MOTRIN) 600 mg tablet Take 1 tablet by mouth every 6 hours as needed for Pain. norethindrone (AYGESTIN) 5 mg tablet Take 1 tablet by mouth once daily. Take 1 tab TID until bleeding stops then take 1 tab BID x 3 days then take 1 tab daily (continue other rx for aygestin for daily use). norethindrone (AYGESTIN) 5 mg tablet Take 1 tablet by mouth once daily. No current facility-administered medications for this visit. Allergies As of Date: 11/23/2023 Allergen Noted Reaction AMOXICILLIN 08/30/2007 GI Upset ZITHROMAX [AZITHROMYCIN] 08/10/2008 Hives and GI Upset Fully Assessed 11/23/2023 REVIEW OF SYSTEMS Expanded ROS: N/A Allergies and current medication updated:Yes SENSITIVE EXAM: Sensitive exam not performed. EXAM: BP 120/64 Wt 186 lb (84.4kg) LMP 01/21/2023 GENERAL: pleasant, female in no apparent distress HEENT: Normocephalic, atraumatic, mucus membranes moist, and no lesions CHEST: Normal inspiratory effort ASSESSMENT/PLAN: 1. Abnormal uterine bleeding (AUB) - ICD9: 626.9, ICD10: N93.9 (primary diagnosis) 2. Adenomyosis - ICD9: 617.0, ICD10: N80.03 Will have Review ultrasound and give her recommendations next with this patient and the possibility of surgery Janie Hopkins APRN.CNP Medical Decision Making: Problems: Low: Acute, uncomplicated illness or injury Data: Independent interpretation of test from other physician/QP Risk: Low: Low risk from testing/treatment Medical Decision Making Level: 3 - Low documented in this encounter[facility] NoteHNO ID: [id number] Author: LITTLE TREVINO MD Service: ? Author Type: Physician Type: Progress Notes Filed: 11/19/2023 15:31 Note Text: The patient presents for requested ultrasound. Full report available in the Imaging tab in [employer]. Little Trevino [facility]09-20-2024 History of Present illness Narrative* Little Trevino MD - 11/19/2023 2:55 PM EDT The patient presents for requested ultrasound. Full report available in the Imaging tab in [facility]. Little Trevino MD documented in this encounterMer[facility]09-16-2024 Telephone encounter Note * Telephone Encounter - Yissel Melton MD - 11/15/2023 12:17 PM EDT schedule f/u to discuss IUD after US (can be a couple of days later). DM patient Yissel Melton MD [facility]09-16-2024 Miscellaneous Notes* Telephone Encounter - Yissel Melton MD - 11/15/2023 12:17 PM EDT schedule f/u to discuss IUD after US (can be a couple of days later). DM patient Yissel Melton MD documented in this encounterMer[facility]05-09-2024 Note* Letter - Coordinator, Mammography - 07/08/2023 7:39 AM EDT July 08, 2023 PID: [id number] Sree Cesar [address] [place] [address] Dear Ms. Cesar, We are pleased to inform you that the results of your recent breast imaging exam on 07/07/2023 are normal. Your mammogram demonstrates that you have dense breast tissue, which could hide abnormalities. Dense breast tissue, in and of itself, is a relatively common condition. Therefore, this information is not provided to cause undue concern; rather, it is to raise your awareness and promote discussion with your health care provider regarding the presence of dense breast tissue in addition to other riskfactors. Early detection of cancer is very important. We also understand recommendations regarding breast cancer screening are controversial. Please discuss with your primary care provider which strategy is best for you and whether a mammogram is right for you. Your imaging studies and report will be kept on file at [facility] as part of your permanent medical record and are available for your continuing care. Thank you for allowing us to help in meeting your health care needs. Sincerely, Dr. Syed Interpreting Radiologist [facility] (Normal over 40) [facility]05-09-2024 Miscellaneous Notes* Letter - Coordinator, Mammography - 07/08/2023 7:39 AM EDT July 08, 2023 PID: [id number] Sree Cesar [address] [place] [address] Dear Ms. Cesar, We are pleased to inform you that the results of your recent breast imaging exam on 07/07/2023 are normal. Your mammogram demonstrates that you have dense breast tissue, which could hide abnormalities. Dense breast tissue, in and of itself, is a relatively common condition. Therefore, this information is not provided to cause undue concern; rather, it is to raise your awareness and promote discussion with your health care provider regarding the presence of dense breast tissue in addition to other riskfactors. Early detection of cancer is very important. We also understand recommendations regarding breast cancer screening are controversial. Please discuss with your primary care provider which strategy is best for you and whether a mammogram is right for you. Your imaging studies and report will be kept on file at [facility] as part of your permanent medical record and are available for your continuing care. Thank you for allowing us to help in meeting your health care needs. Sincerely, Dr. Syed Interpreting Radiologist [facility] (Normal over 40) documented in this encounterMer[facility]05-08-2024 History of Present illness Narrative* Hugo Kaiser, Mammo Tech - 07/07/2023 4:00 PM EDT Radiology Service Progress Note PATIENT NAME: Sree Cesar DATE OF SERVICE: July 07, 2023 TIME: 3:38 PM PATIENT IDENTITY VERIFICATION COMPLETED USING TWO (2) IDENTIFIERS: Name and Date of confirmedby patient verbally. FALL SCREENING: Has the patient had 2 falls in the last year or 1 fall with injury or currently using an Ambulatory Assistive Device (Walker, Cane, Wheelchair, Crutches, etc.)? No PATIENT GENDER DATA: Female. status: : No status: NO. PATIENT RELEVANT IMPLANT DATA REVIEWED: Not Applicable PATIENT PRESENTS WITH AN IMPLANTABLE OR ATTACHED METAL HARDENER: No RADIOLOGY DEPARTMENT: Mammography PERIPHERAL IV DATA: Not applicable SIGNED BY: Cameron Sethi July 07, 2023 3:38 PM documented in this [facility]12-11-2023 Miscellaneous Notes* Telephone Encounter - Edilia Salas RN - 02/08/2023 12:23 PM EST Sridevi from Dr. Bernard Rodriguez's office (PCP) called to request copy of Pt's office visit notes from 09/2022 & 01/2023 be faxed to their office Attn Sridevi @ . Pt name and verified. Documents sent electronically. Edilia Salas RN February 08, 2023 12:24 PM documented in this [facility]12-11-2023 Miscellaneous Notes* Telephone Encounter - Edilia Salas RN - 02/08/2023 12:14 PM EST Sridevi from Dr. Bernard Rodriguez's office (PCP) called to request copy of Pt's EGD and colonoscopy report from 09/2022 be faxed to their office Attn Sridevi @ . Pt name & confirmed. Documents sent electronically. Edilia Salas RN February 08, 2023 12:20 PM [address] in this [facility]12-06-2023 Instructions* Patient Instructions* Jessenia Cabrera Ma - 02/03/2023 2:43 PM EST POST IUD INSTRUCTIONS You may have irregular bleeding during the first 3 months of use. You may have mild-severe cramping for the next 48 hours. You may use over the counter medication (Motrin, Tylenol) as needed. Your IUD must be removed or replaced based on the following table: IUD Type Removed or replaced within: Caroline 3 years Kyleena 5 years Mirena 8 years Liletta 8 years Paragard 10 years Call the office for signs/symptoms of infection such as severe cramping, fever, or unusual bleeding. Check for string placement as instructed by your doctor. If you have any additional questions, please contact the office. documented in this encounterMer[facility]12-06-2023 History of Present illness Narrative* Pily Gallardo MD - 02/03/2023 2:41 PM EST Test Facility Engineer offered: Patient declines. Sree presents today for IUD insertion for dysmenorrhea, menstrual dysfunction. Patient's last menstrual period was 10/25/2022 (approximate). GC/chlamydia: Not done: no risk factors and/or patient declines screening test: negative Side effects including irregular bleeding were discussed with the patient. The patient understands that it should be removed in 8 years or sooner if the patient desires a . IUD source: office provided IUD lot #: [id number] Exp date: 01/2025 UNIVERSAL PROTOCOL / SAFETY CHECKLIST Procedure to be Performed: Mirena Insertion Sign In: A Moment of CARE was completed. Personnel directly involved with the procedure wore the appropriate PPE (Personal Protective Equipment). Patient/Surrogate Stated/Verified: PATIENT VERIFIED(optional for EMERGENT procedures): Patient name, Date of , Relevant allergies, and The intended procedure Time Out Communication: Intended patient and procedure match the source documents. Consent documented and matches the intended procedure. Sign Out: SIGN OUT (optional for EMERGENT procedures): No specimen collected. The cervix was prepped with betadine. The uterus sounded to 7cm and the uterus is Anteverted.. Using sterile technique, the Mirena IUD was inserted without difficulty and the string was cut to 2.5cm from the external os of the cervix. Patient tolerated procedure well. PLAN: Patient was advised to observe for signs and symptoms of infection including but not limited to fever, malodorous vaginal discharge and/or pain. The patient was told to check the string monthlyfor accurate placement. Bleeding expectations were reviewed. Follow up in one month. Pily Izquierdo MD documented in this encounterMer[facility]10-30-2023 Miscellaneous Notes* Telephone Encounter - Pily Gallardo MD - 12/28/2022 1:11 PM EDT ordered * Telephone Encounter - Yolanda Helton RN - 12/28/2022 10:26 AM EDT Order for Mirena IUD insertion pending. Yolanda Helton RN documented in this encounterMercy Health [facility]. [facility]10-18-2023 Miscellaneous Notes* Telephone Encounter - Agata Cid RN - 12/16/2022 8:41 AM EDT I called patient and discussed options. She will consider and call us back. Offered appointment to discuss. Patient will call back if she desires . * Telephone Encounter - Pily Gallardo MD - 12/15/2022 4:59 PM EDT I don't know of anything else that would help with spotting. At this point does she want to consider other options such as Mirena? Ablation? * Telephone Encounter - Pily Bhatia LPN - 12/15/2022 12:05 PM EDT See pt's mychart message and advise. Pily Bhatia LPN documented in this encounterMercy Health [facility]09-27-2023 History of Present illness Narrative* Pily Canada RT(R) - 11/25/2022 10:20 AM EDT Radiology Service Progress Note DATE OF SERVICE: November 25, 2022 TIME: 2:20 PM PATIENT IDENTITY VERIFICATION COMPLETED USING TWO (2) STANDARD IDENTIFIERS: Name and Date of confirmed by patient verbally. FALL SCREENING: Has the patient had 2 falls in the last year or 1 fall with injury or currently using an Ambulatory Assistive Device (Walker, Cane, Wheelchair, Crutches, etc.)? No PATIENT GENDER DATA: Female. status: : No status: NO. PATIENT RELEVANT IMPLANT DATA REVIEWED: Yes ALLERGIES: Reviewed and unchanged CONTRAST ALLERGY: NO. EXAM: CT -CONTRAST INDUCED NEPHROPATHY RISK FACTORS: Not applicable CREATININE: No results found for: CREAT, EGFROTH, EGFRAA P.O.C.T. RESULTS: POC done: Yes, See Lab Tab November 25, 2022 TREATMENT: N/A PERIPHERAL IV DATA: Ambulatory: A peripheral IV was started in the Left antecubital site with a Angio cath: 22 gauge. RADIOLOGY DEPARTMENT: CT; Exam(s) Completed: Abdomen/Pelvis SIGNATURE: RT Sumit(R) PATIENT NAME: Sree Cesar DATE: November 25, 2022 TIME: 2:20 PM documented in this encounterMercy Health [facility]. [facility]09-07-2023 Instructions* Patient Instructions* Anita Del Rosario PA-C - 11/05/2022 4:35 PM EDT -Recommend PPI for 2-3 months -CT abdomen and pelvis The following instructions are important for you related to your office visit today with the [facility] Surgeons. INSTRUCTIONS FOR PEPTIC ULCER DISEASE/GASTRITIS I discussed with you the findings of your upper endoscopy. Your upper endoscopy demonstrated signs of peptic ulcer disease or irritation. This can be seen as a range of issues from actual ulcers in the stomach or duodenum (first part of the small bowel) or irritation ranging from redness to more significant irritation with erosions of the stomach or duodenum. These conditions are usually caused from a combination of too much acid production or too little protective mucus production in the stomach. Factors that increase acid production include smoking and stress. If you smoke, stopping smoking will often cure these issues without needing other medications. Factors that decrease the stomach's production of protective mucus include alcohol consumption, smoking, aspirin and other anti-inflammatory use. Over the counter medications including antiacids and acid reducing medications including H2 blockers (Zantac and the like) and proton pump inhibitors (prilosec, prevacid and the like) neutralize or prevent acid production. Prescription strength proton pump inhibitors (PPIs) may be necessary if your symptoms persist. Carafate may be added to PPI treatment in refractory cases. Avoiding smoking, alcohol and antiinflammatory medications are important in the successful treatment of peptic diseases. New or worsening symptoms such are epigastric pain, burning, difficulty swallowing or food stickingshould be relayed to your physician. Feeling full early after eating, or black, tarry, foul smelling stools are also worrisome. If you have any difficulties or concerns, you should contact our office immediately. If you note any additional difficulties, questions, or concerns, you should contact our office immediately @ [phone] and ask to be transferred to the General Surgery department. documented in this encounterMercy Health [facility]09-07-2023 History of Present illness Narrative* Anita Del Rosario PA-C - 11/05/2022 4:01 PM EDT FOLLOW UP VISIT - ENDOSCOPY NAME: Sree [facility] NO.: [id number] DATE OF SERVICE: 11/05/2022 : 1985 REFERRING PHYSICIAN: Edenilson Espino MD Sree is a patient I am following with Dr. Chowdhury for complaints of lower abdominal pain and abdominal bloating. He had recommended upper and lower endoscopy. Dr. Patricia performed upper and lower endoscopy on 10/28/22. The patient was found to have small hiatal hernia and irregular Z-line, otherwise u nremarkable EGD. Colonoscopy showed hemorrhoids, otherwise normal. Pathology demonstrated: FINAL DIAGNOSIS A. Stomach, biopsy: - Antral mucosa with no significant pathologic changes. B. Esophagogastric junction, biopsy: - Mildly reactive squamous mucosa. The patient notes she is still experiencing lower abdominal discomfort. Of note, the patient previously had MRI in June showing right ovarian lesion. Had diagnostic laparoscopy at which time no cyst noted. Has not had a recent abdominal CT scan. VITALS: Blood pressure 118/80, pulse 99, temperature 37.2 C (99 F), last menstrual period 10/25/2022, SpO2 99 %. General: patient is alert, cooperative, pleasant and in no acute distress On examination, the abdomen is benign. Assessment IMPRESSION: persistent lower abdominal pain of unclear etiology. Normal colonoscopy. GERD, hiatal hernia PLAN: The operative findings and pathology report were reviewed with the patient, and the patient has hadthe opportunity to ask questions and have questions answered. If the patient notes any problems or changes in bowel function, the patient should contact me immediately. Recommend continuing PpI for 2-[address] abdomen and pelvis Patient verbalized understanding of all above and agreed with the plan Diagnoses: (K44.9) Hiatal hernia (primary encounter diagnosis) (K21.9) GERD without esophagitis (R10.84) Generalized abdominal pain I spent a total of 24 minutes on the date of the service which included preparing to see the patient, [id number] patient care, completing clinical documentation, obtaining and/or reviewing separately obtained history, counseling and educating the patient/family/caregiver, independently interpretin g results (not separately reported), and communicating results to the patient/family/caregiver. Anita Del Rosario PA-C documented in this encounterMercy Health [facility]08-30-2023 Nurse Note* Irene Stone RN - 10/28/2022 11:47 AM EDT Awake and eating snack, at bedside. * Irene Stone RN - 10/28/2022 11:30 AM EDT Verbal and tactile stimuli to patient, eyes open, smiles, but eyes close quickly again, skin warm and dry, continues to rest on left side. * Irene Stone RN - 10/28/2022 10:58 AM EDT Patient received in phase II via cart in left lateral position, eyes closed, responds to tactile stimuli, skin warm and dry, respirations regular and unlabored, abdomen soft and non distended. Resting comfortably on left side. documented in this encounterMercy Health [facility]08-30-2023 History and physical note * Lena Patricia MD - 10/28/2022 10:15 AM EDT UPDATED PROCEDURAL SEDATION HISTORY AND PHYSICAL EXAMINATION SERVICE DATE: 10/28/2022 SERVICE TIME: 9:38 PHYSICAL EXAM MUST BE COMPLETED ON ADMISSION PROCEDURE: EGD and colonoscopy, possible biopsies Procedure Indications: RLQ abdominal pain, epigastric bloating and pain, heartburn The History and Physical (completed in the past 30 days) has been reviewed and the patient has beenexamined. The contents accurately reflect the patient's condition with the following additions or revisions since the H&P was completed. ASA Class: ASA Class:: Patient with mild systemic disease Examination indicates no changes. AIRWAY: Airway Visualization of Uvula: Yes Mouth opening greater than 2 fingerbreadths: Yes Neck Full Range of Motion: Yes LUNGS: Lungs clear to auscultation CARDIAC: Regular rhythm,Regular rate Provisional Diagnosis/Treatment Plan: EGD and colonoscopy, possible biopsies SEDATION GOAL: Moderate This H&P can be found in the Electronic Medical Record. SIGNATURE: Lena Patricia MD PATIENT NAME: Sree Cesar DATE: October 28, 2022 TIME: 9:40 AM Source Note - Lena Patricia MD - 10/28/2022 10:15 AM EDT HISTORY AND PHYSICAL Sree Cesar 1985 REFERRING PHYSICIAN: Que Chowdhury MD CHIEF COMPLAINT: No chief complaint on file. HPI: The patient is a 37 year old female presents for upper and lower endoscopy. She presents with complaint of right lower quadrant abdominal pain Denies dysphaqgia Complaint of acid reflux Intraabdominal gas Denies nausea/emesis. The patient notes no colon cancer in immediate family. The patient has not had previous colonoscopy. PAST MEDICAL HISTORY Diagnosis Date PMH - PAST MEDICAL HISTORY OF 2001 ovarian cysts PAST SURGICAL HISTORY Procedure Laterality Date APPENDECTOMY 1994 L'SCOPE DX W/WO BRUSHINGS/WASHINGS 10/01/2022 was scheduled to be ovarian cystectomy, but ovarian cyst had resolved LAPAROSCOPY SALPINGOSTOMY 04/01/2017 Laparoscopic bilateral salpingectomy OVARIAN CYSTECTOMY Current Outpatient Medications Medication Sig norethindrone (AYGESTIN) 5 mg tablet Take 1 tablet by mouth once daily. Take 1 tab TID until bleeding stops then take 1 tab BID x 3 days then take 1 tab daily (continue other rx for aygestin for daily use). famotidine (PEPCID) 0.25 mg/mL syrg norethindrone (AYGESTIN) 5 mg tablet Take 1 tablet by mouth once daily. ibuprofen (MOTRIN) 600 mg tablet Take 1 tablet by mouth every 6 hours as needed for Pain. No current facility-administered medications for this encounter. ALLERGIES: Amoxicillin and Zithromax [Azithromycin] PERSONAL HISTORY: Social History Tobacco Use Smoking status: Every Day Packs/day: 1 Types: Cigarettes Smokeless tobacco: Never Vaping Use Vaping Use: Never used Substance Use Topics Alcohol use: No Drug use: No FAMILY HISTORY Problem Relation Age of Onset Hypertension Mother Thyroid Mother other (Endometrosis) Mother Hysterectomy in later 30's Hypertension Maternal Grandmother Prostate Cancer Maternal Grandfather Breast Cancer Paternal Grandmother Breast Cancer Paternal Aunt Thyroid Sister REVIEW OF SYSTEMS: Denies fevers Denies chest pain Denies breathing difficulties . Physical examination: Vital signs in chart, reviewed and noted by me General - WD/WN in no apparent distress, alert and oriented Head - Normocephalic. EOM intact with sclera clear. Mouth with mucus membranes moist. Neck - supple with no jugular venous distention noted. Trachea is midline. Lungs - clear to auscultation. Normal breath sounds. No rales/rhonchi/wheezing noted. Heart - normal heart sounds. No rubs/clicks/murmurs noted. Regular rate. Abdomen - soft and benign. Extremities - no pitting edema noted. Skin - Normal skin integrity. Neurological - non focal Psych - calm and appropriate Impression: heartburn, RLQ abdominal pain Discussion/Plan/Recommendations: I have discussed the above with the patient. I have offered colonoscopy and EGD, possible biopsies I have explained the procedure to the patient. I have counseled the patient as to the risks of the procedure, including but not limited to: infection, bleeding, injury to any intrabdominal organs such as liver/spleen, perforation of the GI tract,inability to complete the procedure, complications of anesthesia, etc. - the patient understands. The patient wishes to proceed. I have answered all questions to the patient s satisfaction and the patient has no further questions. Lena Patricia MD * Lena Patricia MD - 10/28/2022 10:15 AM EDT HISTORY AND PHYSICAL Sree Arsenio 1985 REFERRING PHYSICIAN: Que Chowdhury MD CHIEF COMPLAINT: No chief complaint on file. HPI: The patient is a 37 year old female presents for upper and lower endoscopy. She presents with complaint of right lower quadrant abdominal pain Denies dysphaqgia Complaint of acid reflux Intraabdominal gas Denies nausea/emesis. The patient notes no colon cancer in immediate family. The patient has not had previous colonoscopy. PAST MEDICAL HISTORY Diagnosis Date PMH - PAST MEDICAL HISTORY OF 2001 ovarian cysts PAST SURGICAL HISTORY Procedure Laterality Date APPENDECTOMY 1994 L'SCOPE DX W/WO BRUSHINGS/WASHINGS 10/01/2022 was scheduled to be ovarian cystectomy, but ovarian cyst had resolved LAPAROSCOPY SALPINGOSTOMY 04/01/2017 Laparoscopic bilateral salpingectomy OVARIAN CYSTECTOMY Current Outpatient Medications Medication Sig norethindrone (AYGESTIN) 5 mg tablet Take 1 tablet by mouth once daily. Take 1 tab TID until bleeding stops then take 1 tab BID x 3 days then take 1 tab daily (continue other rx for aygestin for daily use). famotidine (PEPCID) 0.25 mg/mL syrg norethindrone (AYGESTIN) 5 mg tablet Take 1 tablet by mouth once daily. ibuprofen (MOTRIN) 600 mg tablet Take 1 tablet by mouth every 6 hours as needed for Pain. No current facility-administered medications for this encounter. ALLERGIES: Amoxicillin and Zithromax [Azithromycin] PERSONAL HISTORY: Social History Tobacco Use Smoking status: Every Day Packs/day: 1 Types: Cigarettes Smokeless tobacco: Never Vaping Use Vaping Use: Never used Substance Use Topics Alcohol use: No Drug use: No FAMILY HISTORY Problem Relation Age of Onset Hypertension Mother Thyroid Mother other (Endometrosis) Mother Hysterectomy in later 30's Hypertension Maternal Grandmother Prostate Cancer Maternal Grandfather Breast Cancer Paternal Grandmother Breast Cancer Paternal Aunt Thyroid Sister REVIEW OF SYSTEMS: Denies fevers Denies chest pain Denies breathing difficulties . Physical examination: Vital signs in chart, reviewed and noted by me General - WD/WN in no apparent distress, alert and oriented Head - Normocephalic. EOM intact with sclera clear. Mouth with mucus membranes moist. Neck - supple with no jugular venous distention noted. Trachea is midline. Lungs - clear to auscultation. Normal breath sounds. No rales/rhonchi/wheezing noted. Heart - normal heart sounds. No rubs/clicks/murmurs noted. Regular rate. Abdomen - soft and benign. Extremities - no pitting edema noted. Skin - Normal skin integrity. Neurological - non focal Psych - calm and appropriate Impression: heartburn, RLQ abdominal pain Discussion/Plan/Recommendations: I have discussed the above with the patient. I have offered colonoscopy and EGD, possible biopsies I have explained the procedure to the patient. I have counseled the patient as to the risks of the procedure, including but not limited to: infection, bleeding, injury to any intrabdominal organs such as liver/spleen, perforation of the GI tract,inability to complete the procedure, complications of anesthesia, etc. - the patient understands. The patient wishes to proceed. I have answered all questions to the patient s satisfaction and the patient has no further questions. Lena Patricia MD documented in this encounterMercy Health St. [facility]08-22-2023 Miscellaneous Notes* Telephone Encounter - Silvana Lindsay - 10/20/2022 5:13 PM EDT Patient was added to your schedule on 10-28-2022. She requested that day since she was off work, Please send the Golytely Prescription to [facility] in [place]. Silvana Lindsay documented in this encounterMercy Health St. [facility]08-14-2023 History of Present illness Narrative* Pily Gallardo MD - 10/12/2022 8:11 AM EDT SUBJECTIVE: 37 year old female presents for 2 week post-op exam s/p diagnostic laparoscopy. No Cyst noted on scope, Normal anatomy- has ? Peritoneal window on left posterior culdesac OBJECTIVE: Gen: Female in NAD Incision: Dry and intact, without redness PLAN: Discussed findings with patient- no gross abnormalities noted. Possible endometriosis but nothing noted on right. Discussed GI for possible colonoscopy. Reviewed causes of pelvic pain. Bloating and RLQ pain. I have reviewed and updated past medical and surgical history, medications and allergies. Pily Izquierdo MD documented in this encounterMercy Health St. [facility]08-07-2023 Miscellaneous Notes* Telephone Encounter - Pily Bhatia LPN - 10/05/2022 3:49 PM EDT Spoke with pt and she is having vaginal bleeding. Pt is not saturating a pad every hour. Pt stated that she will continue to monitor and will contact our office if this becomes heavier. Pt did returnto work today and wondered if this could be causing this . Pily Bhatia LPN' * Telephone Encounter - Pily Gallardo MD - 10/05/2022 3:35 PM EDT Discharge from umbilical incision or from vagina? She had a diagnostic laparoscopy with one port placement. Uterine manipulator can cause bleeding. So long as not saturating a pad every hour this canbe normal. Let me know what she says please. documented in this encounterMercy Health St. [facility]08-04-2023 Miscellaneous Notes* Telephone Encounter - Tyesha Marti RN - 10/02/2022 3:01 PM EDT Patient notified. Tyesha Marti RN The following approved medication requests have been transmitted electronically. Requested Prescriptions Signed Prescriptions Disp Refills oxyCODONE-acetaminophen (PERCOCET) 5-325 mg tablet 3 tablet 0 Sig: Take 1 tablet by mouth once daily as needed for pain for up to 3 days. Authorizing Provider: YISSEL MELTON Pharmacy Information [place] [address] * Addendum Note - Yissel Melton MD - 10/02/2022 2:14 PM EDTAddended by: YISSEL MELTON on: 10/02/2022 02:14 PM Modules accepted: Orders * Telephone Encounter - Yissel Melton MD - 10/02/2022 2:11 PM EDT Patient's request for medication is as follows Requested Prescriptions Signed Prescriptions Disp Refills oxyCODONE-acetaminophen (PERCOCET) 5-325 mg tablet 3 tablet 0 Sig: Take 1 tablet by mouth once daily as needed for pain for up to 3 days. Authorizing Provider: YISSEL MELTON Order entered - please phone pharmacy and notify patient. Yissel Melton MD Altnerate tylenol w/ motrin. Heat or ice prn. Her one small incision should heal pretty quickly. Yissel Melton MD * Telephone Encounter - Agata Cid RN - 10/02/2022 1:43 PM EDT Patient had surgery by Dr Da Silva yesterday. Op report on your desk. She is requesting pain medication at night. She states she takes Tylenol. Gets relief during day but has a lot of pain at night. Rates it an 8 on the pain scale at night. Pain is over entire abdomen. Patient had BM today- not constipated. States she has to go back to work on Wednesday , so she wants to get good sleep. If agreeable, send RX to [facility] documented in this encounterMer[facility] Health [facility]. [facility]08-03-2023 Discharge summary Author Jose bryant [facility] October 01, 2022 10:56am Note Date/Time October 01, 2022 10: 56am [facility] Medical Records Department [address] [place] [id number] Instructions for Home/Discharge Instructions 10/01/22 1056 MR#: [id number] Acct: [id number] Name: SREE CESAR Rep #:[id number] : 1985 37 From: Pily Da Silva MD PCP: Dr. Bernard Rodriguez MD [place] [place] Instructions Diet Discharge Diet: No restrictions Activity May resume sexual activity in: 2 weeks Dressing / Incision Call your doctor if your incision/area has: Continuous Slow Oozing, Sudden Increased Bleeding, Increased Pain/ Swelling, Increased Redness, Foul Smelling Discharge and Swelling at the incision site Call your doctor if you observe: Fever of 101 or Higher, Inability to urinate, Inability to have a bowel movement, Using more than 1 pad per hour and Uncontrolled pain Additional Dressing/Incision Instructions:: You have skin glue over your incision sites, do not pick off. You may shower and let the soap and water run over the incision sites and dab dry. Follow Up Care Please Follow Up With: Pily Izquierdo MD Test Results: Test results from this visit will be discussed in further detail at your follow- up appointment, if applicable. Discharge Plan Admission Attending Provider: Pily Izquierdo Primary Care Provider: Bernard Rodriguez Discharge Orders/Prescriptions Prescriptions: No Action Slynd 4 mg (28) tablet 1 tab PO DAILY famotidine [Acid-Pep] 20 mg tablet 20 mg PO DAILY Referrals / Follow Up: Bernard Rodriguez MD [Primary Care Provider] - Disposition Disposition (needs filled in before D/C Order can be placed): Home, Self Care 10/01/22 1056<Electronically signed by Pily Izquierdo MD>Pily Izquierdo MD CC: Dr. 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 Bernard Rodriguez MD Status:[facility] Location: [place] [address] History and Physical Date of Admission: 10/01/22 Pre-Op History and Physical ? HPI: The patient is a 37 year old female presenting for pre-operative visit. She is scheduled for laparoscopic right ovarian cystectomy possible oopohorectomy, for right ovarian dermoid cyst and pelvic pain on 10/01/22. Procedure discussed along with risks, benefits and complications. Other alternatives discussed for management. Consent form signed? Yes. ? ? PAST MEDICAL HISTORY PAST MEDICAL HISTORY Diagnosis Date ? [facility] - PAST MEDICAL HISTORY OF 2001 ? ovarian cysts ? ? PAST SURGICAL HISTORY PAST SURGICAL HISTORY Procedure Laterality Date ? APPENDECTOMY ? 1994 ? LAPAROSCOPY SALPINGOSTOMY ? 04/01/2017 ? Laparoscopic bilateral salpingectomy ? OVARIAN CYSTECTOMY ? CURRENT MEDICATIONS Current Outpatient Medications Medication Sig Dispense Refill ? famotidine (PEPCID) 0.25 mg/mL syrg ? norethindrone (AYGESTIN) 5 mg tablet Take 1 tablet by mouth once daily. 30 tablet 2 ? drospirenone, contraceptive, (SLYND) 4 mg (28) tabet Take 1 tablet by mouth once daily. Take pills continuously 84 tablet 3 ? ibuprofen (MOTRIN) 600 mg tablet Take 1 tablet by mouth every 6 hours as needed for Pain. 30 tablet 1 ? No current facility-administered medications for this visit. ? ? ALLERGIES: Amoxicillin and Zithromax [Azithromycin] ? PERSONAL HISTORY: SOCIAL HISTORY Social History ? Tobacco Use ? Smoking status: Every Day ? ? Packs/day: 1.00 ? ? Types: Cigarettes ? Smokeless tobacco: Never Vaping Use ? Vaping Use: Never used Substance Use Topics ? Alcohol use: No ? Drug use: No ? FAMILY HISTORY: FAMILY HISTORY FAMILY HISTORY Problem Relation Age of Onset ? Hypertension Mother ? ? Thyroid Mother ? ? other (Endometrosis) Mother ? ? Hysterectomy in later 30's ? Hypertension Maternal Grandmother ? ? Prostate Cancer Maternal Grandfather ? ? Breast Cancer Paternal Grandmother ? ? Breast Cancer Paternal Aunt ? ? Thyroid Sister ? ? ? REVIEW OF SYMPTOMS: negative except as noted above PHYSICAL EXAMINATION: ? VITALS: Blood pressure 110/70, weight 171 lb (77.6 kg), last menstrual period 08/26/2022. ? GENERAL: The patient is well nourished, well hydrated in no acute distress. , The patient is oriented to time, place, and person. NECK: full range of motion LUNGS: Clear to auscultation bilaterally. no wheezes, rhonchi or rales HEART: Regular rate and rhythm, Normal heart sounds, and No murmurs or gallops ? ? IMPRESSION: 37yo with right sided pelvic pain and right dermoid cyst ? PLAN: Laparoscopic right ovarian cystectomy possible oophorectomy ? Pt has been counseled on risks/benefits and alternatives of surgery including but not limited to anesthesia, bleeding, infection, injury to pelvic structures including bowel, bladder, ureters and vessels. Pt wishes to proceed with surgery at this time. Reviewed that we will try to not rupture cyst in the abdomen. Discussed that dermoids are typically benign however unable to say this with certainty without pathology. We did discuss that there is a chance of malignancy. Discussed that we will try to not rupture cyst intra abdominally but rather remove in Endobag. ? Pre and post op instructions reviewed ? Changed from SLYND to aygestin due to cost- pt paid $600 for 3 mo supply. ? I have reviewed and updated past medical and surgical history, medications and allergies Pily Da Silva MD 09/16/22 1218 <Electronically signed by Pily Izquierdo MD> Cosigner Signature (if applicable): CC: Jose Izquierdo; Dr. Bernard Rodriguez MD~ Signed ADDENDUM by M Dr. Pily Izquierdo on 10/01/22 at 0945 Addendum I have examined the patient and the H&P has been reviewed. There are no clinical changes since date of exam. 10/01/22 0945<Electronically signed by Pily Izquierdo MD> Cosigner Signature (if applicable): cc: Jose Izquierdo; Dr. Bernard Rodriguez MD ~* Signed [facility] Work Phone: 1(179) 760-236608-03-2023 Procedure [facility] 09-16-2022 History and physical note* Pily Gallardo MD - 09/16/2022 10:13 AM EDT Pre-Op History and Physical HPI: The patient is a 37 year old female presenting for pre-operative visit. She is scheduled for laparoscopic right ovarian cystectomy possible oopohorectomy, for right ovarian dermoid cyst and pelvic pain on 10/01/22. Procedure discussed along with risks, benefits and complications. Other alternatives discussed for management. Consent form signed? Yes. PAST MEDICAL HISTORY Diagnosis Date [facility] - PAST MEDICAL HISTORY OF 2001 ovarian cysts PAST SURGICAL HISTORY Procedure Laterality Date APPENDECTOMY 1994 LAPAROSCOPY SALPINGOSTOMY 04/01/2017 Laparoscopic bilateral salpingectomy OVARIAN CYSTECTOMY Current Outpatient Medications Medication Sig Dispense Refill famotidine (PEPCID) 0.25 mg/mL syrg norethindrone (AYGESTIN) 5 mg tablet Take 1 tablet by mouth once daily. 30 tablet 2 drospirenone, contraceptive, (SLYND) 4 mg (28) tabet Take 1 tablet by mouth once daily. Take pills continuously 84 tablet 3 ibuprofen (MOTRIN) 600 mg tablet Take 1 tablet by mouth every 6 hours as needed for Pain. 30 tablet1 No current facility-administered medications for this visit. ALLERGIES: Amoxicillin and Zithromax [Azithromycin] PERSONAL HISTORY: Social History Tobacco Use Smoking status: Every Day Packs/day: 1.00 Types: Cigarettes Smokeless tobacco: Never Vaping Use Vaping Use: Never used Substance Use Topics Alcohol use: No Drug use: No FAMILY HISTORY: FAMILY HISTORY Problem Relation Age of Onset Hypertension Mother Thyroid Mother other (Endometrosis) Mother Hysterectomy in later 30's Hypertension Maternal Grandmother Prostate Cancer Maternal Grandfather Breast Cancer Paternal Grandmother Breast Cancer Paternal Aunt Thyroid Sister REVIEW OF SYMPTOMS: negative except as noted above PHYSICAL EXAMINATION: VITALS: Blood pressure 110/70, weight 171 lb (77.6 kg), last menstrual period 08/26/2022. GENERAL: The patient is well nourished, well hydrated in no acute distress. , The patient is oriented to time, place, and person. NECK: full range of motion LUNGS: Clear to auscultation bilaterally. no wheezes, rhonchi or rales HEART: Regular rate and rhythm, Normal heart sounds, and No murmurs or gallops IMPRESSION: 37yo with right sided pelvic pain and right dermoid cyst PLAN: Laparoscopic right ovarian cystectomy possible oophorectomy Pt has been counseled on risks/benefits and alternatives of surgery including but not limited to anesthesia, bleeding, infection, injury to pelvic structures including bowel, bladder, ureters and vessels. Pt wishes to proceed with surgery at this time. Reviewed that we will try to not rupture cyst in the abdomen. Discussed that dermoids are typically benign however unable to say this with certainty without pathology. We did discuss that there is a chance of malignancy. Discussed that we will try to not rupture cyst intra abdominally but rather remove in Endobag. Pre and post op instructions reviewed Changed from SLYND to aygestin due to cost- pt paid $600 for 3 mo supply. I have reviewed and updated past medical and surgical history, medications and allergies Pily Da Silva MD documented in this encounterMercy Health St. [facility]06-21-2023 History of Present illness Narrative* Pily Da Silva MD - 08/19/2022 2:51 PM EDT Sree Cesar is a 37 year old female who presents for discussion of surgical intervention for right-sided pain. Patient reports she has had persistent lower abdominal pain more on the right side. She states that since her salpingectomy in 2019 and stopping her oral contraceptive pills she has more pain and heavier periods. She states that she has pain every day but it is exacerbated more during ovulation and during her cycles. She states that she gets headaches prior to her menstrual cycle. She states that the pain daily is approximately 3-4 out of 10 but is much worse during ovulation or during her menses. She had an ultrasound and an MRI done which revealed possible dermoid cyst. She states that she also has a family history of endometriosis and wonders about that. Patient reports she still smokes cigarettes and understands that she cannot have combined contraceptive pills. Patientoffers no other concerns at this time. OB History T1 L1 SAB0 IAB0 Ectopic0 Multiple0 Live Births0 Ambulatory Services Representative History LMP: 07/06/2022, Having periods Age at Menarche: Age at First : Age at Menopause: Ambulatory Services Representative History Comments: Sexual Activity: Yes; Male Contraception: Tubal Ligation PAST MEDICAL HISTORY Diagnosis Date [facility] - PAST MEDICAL HISTORY OF 2001 ovarian cysts PAST SURGICAL HISTORY Procedure Laterality Date APPENDECTOMY 1994 LAPAROSCOPY SALPINGOSTOMY 04/01/2017 Laparoscopic bilateral salpingectomy OVARIAN CYSTECTOMY FAMILY HISTORY Problem Relation Age of Onset Hypertension Mother Thyroid Mother other (Endometrosis) Mother Hysterectomy in later 30's Hypertension Maternal Grandmother Prostate Cancer Maternal Grandfather Breast Cancer Paternal Grandmother Breast Cancer Paternal Aunt Thyroid Sister Social History Tobacco Use Smoking status: Every Day Packs/day: 1.00 Types: Cigarettes Smokeless tobacco: Never Vaping Use Vaping Use: Never used Substance Use Topics Alcohol use: No Drug use: No Current Outpatient Medications Medication Sig ibuprofen (MOTRIN) 600 mg tablet Take 1 tablet by mouth every 6 hours as needed for Pain. No current facility-administered medications for this visit. Allergies As of Date: 08/19/2022 Allergen Noted Reaction AMOXICILLIN 08/30/2007 GI Upset ZITHROMAX [AZITHROMYCIN] 08/10/2008 GI Upset Fully Assessed 07/23/2022 REVIEW OF SYSTEMS Abdomen: Right sided pain - stabbing at times. Bladder: no dysuria .. Expanded ROS: GENERAL: Negative for fever Allergies and current medication updated:Yes EXAM: BP 110/76 Wt 169 lb (76.7kg) LMP 07/31/2022 GENERAL: pleasant, female in no apparent distress HEENT: Normocephalic and atraumatic NECK: Supple and full range of motion DERMATOLOGY: without lesions NEURO: alert and oriented x3,exam grossly non-focal EXTREMITIES: normal ASSESSMENT AND PLAN: Encounter Diagnosis ICD-10-CM 1. Dermoid cyst of right ovary D27.0 2. Pelvic pain in female R10.2 3. Dysmenorrhea N94.6 4. Ovulation pain N94.0 5. Reviewed options with the patient including hormonal contraception with progesterone only pills versus an implant versus injection. Patient would like to proceed with trying a progesterone only pill. Slynd ordered. Rationale behind this was reviewed with the patient. Discussed with the patient laparoscopy with removal of the right ovarian cyst with a possible oophorectomy. Discussed with the patient the cyst is small not sure that this is the source of her pain however we can remove it. Patient would like to proceed with surgical removal of the dermoid cyst. OR booking sheet was filled out. I will see her back for her preoperative visit. Patient is not a candidate for combined oral contraceptive pills due to smoking history. Medical Decision Making: Problems: Moderate: 1+ chronic illnesses with change Risk: Moderate: Drug management and Decision on minor surgery w/ risk factors Medical Decision Making Level: 4 - Moderate Pily Izquierdo MD documented in this encounterMercy Health [facility]. [facility]06-01-2023 Miscellaneous Notes* Telephone Encounter - Deanne Pickard RN - 07/30/2022 4:20 PM EDT Patient called and appointment scheduled. Deanne Pickard RN * Telephone Encounter - Janie Hopkins APRN.CNP - 07/30/2022 3:55 PM EDT Please contact patient and assist with scheduling her with the doctors to discuss surgical options for ovarian lesion. Janie Hopkins APRN.CNP * Telephone Encounter - Arianna Olivera LPN - 07/30/2022 3:31 PM EDT Patient reviewed MRI on [facility] and is asking for provider to review and advise on next step * Telephone Encounter - Breana Acosta - 07/24/2022 3:42 PM EDT 1st attempt, called patient LVM to call back to schedule MRI. * Telephone Encounter - Janie Hopkins APRN.CNP - 07/24/2022 1:40 PM EDT I call and spoke with pt regarding the US report. I have placed an order for MRI per reading provider's recommendation. Please call pt to assist with scheduling. Thanks, Janie Hopkins APRN.CNP documented in this encounterMercy Health St. [facility]05-31-2023 History of Present illness Narrative* Racquel Cordova, RT(R) - 07/29/2022 9:20 AM EDT Radiology Service Progress Note DATE OF SERVICE: July 29, 2022 TIME: 9:29 AM PATIENT IDENTITY VERIFICATION COMPLETED USING TWO (2) STANDARD IDENTIFIERS: Name and Date of confirmed by patient verbally. FALL SCREENING: Has the patient had 2 falls in the last year or 1 fall with injury or currently using an Ambulatory Assistive Device (Walker, Cane, Wheelchair, Crutches, etc.)? No PATIENT GENDER DATA: Female. status: : No status: NO. PATIENT RELEVANT IMPLANT DATA REVIEWED: Yes ALLERGIES: Reviewed and unchanged CONTRAST ALLERGY: NO. EXAM: MRI - CONTRAST TYPE: GROUP II PERIPHERAL IV DATA: Ambulatory: A peripheral IV was started in the Left antecubital site with a Angio cath: 22 gauge. RADIOLOGY DEPARTMENT: MR; Exam(s) Completed: Body: Female Pelvis SIGNATURE: RT Jamila(Ana Maria) PATIENT NAME: Sree Cesar DATE: July 29, 2022 TIME: 9:29 AM documented in [facility] noteNo assessment information availableWDelaware County Hospital Work Phone: Evaluation note* Diagnosis Pelvic and perineal pain- Primary Unspecified symptom associated with female genital organs documented [facility] this [facility]* Diagnosis Dermoid cyst of right ovary- Primary Pelvic pain in female Unspecified symptom associated with female genital organs Dysmenorrhea Ovulation pain Mittelschmerz documented [facility] this [facility]* Diagnosis Cyst, ovary, dermoid, right- Primary Pelvic pain in female Unspecified symptom associated with female genital organs Pre-op exam Preoperative examination, unspecified [facility]* Diagnosis Postoperative pain- Primary Other acute postoperative pain documented in this encounter [facility]* Diagnosis Post-operative state- Primary Other postprocedural status RLQ abdominal pain Abdominal pain, right lower quadrant Bloating Flatulence, eructation, and gas pain documented in this encounter [facility]* Diagnosis Hiatal hernia- Primary Diaphragmatic hernia without mention of obstruction or gangrene GERD without esophagitis Esophageal reflux Generalized abdominal pain Abdominal pain, generalized Right lower quadrant abdominal pain Abdominal pain, right lower quadrant documented [facility] this [facility]* Diagnosis Encounter for IUD insertion- Primary Encounter for insertion of intrauterine contraceptive device documented [facility] this encounter [facility]* Diagnosis Right lower quadrant abdominal pain Abdominal pain, right lower quadrant [facility] Diagnosis Screening for colon cancer- Primary Special screening for malignant neoplasms, colon GERD without esophagitis Esophageal reflux Special screening for malignant neoplasm of colon Special screening for malignant neoplasms, colon documented in this encounter [facility]* Diagnosis Pelvic and perineal pain Unspecified symptom associated with female genital organs [facility]* Diagnosis Encounter for IUD insertion- Primary Encounter for insertion of intrauterine contraceptive device Abnormal uterine bleeding (AUB) documented in this encounter [facility]* Diagnosis Hot flashes- Primary Symptomatic menopausal or female climacteric states documented [facility] this [facility]* Diagnosis Encounter for screening mammogram for breast cancer documented in this encounter [facility]* Diagnosis Pelvic pain in female- Primary Unspecified symptom associated with female genital organs Abnormal uterine bleeding (AUB) documented [facility] this [facility]* Diagnosis Pelvic pain in female- Primary Unspecified symptom associated with female genital organs Abnormal uterine bleeding (AUB) IUD (intrauterine device) in place Presence of intrauterine contraceptive device documented in this encounter [facility]* Diagnosis Abnormal uterine bleeding (AUB)- Primary Adenomyosis Endometriosis of uterus [facility] [facility] Diagnosis Dysmenorrhea- Primary Abnormal uterine bleeding (AUB) Adenomyosis Endometriosis of uterus documented [facility] Diagnosis Abnormal uterine bleeding (AUB)- Primary Pelvic pain in female Unspecified symptom associated with female genital organs Dysmenorrhea Adenomyosis Endometriosis of uterus Pre-op exam Preoperative examination, unspecified documented [facility] Diagnosis Post-operative state- Primary Other postprocedural status [facility] Diagnosis Post-operative state- Primary Other postprocedural status [facility] Diagnosis Post-operative state- Primary Other postprocedural status Encounter for screening mammogram for malignant neoplasm of breast Other screening mammogram [facility] Diagnosis Encounter for gynecological examination (general) (routine) without abnormal findings- Primary Encounter for screening mammogram for breast cancer [facility] Diagnosis Encounter for screening mammogram for malignant neoplasm of breast Other screening mammogram documented in this encounter [facility] note* Diagnosis Onset Date Resolution Status Admit Date PVCs (premature ventricular contractions) acute July 26, 2024 8 :45am Chest discomfort chronic June 8:45am Hiatal hernia chronic July 26, 025 8:45am Nicotine dependence chronic June 302024 8:45am [facility] Work Phone: Hospital Discharge instructions Additional Instructions Implant Used?: [facility] Work Phone: Reason for referral (narrative)* Outpatient Procedure (Routine) - Pending Review Specialty Diagnoses / Procedures Referred By Abraham rios Referred To Contact [facility] Diagnoses Encounter for IUD insertion Procedures INSERT INTRAUTERINE DEVICE LEVONORGESTREL IU 52MG 5 YR INSERT INTRAUTERINE DEVICE Pily Gallardo MD [address] [place] [address] [facility] [address] [place] [address] Referral ID Status Reason Start Date Expiration Date Visits Requested Visits Authorized [id number] Pending Review Auto-Generat ed Referral 3 12/28/2023 1 1 [facility] for referral (narrative)* Outpatient Procedure (Routine) - Closed Specialty Diagnoses / Procedures Referred By Abraham rios Referred To Contact [facility] Diagnoses Special screening for malignant neoplasm of colon Procedures COLONOSCOPY SCREENING COLONOSCOPY FLX DX W/COLLJ SPEC WHEN PFRMD Que Chowdhury MD [address] [place] [address] [facility] [address] [place] [address] Referral ID Status Reason Start Date Expiration Date V isits Requested Visits Authorized [id number] Closed Auto-Generate d Referral 10/28/2022 10/21/2023 1 1 * Outpatient Procedure (Routine) - Closed Specialty Diagnoses / Procedures Referred By Abraham rios Referred To Contact [facility] Diagnoses GERD without esophagitis Procedures EGD DIAGNOSTIC ESOPHAGOGASTRODUODENOSCOPY TRANSORAL DIAGNOSTIC Que Chowdhury MD [address] [place] [address] [facility] [address] [place] [address] Referral ID Status Reason Start Date Expiration Date V isits Requested Visits Authorized [id number] Closed Auto-Generate d Referral 10/28/2022 10/21/2023 1 1 [facility] for referral (narrative)* Diagnostic Procedure Only (Routine) - Authorized Specialty Diagnoses / Procedures Referred By Abraham rios Referred To Contact [facility] Diagnoses Pelvic pain in female Abnormal uterine bleeding (AUB) Procedures PELVIC US WHI US PELVIC NONOBSTETRIC REAL-TIME IMAGE COMPLETE Yissel Melton MD [address] [place] [address] [facility] [address] [place] [address] Referral ID Status Reason Start Date Expiration Date Visits Requested Visits Authorized [id number] Authorized Auto-Generat ed Referral 11/15/2023 11/14/2024 1 1 [facility] for referral (narrative)* Diagnostic Procedure Only (Routine) - New Request Specialty Diagnoses / Procedures Referred By Abraham rios Referred To Contact [facility] Diagnoses Encounter for screening mammogram for malignant neoplasm of breast Procedures PERRI SCREENING W ASHLEY SCREENING DIGITAL BREAST TOMOSYNTHESIS BI SCREENING MAMMOGRAPHY BI 2-VIEW BREAST INC CAD Pily Gallardo MD [address] [place] [address] [facility] [address] [place] [address] Referral ID Status Reason Start Date Expiration Date Visits Requested Visits Authorized [id number] New Request Auto-Generat ed Referral 03/09/2024 04/08/2025 1 1 [facility] for referral (narrative)No reason for referral [facility] Reason for visit Narrative* Outpatient Procedure (Routine) - Closed Specialty Diagnoses / Procedures Referred By Abraham rios Referred To Contact [facility] Diagnoses Special screening for malignant neoplasm of colon Procedures COLONOSCOPY SCREENING COLONOSCOPY FLX DX W/COLLJ SPEC WHEN PFRMD Que Chowdhury MD [address] [place] [address] [facility] [address] [place] [id number] Referral ID Status Reason Start Date Expiration Date V isits Requested Visits Authorized [id number] Closed Auto-Generate d Referral 10/28/2022 10/21/2023 1 1 [facility] for visit Narrative* Diagnostic Procedure Only (Routine) - Closed Specialty Diagnoses / Procedures Referred By Abraham rios Referred To Contact [facility] Diagnoses Encounter for screening mammogram for breast cancer Procedures PERRI SCREENING SCREENING MAMMOGRAPHY BI 2-VIEW BREAST INC Janie Perry, ALYSSA.[employer] [address] [facility] [place] [phone] [facility] [address] [place] [address] Referral ID Status Reason Start Date Expiration Date V isits Requested Visits Authorized [id number] Closed Auto-Generate d Referral 07/23/2022 08/22/2023 1 1 [facility] for visit Narrative* Diagnostic Procedure Only (Routine) - Closed Specialty Diagnoses / Procedures Referred By Abraham rios Referred To Contact [facility] Diagnoses Pelvic pain in female Abnormal uterine bleeding (AUB) Procedures PELVIC US WHI US PELVIC NONOBSTETRIC REAL-TIME IMAGE COMPLETE Yissel Melton MD [address] [place] [address] [facility] [address] [place] [address] Referral ID Status Reason Start Date Expiration Date V isits Requested Visits Authorized [id number] Closed Auto-Generate d Referral 11/15/2023 11/14/2024 [address] Narrative* Consult, Test, Treat (Routine) - Closed Specialty Diagnoses / Procedures Referred By Abraham rios Referred To Contact [facility] Diagnoses Encounter for screening mammogram for malignant neoplasm of breast Procedures PERRI SCREENING W ASHLEY SCREENING DIGITAL BREAST TOMOSYNTHESIS BI SCREENING MAMMOGRAPHY BI 2-VIEW BREAST INC CAD Pily Gallardo MD [address] [place] [address] Phone: tel: fax: [facility] [address] [place] [phone] Referral ID Status Reason Start Date Expiration Date V isits Requested Visits Authorized [id number] Closed Auto-Generate d Referral 07/12/2024 02/28/2025 [address] [facility] Advance Directives No Advanced Directives Records Found Advance Directive Response Recorded Date/ Time Living Will Yes April 27 018 9:19am Power of Passenger Relations Representative Yes April 27, 2017 9:19am Advance Directive Response Recorded Date/ Time Living Will No September 24, 2022 10:05am Power of Passenger Relations Representative No September 24 10:05am Advance Directive Response Recorded Date/ Time Living Will No January 12 024 12:00pm Do you have a Healthcare Power of Passenger Relations Representative? No January 13, 2024 12:00pm Reason for Referral Specialty Diagnoses / Procedures Referred By Abraham rios Referred To Contact [facility] Diagnoses Pelvic and perineal pain Procedures MRI PELVIS WO/W IVCON MRI PELVIS W/O & W/CONTRAST MATERIAL Janie Hopkins APRN.[employer] [address] [place] [address] [facility] Referral ID Status Reason Start Date Expiration Date V isits Requested Visits Authorized [id number] Closed Auto-Generate d Referral 07/24/2022 08/23/2023 1 1 Specialty Diagnoses / Procedures Referred By Contac t Referred To Contact General Surgery Diagnoses RLQ abdominal pain Bloating Procedures CONSULT TO GENERAL SURGERY OFFICE/OUTPATIENT [facility] 60-74 MINUTES Pily Gallardo MD [address] [place] [address] Referral ID Status Reason Start Date Expiration Date Visits Requested Visits Authorized [id number] Pending Review PCP Requested Referral 10/12/2022 10/12/2023 1 1 Specialty Diagnoses / Procedures Referred By Contac t Referred To Contact Gastroenterology Diagnoses RLQ abdominal pain Bloating Procedures CONSULT TO GASTROENTEROLOGY OFFICE/OUTPATIENT [facility] 60-74 MINUTES Pily Gallardo MD [address] [place] [address] Referral ID Status Reason Start Date Expiration Date Visits Requested Visits Authorized [id number] Pending Review PCP Requested Referral 10/12/2022 10/12/2023 1 1 Specialty Diagnoses / Procedures Referred By Contac t Referred To Contact [facility] Diagnoses Right lower quadrant abdominal pain Procedures CT ABD/PEL W IVCON CT ABD & PELVIS W/CONTRAST Anita Del Rosario PA-C [address] [place] [address] [place] [address] Referral ID Status Reason Start Date Expiration Date Visits Requested Visits Authorized [id number] Authorized Auto-Generat ed Referral 11/05/2022 12/05/2023 1 1 Referral ID Status Reason Start Date Expiration Date V isits Requested Visits Authorized [id number] Closed Auto-Generate d Referral 11/05/2022 12/05/2023 1 1 Specialty Diagnoses / Procedures Referred By Contac t Referred To Contact [facility] Diagnoses Pelvic and perineal pain Procedures MRI PELVIS WO/W IVCON MRI PELVIS W/O & W/CONTRAST MATERIAL Janie Hopkins APRN.[employer] [address] [place] [address] [place] [address] Chief Complaint and Reason for Visit Chief Complaint OVARIAN CYSTECTOMY Chief Complaint EORDER Chief Complaint Admit Date Hysterectomy,TLH, possible bilateral oop horectomy, January 28, 2024 5:27am Chief Complaint Admit Date VENTICULAR TACHYCARDIA July 26, 2024 8: 45am Reason for Visit Admit Date PVCs (premature ventricular contractions ) July 26, 2024 8:45am Chest discomfort July 26, 2024 8:45a m Hiatal hernia July 26, 2024 8:45a m Nicotine dependence July 26, 2024 8:45a m Chief Complaint Admit Date VENTICULAR TACHYCARDIA July 26, 2024 8: 45am PT JUST LEFT OFFICE/INT LABS NOT SHOWING YET July 26, 2024 9:48am Medications Administered Section Inactive Administered Medications - up to 3 most recent administrations Medication Order MAR Action Action Date Dose Rate Site benzocaine 20% 1 Inman (TOPEX) 1 Inman, TOPICAL, DIRECTED, Starting on Wed10/28/22 at 1030, Until Wed10/28/22 at 1429, DOSING DIRECTED BY PHYSICIAN FOR PROCEDURAL SEDATION ONLY - Pharmaceutical Waste: Aerosol -, Intraprocedure Given 10/28/2022 10:20 AM EDT 5 Sprays diphenhydrAMINE 12.5-50 mg injection (BENADRYL) 12.5-50 mg, INTRAVENOUS, DIRECTED, Starting on Wed10/28/22 at 1030, Until Wed10/28/22 at 1429, DOSING DIRECTED BY PHYSICIAN FOR PROCEDURAL SEDATION ONLY, Intraprocedure Given 10/28/2022 10:23 AM EDT 50 mg fentaNYL 50 mcg/mL 25-100 mcg injection (SUBLIMAZE) 25-100 mcg, INTRAVENOUS, DIRECTED, Starting on Wed10/28/22 at 1030, Until Wed10/28/22 at 1429, DOSING DIRECTED BY PHYSICIAN FOR PROCEDURAL SEDATION ONLY, Intraprocedure Given 10/28/2022 10:40 AM EDT 50 mcg Given 10/28/2022 10:21 AM EDT 50 mcg lactated ringers iv infusion 75 mL/hr, INTRAVENOUS, CONTINUOUS, Starting on Wed10/28/22 at 1000, Until Wed10/28/22 at 1105, Preprocedure New Bag/Syringe/Bottle 10/28/2022 9:56 AM EDT 75 mL/hr 75 mL/hr Arm, Right meperidine (PF) 12.5-100 mg injection (DEMEROL) 12.5-100 mg, INTRAVENOUS, DIRECTED, Starting on Wed10/28/22 at 1100, Until Wed10/28/22 at 1459, DOSING DIRECTED BY PHYSICIAN FOR PROCEDURAL SEDATION ONLY, Intraprocedure Given 10/28/2022 10:42 AM EDT 50 mg midazolam 1-5 mg injection (VERSED) 1-5 mg, INTRAVENOUS, DIRECTED, Starting on Wed10/28/22 at 1030, Until Wed10/28/22 at 1429, DOSING DIRECTED BY PHYSICIAN FOR PROCEDURAL SEDATION ONLY, Intraprocedure Given 10/28/2022 10:37 AM EDT 2 mg Given 10/28/2022 10:25 AM EDT 2 mg Given 10/28/2022 10:21 AM EDT 3 mg Inactive Administered Medications - up to 3 most recent administrations Medication Order MAR Action Action Date Dose Rate Site levonorgestrel 21 mcg/24 hours (8 yrs) 52 mg 1 Each intrauterine device (MIRENA) 1 Each, INTRAUTERINE, ONCE (UP TO 30 DAYS AMB), 1 dose, On Wed02/03/23 at 1530, Hazardous Potential Reproductive Risk Drug: Use appropriate PPE. Given 02/03/2023 3:25 PM EST 1 Each Summary Purpose Family History No Family History Records FoundNo Family History Records FoundNo Family History Records Found Additional Source Comments Goals (unrecognized section and content) Goals may be documented in a n alternate sectionGoals may be documented in an alternate sectionGoals may be documented in an alternate sectionGoals may be documented in an alternate sectionGoals may be documented in an alternate section Source Comments (unrecognize d section and content) In the event this informatio n is protected by the Federal Confidentiality of Alcohol and Drug Abuse Patient Records regulations: The Federal rules restrict any use of the information to criminally investigate or prosecute any alcohol or drug abuse patient.[facility] the event this information is protected by the Federal Confidentiality of Alcohol and Drug Abuse Patient Records regulations: The Federal rules restrict any use of the information to criminally investigate or prosecute any alcohol or drug abuse patient.[facility] CenterIn the event this information is protected by the Federal Confidentiality of Alcohol and Drug Abuse Patient Records regulations: The Federal rules restrict any use of the information to criminally investigate or prosecute any alcohol or drug abuse patient.[facility] CenterIn the event this information is protected by the Federal Confidentiality of Alcohol and Drug Abuse Patient Records regulations: The Federal rules restrict any use of the information to criminally investigate or prosecute any alcohol or drug abuse patient.[facility] CenterIn the event this information is protected by the Federal Confidentiality of Alcohol and Drug Abuse Patient Records regulations: The Federal rules restrict any use of the information to criminally investigate or prosecute any alcohol or drug abuse patient.[facility] CenterIn the event this information is protected by the Federal Confidentiality of Alcohol and Drug Abuse Patient Records regulations: The Federal rules restrict any use of the information to criminally investigate or prosecute any alcohol or drug abuse patient.[facility] CenterIn the event this information is protected by the Federal Confidentiality of Alcohol and Drug Abuse Patient Records regulations: The Federal rules restrict any use of the information to criminally investigate or prosecute any alcohol or drug abuse patient.[facility] CenterIn the event this information is protected by the Federal Confidentiality of Alcohol and Drug Abuse Patient Records regulations: The Federal rules restrict any use of the information to criminally investigate or prosecute any alcohol or drug abuse patient.[facility] CenterIn the event this information is protected by the Federal Confidentiality of Alcohol and Drug Abuse Patient Records regulations: The Federal rules restrict any use of the information to criminally investigate or prosecute any alcohol or drug abuse patient.[facility] CenterIn the event this information is protected by the Federal Confidentiality of Alcohol and Drug Abuse Patient Records regulations: The Federal rules restrict any use of the information to criminally investigate or prosecute any alcohol or drug abuse patient.[facility] CenterIn the event this information is protected by the Federal Confidentiality of Alcohol and Drug Abuse Patient Records regulations: The Federal rules restrict any use of the information to criminally investigate or prosecute any alcohol or drug abuse patient.[facility] CenterIn the event this information is protected by the Federal Confidentiality of Alcohol and Drug Abuse Patient Records regulations: The Federal rules restrict any use of the information to criminally investigate or prosecute any alcohol or drug abuse patient.[facility] CenterIn the event this information is protected by the Federal Confidentiality of Alcohol and Drug Abuse Patient Records regulations: The Federal rules restrict any use of the information to criminally investigate or prosecute any alcohol or drug abuse patient.[facility] CenterIn the event this information is protected by the Federal Confidentiality of Alcohol and Drug Abuse Patient Records regulations: The Federal rules restrict any use of the information to criminally investigate or prosecute any alcohol or drug abuse patient.[facility] CenterIn the event this information is protected by the Federal Confidentiality of Alcohol and Drug Abuse Patient Records regulations: The Federal rules restrict any use of the information to criminally investigate or prosecute any alcohol or drug abuse patient.[facility] CenterIn the event this information is protected by the Federal Confidentiality of Alcohol and Drug Abuse Patient Records regulations: The Federal rules restrict any use of the information to criminally investigate or prosecute any alcohol or drug abuse patient.[facility] CenterIn the event this information is protected by the Federal Confidentiality of Alcohol and Drug Abuse Patient Records regulations: The Federal rules restrict any use of the information to criminally investigate or prosecute any alcohol or drug abuse patient.[facility] CenterIn the event this information is protected by the Federal Confidentiality of Alcohol and Drug Abuse Patient Records regulations: The Federal rules restrict any use of the information to criminally investigate or prosecute any alcohol or drug abuse patient.[facility] CenterIn the event this information is protected by the Federal Confidentiality of Alcohol and Drug Abuse Patient Records regulations: The Federal rules restrict any use of the information to criminally investigate or prosecute any alcohol or drug abuse patient.[facility] CenterIn the event this information is protected by the Federal Confidentiality of Alcohol and Drug Abuse Patient Records regulations: The Federal rules restrict any use of the information to criminally investigate or prosecute any alcohol or drug abuse patient.[facility] CenterIn the event this information is protected by the Federal Confidentiality of Alcohol and Drug Abuse Patient Records regulations: The Federal rules restrict any use of the information to criminally investigate or prosecute any alcohol or drug abuse patient.[facility] CenterIn the event this information is protected by the Federal Confidentiality of Alcohol and Drug Abuse Patient Records regulations: The Federal rules restrict any use of the information to criminally investigate or prosecute any alcohol or drug abuse patient.[facility] CenterIn the event this information is protected by the Federal Confidentiality of Alcohol and Drug Abuse Patient Records regulations: The Federal rules restrict any use of the information to criminally investigate or prosecute any alcohol or drug abuse patient.[facility] CenterIn the event this information is protected by the Federal Confidentiality of Alcohol and Drug Abuse Patient Records regulations: The Federal rules restrict any use of the information to criminally investigate or prosecute any alcohol or drug abuse patient.[facility] CenterIn the event this information is protected by the Federal Confidentiality of Alcohol and Drug Abuse Patient Records regulations: The Federal rules restrict any use of the information to criminally investigate or prosecute any alcohol or drug abuse patient.[facility] CenterIn the event this information is protected by the Federal Confidentiality of Alcohol and Drug Abuse Patient Records regulations: The Federal rules restrict any use of the information to criminally investigate or prosecute any alcohol or drug abuse patient.[facility] CenterIn the event this information is protected by the Federal Confidentiality of Alcohol and Drug Abuse Patient Records regulations: The Federal rules restrict any use of the information to criminally investigate or prosecute any alcohol or drug abuse patient.[facility] CenterIn the event this information is protected by the Federal Confidentiality of Alcohol and Drug Abuse Patient Records regulations: The Federal rules restrict any use of the information to criminally investigate or prosecute any alcohol or drug abuse patient.[facility] CenterIn the event this information is protected by the Federal Confidentiality of Alcohol and Drug Abuse Patient Records regulations: The Federal rules restrict any use of the information to criminally investigate or prosecute any alcohol or drug abuse patient.[facility] CenterIn the event this information is protected by the Federal Confidentiality of Alcohol and Drug Abuse Patient Records regulations: The Federal rules restrict any use of the information to criminally investigate or prosecute any alcohol or drug abuse patient.[facility] CenterIn the event this information is protected by the Federal Confidentiality of Alcohol and Drug Abuse Patient Records regulations: The Federal rules restrict any use of the information to criminally investigate or prosecute any alcohol or drug abuse patient.[facility] CenterIn the event this information is protected by the Federal Confidentiality of Alcohol and Drug Abuse Patient Records regulations: The Federal rules restrict any use of the information to criminally investigate or prosecute any alcohol or drug abuse patient.[facility] CenterIn the event this information is protected by the Federal Confidentiality of Alcohol and Drug Abuse Patient Records regulations: The Federal rules restrict any use of the information to criminally investigate or prosecute any alcohol or drug abuse patient.[facility] CenterIn the event this information is protected by the Federal Confidentiality of Alcohol and Drug Abuse Patient Records regulations: The Federal rules restrict any use of the information to criminally investigate or prosecute any alcohol or drug abuse patient.[facility] CenterIn the event this information is protected by the Federal Confidentiality of Alcohol and Drug Abuse Patient Records regulations: The Federal rules restrict any use of the information to criminally investigate or prosecute any alcohol or drug abuse patient.[facility] [facility] CenterIn the event this information is protected by the Federal Confidentiality of Alcohol and Drug Abuse Patient Records regulations: The Federal rules restrict any use of the information to criminally investigate or prosecute any alcohol or drug abuse patient.[facility] CenterIn the event this information is protected by the Federal Confidentiality of Alcohol and Drug Abuse Patient Records regulations: The Federal rules restrict any use of the information to criminally investigate or prosecute any alcohol or drug abuse patient.[facility] CenterIn the event this information is protected by the Federal Confidentiality of Alcohol and Drug Abuse Patient Records regulations: The Federal rules restrict any use of the information to criminally investigate or prosecute any alcohol or drug abuse patient.[facility] CenterIn the event this information is protected by the Federal Confidentiality of Alcohol and Drug Abuse Patient Records regulations: The Federal rules restrict any use of the information to criminally investigate or prosecute any alcohol or drug abuse patient.[facility] CenterIn the event this information is protected by the Federal Confidentiality of Alcohol and Drug Abuse Patient Records regulations: The Federal rules restrict any use of the information to criminally investigate or prosecute any alcohol or drug abuse patient.[facility] CenterIn the event this information is protected by the Federal Confidentiality of Alcohol and Drug Abuse Patient Records regulations: The Federal rules restrict any use of the information to criminally investigate or prosecute any alcohol or drug abuse patient.[facility] CenterIn the event this information is protected by the Federal Confidentiality of Alcohol and Drug Abuse Patient Records regulations: The Federal rules restrict any use of the information to criminally investigate or prosecute any alcohol or drug abuse patient.[facility] CenterIn the event this information is protected by the Federal Confidentiality of Alcohol and Drug Abuse Patient Records regulations: The Federal rules restrict any use of the information to criminally investigate or prosecute any alcohol or drug abuse patient.[facility] CenterIn the event this information is protected by the Federal Confidentiality of Alcohol and Drug Abuse Patient Records regulations: The Federal rules restrict any use of the information to criminally investigate or prosecute any alcohol or drug abuse patient.[facility] Reason for Visit (unrecogniz ed section and content) Reason Comments Results Reason Comments Discussion Reason Comments Pre-Op Visit Reason Comments post op pain Reason Comments Post Op Reason Comments Follow Up EGD/ Colonoscopy Reason Comments Radiology CT Specialty Diagnoses / Procedures Referred By Abraham t Referred To Contact CT IMAGING Diagnoses Right lower quadrant abdominal pain Procedures CT ABD/PEL W IVCON CT ABD & PELVIS W/CONTRAST Anita Del Rosario PA-C [address] [place] [address] [place] [address] Referral ID Status Reason Start Date Expiration Date V isits Requested Visits Authorized [id number] Closed Auto-Generate d Referral 11/05/2022 12/05/2023 1 1 Specialty Diagnoses / Procedures Referred By Abraham t Referred To Contact MR IMAGING Diagnoses Pelvic and perineal pain Procedures MRI PELVIS WO/W IVCON MRI PELVIS W/O & W/CONTRAST MATERIAL Janie Hopkins APRN.KENAN [address] [place] [address] [place] [address] Referral ID Status Reason Start Date Expiration Date V isits Requested Visits Authorized [id number] Closed Auto-Generate d Referral 07/24/2022 08/23/2023 1 1 Reason Onset Date Comments Insertion Of IUD 02/03/2023 Specialty Diagnoses / Procedures Referred By Abraham t Referred To Contact [facility] Diagnoses Encounter for IUD insertion Procedures INSERT INTRAUTERINE DEVICE LEVONORGESTREL IU 52MG 5 YR INSERT INTRAUTERINE DEVICE REMOVE INTRAUTERINE DEVICE Pily Gallardo MD [address] [place] [address] Pily Gallardo MD [address] [place] [address] Referral ID Status Reason Start Date Expiration Date V isits Requested Visits Authorized [id number] Closed Auto-Generate d Referral 01/05/2023 02/28/2023 1 1 Reason Comments Request Outside Medical Records EGD & co lonoscopy Reason Comments Request Outside Medical Records OV notes from 09/2022 & 01/2023 Reason Comments Follow Up Reason Comments Appointment Reason Comments Pre-Op Exam Reason Comments Post Op Drainage Reason Onset Date Comments Post Op Post-Op Visit 02/01/2024 Reason Onset Date Comments Post-Op Visit 02/09/2024 Reason Onset Date Comments Post-Op Visit 03/09/2024 Reason Comments Orders Reason Comments Yearly Exam Specialty Diagnoses / Procedures Referred By Contac t Referred To Contact Caregivers 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 Post-operative state Annual Exam Procedures OFFICE/OUTPATIENT EST PT MAY NOT REQ PHYS/QHP OFFICE/OUTPATIENT ESTABLISHED HIGH MDM 40 MIN EST WHI ANNUAL PATIENT Self Pily Gallardo MD [address] [place] [address] Phone: tel: fax: Referral ID Status Reason Start Date Expiration Date V isits Requested Visits Authorized [id number] Authorized 07/12/2024 02/28/2025 99 99 Reason Comments Mammogram Result Call Back right breast diag mamm and us per Care Teams (unrecognized sec tion and content) Welcome Hostess Relationship Specialty Start Date End Date Edenilson Espino PCP - General 03/23/03 Welcome Hostess Relationship Specialty Start Date End Date Edenilson Espino PCP - General 03/23/03 Welcome Hostess Relationship Specialty Start Date End Date Edenilson Espino PCP - General 03/23/03 Team Status: Active Member Role Status Dates Dr. Bernard Rodriguez MD Family Provider Active Dr. Bernard Rodriguez MD Primary Care Provider Active Team Status: Inactive Member Role Status Dates Dr. Pily Izquierdo MD Attending Provider, R [facility] Provider Active Dr. Bernard Rodrgiuez MD Primary Care Provider Active Welcome Hostess Relationship Specialty Start Date End Date Edenilson Espino PCP - General 03/23/03 Welcome Hostess Relationship Specialty Start Date End Date Caddo, Edenilson Urban PCP - General 03/23/03 Welcome Hostess Relationship Specialty Start Date End Date Caddo, Edenilson Urban PCP - General 03/23/03 Welcome Hostess Relationship Specialty Start Date End Date Caddo, Edenilson Urban PCP - General 03/23/03 Welcome Hostess Relationship Specialty Start Date End Date Caddo, Edenilson Urban PCP - General 03/23/03 Welcome Hostess Relationship Specialty Start Date End Date Caddo, Edenilson Urban PCP - General 03/23/03 Welcome Hostess Relationship Specialty Start Date End Date Caddo, Edenilson Urban PCP - General 03/23/03 Welcome Hostess Relationship Specialty Start Date End Date Caddo, Edenilson Urban PCP - General 03/23/03 Welcome Hostess Relationship Specialty Start Date End Date Caddo, Edenilson Wilmar PCP - General 03/23/03 Welcome Hostess Relationship Specialty Start Date End Date Caddo, Edenilson Urban PCP - General 03/23/03 Welcome Hostess Relationship Specialty Start Date End Date Caddo, Edenilson Wilmar PCP - General 03/23/03 Welcome Hostess Relationship Specialty Start Date End Date Caddo, Edenilson Wilmar PCP - General 03/23/03 Welcome Hostess Relationship Specialty Start Date End Date Bernard Rodriguez MD [address] [facility] [address] [place] [address] PCP - General Family Medicine 02/08/23 Welcome Hostess Relationship Specialty Start Date End Date Bernard Rodriguez MD [address] [facility] [address] [place], [place] [address] PCP - General Family Medicine 02/08/23 Welcome Hostess Relationship Specialty Start Date End Date Bernard Rodriguez MD [address] [facility] [address] [place] [address] PCP - General Family Medicine 02/08/23 Team Status: Inactive Member Role Status Dates Dr. Bernard Rodriguez MD Primary Care Provider Active Rakel Mauricio , TECHNICAL INSTRUCTOR COURSE DEVELOPER-C Attending Provider, Referr ing Provider Active Welcome Hostess Relationship Specialty Start Date End Date Bernard Rodriguez MD [address] [place] [facility] [address] [place] [address] PCP - General Family Medicine 02/08/23 Welcome Hostess Relationship Specialty Start Date End Date Bernard Rodriguez MD [address] [facility] [address] [place] [address] PCP - General Family Medicine 02/08/23 Welcome Hostess Relationship Specialty Start Date End Date Bernard Rodriguez MD [address] [place] [facility] [address] [place] [address] PCP - General Family Medicine 02/08/23 Welcome Hostess Relationship Specialty Start Date End Date Bernard Rodriguez MD [address] [place] [facility] [address] [place] [address] PCP - General Family Medicine 02/08/23 Welcome Hostess Relationship Specialty Start Date End Date Bernard Rodriguez MD [address] [place] [facility] [address] [place] [address] PCP - General Family Medicine 02/08/23 Welcome Hostess Relationship Specialty Start Date End Date Bernard Rodriguez MD [address] [facility] [address] [place] [address] PCP - General Family Medicine 02/08/23 Welcome Hostess Relationship Specialty Start Date End Date Bernard Rodriguez MD [address] [facility] [address] [place] [address] PCP - General Family Medicine 02/08/23 Welcome Hostess Relationship Specialty Start Date End Date Bernard Rodriguez MD [address] [facility] [address] [place], [place] [address] PCP - General Family Medicine 02/08/23 Welcome Hostess Relationship Specialty Start Date End Date Bernard Rodriguez MD [address] [facility] [address] [place], [place] [address] PCP - General [facility] Medicine 02/08/23 Team Status: Active Member Role Status Dates Dr. Bernard Rodriguez MD Family Provider Active Dr. Oliver Wong MD Primary Care Provider Active Team Status: Inactive Member Role Status Dates Dr. Oliver Wong MD Primary Care Provider Active Start: January 28, 2024 End: January 28, 2024 Dr. Oliver Wong MD Referring Provider Active Start: January 28, 2024 End: January 28, 2024 Dr. Pily Izquierdo MD Attending Provider Active Start: December End: January 28, 2024 Dr. Prashant Yanes MD Other Provider Active Start: January 28, 2024 End: January 28, 2024 Team Status: Inactive Member Role Status Dates Dr. Oliver Wong MD Primary Care Provider Active Start: May 17, 2024 End: May 17, 2024 Dr. Oliver Wong MD Attending Provider Active Start: May 17, 2024 End: May 17, 2024 Dr. Oliver Wong MD Referring Provider Active Start: May 17, 2024 End: May 17, 2024 Welcome Hostess Relationship Specialty Start Date End Date Bernard Rodriguez MD [address] [facility] [address] [place] [address] PCP - General Family Medicine 02/08/23 Welcome Hostess Relationship Specialty Start Date End Date Bernard Rodriguez MD [address] [facility] [address] [place] [address] PCP - General Family Medicine 02/08/23 Team Status: Inactive Member Role Status Dates Dr. Oliver Wong MD Primary Care Provider Active Start: July 26, 2024 End: July 26, 2024 Dr. Oliver Wong MD Referring Provider Active Start: July 26, 2024 End: July 26, 2024 Dr. Quin Snider MD Attending Provider Active Start: July 26, 2024 End: July 26, 2024 Team Status: Active Member Role Status Dates Dr. Oliver Wong MD Primary Care Provider Active Team Status: Inactive Member Role Status Dates Dr. Oliver Wong MD Primary Care Provider Active Start: July 26, 2024 End: July 26, 2024 Dr. Quin Snider MD Attending Provider Active Start: July 26, 2024 End: July 26, 2024 Dr. Quin Snider MD Referring Provider Active Start: July 26, 2024 End: July 26, 2024 INFORMATION SOURCE (unrecogn ized section and content) DATE CREATED AUTHOR 06/19/2024 [facility] DATE CREATED AUTHOR AUTHOR'S ORGANIZ ATION 07/14/2024 [facility] DATE CREATED AUTHOR AUTHOR'S ORGANIZ ATION 08/15/2024 [facility] FOR RECORDS PERTAINING TO PATIENTS WHO ARE OR HAVE BEEN ENROLLED IN A CHEMICAL DEPENDENCY/SUBSTANCEABUSE PROGRAM, SOME INFORMATION MAY BE OMITTED. This clinical summary was aggregated from multiple sources. Caution should be exercised in using it in the provision of clinical care. This summary normalizes information from multiple sources, and as a consequence, information in this document may materially change the coding, format and clinical context of patient data. In addition, data may be omitted in some cases. CLINICAL DECISIONS SHOULD BE BASED ON THE PRIMARY CLINICAL RECORDS. [employer] provides no warranty or guarantee of the accuracy or completeness of information in this document.
--- NOTE | 2024-08-23 11:06 | STRESSREP_ITS ---
Stress Test Report Date: 08/23/2024 Procedure: Exercise tolerance test/imaging study Indications: Arrhythmia Consent: Per the patient Procedure: The patient exercised on a Tung protocol for 9 minutes and 30 seconds achieving a peak heart rate of 157 bpm (87% predicted maximal heart rate) with a peak blood pressure 140/72 mmHg and a peak MET capacity of 11.7 METs. The baseline ECG demonstrated sinus rhythm. The peak exercise ECG no ischemic changes. Occasional PVCs noted during recovery.o The functional capacity was considered excellent. There was no complaint of chest discomfort during exercise or recovery. The examination was discontinued secondary to target heart rate being achieved. The patient was injected with 13.8 mCi of technetium 99m Cardiolite and subsequently rest SPECT Cardiolite nuclear imaging was obtained in the horizontal long, vertical long, and short axis views. Post-exercise, the patient was injected with 42.2 mCi of technetium 99m Cardiolite and subsequently stress SPECT Cardiolite nuclear imaging was obtained in the horizontal long, vertical long, and short axis views. A gated Cardiolite study at peak stress was obtained. Rest and stress SPECT Cardiolite nuclear imaging status post realignment, normalization, and attenuation correction, demonstrates barked artifacts at rest. However poststress images failed to reveal any hypoperfusion. There is end systolic thickening and brightening. The gated Cardiolite study demonstrates myocardial thickening and inward wall motion. The reported LVEF is 78%. Impression: 1. Technically adequate (percent predicted maximal heart rate greater than 85%) exercise tolerance test 2. Peak exercise ECG with no ischemic changes. Negative exercise ECG for ischemia at excellent workload. 3. Occasional PVCs in recovery. 4. Marked artifact at rest however post-rest images showed normal perfusion pattern. No ischemia noted. 5. The gated Cardiolite study reports an LVEF of 78%. This note was generated with [employer] software. It may contain incorrect words, spelling, and punctuation that were not noted in checking the note before signing.
== END | disposition home or self-care (01) ==
LOC: NM 05:59
PROVIDERS: PCP Family Medicine; Referring Provider Internal Medicine Cardiovascular Disease; Visit Provider Internal Medicine Cardiovascular Disease
DX: R07.89 Other chest pain (principal); R00.0 Tachycardia, unspecified; I49.3 Ventricular premature depolarization
CPT/HCPCS: 78452; 93017; A9500; A4216

== ENCOUNTER → 2024-08-31 | Outpatient (CLI) | payer OTHER, SELFPAY | END | disposition home or self-care (01) | LOC: CVS 07:44 | PROVIDERS: PCP Family Medicine; Referring Provider Internal Medicine Cardiovascular Disease; Visit Provider Internal Medicine Cardiovascular Disease | DX: I49.3 Ventricular premature depolarization (principal); R07.89 Other chest pain; R00.0 Tachycardia, unspecified | CPT/HCPCS: 93306 ==

== ENCOUNTER → 2024-11-23 | Outpatient (CLI) | payer OTHER, SELFPAY ==
--- NOTE | 2024-11-23 16:09 | RAD_ITS ---
PROCEDURE: HAND MIN 3 VIEWS 11/23/2024 REASON FOR EXAM: PAIN RING FINGER TECHNIQUE: Procedure Code: CARLIN Modality: DX Procedure: HAND MIN 3 VIEWS Laterality: Left COMPARISON: None. FINDINGS: BONES: No acute fracture or focal osseous lesion. JOINTS: No dislocation. The joint spaces are preserved. Minimal spurring along the 1st IP joint. SOFT TISSUES: The soft tissues are unremarkable. RAD/Hand Min 3 Views IMPRESSION: No acute abnormality seen. Reading Location: [id number]
--- OUTSIDE RECORDS SUMMARY | 2024-11-23 17:31 | XMS RPT_ITS | CCD ---
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 Boyd Primary Care Provider [phone] Dr. Oliver Wong MD Referring Provider Felecia SALAZAR, Dr. Nascimento Attending Provid er Farzana SALAZAR, Dr. Cerda Other Provider [phone] Marvin SALAZAR, Dr. Boyd Attending Provider USAMA MODI DO Attending Unavailable DR MARCO ANTONIO MYERS MD Primary Care Unavailalice RODRIGUEZ MD, BERNARD A Primary Care Unavailable MARCO ANTONIO KHALIL DO Attending Unavailable Dr. Oliver Wong MD Primary Care Provider [phone] Marvin SALAZAR, Dr. Boyd Referring Provider Tylor SALAZAR, Dr. Tsai Attending Provider Dr. Quin Snider MD Referring Provider BERNARD RODRIGUEZ A Primary Care Unavailable PILY GALLARDO Referring Unavail able PILY GALLARDO Attending Unavail able BERNARD RODRIGUEZ A Primary Care Unavailable SELF Referring Unavailable PILY GALLARDO Referring Unavail able BERNARD RODRIGUEZ A Primary Care Unavailable JANIE HOPKINS Attending Unavailable BERNARD RODRIGUEZ A Primary Care Unavailable YISSEL MELTON Referring Unavailable BERNARD RODRIGUEZ A Primary Care Unavailable PILY GALLARDO Attending Unavail able BRENDAN RODRIGUEZIC A Primary Care Unavailable PILY GALLARDO Attending Unavail able RODRIGUEZ, BERNARD A Primary Care Unavailable NEYHART AVINASH, PILY Attending Unavail able RODRIGUEZ, BERNARD A Primary Care Unavailable NEYHART BIRDIDRE Attending Unavail able RODRIGUEZ, BERNARD A Primary Care Unavailable NEYPIPET AVINASH, PILY Attending Unavail able RODRIGUEZ, BERNARD A Primary Care Unavailable Tylor , Dr. Tsai Other Provider Faizan SAVAGE, Yvette Attending Provider [phone] Marvin SALAZAR, Dr. Boyd Primary Care Provider Mravin SALAZAR, Dr. Boyd Referring Provider Eulalio An Attending Provider Faizan FISHMAN, Yvette Attending Unavailable Wong, Oliver Primary Care Unavailable Wong, Oliver Primary Care Unavailable Tylor, Quin Attending Unavailable Tylor, Quin Attending Unavailable Wong, Oliver Primary Care Unavailable Tylor, Quin Referring Unavailable Tylor, Quin Consulting Unavailable Wong, Oliver Primary Care Unavailable Tylor, Quin Referring Unavailable Tylor, Quin Attending Unavailable Wong, Oliver Primary Care Unavailable Wong, Oliver Attending Unavailable Wong, Oliver Primary Care Unavailable Wong, Oliver Attending Unavailable Wong, Oliver Referring Unavailable Wong, Oliver Primary Care Unavailable Tylor, Quin Attending Unavailable Tylor, Quin Referring Unavailable Wong, Oliver Primary Care Unavailable Tylor, Quin Attending Unavailable Tylor, Quin Referring Unavailable Weeman, Prashant Consulting Unavailable Wong, Oliver Primary Care Unavailable Pily Izquierdo Attending Unavail able Wong, Oliver Referring Unavailable Eulalio Cabrera Attending Unavailable Wong, Oliver Referring Unavailable Wong, Oliver Primary Care Unavailable Wong, Oliver Primary Care Unavailable Wong, Oliver Referring Unavailable Tylor, Quin Attending Unavailable Allergies Allergy Classification Reported Allergen(s) Allergy Type Date of Onset Reaction(s) Facility (20 sources) Amoxicillin; Translations: [AMOXICILLIN] Drug Allergy 8 GI Upset [facility] Work Phone: Comment on above: SHARP PAIN TO ABD (20 sources) Azithromycin; Translations: [AZITHROMYCIN] Drug Allergy 9 GI Upset, Hives [facility] Work Phone: Comment on above: ABDOMINAL PAIN (1 source) Amoxicillin Drug Allergy 5 [facility] Repository (1 source) Azithromycin Drug Allergy 5 [facility] Repository Medications Current Medications Medication Drug Class(es) [...] above: Take 1 tablet by peri th every 6 hours as needed for Pain. Magnesium Citrate,Mag Oxide 250 mg capsule (5 sources) Start: 5 Magnesium Citrate,Mag Oxide 250 mg capsule Active 150 mg PO DAILY July 26, 2024 12:00am multivit,thx,calcium, iron,mins (MULTIVITAMIN AND MINERAL ORAL) (14 sources) multivit,thx,maria cium ,iron,mins (MULTIVITAMIN AND MINERAL ORAL) Take by mouth. Active Multivitamin (Daily Multi-Vitamin) tablet (6 sources) Start: 4 Multivitamin (Daily Multi-Vitamin) tablet Active 1 {tbl} PO DAILY January 13, 2024 1:00am [place] 3-Brs-Cud-Fish Oil 200-300-1,000 mg capsule (5 sources) Start: 5 take 200-300 capsules by mouth once daily [place] 1-Dcn-Kng-Fish Oil 200-300-1,000 mg capsule Active 1 NMA PO DAILY July 26, 2024 12:00am omeprazole 20 mg delayed release oral capsule (20 sources) Proton Pump Inhibitor Start: 4 take 1 capsule by mouth once daily Omeprazole 20 mg capsule,delayed release(DR/EC) Active 20 mg PO DAILY January 13, 2024 1:00am Start: 11-05-2022 take 1 capsule by [facility] once daily omeprazole (PRILOSEC) 40 mg capsule Take 1 capsule by mouth once daily. 30 capsule 2 11/05/2022 Active Comment on above: Take 1 capsule by mo [facility] once daily. Potassium (5 sources) Start: 07-26-2024 take 1 tablet by [...] above: Take 1 tablet by peri once daily as needed for pain for up to 3 days. drospirenone 4 mg oral tablet (8 sources) Progestin Start: 09-24-2022 End: 01-13-2024 take [...] contrast guidelines famotidine 20 mg oral tablet (8 sources) Histamine-2 Receptor Antagonist Start: 09-24-2022 End: [...] the CT contrast administration guidelines link. levonorgestrel 0.413261 mg/hr intrauterine system (20 sources) Progestin, Progestin-containing [...] aygestin for daily use). polyethylene glycol 3350 131409 mg / potassium chloride 2980 mg / sodium bicarbonate 6720 mg / sodium chloride 5840 mg / sodium sulfate 58513 mg powder for oral solution (1 source) [...] Date Documented Da te Episodic/Chronic Abdominal hernia (12 sources) Hiatal hernia; Translations: [Diaphragmatic hernia without obstruction or gangrene] Onset: 5 11-05-2022 Episodic Cardiac dysrhythmias (13 sources) Multiple premature ventricular complexes; Translations: [Ventricular premature depolarization] Onset: 5 07-26-2024 Chronic Cardiac dysrhythmias (7 sources) Tachycardia; Translations: [Tachycardia, unspecified] Onset: 5 07-17-2024 Episodic Endometriosis (3 sources) Uterine adenomyosis; Translations: [Adenomyosis] 11-23-2023 Chronic Esophageal disorders (2 sources) Gastroesophageal reflux disease without esophagitis; Translations: [Gastro-esophageal reflux disease without esophagitis] 11-05-2022 Chronic Menopausal disorders (20 sources) Menorrhagia; Translations: [Excessive bleeding in the premenopausal period] Onset: 3 09-12-2012 Chronic Menstrual disorders (3 sources) Dysmenorrhea; Translations: [Dysmenorrhea, unspecified] Chronic Nonspecific chest pain (18 sources) Atypical chest pain; Translations: [Other chest [...] conditions (not mental disorders or infectious disease) (8 sources) Mammography abnormal; Translations: [Other abnormal and inconclusive findings on diagnostic imaging of breast] Onset: 5 08-23-2024 Episodic Residual codes; unclassified (4 sources) Postoperative state; Translations: [Other specified postprocedural states] 10-12-2022 Episodic Residual codes; unclassified (1 source) Flushing; Translations: [Flushing] 04-14-2023 Episodic Sprains and strains (1 source) Sprain of unspecified ligament of unspecified ankle, initial encounter; Translations: [Sprain of unspecified ligament of unspecified ankle, initial encounter] Onset: 5 Episodic Substance-related disorders (11 sources) Nicotine dependence; Translations: [Nicotine dependence, unspecified, [...] Test Name Value Interpretation Reference Range Facility Cardiology Visit Reporton Cardiology Visit Report [facility] [address] [place] [address] OFFICE VISIT Date of Service: 09/27/24 MR#: [id number] Acct: [id number] Name: SREE CESAR Rep #: [id number] : 1985 Provider: LEVI Holden Age/Sex: 39/F [place] [facility] [place] Status: Signed HPI HPI History of Present Illness Details: Sree Cesar is a 39-year-old female who presents to office today for follow-up for monitoring her cardiovascular health. Patient was referred to cardiology earlier this year, 2024 due to experiencing intermittent anterior chest tightness that lasts a few minutes, mostly noticed at rest without any radiation. She is also presenting with concerns of arrhythmia. She reported an episode where she woke up with sharp anterior chest discomfort, palpitations and her heart rate was around 150 bpm. She presented to the emergency room and CT scan was negative for pulmonary embolism and she was noted to be in sinus tachycardia at 115 bpm. A 7-day event monitor was ordered that demonstrated rare PVCs, 1 fusion beat followed by ventricular triplet. She was evaluated via exercise stress test and this did not demonstrate any ischemia. Her echocardiogram 08/31/2024 demonstrated preserved ejection fraction at 65% and trivial valve insufficiency. Upon presentation today, patient reports chest pain has become less severe and less often, noticing this a couple times per week. This is not associated with exercise or her palpitations. She does experience palpitations described as fast heart rate and captures this on a pulse ox at home and reports reading at 130s. This is reported to happen a couple times per week. She can tolerate her normal activity without anginal or anginal equivalent symptoms. She does notice some SOB with carrying 50lb dog up a flight of stairs but denies SOB otherwise. Further ROS below. Intake Vital Signs 07/26/24 08:29 09/27/24 07:38 Height 5 ft 5 in 5 ft 5 in Weight: 184 lb BMI 30.6 BP 119/82 H Blood Pressure Location Lt brachial Position Sitting Respiration 18 Pulse 92 Pulse Source Monitor Pulse Oximetry (%) 97 Intake Visit Reasons: 3 M FU Engraver Picture Required: No Is patient in pain?: No Allergies amoxicillin Adverse Reaction (Verified 07/26/24 08:57) Other azithromycin Adverse Reaction (Verified 07/26/24 08:57) Other Medications ???Medication ???Instructions ???Recorded ???Confirmed ???Type ibuprofen 800 mg tablet 800 mg PO Q8H PRN PRN migraine 09/27/24 History multivitamin (Daily Multi-Vitamin 1 tab PO DAILY 01/13/24 09/27/24 History tablet) omeprazole 20 mg capsule,delayed 20 mg PO DAILY 01/13/24 09/27/24 H istory release magnesium citrate,mag oxide 250 mg 150 mg PO DAILY 07/26/24 5 History capsule omega 3-dha 200 mg-epa 300 mg-fish 1 cap PO DAILY 07/26/24 09/27/24 History oil 1,000 mg capsule potassium 200 mg PO DAILY 07/26/24 09/27/24 History Ejection fraction %: 65 Have you fallen in the past year?: Yes PFSH Medical History Chest pain radiating to arm Hiatal hernia Tachycardia Atypical chest pain Abrasion Migraine headache Gastric reflux Smoker Surgical History S/P partial hysterectomy Hx of ovarian cystectomy History of tubal ligation History of appendectomy Social History household members: spouse and children current occupational status: employed current occupation: [employer] Daily pets and animals: Yes pets and animals: cat(s) and dog(s) Smoking Status: Current every day smoker tobacco type: cigarettes ROS Const Const: Negative for fatigue, weakness, headache(s) or frequent falls Eyes Eyes: Negative for blurry vision ENT ENT: Negative for headache(s), dizziness or Nosebleed/epistaxis Cardio Chest Pain: Yes (anterior chest pain) Palpitations: Yes feels like its: fast Edema: None Muscle aches with walking: None Resp Respiratory: Positive for SOB with activity (over exertion); Negative for SOB at rest or SOB orthopnea SOB lying down GI GI: Negative nausea, vomiting, heartburn, bright, red blood in stools or black,tarry stools : Negative for hematuria Neuro Neuro: Negative for dizziness, lightheadedness, near syncope, syncope, frequent falls, headache(s), weakness or blurry vision Endo Endo: Negative for fatigue Cardiology Exam Const Appearance: cooperative, comfortable, no acute distress and well developed; Negative diaphoretic or ill appearing Nutritional Appearance: overweight Orientation: alert and oriented x3 Ambulating without assistive device Head Head: normal to inspection, normocephalic and atraumatic Ears: hearing grossly normal b (more content not included)... Normal [facility] Echocardiogram study reportO rdered By: Quin Snider on 09-05-2024 Study report [facility] [address] [facility] [address] Echo Complete 08/31/24 0801 MR#: [id number] Acct: [id number] Name: SREE CESAR Rep #:[id number] : 1985 39 From: Quin Snider MD Attending Dr: Dr. Quin Snider MD Status: REG CLI Ordering Dr: Quin Snider MD Date: [facility] Sex: F C Admitted: Reason For Study Reason For Study: Arrhythmia Procedure This was a 2D Doppler, Color Flow transthoracic echocardiogram. Exam performed in department. Left Ventricle The left ventricle is normal in size, thickness, sytstolic function, and diastolic function. The left ventricular ejection fraction is 65 %. Right Ventricle Normal right ventricle. Atria The left and right atria are normal. Mitral Valve Trivial mitral valve insufficiency. Tricuspid Valve Trivial tricuspid valve insufficiency. Unable to estimate RV systolic pressure due to insufficient tricuspid regurgitant envelope. Aortic Valve Trisinus/trileaflet aortic valve. Pulmonic Valve The pulmonic valve is not well visualized. Great Vessels Normal aortic root. Pericardium/Pleural No pericardial effusion. MMode/2D Measurements & Calculations LVIDd: 4.0 cm IVSd: 0.94 cm Ao root diam: 3.5 cm LVIDs: 2.9 cm LVPWd: 0.99 cm RVDd: 3.4 cm FS: 26.9 % LAV(MOD-bp): 26.8 ml LVAd ap4: 28.0 cm2 SV(MOD-sp4): 41.9 ml LAV(MOD-bp) Indexed: 13.8 ml/m2 LVLd ap4: 8.6 cm SI(MOD-sp4): 21.6 ml/m2 LAV(MOD-sp2): 26.7 ml EDV(MOD-sp4): 75.1 ml LAV(MOD-sp4): 22.3 ml EDV(sp4-el): 77.1 ml LVAs ap4: 17.3 cm2 LVLs ap4: 7.3 cm ESV(MOD-sp4): 33.2 ml ESV(sp4-el): 34.7 ml EF(MOD-sp4): 55.8 % EF(sp4-el): 55.0 % SV(sp4-el): 42.4 ml LA A4 area: 11.6 cm2 LA dimension(2D): 3.3 cm RA A4 area: 12.0 cm2 TAPSE: 2.3 cm Time Measurements MV dec time: 0.19 sec Doppler Measurements & Calculations MV E max berenice: 72.2 cm/sec Lat Peak E' Berenice: 13.0 cm/sec Med Peak E' Berenice: 11.6 cm/sec MV A max berenice: 71.5 cm/sec E/E' lat: 5.5 E/E' med: 6.2 MV E/A: 1.0 MV V2 max: 80.6 cm/sec MV P1/2t max berenice: 81.5 cm/sec Ao V2 max: 99.3 cm/sec MV max P.6 mmHg MV P1/2t: 70.1 msec Ao max P.9 mmHg MV V2 mean: 49.3 cm/sec Ao V2 mean: 72.3 cm/sec MV mean P.1 mmHg MV dec slope: 340.6 cm/sec2 Ao mean P.4 mmHg MV V2 VTI: 27.6 cm MVA(P1/2t): 3.1 cm2 Ao V2 VTI: 21.5 cm AV (velocity ratio): 0.90 LV V1 max: 92.3 cm/sec PA V2 max: 70.1 cm/sec LV V1 max P.4 mmHg LV V1 mean P.9 mmHg LV V1 mean: 63.6 cm/sec LV V1 VTI: 19.2 cm ECHO/Echo Complete Interpretation Summary The left ventricular ejection fraction is 65 %. Ordering Physician: Quin Snider Referring Physician: Quin Snider Performed By: Mert Pérez RCS 09/05/24936 Date _ Quin Snider MD CC: Dr. Quin Snider MD; Dr. Oliver Wong MD ~ Date Dictated: 08/31/24800 Date Transcribed: 09/05/24936 Events Administrative Assistant: Signed [facility] Work Phone: Echo Completeon 08-31-2024 Echo Complete [facility] [address] [place] [address] Echo Complete 08/31/24800 MR#: [id number] Acct: [id number] Name: SREE CESAR Rep #: [id number] : 1985 39 From: Quin Snider MD Attending Dr: Dr. Quin Snider MD Status: REG CLI Ordering Dr: Quin Snider MD Date: 08/31/24 [facility]: [facility] Sex: F C Admitted: Reason For Study Reason For Study: Arrhythmia Procedure This was a 2D Doppler, Color Flow transthoracic echocardiogram. Exam performed in department. Left Ventricle The left ventricle is normal in size, thickness, sytstolic function, and diastolic function. The left ventricular ejection fraction is 65 %. Right Ventricle Normal right ventricle. Atria The left and right atria are normal. Mitral Valve Trivial mitral valve insufficiency. Tricuspid Valve Trivial tricuspid valve insufficiency. Unable to estimate RV systolic pressure due to insufficient tricuspid regurgitant envelope. Aortic Valve Trisinus/trileaflet aortic valve. Pulmonic Valve The pulmonic valve is not well visualized. Great Vessels Normal aortic root. Pericardium/Pleural No pericardial effusion. MMode/2D Measurements Calculations LVIDd: 4.0 cm IVSd: 0.94 cm Ao root diam: 3.5 cm LVIDs: 2.9 cm LVPWd: 0.99 cm RVDd: 3.4 cm FS: 26.9 % LAV(MOD-bp): 26.8 ml LVAd ap4: 28.0 cm2 SV(MOD-sp4): 41.9 ml LAV(MOD-bp) Indexed: 13.8 ml/m2 LVLd ap4: 8.6 cm SI(MOD-sp4): 21.6 ml/m2 LAV(MOD-sp2): 26.7 ml EDV(MOD-sp4): 75.1 ml LAV(MOD-sp4): 22.3 ml EDV(sp4-el): 77.1 ml LVAs ap4: 17.3 cm2 LVLs ap4: 7.3 cm ESV(MOD-sp4): 33.2 ml ESV(sp4-el): 34.7 ml EF(MOD-sp4): 55.8 % EF(sp4-el): 55.0 % SV(sp4-el): 42.4 ml LA A4 area: 11.6 cm2 LA dimension(2D): 3.3 cm RA A4 area: 12.0 cm2 TAPSE: 2.3 cm Time Measurements MV dec time: 0.19 sec Doppler Measurements Calculations MV E max berenice: 72.2 cm/sec Lat Peak E' Berenice: 13.0 cm/sec Med Peak E' Berenice: 11.6 cm/sec MV A max berenice: 71.5 cm/sec E/E' lat: 5.5 E/E' med: 6.2 MV E/A: 1.0 MV V2 max: 80.6 cm/sec MV P1/2t max berenice: 81.5 cm/sec Ao V2 max: 99.3 cm/sec MV max P.6 mmHg MV P1/2t: 70.1 msec Ao max P.9 mmHg MV V2 mean: 49.3 cm/sec Ao V2 mean: 72.3 cm/sec MV mean P.1 mmHg MV dec slope: 340.6 cm/sec2 Ao mean P.4 mmHg MV V2 VTI: 27.6 cm MVA(P1/2t): 3.1 cm2 Ao V2 VTI: 21.5 cm AV (velocity ratio): 0.90 LV V1 max: 92.3 cm/sec PA V2 max: 70.1 cm/sec LV V1 max P.4 mmHg LV V1 mean P.9 mmHg LV V1 mean: 63.6 cm/sec LV V1 VTI: 19.2 cm ECHO/Echo Complete Interpretation Summary The left ventricular ejection fraction is 65 %. Ordering Physician: Quin Snider Referring Physician: Quin Snider Performed By: Mert Pérez RCS 09/05/24936 Date Quin Snider MD CC: Dr. Quin Snider MD; Dr. Oliver Wong MD Date Dictated: 08/31/24 08 Date Transcribed: 09/05/24936 Events Administrative Assistant: Signed Normal [facility] Cardiovascular stress test r eportOrdered By: Quin Snider on 08-23-2024 Study report [facility] [address] [place] [address] MR#: [id number] Acct: [id number] Name: SREE CESAR Rep #: [id number] : 1985 39 From: Quin Snider MD Primary Care: Dr. Oliver Wong MD Status : REG CLI Referring Dr: Quin Snider MD Sex: F C Stress Test Report Date: 08/23/2024 Procedure: Exercise tolerance test/imaging study Indications: Arrhythmia Consent: Per the patient Procedure: The patient exercised on a Tung protocol for 9 minutes and 30 seconds achievinga peak heart rate of 157 bpm (87% predicted maximal heart rate) with a peak blood pressure 140/72 mmHg and a peak MET capacity of 11.7 METs. The baseline ECG demonstrated sinus rhythm. The peak exercise ECG no ischemic changes. Occasional PVCs noted during recovery.o The functional capacity was considered excellent. There was no complaint of chest discomfort during exercise or recovery. The examination was discontinued secondary to target heart rate being achieved. The patient was injected with 13.8 mCi of technetium 99m Cardiolite and subsequently rest SPECT Cardiolite nuclear imaging was obtained in the horizontal long, vertical long, and short axis views. Post-exercise, the patientwas injected with 42.2 mCi of technetium 99m Cardiolite and subsequently stress SPECT Cardiolite nuclear imaging was obtained in the horizontal long, vertical long, and short axis views. A gated Cardiolite study at peak stress was obtained. Rest and stress SPECT Cardiolite nuclear imaging status post realignment, normalization, and attenuation correction, demonstrates barked artifacts at rest. However poststress images failed to reveal any hypoperfusion. There is end systolic thickening and brightening. The gated Cardiolite study demonstrates myocardial thickening and inward wall motion. The reported LVEF is 78%. Impression: 1. Technically adequate (percent predicted maximal heart rate greater than 85%)exercise tolerance test 2. Peak exercise ECG with no ischemic changes. Negative exercise ECG for ischemia at excellent workload. 3. Occasional PVCs in recovery. 4. Marked artifact at rest however post-rest images showed normal perfusion pattern. No ischemia noted. 5. The gated Cardiolite study reports an LVEF of 78%. This note was generated with [employer] software. It may contain incorrectwords, spelling, and punctuation that were not noted in checking the note beforesigning. 08/23/24 1112 Date _ Quin Snider MD CC: Dr. Quin Snider MD; Dr. Oliver Wong MD ~ Date Dictated: 08/23/241105 Date Transcribed: 08/23/241105 Events Administrative Assistant: [place] [facility] Work Phone: DBT Breast - right diagnosti c for gaurangon 08-23-2024 IMPRESSION: There is no mammographic or sonographic evidence of malignancy. Return to annual screening mammogram is recommended. Annual mammogram will be due in 11 months. BI-RADS Category 2: Benign RISK: Based on the [facility] risk assessment model, this patient has a 25.9% lifetime risk of developing breast cancer. However, this is only an estimate based on available history provided on the patient's questionnaire. Because patients with a lifetime risk of 20% or greater may benefit from additional supplemental screening, we encourage a full breast clinical evaluation and comprehensive breast cancer risk assessment to guide further decision making. For more information regarding the management of patients at high risk for developing breast cancer, providers should refer to the following [facility] Care Path: Increased Risk for Breast Cancer Care Path v.5. Additionally, a referral to the [facility] is also appropriate. Interpreting Radiologist: Liborio Roberts M.D. Electronically signed on: 08/23/2024 Events Administrative Assistant: SAVANA Richribella Date/Time: Aug 23 2024 8:04A Dictated by: LIBORIO ROBERTS MD This examination was interpreted and the report reviewed and electronically signed by: LIBORIO ROBERTS MD on Aug 23 2024 9:06AM [facility] DIVISION OF RADIOLOGY * * *Final Report* * * DATE OF EXAM: Aug 23 2024 8:04AM [facility] 0629 - [facility] MICHELLE RAMIREZ RT / PROCEDURE REASON: Abnormal mammogram * * * * Physician Interpretation * * * * RESULT: [address] [address] [place] [address] #[id number] - [facility] MICHELLE ROSENTHALO RT #[id number] - [facility] RT HISTORY: 39 year-old patient presents for diagnostic evaluation of the finding(s) described on prior mammogram in the right breast. Patient states no personal history of breast cancer. The patient has a family history of breast cancer. COMPARISON STUDIES: The present examination has been compared to prior imaging studies dated 07/07/2023 (mammogram) and 07/12/2024 (mammogram). MAMMOGRAM TECHNIQUE: The study was acquired using full field digital technology and interpreted from soft copy. Digital Breast Tomosynthesis (DBT) images were obtained and used to assist in the interpretation of this examination. MAMMOGRAM FINDINGS: The breast is extremely dense, which lowers the sensitivity of mammography. There is an equal dense focal asymmetry measuring 2 cm with circumscribed margins in the upper inner quadrant of the right breast. No suspicious masses, calcifications or other abnormalities are seen in the right breast. ULTRASOUND TECHNIQUE: Targeted ultrasound of the indicated area was performed. Schmidt scale images were saved. ULTRASOUND FINDINGS: Ultrasound demonstrates an oval cyst measuring 2 cm in the upper inner quadrant of the right breast. Color flow imaging demonstrates vascularity is not present. There are no suspicious findings in the imaged area. DIVISION OF RADIOLOGY Provider, [facility] [place] - 08/23/2024 * * *Final Report* * * DATE OF EXAM: Aug 23 2024 8:04AM [facility] 0629 - [facility] [facility] DI[facility] W ASHLEY [facility] / PROCEDURE REASON: Abnormal mammogram * * * * Physician Interpretation * * * * RESULT: [place] [address] #[id number] - [facility] DIAG W ASHLEY RT #[id number] - [facility] BREAST LTD RT HISTORY: 39 year-old patient presents for diagnostic evaluation of the finding(s) described on prior mammogram in the right breast. Patient states no personal history of breast cancer. The patient has a family history of breast cancer. COMPARISON STUDIES: The present examination has been compared to prior imaging studies dated 07/07/2023 (mammogram) and 07/12/2024 (mammogram). MAMMOGRAM TECHNIQUE: The study was acquired using full field digital technology and interpreted from soft copy. Digital Breast Tomosynthesis (DBT) images were obtained and used to assist in the interpretation of this examination. MAMMOGRAM FINDINGS: The breast is extremely dense, which lowers the sensitivity of mammography. There is an equal dense focal asymmetry measuring 2 cm with circumscribed margins in the upper inner quadrant of the right breast. No suspicious masses, calcifications or other abnormalities are seen in the right breast. ULTRASOUND TECHNIQUE: Targeted ultrasound of the indicated area was performed. Schmidt scale images were saved. ULTRASOUND FINDINGS: Ultrasound demonstrates an oval cyst measuring 2 cm in the upper inner quadrant of the right breast. Color flow imaging demonstrates vascularity is not present. There are no suspicious findings in the imaged area. IMPRESSION IMPRESSION: There is no mammographic or sonographic evidence of malignancy. Return to annual screening mammogram is recommended. Annual mammogram will be due in 11 months. BI-RADS Category 2: Benign RISK: Based on the [facility] risk assessment model, this patient has a 25.9% lifetime risk of developing breast cancer. However, this is only an estimate based on available history provided on the patient's questionnaire. Because patients with a lifetime risk of 20% or greater may benefit from additional supplemental screening, we encourage a full breast clinical evaluation and comprehensive breast cancer risk assessment to guide further decision making. For more information regarding the management of patients at high risk for developing breast cancer, providers should refer to the following [facility] Care Path: Increased Risk for Breast Cancer Care Path v.5. Additionally, a referral to the [facility] is also appropriate. Interpreting Radiologist: Liborio Roberts M.D. Electronically signed on: 08/23/2024 Events Administrative Assistant: SAVANA Transcribella Date/Time: Aug 23 2024 8:04A Dictated by: LIBORIO ROBERTS MD This examination was interpreted and the report reviewed and electronically signed by: LIBORIO ROBERTS MD on Aug 23 2024 9:06AM EST [facility] DBT Breast - right diagnosti c for implantOrdered By: Ccf Provider on 08-23-2024 [facility] DIAG W ASHLEY RTon 025 [facility] DIAG W ASHLEY RT * * *Final Report* * * DATE OF EXAM: Aug 23 2024 8:04AM [facility] 0629 - [facility] DI[facility] W ASHLEY RT / PROCEDURE REASON: Abnormal mammogram * * * * Physician Interpretation * * * * RESULT: [address] [address] #[id number] - [facility] DI[facility] W ASHLEY RT #[id number] - [facility] BREAST LTD RT HISTORY: 39 year-old patient presents for diagnostic evaluation of the finding(s) described on prior mammogram in the right breast. Patient states no personal history of breast cancer. The patient has a family history of breast cancer. COMPARISON STUDIES: The present examination has been compared to prior imaging studies dated 07/07/2023 (mammogram) and 07/12/2024 (mammogram). MAMMOGRAM TECHNIQUE: The study was acquired using full field digital technology and interpreted from soft copy. Digital Breast Tomosynthesis (DBT) images were obtained and used to assist in the interpretation of this examination. MAMMOGRAM FINDINGS: The breast is extremely dense, which lowers the sensitivity of mammography. There is an equal dense focal asymmetry measuring 2 cm with circumscribed margins in the upper inner quadrant of the right breast. No suspicious masses, calcifications or other abnormalities are seen in the right breast. ULTRASOUND TECHNIQUE: Targeted ultrasound of the indicated area was performed. Schmidt scale images were saved. ULTRASOUND FINDINGS: Ultrasound demonstrates an oval cyst measuring 2 cm in the upper inner quadrant of the right breast. Color flow imaging demonstrates vascularity is not present. There are no suspicious findings in the imaged area. IMPRESSION: There is no mammographic or sonographic evidence of malignancy. Return to annual screening mammogram is recommended. Annual mammogram will be due in 11 months. BI-RADS Category 2: Benign RISK: Based on the [facility] risk assessment model, this patient has a 25.9% lifetime risk of developing breast cancer. However, this is only an estimate based on available history provided on the patient's questionnaire. Because patients with a lifetime risk of 20% or greater may benefit from additional supplemental screening, we encourage a full breast clinical evaluation and comprehensive breast cancer risk assessment to guide further decision making. For more information regarding the management of patients at high risk for developing breast cancer, providers should refer to the following [facility] Care Path: Increased Risk for Breast Cancer Care Path v.5. Additionally, a referral to the [facility] Clinic is also appropriate. Interpreting Radiologist: Liborio Roberts M.D. Electronically signed on: 08/23/2024 Events Administrative Assistant: SAVANA Transcribe Date/Time: Aug 23 2024 8:04A Dictated by: LIBORIO ROBERTS MD This examination was interpreted and the report reviewed and electronically signed by: LIBORIO ROBERTS MD on Aug 23 2024 9:06AM EST [id number] CN Normal [facility] US BREAST LTD RTon 08-23 [facility] US BREAST LTD RT * * *Final Report* * * DATE OF EXAM: Aug 23 2024 8:35AM [facility] 0594 - [facility] US BREAST LTD RT / PROCEDURE REASON: Abnormal mammogram * * * * Physician Interpretation * * * * [place] [address] #[id number] - [facility] DIAG W ASHLEY RT #[id number] - [facility] US BREAST LTD RT HISTORY: 39 year-old patient presents for diagnostic evaluation of the finding(s) described on prior mammogram in the right breast. Patient states no personal history of breast cancer. The patient has a family history of breast cancer. COMPARISON STUDIES: The present examination has been compared to prior imaging studies dated 07/07/2023 (mammogram) and 07/12/2024 (mammogram). MAMMOGRAM TECHNIQUE: The study was acquired using full field digital technology and interpreted from soft copy. Digital Breast Tomosynthesis (DBT) images were obtained and used to assist in the interpretation of this examination. MAMMOGRAM FINDINGS: The breast is extremely dense, which lowers the sensitivity of mammography. There is an equal dense focal asymmetry measuring 2 cm with circumscribed margins in the upper inner quadrant of the right breast. No suspicious masses, calcifications or other abnormalities are seen in the right breast. ULTRASOUND TECHNIQUE: Targeted ultrasound of the indicated area was performed. Schmidt scale images were saved. ULTRASOUND FINDINGS: Ultrasound demonstrates an oval cyst measuring 2 cm in the upper inner quadrant of the right breast. Color flow imaging demonstrates vascularity is not present. There are no suspicious findings in the imaged area. IMPRESSION: There is no mammographic or sonographic evidence of malignancy. Return to annual screening mammogram is recommended. Annual mammogram will be due in 11 months. BI-RADS Category 2: Benign RISK: Based on the [facility] risk assessment model, this patient has a 25.9% lifetime risk of developing breast cancer. However, this is only an estimate based on available history provided on the patient's questionnaire. Because patients with a lifetime risk of 20% or greater may benefit from additional supplemental screening, we encourage a full breast clinical evaluation and comprehensive breast cancer risk assessment to guide further decision making. For more information regarding the management of patients at high risk for developing breast cancer, providers should refer to the following [facility] Care Path: Increased Risk for Breast Cancer Care Path v.5. Additionally, a referral to the [facility] is also appropriate. Interpreting Radiologist: Liborio Roberts M.D. Electronically signed on: 08/23/2024 Events Administrative Assistant: SAVANA Transcribe Date/Time: Aug 23 2024 8:26A Dictated by : LIBORIO ROBERTS MD This examination was interpreted and the report reviewed and electronically signed by: LIBORIO ROBERTS MD on Aug 23 2024 9:06AM EST [id number] CN Normal [facility] No Panel Informationon 08-23 Radiology Study observation (narrative) [facility] Stress Reporton 08-23-2024 Stress Report [facility] [address] [place] [id number] MR#: [id number] Acct: [id number] Name: SREE CESAR Rep #: [id number] : 1985 39 From: Quin Snider MD Primary Care: Dr. Oliver Wong MD Status: REG CLI Referring Dr: Quin Snider MD Sex: F C Stress Test Report Date: 08/23/2024 Procedure: Exercise tolerance test/imaging study Indications: Arrhythmia Consent: Per the patient Procedure: The patient exercised on a Tung protocol for 9 minutes and 30 seconds achieving a peak heart rate of 157 bpm (87% predicted maximal heart rate) with a peak blood pressure 140/72 mmHg and a peak MET capacity of 11.7 METs. The baseline ECG demonstrated sinus rhythm. The peak exercise ECG no ischemic changes. Occasional PVCs noted during recovery.o The functional capacity was considered excellent. There was no complaint of chest discomfort during exercise or recovery. The examination was discontinued secondary to target heart rate being achieved. The patient was injected with 13.8 mCi of technetium 99m Cardiolite and subsequently rest SPECT Cardiolite nuclear imaging was obtained in the horizontal long, vertical long, and short axis views. Post-exercise, the patient was injected with 42.2 mCi of technetium 99m Cardiolite and subsequently stress SPECT Cardiolite nuclear imaging was obtained in the horizontal long, vertical long, and short axis views. A gated Cardiolite study at peak stress was obtained. Rest and stress SPECT Cardiolite nuclear imaging status post realignment, normalization, and attenuation correction, demonstrates barked artifacts at rest. However poststress images failed to reveal any hypoperfusion. There is end systolic thickening and brightening. The gated Cardiolite study demonstrates myocardial thickening and inward wall motion. The reported LVEF is 78%. Impression: 1. Technically adequate (percent predicted maximal heart rate greater than 85%) exercise tolerance test 2. Peak exercise ECG with no ischemic changes. Negative exercise ECG for ischemia at excellent workload. 3. Occasional PVCs in recovery. 4. Marked artifact at rest however post-rest images showed normal perfusion pattern. No ischemia noted. 5. The gated Cardiolite study reports an LVEF of 78%. This note was generated with [facility] dictation software. It may contain incorrect words, spelling, and punctuation that were not noted in checking the note before signing. 08/23/24 1112 Date Quin Snider MD CC: Dr. Quin Snider MD; Dr. Oliver Wong MD Date Dictated: 08/23/24 1106 Date Transcribed: 08/23/241105 Events Administrative Assistant: CHUNG Signed [facility] Breast right limited 08-23-2024 IMPRESSION: There is no mammographic or sonographic evidence of malignancy. Return to annual screening mammogram is recommended. Annual mammogram will be due in 11 months. BI-RADS Category 2: Benign RISK: Based on the [facility] risk assessment model, this patient has a 25.9% lifetime risk of developing breast cancer. However, this is only an estimate based on available history provided on the patient's questionnaire. Because patients with a lifetime risk of 20% or greater may benefit from additional supplemental screening, we encourage a full breast clinical evaluation and comprehensive breast cancer risk assessment to guide further decision making. For more information regarding the management of patients at high risk for developing breast cancer, providers should refer to the following [facility] Care Path: Increased Risk for Breast Cancer Care Path v.5. Additionally, a referral to the [facility] Clinic is also appropriate. Interpreting Radiologist: Liborio Roberts M.D. Electronically signed on: 08/23/2024 Events Administrative Assistant: SAVANA Transcribella Date/Time: Aug 23 2024 8:26A Dictated by : LIBORIO ROBERTS MD This examination was interpreted and the report reviewed and electronically signed by: LIBORIO ROBERTS MD on Aug 23 2024 9:06AM [facility] DIVISION OF RADIOLOGY * * *Final Report* * * DATE OF EXAM: Aug 23 2024 8:35AM [facility] 0594 - [facility] [place] BREAST LTD RT / PROCEDURE REASON: Abnormal mammogram * * * * Physician Interpretation * * * * [place] [address] #[id number] - [facility] DIAG W ASHLEY RT #[id number] - [facility] [place] BREAST LTD RT HISTORY: 39 year-old patient presents for diagnostic evaluation of the finding(s) described on prior mammogram in the right breast. Patient states no personal history of breast cancer. The patient has a family history of breast cancer. COMPARISON STUDIES: The present examination has been compared to prior imaging studies dated 07/07/2023 (mammogram) and 07/12/2024 (mammogram). MAMMOGRAM TECHNIQUE: The study was acquired using full field digital technology and interpreted from soft copy. Digital Breast Tomosynthesis (DBT) images were obtained and used to assist in the interpretation of this examination. MAMMOGRAM FINDINGS: The breast is extremely dense, which lowers the sensitivity of mammography. There is an equal dense focal asymmetry measuring 2 cm with circumscribed margins in the upper inner quadrant of the right breast. No suspicious masses, calcifications or other abnormalities are seen in the right breast. ULTRASOUND TECHNIQUE: Targeted ultrasound of the indicated area was performed. Schmidt scale images were saved. ULTRASOUND FINDINGS: Ultrasound demonstrates an oval cyst measuring 2 cm in the upper inner quadrant of the right breast. Color flow imaging demonstrates vascularity is not present. There are no suspicious findings in the imaged area. DIVISION OF RADIOLOGY Provider, [facility] [place] - 08/23/2024 * * *Final Report* * * DATE OF EXAM: Aug 23 2024 8:35AM [facility] 0594 - [facility] [place] BREAST LTD RT / PROCEDURE REASON: Abnormal mammogram * * * * Physician Interpretation * * * * [place] [address] #[id number] - [facility] MICHELLE RAMIREZ RT #[id number] - [facility] US BREAST LTD RT HISTORY: 39 year-old patient presents for diagnostic evaluation of the finding(s) described on prior mammogram in the right breast. Patient states no personal history of breast cancer. The patient has a family history of breast cancer. COMPARISON STUDIES: The present examination has been compared to prior imaging studies dated 07/07/2023 (mammogram) and 07/12/2024 (mammogram). MAMMOGRAM TECHNIQUE: The study was acquired using full field digital technology and interpreted from soft copy. Digital Breast Tomosynthesis (DBT) images were obtained and used to assist in the interpretation of this examination. MAMMOGRAM FINDINGS: The breast is extremely dense, which lowers the sensitivity of mammography. There is an equal dense focal asymmetry measuring 2 cm with circumscribed margins in the upper inner quadrant of the right breast. No suspicious masses, calcifications or other abnormalities are seen in the right breast. ULTRASOUND TECHNIQUE: Targeted ultrasound of the indicated area was performed. Schmidt scale images were saved. ULTRASOUND FINDINGS: Ultrasound demonstrates an oval cyst measuring 2 cm in the upper inner quadrant of the right breast. Color flow imaging demonstrates vascularity is not present. There are no suspicious findings in the imaged area. IMPRESSION IMPRESSION: There is no mammographic or sonographic evidence of malignancy. Return to annual screening mammogram is recommended. Annual mammogram will be due in 11 months. BI-RADS Category 2: Benign RISK: Based on the [facility] risk assessment model, this patient has a 25.9% lifetime risk of developing breast cancer. However, this is only an estimate based on available history provided on the patient's questionnaire. Because patients with a lifetime risk of 20% or greater may benefit from additional supplemental screening, we encourage a full breast clinical evaluation and comprehensive breast cancer risk assessment to guide further decision making. For more information regarding the management of patients at high risk for developing breast cancer, providers should refer to the following [facility] Care Path: Increased Risk for Breast Cancer Care Path v.5. Additionally, a referral to the [facility] is also appropriate. Interpreting Radiologist: Liborio Roberts M.D. Electronically signed on: 08/23/2024 Events Administrative Assistant: SAVANA Transcribe Date/Time: Aug 23 2024 8:26A Dictated by : LIBORIO ROBERTS MD This examination was interpreted and the report reviewed and electronically signed by: LIBORIO ROBERTS MD on Aug 23 2024 9:06AM EST [facility] US Breast - right limitedOrd ered By: Ccf Provider on 08-23-2024 [facility] Absolute lymphocyte countOrd ered By: Quin Snider on 07-26-2024 Lymphocytes Auto (Unsp spec) [#/Vol] 2.49 10*3/uL 0.83-4.51 [facility] Absolute neutrophil countOrd ered By: Quincely Snider on 07-26-2024 Neutrophils (Bld) [#/Vol] 5.6 10*3/uL 2.0-7.7 [facility] Anion gap in Serum or Plasma Ordered By: Quincely Snider on 07-26-2024 Anion gap [Moles/Vol] 11 mmol/L 5-15 [facility] Automated lymphocyte count a s percentage of total leukocytesOrdered By: Quincely Snider on 07-26-2024 Lymphocytes/100 WBC Auto (Unsp spec) 28.1 % 19-41 [facility] BUN/creatinine ratioOrdered By: Quincely Snider on 07-26-2024 Urea nitrogen/Creatinine [Mass ratio] 14.8 mg/mg 10- [facility] Basic Metabolic Profile (BMP )on 07-26-2024 BUN/CRE 14.8 RATIO Normal - [facility] Comment on above: Performed By: #### L 501.9520, L501.5200, L500.2500, L100.0100 #### [facility] [address] [place], [address] Calcium [Mass/Vol] 9.8 mg/dL Normal 7.6-11.0 [facility] Comment on above: Performed By: #### L 501.9520, L501.5200, L500.2500, L100.0100 #### [facility] [address] [place], [address] Chloride [Moles/Vol] 101 mmol/L Normal 98-108 [facility] Comment on above: Performed By: #### L 501.9520, L501.5200, L500.2500, L100.0100 #### [facility] [address] [place], [address] CO2 [Moles/Vol] 24.7 mmol/L Normal 21.0-32.0 [facility] Comment on above: Performed By: #### L 501.9520, L501.5200, L500.2500, L100.0100 #### [facility] [address] [place], [address] Creatinine [Mass/Vol] 0.89 mg/dL Normal 0.70-1.20 [facility] Comment on above: Performed By: #### L 501.9520, L501.5200, L500.2500, L100.0100 #### [facility] [address] [place], [address] GAP 11 Normal 5-15 [facility] Comment on above: Performed By: #### L 501.9520, L501.5200, L500.2500, L100.0100 #### [facility] [address] [place], [address] GFR/1.73 sq M.predicted among non-blacks MDRD (S/P/Bld) [Vol rate/Area] 84 mL/min/{1.73_m2} Normal >60 [facility] Comment on above: Result Comment: mL/m in/1.73m2 CKD-EPI Creatinine Equation (2020) Performed By: #### L 501.9520, L501.5200, L500.2500, L100.0100 #### [facility] [address] [place], [address] Glucose [Mass/Vol] 79 mg/dL Normal 70-99 [facility] Comment on above: Performed By: #### L 501.9520, L501.5200, L500.2500, L100.0100 #### [facility] [address] [place], [address] Potassium [Moles/Vol] 4.4 mmol/L Normal 3.3-5.1 [facility] Comment on above: Performed By: #### L 501.9520, L501.5200, L500.2500, L100.0100 #### [facility] [address] [place], [address] Sodium [Moles/Vol] 137 mmol/L Normal 133-145 [facility] Comment on above: Performed By: #### L 501.9520, L501.5200, L500.2500, L100.0100 #### [facility] [address] [place], [address] Urea nitrogen [Mass/Vol] 13 mg/dL Normal 4-19 [facility] Comment on above: Performed By: #### L 501.9520, L501.5200, L500.2500, L100.0100 #### [facility] [address] [place], [address] Basophil percentageOrdered B y: Quin Snider on 07-26-2024 Basophils/100 WBC (Bld) 0.6 % 0-1 [facility] CBC W/Diff, Automatedon 06-30 Absolute Lymph 2.49 X10 3/uL Normal 0.83-4.51 [facility] Comment on above: Performed By: #### L 501.9520, L501.5200, L500.2500, L100.0100 #### [facility] [address] [place], [address] Absolute Neut 5.6 X10 3/uL Normal 2.0-7.7 [facility] Comment on above: Performed By: #### L 501.9520, L501.5200, L500.2500, L100.0100 #### [facility] [address] [place], [address] Basophils/100 WBC (Bld) 0.6 % Normal 0-1 [facility] Comment on above: Performed By: #### L 501.9520, L501.5200, L500.2500, L100.0100 #### [facility] [address] [place], [address] Eosinophils/100 WBC (Bld) 1.9 % Normal 0-5 [facility] Comment on above: Performed By: #### L 501.9520, L501.5200, L500.2500, L100.0100 #### [facility] [address] [place], [address] Erythrocyte distribution width (RBC) [Ratio] 13.3 % Normal 11.6-14.6 [facility] Comment on above: Performed By: #### L 501.9520, L501.5200, L500.2500, L100.0100 #### [facility] [address] [place], [address] Hematocrit (Bld) [Volume fraction] 45.2 % Normal 37-47 [facility] Comment on above: Performed By: #### L 501.9520, L501.5200, L500.2500, L100.0100 #### [facility] [address] [place], [address] Hemoglobin (Bld) [Mass/Vol] 14.8 g/dL Normal 12.0-15.0 [facility] Comment on above: Performed By: #### L 501.9520, L501.5200, L500.2500, L100.0100 #### [facility] [address] [place], [address] IG% 0.500 Normal 0.0-0.9 [facility] Comment on above: Result Comment: IG% - Immature Granulocytes (promyelocytes, myelocytes and metamyelocytes) > 1% indicates that a LEFT SHIFT is Present. Performed By: #### L 501.9520, L501.5200, L500.2500, L100.0100 #### [facility] [address] [place], [address] Lymphocytes/100 WBC (Bld) 28.1 % Normal 19-41 [facility] Comment on above: Performed By: #### L 501.9520, L501.5200, L500.2500, L100.0100 #### [facility] [address] [place], [address] MCH (RBC) [Entitic mass] 29.0 pg Normal 27.0-32.0 [facility] Comment on above: Performed By: #### L 501.9520, L501.5200, L500.2500, L100.0100 #### [facility] [address] [place], [place], [address] MCHC (RBC) [Mass/Vol] 32.7 g/dL Normal 32-36 [facility] Comment on above: Performed By: #### L 501.9520, L501.5200, L500.2500, L100.0100 #### [facility] [address] [place], [address] MCV (RBC) [Entitic vol] 88.6 fL Normal 81-99 [facility] Comment on above: Performed By: #### L 501.9520, L501.5200, L500.2500, L100.0100 #### [facility] [address] [place], [address] Monocytes/100 WBC (Bld) 6.0 % Normal 0-10 [facility] Comment on above: Performed By: #### L 501.9520, L501.5200, L500.2500, L100.0100 #### [facility] [address] [place], [address] Neutrophils/100 WBC (Bld) 62.9 % Normal 47-70 [facility] Comment on above: Performed By: #### L 501.9520, L501.5200, L500.2500, L100.0100 #### [facility] [address] [place], [address] Nucleated RBC (Bld) [#/Vol] 0 10*3/uL Normal 0-5 [facility] Comment on above: Performed By: #### L 501.9520, L501.5200, L500.2500, L100.0100 #### [facility] [address] [place], [address] Platelet mean volume (Bld) [Entitic vol] 10.5 fL Normal 6.2-12.0 [facility] Comment on above: Performed By: #### L 501.9520, L501.5200, L500.2500, L100.0100 #### [facility] [address] [place], [address] Platelets (Bld) [#/Vol] 291 10*3/uL Normal 150-450 [facility] Comment on above: Performed By: #### L 501.9520, L501.5200, L500.2500, L100.0100 #### [facility] [address] [place], [address] RBC (Bld) [#/Vol] 5.10 10*6/uL Normal 4.2-5.4 [facility] Comment on above: Performed By: #### L 501.9520, L501.5200, L500.2500, L100.0100 #### [facility] [address] [place], [address] RDW SD 43.6 fl Normal 35.1-43.9 [facility] Comment on above: Performed By: #### L 501.9520, L501.5200, L500.2500, L100.0100 #### [facility] [address] [place], [address] WBC (Bld) [#/Vol] 8.9 10*3/uL Normal 4.4-11.0 [facility] Comment on above: Performed By: #### L 501.9520, L501.5200, L500.2500, L100.0100 #### [facility] [address] [place], [address] Carbon dioxide, total [Moles /volume] in Central venous bloodOrdered By: Quin Snider on 07-26-2024 CO2 [Moles/Vol] 24.7 mmol/L 21.0-32.0 [facility] Cardiology Visit Reporton Cardiology Visit Report [facility] [address] [place], [place] [address] OFFICE VISIT Date of Service: 07/26/24 MR#: [id number] Acct: [id number] Name: SREE CESAR Rep #: [id number] : 1985 Provider: Dr. 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 Normal [facility] Chloride assayOrdered By: Chung Snider on 07-26-2024 Chloride [Moles/Vol] 101 mmol/L 98-108 [facility] Eosinophil percentageOrdered By: Quin Snider on 07-26-2024 Eosinophils/100 WBC (Bld) 1.9 % 0-5 [facility] Erythrocyte distribution wid th ratioOrdered By: Quin Snider on 07-26-2024 Erythrocyte distribution width (RBC) [Ratio] 13.3 % 11.6-14.6 [facility] Erythrocyte distribution wid th standard deviationOrdered By: Quin Snider on 07-26-2024 Erythrocyte distribution width (RBC) [Ratio] 43.6 fl 35.1-43.9 [facility] Glomerular filtration rate ( GFR) estimation/1.73 sq m using serum, plasma, or whole bOrdered By: Quin Snider on 07-26-2024 GFR/1.73 sq M.predicted among non-blacks MDRD (S/P/Bld) [Vol rate/Area] 84 mL/min/{1.73_m2} >60 [facility] Comment on above: mL/min/1.73m2 CKD-EP I Creatinine Equation (2020) Hematocrit Auto (Bld) [Volum e fraction]Ordered By: Quincely Snider on 07-26-2024 Hematocrit (Bld) [Volume fraction] 45.2 % 37-47 [facility] Hemoglobin measurementOrdere d By: Quincely Snider on 07-26-2024 Hemoglobin (Bld) [Mass/Vol] 14.8 g/dL 12.0-15.0 [facility] Immature granulocytes/100 WB C Auto (Bld)Ordered By: Quincely Snider on 07-26-2024 Immature granulocytes/100 WBC (Bld) 0.500 % 0.0-0.9 [facility] Comment on above: IG% - Immature Granu locytes (promyelocytes, myelocytes and metamyelocytes) > 1% indicates that a LEFT SHIFT is Present. MCV (mean corpuscular volume ) determinationOrdered By: Quin Snider on 07-26-2024 MCV (RBC) [Entitic vol] 88.6 fL 81-99 [facility] Magnesiumon 07-26-2024 Magnesium [Mass/Vol] 2.2 mg/dL Normal 1.5-2.2 [facility] Comment on above: Performed By: #### L 501.5336, L501.0070, L500.2500, L100.0100 #### [facility] [address], [address] Magnesium measurement (mass/ volume)Ordered By: Quincely Snider on 07-26-2024 Magnesium (Unsp spec) [Mass/Vol] 2.2 mg/dL 1.5-2.2 [facility] Mean corpuscular hemoglobin (MCH) determinationOrdered By: Quin Snider on 07-26-2024 MCH (RBC) [Entitic mass] 29.0 pg 27.0-32.0 [facility] Mean corpuscular hemoglobin concentration (MCHC) determinationOrdered By: Quin Snider on 07-26-2024 MCHC (RBC) [Mass/Vol] 32.7 g/dL 32-36 [facility] Mean platelet volume determi nationOrdered By: Quin Snider on 07-26-2024 Platelet mean volume (Bld) [Entitic vol] 10.5 fL 6.2-12.0 [facility] Monocyte percentageOrdered B y: Quin Snider on 07-26-2024 Monocytes/100 WBC (Bld) 6.0 % 0-10 [facility] Neutrophil percentageOrdered By: Quin Snider on 07-26-2024 Neutrophils/100 WBC (Bld) 62.9 % 47-70 [facility] Nucleated red blood cell per centageOrdered By: Quin Snider on 07-26-2024 Nucleated RBC/100 WBC (Bld) [Ratio] 0 % 0-5 [facility] Platelet countOrdered By: Chung Snider on 07-26-2024 Platelets (Bld) [#/Vol] 291 10*3/uL 150-450 [facility] Potassium measurement (mass/ volume)Ordered By: Quin Snider on 07-26-2024 Potassium (Unsp spec) [Mass/Vol] 4.4 mmol/L 3.3-5.1 [facility] RBC Auto (Bld) [#/Vol]Ordere d By: Quin Snider on 07-26-2024 RBC (Bld) [#/Vol] 5.10 10*6/uL 4.2-5.4 [facility] Serum creatinine measurement (mass/volume)Ordered By: Quin Snider on 07-26-2024 Creatinine [Mass/Vol] 0.89 mg/dL 0.70-1.20 [facility] Serum glucose measurement (m ass/volume)Ordered By: Quin Snider on 07-26-2024 Glucose [Mass/Vol] 79 mg/dL 70-99 [facility] Serum or plasma calcium gabino urement (mass/volume)Ordered By: Quin Snider on 07-26-2024 Calcium [Mass/Vol] 9.8 mg/dL 7.6-11.0 [facility] Serum or plasma urea nitroge n measurement (mass/volume)Ordered By: Quin Snider on 07-26-2024 Urea nitrogen [Mass/Vol] 13 mg/dL 4-19 [facility] Sodium levelOrdered By: Graham Snider on 07-26-2024 Sodium [Moles/Vol] 137 mmol/L 133-145 [facility] TSH DL <= 0.005 mIU/L QnOrde red By: Quin Snider on 07-26-2024 TSH Qn 1.620 uIU/mL 0.300-4.200 [facility] Thyroid Stim Hormone (TSH)on 07-26-2024 TSH 1.620 uIU/mL Normal 0.300-4.200 [facility] Comment on above: Performed By: #### L 501.9520, L501.5200, L500.2500, L100.0100 #### [facility] [place], [address] White blood cell (WBC) count Ordered By: Quin Snider on 07-26-2024 WBC (Bld) [#/Vol] 8.9 10*3/uL 4.4-11.0 [facility] (NAYE) SREE CESAR ([id number]) 1985 F Date Time Provider Department 07/13/24 [...] Encounter Status:Closed by TRACIE PERKINS on 07/13/24 [facility] CNOVon 07-12-2024 CNOV Office Visit (OBGYWM) SREE CESAR ([id number]) 1985 F Date Time Provider Department 07/12/24 9:50 AM PILY GALLARDO OBGYWM During your visit today, we recorded the following information about you: Blood pressure Weight Height Last Period 122/74 83 kg 1.676 m 01/27/24 Pily Gallardo MD 07/12/2024 10:20 AM Signed Central Office Repairer offered: Patient declines. Obstetrics and Gynecology [place] Annual Exam Subjective Recording using [employer] software for draft documentation of the visit was discussed with the patient/authorized education courses sales representative; all questions welcomed and answered. 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 As applicable, any other physician, advance practice provider, medical student, or other health professional student that will be observing or involved in the sensitive examination for educational or training purposes was discussed with the Patient or Authorized Assistant Front End Manager. The Patient or Authorized Assistant Front End Manager has agreed to proceed with the sensitive examination. (Sensitive examination includes inspection and/or palpation of the breasts, pelvis, prostate and anorectal regions). PHYSICAL EXAM: BP 122/74 Ht 5' 6 (1.68m) Wt 183 l (more content not included)... Normal [facility] DBT Breast - bilateral scree kirstiegon 07-12-2024 IMPRESSION: The focal asymmetry in the [...] the following is a link to the [facility] care path [email or web address]/dotNet/docume [email or web address]. Additionally, a referral to the [facility] is also appropriate. Interpreting Radiologist: Joe Myers M.D. Electronically signed on: 07/12/2024 Events Administrative Assistant: SAVANA Transcribe Date/Time: Jul 12 2024 8:35A Dictated by: JOE MYERS MD This examination was interpreted and the report reviewed and electronically signed by: JOE MYERS MD on Jul 12 2024 11:17AM [facility] DIVISION OF RADIOLOGY * * *Final Report* * * DATE OF EXAM: Jul 12 2024 9:07AM [facility]82 - [facility] SCREENING W ASHLEY / PROCEDURE REASON: Encounter for screening mammogram for malignant neoplasm of breast * * * * Physician Interpretation * * * * RESULT: [place] [address] #[id number] - [facility] SCREENING W ASHLEY HISTORY: 39 [...] the left breast. DIVISION OF RADIOLOGY Provider, [facility] [place] - 07/12/2024 * * *Final Report* * * DATE OF EXAM: Jul 12 2024 9:07AM [facility] 0582 - [facility] SCREENING W ASHLEY / PROCEDURE REASON: Encounter for screening mammogram for malignant neoplasm of breast * * * * Physician Interpretation * * * * RESULT: [facility] [address] [id number] #[id number] - [facility] SCREENING W ASHLEY HISTORY: 39 year-old patient [...] the following is a link to the [facility] care path [email or web address]/dotNet/docume nts/?opvxq=73587. Additionally, a referral to the [facility] is also appropriate. Interpreting Radiologist: Joe Myers M.D. Electronically signed on: 07/12/2024 Events Administrative Assistant: SAVANA Transcribe Date/Time: Jul 12 2024 8:35A Dictated by: JOE MYERS MD This examination was interpreted and the report reviewed and electronically signed by: JOE MYERS MD on Jul 12 2024 11:17AM EST [facility] Radiology Study observation (narrative) Trisha ta [facility] DBT Breast - bilateral scree ningOrdered By: [facility] Provider on 07-12-2024 [facility] SCREENING W TOMOon 07-12 [facility] SCREENING W ASHLEY * * *Final Report* * * DATE OF EXAM: Jul 12 2024 9:07AM [facility] 0582 - [facility] SCREENING W ASHLEY / PROCEDURE REASON: Encounter for screening mammogram for malignant neoplasm of breast * * * * Physician Interpretation * * * * RESULT: [place] [address] #[id number] - [facility] SCREENING W ASHLEY HISTORY: 39 [...] the following is a link to the [facility] care path [email or web address].[email or web address]/[email or web address]/docume nts/?yrcij=59643. Additionally, a referral to the [facility] Clinic is also appropriate. Interpreting Radiologist: Joe Myers M.D. Electronically signed on: 07/12/2024 Events Administrative Assistant: SAVANA Transcribe Date/Time: Jul 12 2024 8:35A Dictated by: JOE MYERS MD This examination was interpreted and the report reviewed and electronically signed by: JOE MYERS MD on Jul 12 2024 11:17AM EST [id number] CN Normal [facility] CNPNon 07-03-2024 CNPN Telephone (RDXWS) SREE CESAR ([id number]) 1985 F Date Time Provider Department 07/03/24 [...] Status:Closed by TYESHA MARTI on 07/03/24 Normal [facility] XR ANKLE AND FOOT 6 VIEWS [...] 06/14/2024 8:16:41 AM Ordering Provider: MARCO ANTONIO HKALIL [facility] Absolute lymphocyte countOrd ered By: Oliver Wong on 05-17-2024 Lymphocytes Auto (Unsp spec) [#/Vol] 2.35 10*3/uL 0.83-4.51 [facility] Absolute neutrophil countOrd ered By: Oliver Wong on 05-17-2024 Neutrophils (Bld) [#/Vol] 4.3 10*3/uL 2.0-7.7 [facility] Anion gap in Serum or Plasma Ordered By: Oliver Wong on 05-17-2024 Anion gap [Moles/Vol] 11 mmol/L 5-15 [facility] Automated lymphocyte count a s percentage of total leukocytesOrdered By: Oliver Wong on 05-17-2024 Lymphocytes/100 WBC Auto (Unsp spec) 31.8 % [facility] BUN/creatinine ratioOrdered By: Oliver Wong on 05-17-2024 Urea nitrogen/Creatinine [Mass ratio] 12.1 mg/mg - [facility] Basic Metabolic Profile (BMP )on 05-17-2024 BUN/CRE 12.1 RATIO Normal - [facility] Comment on above: Performed By: #### L 501.9520, L500.2500, L100.0100 ####[facility] [address] [place], [address] Calcium [Mass/Vol] 9.9 mg/dL Normal 7.6-11.0 [facility] Comment on above: Performed By: #### L 501.9520, L500.2500, L100.0100 ####[facility] [address] [place], [address] Chloride [Moles/Vol] 102 mmol/L Normal 98-108 [facility] Comment on above: Performed By: #### L 501.9520, L500.2500, L100.0100 ####[facility] [address] [place], [address] CO2 [Moles/Vol] 25.1 mmol/L Normal 21.0-32.0 [facility] Comment on above: Performed By: #### L 501.9520, L500.2500, L100.0100 ####[facility] [address] [place], [address] Creatinine [Mass/Vol] 0.81 mg/dL Normal 0.70-1.20 [facility] Comment on above: Performed By: #### L 501.9520, L500.2500, L100.0100 ####[facility] [address] [place], [address] GAP 11 Normal 5-15 [facility] Comment on above: Performed By: #### L 501.9520, L500.2500, L100.0100 ####[facility] [address] [place], [address] GFR/1.73 sq M.predicted among non-blacks MDRD (S/P/Bld) [Vol rate/Area] 94 mL/min/{1.73_m2} Normal >60 [facility] Comment on above: Result Comment: mL/m in/1.73m2 CKD-EPI Creatinine Equation (2020) Performed By: #### L 501.9520, L500.2500, L100.0100 ####[facility] [address] [place], [address] Glucose [Mass/Vol] 72 mg/dL Normal 70-99 [facility] Comment on above: Performed By: #### L 501.9520, L500.2500, L100.0100 ####[facility] [address] [place], [address] Potassium [Moles/Vol] 4.4 mmol/L Normal 3.3-5.1 [facility] Comment on above: Performed By: #### L 501.9520, L500.2500, L100.0100 ####[facility] [address] [place], [address] Sodium [Moles/Vol] 137 mmol/L Normal 133-145 [facility] Comment on above: Performed By: #### L 501.9520, L500.2500, L100.0100 ####[facility] [address] [place], [address] Urea nitrogen [Mass/Vol] 10 mg/dL Normal 4-19 [facility] Comment on above: Performed By: #### L 501.95, L500.2500, L100.0100 ####[facility] [address] [place], [address] Basophil percentageOrdered B y: Oliver Hargroveelsen on 05-17-2024 Basophils/100 WBC (Bld) 0.7 % 0-1 [facility] CBC W/Diff, Automatedon 04-29 Absolute Lymph 2.35 X10 3/uL Normal 0.83-4.51 [facility] Comment on above: Performed By: #### L 501.9520, L500.2500, L100.0100 ####[facility] [address] [place], [address] Absolute Neut 4.3 X10 3/uL Normal 2.0-7.7 [facility] Comment on above: Performed By: #### L 501.9520, L500.2500, L100.0100 ####[facility] [address] [place], [address] Basophils/100 WBC (Bld) 0.7 % Normal 0-1 [facility] Comment on above: Performed By: #### L 501.9520, L500.2500, L100.0100 ####[facility] [address] [place], [address] Eosinophils/100 WBC (Bld) 2.3 % Normal 0-5 [facility] Comment on above: Performed By: #### L 501.9520, L500.2500, L100.0100 ####[facility] [address] [place], [address] Erythrocyte distribution width (RBC) [Ratio] 13.5 % Normal 11.6-14.6 [facility] Comment on above: Performed By: #### L 501.9520, L500.2500, L100.0100 ####[facility] [address] [place], [address] Hematocrit (Bld) [Volume fraction] 44.4 % Normal 37-47 [facility] Comment on above: Performed By: #### L 501.9520, L500.2500, L100.0100 ####[facility] [address] [place], [address] Hemoglobin (Bld) [Mass/Vol] 14.6 g/dL Normal 12.0-15.0 [facility] Comment on above: Performed By: #### L 501.9520, L500.2500, L100.0100 ####[facility] [address] [place], [address] IG% 0.500 Normal 0.0-0.9 [facility] Comment on above: Result Comment: IG% - Immature Granulocytes (promyelocytes, myelocytes and metamyelocytes) > 1% indicates that a LEFT SHIFT is Present. Performed By: #### L 501.9520, L500.2500, L100.0100 ####[facility] [address] [place], [address] Lymphocytes/100 WBC (Bld) 31.8 % Normal 19-41 [facility] Comment on above: Performed By: #### L 501.9520, L500.2500, L100.0100 ####[facility] [address] [place], [address] MCH (RBC) [Entitic mass] 29.0 pg Normal 27.0-32.0 [facility] Comment on above: Performed By: #### L 501.9520, L500.2500, L100.0100 ####[facility] [address] [place], [address] MCHC (RBC) [Mass/Vol] 32.9 g/dL Normal 32-36 [facility] Comment on above: Performed By: #### L 501.9520, L500.2500, L100.0100 ####[facility] [address] [place], [address] MCV (RBC) [Entitic vol] 88.3 fL Normal 81-99 [facility] Comment on above: Performed By: #### L 501.9520, L500.2500, L100.0100 ####[facility] [address] [place], [address] Monocytes/100 WBC (Bld) 7.0 % Normal 0-10 [facility] Comment on above: Performed By: #### L 501.9520, L500.2500, L100.0100 ####[facility] [address] [place], [address] Neutrophils/100 WBC (Bld) 57.7 % Normal 47-70 [facility] Comment on above: Performed By: #### L 501.9520, L500.2500, L100.0100 ####[facility] [address] [place], [address] Nucleated RBC (Bld) [#/Vol] 0 10*3/uL Normal 0-5 [facility] Comment on above: Performed By: #### L 501.9520, L500.2500, L100.0100 ####[facility] [address] [place], [address] Platelet mean volume (Bld) [Entitic vol] 10.5 fL Normal 6.2-12.0 [facility] Comment on above: Performed By: #### L 501.9520, L500.2500, L100.0100 ####[facility] [address] [place], [address] Platelets (Bld) [#/Vol] 286 10*3/uL Normal 150-450 [facility] Comment on above: Performed By: #### L 501.9520, L500.2500, L100.0100 ####[facility] [address] [place], [address] RBC (Bld) [#/Vol] 5.03 10*6/uL Normal 4.2-5.4 [facility] Comment on above: Performed By: #### L 501.9520, L500.2500, L100.0100 ####[facility] [address] [place], [address] RDW SD 44.0 fl High 35.1-43.9 [facility] Comment on above: Performed By: #### L 501.9520, L500.2500, L100.0100 ####[facility] [address] [place], [address] WBC (Bld) [#/Vol] 7.4 10*3/uL Normal 4.4-11.0 [facility] Comment on above: Performed By: #### L 501.9520, L500.2500, L100.0100 ####[facility] [address] [place], [address] Carbon dioxide, total [Moles /volume] in Central venous bloodOrdered By: Oliver Wong on 05-17-2024 CO2 [Moles/Vol] 25.1 mmol/L 21.0-32.0 [facility] Chloride assayOrdered By: Levi Wong on 05-17-2024 Chloride [Moles/Vol] 102 mmol/L 98-108 [facility] Eosinophil percentageOrdered By: Oliver Wong on 05-17-2024 Eosinophils/100 WBC (Bld) 2.3 % 0-5 [facility] Erythrocyte distribution wid th ratioOrdered By: Oliver Wong on 05-17-2024 Erythrocyte distribution width (RBC) [Ratio] 13.5 % 11.6-14.6 [facility] Erythrocyte distribution wid th standard deviationOrdered By: Oliver Wong on 05-17-2024 Erythrocyte distribution width (RBC) [Entitic vol] 44.0 fL High 35.1-43.9 [facility] Erythrocyte distribution width (RBC) [Ratio] 44.0 fl High 35.1-43.9 [facility] GFR/1.73 sq M.predicted janna g non-blacks MDRD (S/P/Bld) [Vol rate/Area]Ordered By: Oliver Wong on 05-17-2024 Estimated GFR (MDRD) Non-Af Amer 94 >60 [facility] Comment on above: mL/min/1.73m2 CKD-EP I Creatinine Equation (2020) Glomerular filtration rate ( GFR) estimation/1.73 sq m using serum, plasma, or whole bOrdered By: Oliver Wong on 05-17-2024 GFR/1.73 sq M.predicted among non-blacks MDRD (S/P/Bld) [Vol rate/Area] 94 mL/min/{1.73_m2} >60 [facility] Comment on above: mL/min/1.73m2 CKD-EP I Creatinine Equation (2020) Hematocrit Auto (Bld) [Volum e fraction]Ordered By: Oliver Wong on 05-17-2024 Hematocrit (Bld) [Volume fraction] 44.4 % 37-47 [facility] Hemoglobin measurementOrdere d By: Oliver Wong on 05-17-2024 Hemoglobin (Bld) [Mass/Vol] 14.6 g/dL 12.0-15.0 [facility] Immature granulocytes/100 WB C Auto (Bld)Ordered By: Oliver Wong on 05-17-2024 Immature granulocytes/100 WBC (Bld) 0.500 % 0.0-0.9 [facility] Comment on above: IG% - Immature Granu locytes (promyelocytes, myelocytes and metamyelocytes) > 1% indicates that a LEFT SHIFT is Present. Lymphocytes Auto (Unsp spec) [#/Vol]Ordered By: Oliver Wong on 05-17-2024 Lymphocytes (Bld) [#/Vol] 2.35 10*3/uL 0.83-4.51 [facility] Lymphocytes/100 WBC Auto (Un sp spec)Ordered By: Oliver Wong on 05-17-2024 Lymphocytes/100 WBC (Bld) 31.8 % 19-41 [facility] MCV (mean corpuscular volume ) determinationOrdered By: Oliver Wong on 05-17-2024 MCV (RBC) [Entitic vol] 88.3 fL 81-99 [facility] Mean corpuscular hemoglobin (MCH) determinationOrdered By: Oliver Wong on 05-17-2024 MCH (RBC) [Entitic mass] 29.0 pg 27.0-32.0 [facility] Mean corpuscular hemoglobin concentration (MCHC) determinationOrdered By: Oliver Wong on 05-17-2024 MCHC (RBC) [Mass/Vol] 32.9 g/dL 32-36 [facility] Mean platelet volume determi nationOrdered By: Oliver Wong on 05-17-2024 Platelet mean volume (Bld) [Entitic vol] 10.5 fL 6.2-12.0 [facility] Monocyte percentageOrdered B y: Oliver Wong on 05-17-2024 Monocytes/100 WBC (Bld) 7.0 % 0-10 [facility] Neutrophil percentageOrdered By: Oliver Wong on 05-17-2024 Neutrophils/100 WBC (Bld) 57.7 % 47-70 [facility] Nucleated red blood cell per centageOrdered By: Oliver Wong on 05-17-2024 Nucleated RBC/100 WBC (Bld) [Ratio] 0 % 0-5 [facility] Platelet countOrdered By: Levi Wong on 05-17-2024 Platelets (Bld) [#/Vol] 286 10*3/uL 150-450 [facility] Potassium (Unsp spec) [Mass/ Vol]Ordered By: Oliver Wong on 05-17-2024 Potassium [Moles/Vol] 4.4 mmol/L 3.3-5.1 [facility] Potassium measurement (mass/ volume)Ordered By: Oliver Wong on 05-17-2024 Potassium (Unsp spec) [Mass/Vol] 4.4 mmol/L 3.3-5.1 [facility] RBC Auto (Bld) [#/Vol]Ordere d By: Oliver Wong on 05-17-2024 RBC (Bld) [#/Vol] 5.03 10*6/uL 4.2-5.4 [facility] Serum creatinine measurement (mass/volume)Ordered By: Oliver Wong on 05-17-2024 Creatinine [Mass/Vol] 0.81 mg/dL 0.70-1.20 [facility] Serum glucose measurement (m ass/volume)Ordered By: Oliver Wong on 05-17-2024 Glucose [Mass/Vol] 72 mg/dL 70-99 [facility] Serum or plasma calcium gabino urement (mass/volume)Ordered By: Oliver Wong on 05-17-2024 Calcium [Mass/Vol] 9.9 mg/dL 7.6-11.0 [facility] Serum or plasma urea nitroge n measurement (mass/volume)Ordered By: Oliver Wong on 05-17-2024 Urea nitrogen [Mass/Vol] 10 mg/dL 4-19 [facility] Sodium levelOrdered By: Oliver Wong on 05-17-2024 Sodium [Moles/Vol] 137 mmol/L 133-145 [facility] TSH DL <= 0.005 mIU/L QnOrde red By: Oliver Wong on 05-17-2024 Thyroid Stimulating Hormone (TSH) 1.820 uIU/mL 0.300-4.200 [facility] TSH Qn 1.820 uIU/mL 0.300-4.200 [facility] Thyroid Stim Hormone (TSH)on 05-17-2024 TSH 1.820 uIU/mL Normal 0.300-4.200 [facility] Comment on above: Performed By: #### L 501.9520, L500.2500, L100.0100 ####[facility] [address] [place], [address] White blood cell (WBC) count Ordered By: Oliver Wong on 05-17-2024 WBC (Bld) [#/Vol] 7.4 10*3/uL 4.4-11.0 [facility] .Auto Diffon 05-06-2024 Basophil, Absolute 0.1 10 3/mcL Normal 0.0-0.2 [facility] Comment on above: Performed By: #### T ROPHS, MG, DIMER, CMP, ADIFF, PBNP, GFR, CBC, ANEU, PRO, APTT, MDW #### [place] [address] [address] Basophils/100 WBC (Bld) 0.8 % Normal 0.0-2.5 [facility] Comment on above: Performed By: #### T ROPHS, MG, DIMER, CMP, ADIFF, PBNP, GFR, CBC, ANEU, PRO, APTT, MDW #### [address] [address] Eosinophil, Absolute 0.2 10 3/mcL Normal 0.0-0.7 [facility] Comment on above: Performed By: #### T ROPHS, MG, DIMER, CMP, ADIFF, PBNP, GFR, CBC, ANEU, PRO, APTT, MDW #### [address] [address] Eosinophils/100 WBC (Bld) 2.4 % Normal 0.0-7.0 [facility] Comment on above: Performed By: #### T ROPHS, MG, DIMER, CMP, ADIFF, PBNP, GFR, CBC, ANEU, PRO, APTT, MDW #### [address] [address] Lymphocyte, Absolute 1.7 10 3/mcL Normal 0.9-4.3 [facility] Comment on above: Performed By: #### T ROPHS, MG, DIMER, CMP, ADIFF, PBNP, GFR, CBC, ANEU, PRO, APTT, VLIMA #### [address] [address] Lymphocytes/100 WBC (Bld) 26.0 % Normal 20.0-40.0 [facility] Comment on above: Performed By: #### T ROPHS, MG, DIMER, CMP, ADIFF, PBNP, GFR, CBC, ANEU, PRO, APTT, MDW #### [address] [address] Monocyte, Absolute 0.5 10 3/mcL Normal 0.1-1.4 [facility] Comment on above: Performed By: #### T ROPHS, MG, DIMER, CMP, ADIFF, PBNP, GFR, CBC, ANEU, PRO, APTT, MDW #### [address] [address] Monocytes/100 WBC (Bld) 7.1 % Normal 2.0-13.0 [facility] Comment on above: Performed By: #### T ROPHS, MG, DIMER, CMP, ADIFF, PBNP, GFR, CBC, ANEU, PRO, APTT, MDW #### [address] [address] Neutrophils/100 WBC (Bld) 63.7 % Normal 50.0-75.0 [facility] Comment on above: Performed By: #### T ROPHS, MG, DIMER, CMP, ADIFF, PBNP, GFR, CBC, ANEU, PRO, APTT, MDW #### [address] [address] .GFRon 05-06-2024 Estimated Glomerular Filtration Rate 86 ml/min/1.73sqm Normal [facility] Comment on above: Result Comment: Stages of [...] PBNP, GFR, CBC, ANEU, PRO, APTT, MDW ####[address] [address] .MDWon 05-06-2024 Monocyte Distribution Width 18.80 Normal 0.00-20.00 [facility] Comment on above: Result Comment: For ED adult patients suspected of sepsis, MDW<=20.0 does not rule out sepsis or risk of sepsis Performed By: #### T ROPHS, MG, DIMER, CMP, ADIFF, PBNP, GFR, CBC, ANEU, PRO, APTT, MDW #### [place] [address] .NEUABSon 05-06-2024 Neutrophil, Absolute 4.3 10 3/mcL Normal 2.3-8.1 [facility] Comment on above: Performed By: #### T SOTERO, MG, DIMER, CMP, ADIFF, PBNP, GFR, CBC, ANEU, PRO, APTT, MDW #### [place] [address] APTTon 05-06-2024 aPTT Coag (Bld) [Time] 32.6 s Normal 25.0-35.0 [facility] Comment on above: Result Comment: For Heparin anticoagulation therapy, the recommended therapeutic range is: 45.4-75.9 seconds. Patients on heparin therapy may have an extreme result. Performed By: #### T SOTERO, MG, DIMER, CMP, ADIFF, PBNP, GFR, CBC, ANEU, PRO, APTT, MDW ####[place] [address] CBCon 05-06-2024 Erythrocyte distribution width (RBC) [Ratio] 14.3 % Normal 11.5-15.5 [facility] Comment on above: Performed By: #### T SOTERO, MG, DIMER, CMP, ADIFF, PBNP, GFR, CBC, ANEU, PRO, APTT, MDW #### [place] [address] Hematocrit (Bld) [Volume fraction] 42.7 % Normal 34.0-46.0 [facility] Comment on above: Performed By: #### T HIMAHS, MG, DIMER, CMP, ADIFF, PBNP, GFR, CBC, ANEU, PRO, APTT, MDW #### [place] [address] Hgb 14.6 G/dL Normal 12.0-16.0 [facility] Comment on above: Performed By: #### T SOTERO, MG, DIMER, CMP, ADIFF, PBNP, GFR, CBC, ANEU, PRO, APTT, MDW #### [place] [address] MCH (RBC) [Entitic mass] 29.3 pg Normal 27.0-33.0 [facility] Comment on above: Performed By: #### T ROPHS, MG, DIMER, CMP, ADIFF, PBNP, GFR, CBC, ANEU, PRO, APTT, MDW #### [address] [address] MCHC 34.2 G/dL Normal 32.0-36.0 [facility] Comment on above: Performed By: #### T ROPHS, MG, DIMER, CMP, ADIFF, PBNP, GFR, CBC, ANEU, PRO, APTT, MDW #### [address] [address] MCV (RBC) [Entitic vol] 85.6 fL Normal 80.0-99.0 [facility] Comment on above: Performed By: #### T SOTERO, MG, DIMER, CMP, ADIFF, PBNP, GFR, CBC, ANEU, PRO, APTT, MDW #### [address] [address] Platelet 249 10 3/mcL Normal 150-450 [facility] Comment on above: Performed By: #### T HIMAHS, MG, DIMER, CMP, ADIFF, PBNP, GFR, CBC, ANEU, PRO, APTT, MDW #### [address] [address] Platelet mean volume (Bld) [Entitic vol] 7.8 fL Normal 6.6-10.5 [facility] Comment on above: Performed By: #### T ROPHS, MG, DIMER, CMP, ADIFF, PBNP, GFR, CBC, ANEU, PRO, APTT, MDW #### [address] [address] RBC 4.98 10 6/mcL Normal 4.10-5.30 [facility] Comment on above: Performed By: #### T ROPHS, MG, DIMER, CMP, ADIFF, PBNP, GFR, CBC, ANEU, PRO, APTT, MDW #### [place] [address] [place], [place] [address] WBC 6.7 10 3/mcL Normal 4.5-10.8 [facility] Comment on above: Performed By: #### T SOTERO, MG, DIMER, CMP, ADIFF, PBNP, GFR, CBC, ANEU, PRO, APTT, MDW #### [place] [address] [place], [place] [address] CMPon 05-06-2024 Albumin Level 3.7 G/dL Normal 3.5-5.0 [facility] Comment on above: Performed By: #### T SOTERO, MG, DIMER, CMP, ADIFF, PBNP, GFR, CBC, ANEU, PRO, APTT, MDW ####[place] [address] [place], [place] [address] Albumin/Globulin [Mass ratio] 1.2 {ratio} Normal 1.1-2.5 [facility] Comment on above: Performed By: #### T HIMAHS, MG, DIMER, CMP, ADIFF, PBNP, GFR, CBC, ANEU, PRO, APTT, MDW ####[place] [address] [place], [place] [address] ALP [Catalytic activity/Vol] 60 U/L Normal 40-135 [facility] Comment on above: Performed By: #### T SOTERO, MG, DIMER, CMP, ADIFF, PBNP, GFR, CBC, ANEU, PRO, APTT, MDW ####[place] [address] [place], [place] [address] ALT [Catalytic activity/Vol] 24 U/L Normal 14-59 [facility] Comment on above: Performed By: #### T ROPHS, MG, DIMER, CMP, ADIFF, PBNP, GFR, CBC, ANEU, PRO, APTT, MDW ####[address] [address] AST [Catalytic activity/Vol] 13 U/L Normal 10-40 [facility] Comment on above: Performed By: #### T ROPHS, MG, DIMER, CMP, ADIFF, PBNP, GFR, CBC, ANEU, PRO, APTT, MDW ####[facility] [place], [place] [address] Bili Total 0.4 mg/dL Normal 0.2-1.0 [facility] Comment on above: Result Comment: Use of this assay is not recommended for patients undergoing treatment with eltrombopag due to the potential for falsely elevated results. Performed By: #### T ROPHS, MG, DIMER, CMP, ADIFF, PBNP, GFR, CBC, ANEU, PRO, APTT, VILMA ####[place] [address] [place], [place] [address] BUN/Creatinine Ratio 11 ratio Normal 7-27 [facility] Comment on above: Performed By: #### T ROPHS, MG, DIMER, CMP, ADIFF, PBNP, GFR, CBC, ANEU, PRO, APTT, VILMA ####[place] [address] [place], [place] [address] Calcium [Mass/Vol] 9.1 mg/dL Normal 8.4-10.2 [facility] Comment on above: Performed By: #### T ROPHS, MG, DIMER, CMP, ADIFF, PBNP, GFR, CBC, ANEU, PRO, APTT, VILMA ####[place] [address] [place], [place] [address] Chloride [Moles/Vol] 106 mmol/L Normal 98-107 [facility] Comment on above: Performed By: #### T ROPHS, MG, DIMER, CMP, ADIFF, PBNP, GFR, CBC, ANEU, PRO, APTT, VILMA ####[place] [address] [place], [place] [address] CO2 [Moles/Vol] 27 mmol/L Normal 22-29 [facility] Comment on above: Performed By: #### T ROPHS, MG, DIMER, CMP, ADIFF, PBNP, GFR, CBC, ANEU, PRO, APTT, VILMA ####[place] [address] [place], [place] [address] Creatinine [Mass/Vol] 0.87 mg/dL Normal 0.55-1.02 [facility] Comment on above: Result Comment: Test ing performed on Siemens Dimension EXL analyzer using a modified kinetic Ariel technique. Performed By: #### T SOTERO, MG, DIMER, CMP, ADIFF, PBNP, GFR, CBC, ANEU, PRO, APTT, MDW ####[place] [place], [place] [address] Electrolyte Balance 7.0 mEq/L Normal 4.0-15.0 [facility] Comment on above: Performed By: #### T HIMAHS, MG, DIMER, CMP, ADIFF, PBNP, GFR, CBC, ANEU, PRO, APTT, MDW ####[address] [place], [place] [address] Globulin 3.2 G/dL Normal 1.5-3.8 [facility] Comment on above: Performed By: #### T SOTERO, MG, DIMER, CMP, ADIFF, PBNP, GFR, CBC, ANEU, PRO, APTT, VILMA ####[place] [address] [address] Glucose [Mass/Vol] 99 mg/dL Normal 70-105 [facility] Comment on above: Performed By: #### T SOTERO, MG, DIMER, CMP, ADIFF, PBNP, GFR, CBC, ANEU, PRO, APTT, VILMA ####[place] [address] [address] Potassium [Moles/Vol] 3.9 mmol/L Normal 3.5-5.1 [facility] Comment on above: Performed By: #### T HIMAHS, MG, DIMER, CMP, ADIFF, PBNP, GFR, CBC, ANEU, PRO, APTT, MDW ####[place] [address] [address] Sodium [Moles/Vol] 140 mmol/L Normal 136-145 [facility] Comment on above: Performed By: #### T HIMAHS, MG, DIMER, CMP, ADIFF, PBNP, GFR, CBC, ANEU, PRO, APTT, MDW ####[place] [address] [address] Total Protein 6.9 G/dL Normal 6.4-8.2 [facility] Comment on above: Performed By: #### T ROPHS, MG, DIMER, CMP, ADIFF, PBNP, GFR, CBC, ANEU, PRO, APTT, MDW ####[place] [address] [place], [place] [address] Urea nitrogen [Mass/Vol] 10 mg/dL Normal 7-18 [facility] Comment on above: Performed By: #### T ROPHS, MG, DIMER, CMP, ADIFF, PBNP, GFR, CBC, ANEU, PRO, APTT, MDW ####[place] [address] [place], [place] [address] CT ANGIOGRAPHY CHEST W/CONTR Rossana 05-06-2024 CT [...] 05/06/2024 8:44:45 AM Ordering Provider: ADY Villalobos [facility] DIMERon 05-06-2024 D-Dimer 234 ng/mL D-DU High 0-230 [facility] Comment on above: Result Comment: Resu lts [...] PBNP, GFR, CBC, ANEU, PRO, APTT, MDW ####[facility] [place], [place] [address] MGon 05-06-2024 Magnesium [Mass/Vol] 1.9 mg/dL Normal 1.8-2.4 [facility] Comment on above: Performed By: #### T ROPHS, MG, DIMER, CMP, ADIFF, PBNP, GFR, CBC, ANEU, PRO, APTT, MDW #### [place] [address] [place], [place] [address] PBNPon 05-06-2024 Natriuretic peptide B (Bld) [Mass/Vol] 24 pg/mL Normal 0-125 [facility] Comment on above: Result Comment: NT-p roBNP results of less than 300 pg/mL effectively rules out acute congestive heart failure with 99% negative predictive value. Performed By: #### T SOTERO, MG, DIMER, CMP, ADIFF, PBNP, GFR, CBC, ANEU, PRO, APTT, VILMA ####[place] [address] [place], [place] [address] PROon 05-06-2024 PT Coag (PPP) [Time] 12.2 s Normal 9.0-14.4 [facility] Comment on above: Performed By: #### T SOTERO, MG, DIMER, CMP, ADIFF, PBNP, GFR, CBC, ANEU, PRO, APTT, VILMA ####[place] [address] [place], [place] [address] PT International Ratio 1.1 Normal [facility] Comment on above: Result Comment: The [employer] (CHEST, 1992, 102:312S-25S) recommended therapeutic range for oral anticoagulant therapy is: LOW RISK: Prophylaxis of venous thrombosis INR: 2.0-3.0 Treatment of pulmonary embolism 2.0-3.0 Prevention of systemic embolism 2.0-3.0 HIGH RISK: Mechanical prosthetic valves 2.5-3.5 Performed By: #### T SOTERO, MG, DIMER, CMP, ADIFF, PBNP, GFR, CBC, ANEU, PRO, APTT, VILMA ####[place] [address] [place], [place] [address] TROPHSon 05-06-2024 High Sensitivity Troponin I 6 ng/L Normal 0-51 [facility] Comment on above: Result Comment: High Sensitive Troponin I Reference Ranges: Female: 0-51 ng/L Male: 0-76 ng/L Testing performed on [employer] using a homogeneous sandwich chemiluminescent immunoassay based on [employer] technology. Performed By: #### T SOTERO #### [place] [address] [place], [place] [address] High Sensitivity Troponin I <4 Normal 0-51 [facility] Comment on above: Result Comment: High Sensitive Troponin I Reference Ranges: Female: 0-51 ng/L Male: 0-76 ng/L Testing performed on [employer] using a homogeneous sandwich chemiluminescent immunoassay based on [employer] technology. Performed By: #### T ROPHS, MG, DIMER, CMP, ADIFF, PBNP, GFR, CBC, ANEU, PRO, APTT, MDW #### [place] [address] [place], [place] [address] XR CHEST 1 VIEWon 05-06-2024 XR CHEST [...] Date: 05/06/2024 6:47:33 AM Ordering Provider: USAMA MODI [facility] Yovanny [facility] SREE CESAR ([id number]) 1985 F Date Time Provider Department 03/10/24 PILY GALLARDO OBGYWJose During your visit today, [...] and faxed to employer. Patient notified via [employer]. Andrea Hamm MA Allergies As of Date: [...] Encounter Status:Closed by ANDREA HAMM on 03/10/24 [facility] CNOVon 03-09-2024 CNOV Office Visit (OBGYWM) GLORY CESARCY ([id number]) 1985 F Date Time Provider Department 03/09/24 [...] mammogram for malignant neoplasm of breast [Z12.31] Order(s):PERRI SCREENING W ASHLEY [[id number]] Order #: [id number] FUTURE Prescriptions as of 03/09/2024 - multivit,thx,calcium [...] for Encounter Date Provider Department Center 03/09/2024 [id number] GALLARDO Encounter Status:Closed by PILY DA SILVA on 03/09/24 [facility] CNOVon 02-09-2024 CNOV Office Visit (JEFFREY) SREE CESAR ([id number]) 1985 F Date Time Provider Department 02/09/24 [...] stomach pains Date Reviewed: 02/09/2024 Reviewed by: Jessenia Cabrera MA - Fully [...] for Encounter Date Provider Department Center 02/09/2024 [id number] MCINTOSH,*JEFFREY Amador Encounter Status:Closed by [facility]ILY [facility]ILVA [facility] [place] (JEFFREY) LUCINASREE ([id number]) 1985 F Date Time Provider Department 02/03/24 PILY GALLARDO OBGYWM During your visit today, [...] Encounter Status:Closed by YOLANDA HELTON on 02/03/24 [facility] CNOVon 02-01-2024 CNOV Office Visit (OBGYWM) SREE CESAR ([id number]) 1985 F Date Time Provider Department 02/01/24 [...] by PILY DA SILVA on 02/01/24 Normal [facility]01[facility] SREE CES[facility] ([id number]) 1985 F Date Time Provider Department 02/01/24 [...] Status:Closed by DEANNE PICKARD on 02/01/24 Normal [facility] Bedside Glucoseon 01-28-2024 FINGERSTICK GLU 130 mg/dL High 74-106 [facility] Comment on above: Result Comment: SHARON LOWERY OF PATIENT CARE PER NURSING PROTOCOL Performed By: #### L 501.080 #### [facility] [address] [facility] [place], [address] Discharge Instructionon 12-31 Discharge Instruction [facility] Medical Records Department [address] [place] [address] Instructions for Home/Discharge Instructions 01/28/24 0727 MR#: [id number] Acct: [id number] Name: SREE CESAR Rep #: [id number] : 1985 38 From: Pily Izquierdo MD PCP: Dr. Oliver Wong MD Status:REG SDC Discharge Instructions Diet Discharge Diet: No restrictions [...] Consulting Providers: Prashant Yanes Instructions Print Language: Cambodian Discharge Orders/Prescriptions Prescriptions: No Action Mirena 21 [...] Order can be placed): Home, Self Care 01/28/24 6634 Pily Izquierdo MD CC: Dr. Prashant Yanes MD; Dr. Oliver Wong MD Signed Normal [facility] Glucose measurement at bedsi deOrdered By: Pily Izquierdo on 01-28-2024 [facility] mg/dL High 74-106 [facility] Comment on above: MANAGEMENT OF PATIEN T CARE PER NURSING PROTOCOL H AND P Exam - OB/GYNon 12-31 H&P Exam - TRANSPORTATION AGENT [facility] Medical Records Department [address] [place] [address] H P Exam - TRANSPORTATION AGENT 01/28/24 0724 MR#: [id number] Acct: [id number] Name: SREE CESAR Rep #: [id number] : 1985 38 From: Pily Izquierdo MD PCP: Dr. Oliver Wong MD Status:REG [facility] Location: [place] [address] History and Physical Date of Admission: 01/28/24 [...] 10/28/2022 repeat in 10 years ???EGD W/O BRSH SPEC VARICIES INJ 10/28/2022 ???L'SCOPE DX W/WO [...] Pily Izquierdo MD; Dr. Oliver Wong MD 01/28/2424 Cosigner Signature (if applicable): CC: Dr Pily Izquierdo MD; Dr. Oliver Wong MD Signed [facility] MR/POSTOP.ANE 01-28-2024 MR/POSTOP.[facility] Medical Records Department [address] [place] [address] Anesthesia Postop Eval I 01/28/24923 MR#: [id number] Acct: [id number] Name: SREE CESAR Rep #: [id number] : 1985 38 From: Leena Pugh PCP: Dr. Oliver Wong MD Status:REG [facility] Y Race: C Location: [place] [address] Anesthesia: Postop Eval I Current Vital Signs Temperature: 98.2 F Pulse Rate: 67 Blood Pressure: 82/52 Respiratory Rate: 18 Pulse Ox: 93 Assessment Airway patent: Yes Spontaneous unlabored respirations: Yes nausea: No Vomiting: No Anesthesia Complication: No Fluid Hydration Crystalloid volume administer (ml): 1,400 Total IV fluid infused: 1,400 Progress Note Anesthesia document: Postop Eval 1 completed: Yes 01/28/24930 Date Leena Durán Signature: Date CC: Signed [facility] MR/[id number] 01-28-2024 MR/POSTOPAN2 [facility] Medical Records Department [address] [place] [address] Anesthesia Postop Eval II 01/28/24 1105 MR#: [id number] Acct: [id number] Name: SREE CESAR Rep #: [id number] : 1985 38 From: Prashant Yanes MD PCP: Dr. Oliver Wong MD Status:REG SDC Y Race: C Location: [place] [address] Anesthesia Postop Eval I Sum Postop Eval Completion status Anesthesia document: Postop Eval 1 completed: Yes Anesthesia Postop Eval I Summary Anesthesia Postop Eval I Summary: Anesthesia Postop Eval I: Assessment Summary Airway patent Yes 01/28/24 09:24 WIRED MUSIC OPERATOR.CSIR Spontaneous unlabored Yes 01/28/24 09:24 WIRED MUSIC OPERATOR.CSIR respirations Mental status nausea No 01/28/24 09:24 WIRED MUSIC OPERATOR.CSIR Vomiting No 01/28/24 09:24 WIRED MUSIC OPERATOR.CSIR Anesthesia Postop Eval I: Fluid Summary Crystalloid volume administer 1,400 01/28/24 09:24 WIRED MUSIC OPERATOR.CSIR (ml) Colloids volume administered ( ml) Blood Product volume administered (ml) Total IV fluid infused 1,400 01/28/24 09:24 WIRED MUSIC OPERATOR.CSIR Anesthesia Postop Eval I: Summary Notes Anesthesia Complication No 01/28/24 09:24 WIRED MUSIC OPERATOR.CSIR Anesthesia Complication Comment: Post-operative progress note Anesthesia: Postop Eval II Evaluation Mental status: Awake Pain Level: 0 nausea: No Vomiting: No 01/28/24 1105 Date Prashant Yanes MD Cosigner Signature: Date CC: Signed Normal [facility] Operative Reporton Operative Report [facility] Medical Records Department [address] [place] [address] Operative Report 01/28/24 0904 MR#: [id number] Acct: [id number] Name: SREE CESAR Rep #: [id number] : 1985 38 From: Pily Izquierdo MD PCP: Dr. Oliver Wong MD Status:[facility] Location: [place] [address] Operative Report (Standard) Operative Information Surgery/Procedure Performed: TLH, Cystoscopy Surgeon: Figueroa Date of Procedure: 01/28/24 Procedure Start Time: [...] The uterus sounded to 7.5 cm. The beater operator 3.0cm uterine manipulator was sutured into place [...] intact- it was removed before manipulator placed. Radio Engineering Teacher systems consultant: Yes Sewing Machine Adjuster: Vandana Infante Tasks completed by engineer assistant: Opening closing, Removing tissue, Insert Trochanter and Retracting Additional assistant infant toddler teacher?: No Complications Complications: No Admit VTE Documentation VTE Present on Admission: Yes VTE Mechan Device Prophylaxis: SCD's VTE Pharm Prophylaxis ordered?: Yes 01/28/24 0910 Cosigner Signature (if applicable): CC: Dr Pily Izquierdo MD; Dr. Prashant Yanes MD; Dr. Oliver Wong MD Signed Normal [facility] ,Urineon 01-28-2024 Beta HCG ( test) Ql (U) Negative Normal [facility] Comment on above: Result Comment: Very dilute urine specimens, as indicated by a low specific gravity, may not contain education courses sales representative levels of hCG. If is still suspected, a first morning urine specimen should be collected 48 hours later and tested. Performed By: #### L 400.7600 ####[facility] [address] [place], [address] Surgery Specimen Level Von 1 03-29-2023 Surgery Specimen Level V ----- Patient Age/Sex Location Account Attending Physician SREE CESAR 38/F [facility] [id number] Dr Pily Izquierdo, Specimen: [id number] Received: 01/28/24 Status: SWAPNILXuan Grzegorz Num: [id number] Spec Type: HYSTERECT Subm Dr: Dr Pily [...] thickness and is free of mass lesions. Assistant Front End Manager sections are submitted as follows: 1 - anterior cervix, 2 - posterior cervix, 3 4 - anterior uterine wall, 5 6 - posterior uterine wall. / AM: 01/28/2024 TC:3 CPT: 67601 Patient Age/Sex Location Account Attending Physician SREE CESAR 38/F [facility] [place] [id number] Dr Pily Armendariz-Avinash, Signed (signature on file) Dr. Jaycob Griffin DO 01/31/24 1202 Normal [facility] Comment on above: Performed By: #### P SUV ####[facility] [id number] [place], [address] Urine testOrdered By: Pily Izquierdo on 01-28-2024 HCG ( test) Ql (U) Negative [facility] Comment on above: Very dilute urine sp ecimens, as indicated by a low specificgravity, may not contain education courses sales representative levels of hCG. If is still suspected, a first morning urinespecimen should be collected 48 hours later and tested. H AND P Exam - OB/GYNon 12-31 H&P Exam - TRANSPORTATION AGENT [facility] [facility] [address] [place] [address] H P Exam - TRANSPORTATION AGENT 01/26/24 1221 MR#: [id number] Acct: [id number] Name: SREE CESAR Rep #: [id number] : 1985 38 From: Pily Izquierdo MD PCP: Dr. Oliver Wong MD Status:[facility] Location: [place] [address] History and Physical Date of Admission: 01/28/24 [...] SURGICAL HISTORY Procedure Laterality Date ??? APPENDECTOMY 1994 ??? COLONOSCOPY FLX DX W/COLLJ SPEC WHEN PFRMD 10/28/2022 repeat in 10 years ??? EGD W/O BRSH SPEC VARICIES INJ 10/28/2022 ??? L'SCOPE DX [...] Dr. Oliver Wong MD * Signed Normal [facility] CBC-Complete Blood Cnt No Di ffon 01-22-2024 Erythrocyte distribution width (RBC) [Ratio] 13.5 % Normal 11.6-14.6 [facility] Comment on above: Performed By: #### L 100.0500, BTSPAT ####[facility] [address] [place], [address] Hematocrit (Bld) [Volume fraction] 44.7 % Normal 37-47 [facility] Comment on above: Performed By: #### L 100.0500, BTSPAT ####[facility] [address] [place], [address] Hemoglobin (Bld) [Mass/Vol] 14.9 g/dL Normal 12.0-15.0 [facility] Comment on above: Performed By: #### L 100.0500, BTSPAT ####[facility] [address] [place], [address] MCH (RBC) [Entitic mass] 29.2 pg Normal 27.0-32.0 [facility] Comment on above: Performed By: #### L 100.0500, BTSPAT ####[facility] [address] [place], [address] MCHC (RBC) [Mass/Vol] 33.3 g/dL Normal 32-36 [facility] Comment on above: Performed By: #### L 100.0500, BTSPAT ####[facility] [address] [place], [address] MCV (RBC) [Entitic vol] 87.5 fL Normal 81-99 [facility] Comment on above: Performed By: #### L 100.0500, BTSPAT ####[facility] [address] [place], [address] Platelet mean volume (Bld) [Entitic vol] 10.0 fL Normal 6.2-12.0 [facility] Comment on above: Performed By: #### L 100.0500, BTSPAT ####[facility] [address] [place], [address] Platelets (Bld) [#/Vol] 299 10*3/uL Normal 150-450 [facility] Comment on above: Performed By: #### L 100.0500, BTSPAT ####[facility] [address] [place], [address] RBC (Bld) [#/Vol] 5.11 10*6/uL Normal 4.2-5.4 [facility] Comment on above: Performed By: #### L 100.0500, BTSPAT ####[facility] [address] [place], [address] RDW SD 43.2 fl Normal 35.1-43.9 [facility] Comment on above: Performed By: #### L 100.0500, BTSPAT ####[facility] [address] [place], [address] WBC (Bld) [#/Vol] 8.1 10*3/uL Normal 4.4-11.0 [facility] Comment on above: Performed By: #### L 100.0500, BTSPAT ####[facility] [address] [place], [address] Erythrocyte distribution wid th ratioOrdered By: Pily Izquierdo on 01-22-2024 Erythrocyte distribution width (RBC) [Ratio] 13.5 % 11.6-14.6 [facility] Erythrocyte distribution wid th standard deviationOrdered By: Pily Da Silva on 01-22-2024 Erythrocyte distribution width (RBC) [Entitic vol] 43.2 fL 35.1-43.9 [facility] Hematocrit Auto (Bld) [Volum e fraction]Ordered By: Pily McmillanLiliane on 01-22-2024 Hematocrit (Bld) [Volume fraction] 44.7 % 37-47 [facility] Hemoglobin measurementOrdere d By: Pily Izquierdo on 01-22-2024 Hemoglobin (Bld) [Mass/Vol] 14.9 g/dL 12.0-15.0 [facility] MCV (mean corpuscular volume ) determinationOrdered By: Pily Izquierdo on 01-22-2024 MCV (RBC) [Entitic vol] 87.5 fL 81-99 [facility] Magnesiumon 01-22-2024 Magnesium [Mass/Vol] 2.1 mg/dL Normal 1.6-2.6 [facility] Comment on above: Performed By: #### L 501.5200 ####[facility] [address] [place], [place], [address] Magnesium measurementOrdered By: Prashant Yanes on 01-22-2024 Magnesium [Mass/Vol] 2.1 mg/dL 1.6-2.6 [facility] Mean corpuscular hemoglobin (MCH) determinationOrdered By: Pily Da Silva on 01-22-2024 MCH (RBC) [Entitic mass] 29.2 pg 27.0-32.0 [facility] Mean corpuscular hemoglobin concentration (MCHC) determinationOrdered By: Pily Izquierdo on 01-22-2024 MCHC (RBC) [Mass/Vol] 33.3 g/dL 32-36 [facility] Mean platelet volume determi nationOrdered By: Pily Izquierdo on 01-22-2024 Platelet mean volume (Bld) [Entitic vol] 10.0 fL 6.2-12.0 [facility] Platelet countOrdered By: Gonzalez on 01-22-2024 Platelets (Bld) [#/Vol] 299 10*3/uL 150-450 [facility] RBC Auto (Bld) [#/Vol]Ordere d By: Pily Izquierdo on 01-22-2024 RBC (Bld) [#/Vol] 5.11 10*6/uL 4.2-5.4 [facility] Type AND Screen - PAT ONLYon 01-22-2024 ABO and Rh group Nom (Bld) Blood group O Rh(D) positive Normal [facility] Comment on above: Order Comment: Surge ry Date: 01/28/24Reason for Laboratory Test PRE-[id number], Hysterectomy,TLH, possible bilateral oophorectomy Performed By: #### L 100.0500, BTSPAT ####[facility] [address] [facility] [address] [place], [place], [address] White blood cell (WBC) count Ordered By: Pily Izquierdo on 01-22-2024 WBC (Bld) [#/Vol] 8.1 10*3/uL 4.4-11.0 [facility] CNOVon 01-12-2024 CNOV Office Visit (OBGYWM) SREE CESAR ([id number]) 1985 F Date Time Provider Department 01/12/24 [...] [N92.4] 07 (more content not included)... Normal [facility] HISTORY PHYSICALon 4 HISTORY PHYSICAL HNO ID: [id number] Author: PILY GALLARDO MD Service: ? Author [...] Date IUD (intrauterine device) in place 11/19/2023 PM - PAST MEDICAL HISTORY OF 03/01/2001 ovarian [...] - Moderate Pily Da Silva MD Normal [facility] CNOVon 12-06-2023 CNOV Office Visit (OBGYWM) LUCINASREE ([id number]) 1985 F Date Time Provider Department 12/06/23 [...] clotting on days 1-2 lasts 7-10 days, chalk tester than previous but spots rest of month. Bleeding after sex, pain with sex. Pt can't take combined ocps which worked well for in past bc she smokes. Pt had previous tubal - is not interested in further childbearing capabilities. Pt offers no other concerns. OB History T1 L1 SAB0 IAB0 Ectopic0 Multiple0 Live Births0 Machine Hoop Maker Helper History LMP: 01/21/2023 (Approximate), IUD Age at Menarche: Age at First : Age at Menopause: Machine Hoop Maker Helper History Comments: Sexual Activity: Yes; Male Contraception: [...] discussed with the Patient or Patient's Authorized Assistant Front End Manager. As applicable, any other physician, advance practice provider, medical student, or other health professional student that will be observing or involved in the sensitive examination for educational or training purposes was discussed with the Patient or Authorized Assistant Front End Manager. The Patient or Authorized Assistant Front End Manager has agreed to proceed with the sensitive [...] external genitalia normal, normal Bartholin's glands, urethra, [place]qu[place]'s glands, no vulvar lesions, no cervical lesions, [...] Adenomyosis N80.03 4. Discussed surgical intervention with [facility], Cystoscopy, possible oophorectomy. Discussed would not want to remove both ovaries due to increased risk for bone (more content not included)... Normal [facility] 11-25-2023 CNPN Telephone (OBGYWM) SREE CESAR ([id number]) 1985 F Date Time Provider Department 11/25/23 JANIE HOPKINS OBSHAUNAWJose During your visit today, we recorded the following information about you: Janie Hopkins APRN.MATERIAL ASSISTANT 11/25/2023 9:23 AM Signed ----- Message from [...] Encounter Status:Closed by YOLANDA HELTON on 11/25/23 [facility] CNOVon 11-23-2023 CNOV Office Visit (OBGYWM) SREE CESAR ([id number]) 1985 F Date Time Provider Department 11/23/23 3:00 PM JANIE HOPKINS OBGYWM During your visit today, we recorded the following information about you: Blood pressure Weight 120/64 84.4 kg Janie Hopkins APRN.MATERIAL ASSISTANT 11/23/2023 3:57 PM Signed Sree Cesar is [...] L1 SAB0 IAB0 Ectopic0 Multiple0 Live Births0 Machine Hoop Maker Helper History LMP: 01/21/2023 (Approximate), IUD Age at Menarche: Age at First : Age at Menopause: Machine Hoop Maker Helper History Comments: Sexual Activity: Yes; Male Contraception: [...] Data: [facility]: Low: Low risk from testing/treatment Medical [...] Noted Resolved (more content not included)... Normal [facility] US Pelvison 11-19-2023 Indication Pelvic pain [...] Read By: Little Trevino M.D. MATERNAL MEDICINE [facility] Basic Metabolic Profile (BMP )on 11-18-2023 BUN/CRE 10.1 RATIO Normal 10-20 [facility] Comment on above: Performed By: #### L 100.0100, L500.2500, L500.4100 ####[facility] [address] [place], [address] CA,Total 9.7 mg/dL Normal 8.5-10.1 [facility] Comment on above: Performed By: #### L 100.0100, L500.2500, L500.4100 ####[facility] [address] [place], [address] Chloride [Moles/Vol] 107 mmol/L Normal 98-107 [facility] Comment on above: Performed By: #### L 100.0100, L500.2500, L500.4100 ####[facility] [address] [place], [address] CO2 [Moles/Vol] 26.0 mmol/L Normal 21.0-32.0 [facility] Comment on above: Performed By: #### L 100.0100, L500.2500, L500.4100 ####[facility] [address] [place], [address] Creatinine [Mass/Vol] 0.89 mg/dL Normal 0.55-1.02 [facility] Comment on above: Result Comment: The validity of the calculated GFR GFRAA in patients over 70 years has not been determined. Clinical correlation is essential. Performed By: #### L 100.0100, L500.2500, L500.4100 ####[facility] [address] [place], [address] EST GFR - AA 90 mL/min Normal >60 [facility] Comment on above: Result Comment: Afri can [place] Islander GFR Calc Performed By: #### L 100.0100, L500.2500, L500.4100 ####[facility] [address] [place], [address] GAP 7 Normal 5-15 [facility] Comment on above: Performed By: #### L 100.0100, L500.2500, L500.4100 ####[facility] [address] [place], [address] GFR/1.73 sq M.predicted among non-blacks MDRD (S/P/Bld) [Vol rate/Area] 75 mL/min/{1.73_m2} Normal >60 [facility] Comment on above: Result Comment: Non- GFR Calc Performed By: #### L 100.0100, L500.2500, L500.4100 ####[facility] [address] [place], [address] Glucose [Mass/Vol] 83 mg/dL Normal 74-106 [facility] Comment on above: Performed By: #### L 100.0100, L500.2500, L500.4100 ####[facility] [address] [place], [address] Potassium [Moles/Vol] 4.4 mmol/L Normal 3.5-5.1 [facility] Comment on above: Performed By: #### L 100.0100, L500.2500, L500.4100 ####[facility] [address] [place], [address] Sodium [Moles/Vol] 140 mmol/L Normal 136-145 [facility] Comment on above: Performed By: #### L 100.0100, L500.2500, L500.4100 ####[facility] [address] [place], [address] Urea nitrogen [Mass/Vol] 9 mg/dL Normal 7-18 [facility] Comment on above: Performed By: #### L 100.0100, L500.2500, L500.4100 ####[facility] [address] [place], [address] CBC W/Diff, Automatedon 10-30 Absolute Lymph 2.74 X10 3/uL Normal 0.83-4.51 [facility] Comment on above: Performed By: #### L 100.0100, L500.2500, L500.4100 ####[facility] [address] [place], [address] Absolute Neut 6.2 X10 3/uL Normal 2.0-7.7 [facility] Comment on above: Performed By: #### L 100.0100, L500.2500, L500.4100 ####[facility] [address] [place], [address] Basophils/100 WBC (Bld) 0.5 % Normal 0-1 [facility] Comment on above: Performed By: #### L 100.0100, L500.2500, L500.4100 ####[facility] [address] [place], [address] Eosinophils/100 WBC (Bld) 1.8 % Normal 0-5 [facility] Comment on above: Performed By: #### L 100.0100, L500.2500, L500.4100 ####[facility] [address] [place], [address] Erythrocyte distribution width (RBC) [Ratio] 13.8 % Normal 11.6-14.6 [facility] Comment on above: Performed By: #### L 100.0100, L500.2500, L500.4100 ####[facility] [address] [place], [address] Hematocrit (Bld) [Volume fraction] 45.3 % Normal 37-47 [facility] Comment on above: Performed By: #### L 100.0100, L500.2500, L500.4100 ####[facility] [address] [place], [address] Hemoglobin (Bld) [Mass/Vol] 14.5 g/dL Normal 12.0-15.0 [facility] Comment on above: Performed By: #### L 100.0100, L500.2500, L500.4100 ####[facility] [address] [place], [address] IG% 0.300 Normal 0.0-0.9 [facility] Comment on above: Result Comment: IG% - Immature Granulocytes (promyelocytes, myelocytes and metamyelocytes) > 1% indicates that a LEFT SHIFT is Present. Performed By: #### L 100.0100, L500.2500, L500.4100 ####[facility] [address] [place], [address] Lymphocytes/100 WBC (Bld) 28.3 % Normal 19-41 [facility] Comment on above: Performed By: #### L 100.0100, L500.2500, L500.4100 ####[facility] [address] [place], [address] MCH (RBC) [Entitic mass] 28.4 pg Normal 27.0-32.0 [facility] Comment on above: Performed By: #### L 100.0100, L500.2500, L500.4100 ####[facility] [address] [place], [address] MCHC (RBC) [Mass/Vol] 32.0 g/dL Normal 32-36 [facility] Comment on above: Performed By: #### L 100.0100, L500.2500, L500.4100 ####[facility] [address] [place], [address] MCV (RBC) [Entitic vol] 88.8 fL Normal 81-99 [facility] Comment on above: Performed By: #### L 100.0100, L500.2500, L500.4100 ####[facility] [address] [place], [address] Monocytes/100 WBC (Bld) 5.2 % Normal 0-10 [facility] Comment on above: Performed By: #### L 100.0100, L500.2500, L500.4100 ####[facility] [address] [place], [address] Neutrophils/100 WBC (Bld) 63.9 % Normal 47-70 [facility] Comment on above: Performed By: #### L 100.0100, L500.2500, L500.4100 ####[facility] [address] [place], [address] Nucleated RBC (Bld) [#/Vol] 0 10*3/uL Normal 0-5 [facility] Comment on above: Performed By: #### L 100.0100, L500.2500, L500.4100 ####[facility] [address] [place], [address] Platelet mean volume (Bld) [Entitic vol] 11.3 fL Normal 6.2-12.0 [facility] Comment on above: Performed By: #### L 100.0100, L500.2500, L500.4100 ####[facility] [address] [place], [address] Platelets (Bld) [#/Vol] 255 10*3/uL Normal 150-450 [facility] Comment on above: Performed By: #### L 100.0100, L500.2500, L500.4100 ####[facility] [address] [place], [address] RBC (Bld) [#/Vol] 5.10 10*6/uL Normal 4.2-5.4 [facility] Comment on above: Performed By: #### L 100.0100, L500.2500, L500.4100 ####[facility] [address] [place], [address] RDW SD 45.0 fl High 35.1-43.9 [facility] Comment on above: Performed By: #### L 100.0100, L500.2500, L500.4100 ####[facility] [address] [place], [address] WBC (Bld) [#/Vol] 9.7 10*3/uL Normal 4.4-11.0 [facility] Comment on above: Performed By: #### L 100.0100, L500.2500, L500.4100 ####[facility] [address] [place], [address] Lipid Profileon 11-18-2023 Cholesterol [Mass/Vol] 179 mg/dL Normal 200 [facility] Comment on above: Result Comment: <200 mg/dL Desirable 200-240 mg/dL Borderline >240 mg/dL High Risk Performed By: #### L 100.0100, L500.2500, L500.4100 ####[facility] [address] [place], [address] Cholesterol in HDL [Mass/Vol] 39 mg/dL Low [facility] Comment on above: Result Comment: The drugs N-Acetylcysteine and Metamizole may falsely depress this assay. Reference Range HDL <40 mg/dL Low HDL Cholesterol HDL >or= 60 mg/dL High HDL Cholesterol Performed By: #### L 100.0100, L500.2500, L500.4100 ####[facility] [address] [place], [address] Cholesterol in LDL [Mass/Vol] 111 mg/dL Normal 0-130 [facility] Comment on above: Performed By: #### L 100.0100, L500.2500, L500.4100 ####[facility] [address] [place], [address] Cholesterol in VLDL [Mass/Vol] 29 mg/dL Normal 5-40 [facility] Comment on above: Performed By: #### L 100.0100, L500.2500, L500.4100 ####[facility] [address] [place], [address] Triglyceride [Mass/Vol] 144 mg/dL Normal [facility] Comment on above: Result Comment: The drugs N-Acetylcysteine and Metamizole may falsely depress this assay. Serum Triglycerides Reference Interval Normal <150 mg/dL Borderline high 150 - 199 mg/dL High 200 - 499 mg/dL Very High > or = 500 mg/dL Performed By: #### L 100.0100, L500.2500, L500.4100 ####[facility] [address] [place], [address] US Pelvison 11-18-2023 Radiology Study observation (narrative) [facility] Basophil percentageOrdered B y: Rakel Mauricio on 06-14-2023 Chloride [Moles/Vol] 108 mmol/L 98-107 [facility] Glucose [Mass/Vol] 82 mg/dL 74-106 [facility] Hemoglobin (Bld) [Mass/Vol] 14.6 g/dL 12.0-15.0 [facility] Potassium [Moles/Vol] 3.5 mmol/L 3.5-5.1 [facility] Sodium [Moles/Vol] 138 mmol/L 136-145 [facility] WBC (Bld) [#/Vol] 7.8 10*3/uL 4.4-11.0 [facility] Determination of erythrocyte mean corpuscular volume (MCV)Ordered By: Rakelfrances Mauricio on 06-14-2023 MCV (RBC) [Entitic vol] 86.7 fL 81-99 [facility] Erythrocyte distribution wid th ratioOrdered By: [facility] Statamerican fork hospitalroberta on 06-14-2023 Erythrocyte distribution width (RBC) [Ratio] 13.7 % 11.6-14.6 [facility] Erythrocyte distribution wid th standard deviationOrdered By: [facility] Statcedar city hospitallyric on 06-14-2023 Erythrocyte distribution width (RBC) [Entitic vol] 43.9 fL 35.1-43.9 [facility] Hematocrit Auto (Bld) [Volum e fraction]Ordered By: [facility]americ[facility] fork hospitalroberta on 06-14-2023 Hematocrit (Bld) [Volume fraction] 43.8 % 37-47 [facility] Laboratory - Chemistry and C hemistry - challengeOrdered By: [facility]americ[facility] fork hospitaloullyric on 06-14-2023 CO2 [Moles/Vol] 27.0 mmol/L 21.0-32.0 [facility] Urea nitrogen/Creatinine [Mass ratio] 7.7 mg/mg 10-20 [facility] - Hematology and Cell countsOrdered By: [facility] Stattiaraoullyric on 06-14-2023 MCH (RBC) [Entitic mass] 28.9 pg 27.0-32.0 [facility] MCHC (RBC) [Mass/Vol] 33.3 g/dL 32-36 [facility] Platelet mean volume (Bld) [Entitic vol] 10.5 fL 6.2-12.0 [facility] Platelets (Bld) [#/Vol] 280 10*3/uL 150-450 [facility] No Panel InformationOrdered By: Rakel Mauricio on 06-14-2023 Estimated GFR (MDRD) Amer 88 mL/min >60 [facility] Comment on above: GFR Calc Estimated GFR (MDRD) Non-Af Amer 73 mL/min >60 [facility] Comment on above: Non- GFR Calc Vitamin D 25-Hydroxy 29.7 ng/mL [facility] Comment on above: Vitamin D 25(OH) Sta tus Range Deficiency <20 ng/mL (50nmol/L) Insufficiency 20 - 30 ng/mL (50 - 75 nmol/L) Sufficiency 30 - 100 ng/mL (75 - 250 nmol/L) Toxicity >100 ng/mL (>250 nmol/L) RBC Auto (Bld) [#/Vol]Ordere d By: Rakel Mauricio on 06-14-2023 RBC (Bld) [#/Vol] 5.05 10*6/uL 4.2-5.4 [facility] Serum or plasma calcium gabino urement (mass/volume)Ordered By: Rakel Mauricio on 06-14-2023 Calcium [Mass/Vol] 9.3 mg/dL 8.5-10.1 [facility] Serum or plasma creatinine m easurement (mass/volume)Ordered By: Rakel Mauricio on 06-14-2023 Creatinine [Mass/Vol] 0.91 mg/dL 0.55-1.02 [facility] Comment on above: The validity of the calculated GFR & GFRAA in patients over 70 years has not been determined. Clinical correlation is essential. Serum or plasma urea nitroge n measurement (mass/volume)Ordered By: Rakel Mauricio on 06-14-2023 Urea nitrogen [Mass/Vol] 7 mg/dL 7-18 [facility] Thin prep Papanicolaou smear with manual screeningOrdered By: Rakel Mauricio on 06-14-2023 Thin prep Papanicolaou smear with manual screening 3 5-15 [facility] Whole blood hemoglobin A1c/t otal hemoglobin ratio (mass fraction)Ordered By: Rakel Mauricio on 06-14-2023 HbA1c (Bld) [Mass fraction] 5.4 % 3.8-5.6 [facility] Comment on above: Normal < 5.7 % Predi abetic 5.7 - 6.4 % Diabetic >or= 6.5 % Please note range changes. HCG QUAL UR B/Oon 02-03-2023 status Negative neg - pos [facility] Quality Check Yes [facility] CT ABD/PEL W IVCONon 023 [facility] SURGICAL PATHOLOGYon 023 Case Report Surgical Pathology Report Case: [id number] Authorizing Provider: Lena Patricia MD Collected: 10/28/2022 10:27 AM Ordering Location: Ambulatory Surgery Received: 10/28/2022 02:09 PM Pathologist: Jerry Nazario MD Specimens: A) - ANTRUM (STOMACH) BIOPSY, Antral bx h/h B) - ESOPHAGOGASTRIC JUNCTION BIOPSY, GE Junction bx [facility] FINAL DIAGNOSIS A. Stomach, biopsy: - Antral mucosa with no significant pathologic changes. B. Esophagogastric junction, biopsy: - Mildly reactive squamous mucosa. [facility] Gross Description A. ANTRUM (STOMACH) BIOPSY Received in formalin are two pieces of montoya, soft tissue aggregating to 0.8 x 0.2 x 0.1 cm. Totally submitted in one cassette. B. ESOPHAGOGASTRIC JUNCTION BIOPSY Received in formalin is one piece of montoya-white, soft tissue measuring 0.3 x 0.2 x 0.2 cm. Totally submitted in one cassette. Gross examination performed at [facility], [address] [place] [address] FFS 10/29/2022 1:05 AM [facility] Performing Lab Diagnostic interpretation performed at [facility], [address] [facility], [place] [address] CLIA# [id number] Automation Machine Operator: Joe Pinto M.D. [facility] COLONOSCOPY SCREENINGon 10-01 [facility] EGD DIAGNOSTICon 10-28-2022 [facility] Basophil percentageOrdered B y: Jose Izquierdo on 09-28-2022 WBC (Bld) [#/Vol] 7.3 10*3/uL 4.4-11.0 [facility] Blood erythrocytes count (nu mber/volume)Ordered By: Jose Izquierdo on 09-28-2022 RBC (Bld) [#/Vol] 4.85 10*6/uL 4.2-5.4 [facility] Blood hemoglobin measurement (mass/volume)Ordered By: Jose Izquierdo on 09-28-2022 Hemoglobin (Bld) [Mass/Vol] 14.5 g/dL 12.0-15.0 [facility] Blood platelet mean volumeOr dered By: Jose Izquierdo on 09-28-2022 Platelet mean volume (Bld) [Entitic vol] 10.0 fL 6.2-12.0 [facility] Determination of erythrocyte mean corpuscular volume (MCV)Ordered By: Jose Izquierdo on 09-28-2022 MCV (RBC) [Entitic vol] 89.1 fL 81-99 [facility] Hematocrit Auto (Bld) [Volum e fraction]Ordered By: Jose Izquierdo on 09-28-2022 Hematocrit (Bld) [Volume fraction] 43.2 % 37-47 [facility] Laboratory - Hematology and Cell countsOrdered By: Jose Izquierdo on 09-28-2022 Erythrocyte distribution width (RBC) [Entitic vol] 42.7 fL 35.1-43.9 [facility] Erythrocyte distribution width (RBC) [Ratio] 13.2 % 11.6-14.6 [facility] MCH (RBC) [Entitic mass] 29.9 pg 27.0-32.0 [facility] MCHC Auto (RBC) [Mass/Vol]Or dered By: Jose Izquierdo on 09-28-2022 MCHC (RBC) [Mass/Vol] 33.6 g/dL 32-36 [facility] Platelets bldOrdered By: Jose Izquierdo on 09-28-2022 Platelets (Bld) [#/Vol] 258 10*3/uL 150-450 [facility] No Panel Informationon 07-29 Radiology Result ACTIONABLE [facility] Absolute lymphocyte counton 09-17-2021 Lymphocytes Auto (Unsp spec) [#/Vol] 2.19 10*3/uL 0.83-4.51 [facility] Work Phone: [phone] Basophil percentageon 2021 Basophils/100 WBC (Bld) 0.6 % 0-1 [facility] Work Phone: Bilirubin [Mass/Vol] 0.50 mg/dL 0.20-1.00 [facility] Work Phone: [phone] Comment on above: For patients on eltr ombopag therapy, use of Dimension [place] TBIL is not recommended. Chloride [Moles/Vol] 105 mmol/L 98-107 [facility] Work Phone: [phone] Cholesterol [Mass/Vol] 181 mg/dL <200 [facility] Work Phone: [phone] Comment on above: <200 mg/dL Desirable 200-240 mg/dL Borderline >240 mg/dL High Risk Eosinophils/100 WBC (Bld) 2.2 % 0-5 [facility] Work Phone: [phone] Glucose [Mass/Vol] 88 mg/dL 74-106 [facility] Work Phone: [phone] Neutrophils (Bld) [#/Vol] 3.7 10*3/uL 2.0-7.7 [facility] Work Phone: Neutrophils/100 WBC (Bld) 56.7 % 47-70 [facility] Work Phone: Potassium [Moles/Vol] 3.6 mmol/L 3.5-5.1 [facility] Work Phone: [phone] Protein [Mass/Vol] 7.7 g/dL 6.4-8.2 [facility] Work Phone: [phone] Sodium [Moles/Vol] 137 mmol/L 136-145 [facility] Work Phone: Triglyceride [Mass/Vol] 78 mg/dL <199 [facility] Work Phone: Comment on above: The drugs N-Acetylcy steine and Metamizole may falsely depress this assay.Serum Triglycerides Reference Interval Normal <150 mg/dL Borderline high 150 - 199 mg/dL High 200 - 499 mg/dL Very High > or = 500 mg/dL WBC (Bld) [#/Vol] 6.5 10*3/uL 4.4-11.0 [facility] Work Phone: Blood erythrocytes count (nu mber/volume)on 09-17-2021 RBC (Bld) [#/Vol] 5.04 10*6/uL 4.2-5.4 [facility] Work Phone: Blood hemoglobin measurement (mass/volume)on 09-17-2021 Hemoglobin (Bld) [Mass/Vol] 15.2 g/dL 12.0-15.0 [facility] Work Phone: Blood lymphocytes/100 leukoc yteson 09-17-2021 Lymphocytes/100 WBC (Bld) 33.7 % 19-41 [facility] Work Phone: Blood monocytes/100 leukocyt eson 09-17-2021 Monocytes/100 WBC (Bld) 6.3 % 0-10 [facility] Work Phone: Blood platelet mean volumeon 09-17-2021 Platelet mean volume (Bld) [Entitic vol] 10.6 fL 6.2-12.0 [facility] Work Phone: Determination of erythrocyte mean corpuscular volume (MCV)on 09-17-2021 MCV (RBC) [Entitic vol] 90.7 fL 81-99 [facility] Work Phone: Hematocrit Auto (Bld) [Volum e fraction]on 09-17-2021 Hematocrit (Bld) [Volume fraction] 45.7 % 37-47 [facility] Work Phone: Laboratory - Chemistry and C hemistry - challengeon 09-17-2021 ALP [Catalytic activity/Vol] 51 U/L 45-117 [facility] Work Phone: ALT [Catalytic activity/Vol] 20 U/L 13-56 [facility] Work Phone: CO2 [Moles/Vol] 25.0 mmol/L 21.0-32.0 [facility] Work Phone: Globulin (S) [Mass/Vol] 3.8 g/dL 2.2-4.2 [facility] Work Phone: Urea nitrogen/Creatinine [Mass ratio] 10.2 mg/mg 10-20 [facility] Work Phone: Laboratory - Hematology and Cell countson 09-17-2021 Erythrocyte distribution width (RBC) [Entitic vol] 42.6 fL 35.1-43.9 [facility] Work Phone: Erythrocyte distribution width (RBC) [Ratio] 12.9 % 11.6-14.6 [facility] Work Phone: Immature granulocytes/100 WBC (Bld) 0.500 % 0.0-0.9 [facility] Work Phone: Comment on above: IG% - Immature Granu locytes (promyelocytes, myelocytes and metamyelocytes) > 1% indicates that a LEFT SHIFT is Present. MCH (RBC) [Entitic mass] 30.2 pg 27.0-32.0 [facility] Work Phone: Nucleated RBC/100 WBC (Bld) [Ratio] 0 % 0-5 [facility] Work Phone: MCHC Auto (RBC) [Mass/Vol]on 09-17-2021 MCHC (RBC) [Mass/Vol] 33.3 g/dL 32-36 [facility] Work Phone: No Panel Informationon 09-17 Estimated GFR (MDRD) Amer 82 mL/min >60 [facility] Work Phone: Comment on above: GFR Calc Estimated GFR (MDRD) Non-Af Amer 68 mL/min >60 [facility] Work Phone: Comment on above: Non- GFR Calc Thyroid Stimulating Hormone (TSH) 2.63 uIU/mL 0.358-3.74 [facility] Work Phone: Platelets bldon 09-17-2021 Platelets (Bld) [#/Vol] 249 10*3/uL 150-450 [facility] Work Phone: Serum or plasma albumin gabino urement (mass/volume)on 09-17-2021 Albumin [Mass/Vol] 3.9 g/dL 3.2-5.0 [facility] Work Phone: Serum or plasma albumin/glob ulin mass ratioon 09-17-2021 Albumin/Globulin [Mass ratio] 1.0 {ratio} 0.9-2.4 [facility] Work Phone: Serum or plasma calcium gabino urement (mass/volume)on 09-17-2021 Calcium [Mass/Vol] 9.1 mg/dL 8.5-10.1 [facility] Work Phone: Serum or plasma cholesterol in HDL measurement (mass/volume)on 09-17-2021 Cholesterol in HDL [Mass/Vol] 45 mg/dL >40 [facility] Work Phone: Comment on above: The drugs N-Acetylcy steine and Metamizole may falsely depress this assay. Reference Range HDL <40 mg/dL Low HDL Cholesterol HDL >or= 60 mg/dL High HDL Cholesterol Serum or plasma cholesterol in VLDL measurement (mass/volume)on 09-17-2021 Cholesterol in VLDL [Mass/Vol] 16 mg/dL 5-40 [facility] Work Phone: Serum or plasma creatinine m easurement (mass/volume)on 09-17-2021 Creatinine [Mass/Vol] 0.98 mg/dL 0.55-1.02 [facility] Work Phone: [phone] Comment on above: The validity of the calculated GFR & GFRAA in patients over 70 years has not been determined. Clinical correlation is essential. Serum or plasma ferritin amado surement (mass/volume)on 09-17-2021 Ferritin [Mass/Vol] 53 ng/mL 8-252 [facility] Work Phone: Serum or plasma low density lipoprotein (LDL) cholesterol measurement (mass/volume)on 09-17-2021 Cholesterol in LDL [Mass/Vol] 120 mg/dL 0-130 [facility] Work Phone: Serum or plasma urea nitroge n measurement (mass/volume)on 09-17-2021 Urea nitrogen [Mass/Vol] 10 mg/dL 7-18 [facility] Work Phone: Thin prep Papanicolaou smear with manual screeningon 09-17-2021 Thin prep Papanicolaou smear with manual screening 15 U/L 15-37 [facility] Work Phone: Thin prep Papanicolaou smear with manual screening 7 5-15 [facility] Work Phone: Vital Signs Date Time Vital Sign Value Performing Clinician Marlena dave 09-27-2024 07:38-0400 Body height 165.[address] Oliver Wong MD Work Phone: [facility] 09-27-2024 07:38-0400 Body mass index (BMI) [Ratio] 30.6 kg/m2 Dr. Oliver Wong MD Work Phone: [facility] 09-27-2024 07:38-0400 Body weight 83.[address] Oliver Wong MD Work Phone: [facility] 09-27-2024 07:38-0400 Diastolic blood pressure 82 mm[Hg] Dr. Oliver Wong MD Work Phone: [facility] 09-27-2024 07:38-0400 Heart rate 92 /min Dr. Oliver Wong MD Work Phone: [facility] 09-27-2024 07:38-0400 Respiratory rate 18 /min Dr. Oliver Wong MD Work Phone: [facility] 09-27-2024 07:38-0400 SaO2% (BldA) [Mass fraction] 97 % Dr. Oliver Wong MD Work Phone: [facility] 09-27-2024 07:38-0400 Systolic blood pressure 119 mm[Hg] Dr. Oliver Wong MD Work Phone: [facility] 07-26-2024 08:29-0400 Body height 165.[address] Oliver Wong MD Work Phone: [facility] 07-17-2024 09:42-0400 Body mass index (BMI) [Ratio] 30.7 kg/m2 Dr. Oliver Wong MD Work Phone: [facility] 07-17-2024 09:42-0400 Body weight 83.[address] Oliver Wong MD Work Phone: [facility] 07-17-2024 09:42-0400 Diastolic blood pressure 85 mm[Hg] Dr. Oliver Wong MD Work Phone: [facility] 07-17-2024 09:42-0400 Heart rate 98 /min Dr. Oliver Wong MD Work Phone: [facility] 07-17-2024 09:42-0400 Respiratory rate 18 /min Dr. Oliver Wong MD Work Phone: [facility] 07-17-2024 09:42-0400 Systolic blood pressure 125 mm[Hg] Dr. Oliver Wong MD Work Phone: [facility] 07-12-2024 09:50-0400 Body height 167.6 cm Pily Da Silva MD Work Phone: [facility] 07-12-2024 09:50-0400 Body mass index (BMI) [Ratio] 29.54 kg/m2 Pily Da Silva MD Work Phone: [facility] 07-12-2024 09:50-0400 Body weight 83.01 kg Pily Da Silva MD Work Phone: [facility] 07-12-2024 09:50-0400 Diastolic blood pressure 74 mm[Hg] Pily Da Silva MD Work Phone: [facility] 07-12-2024 09:50-0400 Systolic blood pressure 122 mm[Hg] Pily Da Silva MD Work Phone: [facility] 03-09-2024 07:59-0500 Body mass index (BMI) [Ratio] 30.79 kg/m2 Pily Da Silva MD Work Phone: [facility] 03-09-2024 07:59-0500 Body weight 83.92 kg Pily Da Silva MD Work Phone: [facility] 03-09-2024 07:59-0500 Diastolic blood pressure 72 mm[Hg] Pily Da Silva MD Work Phone: [facility] 03-09-2024 07:59-0500 Systolic blood pressure 104 mm[Hg] Pily Da Silva MD Work Phone: [facility] 02-09-2024 09:33-0500 Body mass index (BMI) [Ratio] 30.45 kg/m2 Pily Da Silva MD Work Phone: [facility] 02-09-2024 09:33-0500 Body weight 83.01 kg Pily Da Silva MD Work Phone: [facility] 02-09-2024 09:33-0500 Diastolic blood pressure 68 mm[Hg] Pily Da Silva MD Work Phone: [facility] 02-09-2024 09:33-0500 Systolic blood pressure 116 mm[Hg] Pily Da Silva MD Work Phone: [facility] 02-01-2024 11:22-0500 Body mass index (BMI) [Ratio] 30.62 kg/m2 Pily Da Silva MD Work Phone: [facility] 02-01-2024 11:22-0500 Body weight 83.46 kg Pily Da Silva MD Work Phone: [facility] 02-01-2024 11:22-0500 Diastolic blood pressure 62 mm[Hg] Pily Da Silva MD Work Phone: [facility] 02-01-2024 11:22-0500 Systolic blood pressure 112 mm[Hg] Pily Da Silva MD Work Phone: [facility] 01-28-2024 11:45-0500 Body temperature 98.3 [degF] Dr. Oliver Wong MD Work Phone: [facility] 01-28-2024 11:45-0500 Diastolic blood pressure 58 mm[Hg] Dr. Oliver Wong MD Work Phone: [facility] 01-28-2024 11:45-0500 Heart rate 71 /min Dr. Oliver Wong MD Work Phone: [facility] 01-28-2024 11:45-0500 Respiratory rate 16 /min Dr. Oliver Wong MD Work Phone: [facility] 01-28-2024 11:45-0500 SaO2% (BldA) [Mass fraction] 93 % Dr. Oliver Wong MD Work Phone: [facility] 01-28-2024 11:45-0500 Systolic blood pressure 92 mm[Hg] Dr. Oliver Wong MD Work Phone: [facility] 01-28-2024 11:30-0500 Inhaled oxygen flow rate 4 L/min Dr. Oliver Wong MD Work Phone: [facility] 01-28-2024 06:08-0500 Body height 167.[address] Oliver Wong MD Work Phone: [facility] 01-28-2024 06:08-0500 Body mass index (BMI) [Ratio] 30.2 kg/m2 Dr. Oliver Wong MD Work Phone: [facility] 01-28-2024 06:08-0500 Body weight 84.[address] Oliver Wong MD Work Phone: [facility] 01-12-2024 08:05-0500 Body height 165.1 cm Pily Da Silva MD Work Phone: [facility] 01-12-2024 08:05-0500 Body mass index (BMI) [Ratio] 30.45 kg/m2 Pily Da Silva MD Work Phone: [facility] 01-12-2024 08:05-0500 Body weight 83.01 kg Pily Da Silva MD Work Phone: [facility] 01-12-2024 08:05-0500 Diastolic blood pressure 80 mm[Hg] Pily Da Silva MD Work Phone: [facility] 01-12-2024 08:05-0500 Heart rate 80 /min Pily Da Silva MD Work Phone: [facility] 01-12-2024 08:05-0500 SaO2% (BldA) [Mass fraction] 92 % Pily Da Silva MD Work Phone: [facility] 01-12-2024 08:05-0500 Systolic blood pressure 122 mm[Hg] Pily Da Silva MD Work Phone: [facility] 12-06-2023 08:11-0400 Body mass index (BMI) [Ratio] 30.15 kg/m2 Pily Da Silva MD Work Phone: [facility] 12-06-2023 08:11-0400 Body weight 83.46 kg Pily Da Silva MD Work Phone: [facility] 12-06-2023 08:11-0400 Diastolic blood pressure 78 mm[Hg] Pily Da Silva MD Work Phone: [facility] 12-06-2023 08:11-0400 Systolic blood pressure 130 mm[Hg] Pily Da Silva MD Work Phone: [facility] 11-23-2023 14:51-0400 Body mass index (BMI) [Ratio] 30.48 kg/m2 Janie Rexford [employer]LLED SEAT [employer]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 Work Phone: [facility] 11-23-2023 14:51-0400 Body weight 84.37 kg Janie Laura [employer]LLED SEAT TR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 Work Phone: [facility] 11-23-2023 14:51-0400 Diastolic blood pressure 64 mm[Hg] Janie Laura [employer]LLED SEAT TR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 Work Phone: [facility] 11-23-2023 14:51-0400 Systolic blood pressure 120 mm[Hg] Janie Laura [employer]LLED SEAT TR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 Work Phone: [facility] 02-03-2023 14:49-0500 Body weight 79.38 kg Pily Da Silva MD Work Phone: [facility] 02-03-2023 14:49-0500 Diastolic blood pressure 70 mm[Hg] Pily Da Silva MD Work Phone: [facility] 02-03-2023 14:49-0500 Heart rate 100 /min Pilyvaleria Da Silva MD Work Phone: [facility] 02-03-2023 14:49-0500 SaO2% (BldA) [Mass fraction] 100 % Pily Da Silva MD Work Phone: [facility] 02-03-2023 14:49-0500 Systolic blood pressure 112 mm[Hg] Pily Da Silva MD Work Phone: [facility] 11-05-2022 15:58-0400 Body temperature 99 [degF] Anita Robertson PA-C Work Phone: [facility] 11-05-2022 15:58-0400 Diastolic blood pressure 80 mm[Hg] Anita Miguel Ángel PA-C Work Phone: [facility] 11-05-2022 15:58-0400 Heart rate 99 /min Anita Miguel Ángel PA-C Work Phone: [facility] 11-05-2022 15:58-0400 SaO2% (BldA) [Mass fraction] 99 % Anita Miguel Ángel PA-C Work Phone: [facility] 11-05-2022 15:58-0400 Systolic blood pressure 118 mm[Hg] Anita Miguel Ángel PA-C Work Phone: [facility] 10-28-2022 11:48-0400 Diastolic blood pressure 63 mm[Hg] Lena Patricia MD Work Phone: [facility] 10-28-2022 11:48-0400 Heart rate 81 /min Lena Patricia MD Work Phone: [facility] 10-28-2022 11:48-0400 SaO2% (BldA) [Mass fraction] 100 % Lena Patricia MD Work Phone: [facility] 10-28-2022 11:48-0400 Systolic blood pressure 106 mm[Hg] Lena Patricia MD Work Phone: [facility] 10-28-2022 11:38-0400 Respiratory rate 16 /min Lena Patricia MD Work Phone: [facility] 10-28-2022 09:59-0400 Body temperature 97.3 [degF] Lena Patricia MD Work Phone: [facility] 10-28-2022 09:59-0400 Body weight 78 kg Lena Patricia MD Work Phone: [facility] 10-12-2022 08:12-0400 Body weight 77.02 kg Pily Da Silva MD Work Phone: [facility] 10-12-2022 08:12-0400 Diastolic blood pressure 60 mm[Hg] Pily Da Silva MD Work Phone: [facility] 10-12-2022 08:12-0400 Systolic blood pressure 102 mm[Hg] Pily Da Silva MD Work Phone: [facility] 10-01-2022 12:39-0400 Body temperature 98.6 [degF] [facility] 10-01-2022 12:39-0400 Diastolic blood pressure 69 mm[Hg] [facility] 10-01-2022 12:39-0400 Heart rate 73 /min [facility] 10-01-2022 12:39-0400 Respiratory rate 16 /min [facility] 10-01-2022 12:39-0400 SaO2% (BldA) [Mass fraction] 100 % [facility] 10-01-2022 12:39-0400 Systolic blood pressure 106 mm[Hg] [facility] 10-01-2022 09:01-0400 Body height 167.64 cm [facility] 10-01-2022 09:01-0400 Body mass index (BMI) [Ratio] 27.4 kg/m2 [facility] 10-01-2022 09:01-0400 Body weight 77.1 kg [facility] 09-16-2022 09:30-0400 Body weight 77.56 kg Pily Da Silva MD Work Phone: [facility] 09-16-2022 09:30-0400 Diastolic blood pressure 70 mm[Hg] Pily Da Silva MD Work Phone: [facility] 09-16-2022 09:30-0400 Systolic blood pressure 110 mm[Hg] Pily Da Silva MD Work Phone: [facility] 08-19-2022 14:54-0400 Body weight 76.66 kg Pily Da Silva MD Work Phone: [facility] 08-19-2022 14:54-0400 Diastolic blood pressure 76 mm[Hg] Pily Da Silva MD Work Phone: [facility] 08-19-2022 14:54-0400 Systolic blood pressure 110 mm[Hg] Pily Da Silva MD Work Phone: [facility] Encounters Encounter Date Encounter Type Care Provider Facility Start: 09-27-2024 End: 09-27-2024 Patient encounter procedure Eulalio Cabrera PA -[facility] Work Phone: Start: 09-27-2024 End: 09-27-[address] Oliver Wong MD Work Phone: -[facility] Start: 09-05-2024 Non-patient / Non-visit Yvette salcido NP-C -[facility] Work Phone: Start: 09-05-2024 ambulatory Yvette Gloria NP Facili ty:[facility] Start: 08-31-2024 Non-patient / Non-visit Dr. Quin ricketts MD -[facility] Start: 08-31-2024 End: 08-31-[address] Oliver Wong MD Work Phone: -Cardiovascular Services Start: 08-31-2024 End: 08-31-[address] Quin Snider MD -Cardiovascular Services Work Phone: Start: 08-31-2024 End: 08-31-2024 ambulatory Oliver Wong Facility:[facility] Start: 08-23-2024 ambulatory Quin Snider Facility:[facility] Start: 08-23-2024 Non-patient / Non-visit Dr. Quin ricketts MD -[facility] Start: 08-23-2024 ambulatory BERNARD RODRIGUEZ Facility:[facility] Start: 08-23-2024 End: 08-23-2024 Subsequent hospital visit by physician [facility] Work Phone: Radiology Comment on above: Abnormal mammogram [ R92.8] Start: 08-23-2024 End: 08-23-[address] Oliver Wong MD Work Phone: -Nuclear Medicine [facility] Start: 08-23-2024 End: 08-23-[address] Quin Snider MD -Nuclear Medicine [facility] Work Phone: Start: 08-23-2024 End: 08-23-2024 ambulatory Oliver Wong Facility:[facility] Start: 07-26-2024 End: 07-26-[address] Oliver Wong MD Work Phone: [facility] Work Phone: Start: 07-26-2024 End: 07-26-[address] Quin Snider MD -Laboratory Work Phone: Start: 07-26-2024 End: 07-26-[address] Quin Snider MD -[facility] Work Phone: Start: 07-26-2024 End: 07-26-[address] Oliver Wong MD Work Phone: [facility] Work Phone: Start: 07-26-2024 End: 07-26-2024 ambulatory Oliver Wong Facility:[facility] Start: 07-13-2024 End: 07-13-2024 Telephone encounter Joe Myers MD Work Phone: Mammography Comment on above: Mammogram Result Maria l Back (right breast diag mamm and us per ) Start: 07-12-2024 End: 09-11-2024 Follow-up encounter Pily Da Silva MD Work Phone: OB/Gynecology Start: 07-12-2024 End: 07-12-2024 Patient encounter procedure Pily Da Silva MD Work Phone: OB/Gynecology Comment on above: Encounter for gyneco logical examination (general) (routine) without abnormal findings (Primary Dx); Encounter for screening mammogram for breast cancer Start: 07-12-2024 End: 07-12-2024 Patient encounter status Pily Da Silva MD Work Phone: [facility] Start: 07-12-2024 Encounter for gynecological examination (general) (routine) without abnormal findings PILY DA SILVA [facility] Start: 07-12-2024 End: 07-12-2024 ambulatory PIYL DA SILVA Facility:[facility] Start: 07-12-2024 End: 07-12-2024 Subsequent hospital visit by physician Screen Mammo [facility] Comment on above: Encounter for screen ing mammogram for malignant neoplasm of breast [Z12.31] Start: 07-03-2024 End: 07-03-2024 Telephone encounter Pily Da Silva MD Work Phone: Mammogram Comment on above: Orders Start: 06-14-2024 End: 06-14-2024 Emergency department patient visit BERNARD RODRIGUEZ MD Facility:[facility] Start: 05-17-2024 End: 05-17-[address] Oliver Wong MD Work Phone: [facility] Work Phone: Start: 05-17-2024 End: 05-17-[address] Oliver Wong MD -Laboratory, [facility] Start: 05-17-2024 End: 05-17-2024 ambulatory Oliver Wong Facility:[facility] Start: 05-06-2024 End: 05-06-2024 Emergency department patient visit USAMA MODI DO Facility:[facility] Start: 03-10-2024 End: 03-10-2024 Telephone encounter Pily Da Silva MD Work Phone: OB/Gynecology Start: 03-09-2024 End: 03-09-2024 ambulatory PILY DA SILVA Facility:[facility] Start: 03-09-2024 End: 03-09-2024 Patient encounter procedure Pily Da Silva MD Work Phone: OB/Gynecology Comment on above: Post-operative state (Primary Dx); Encounter for screening mammogram for malignant neoplasm of breast Start: 02-09-2024 End: 02-09-2024 ambulatory PILY DA SILVA Facility:[facility] Start: 02-09-2024 End: 02-09-2024 Patient encounter procedure Pily Da Silva MD Work Phone: OB/Gynecology Comment on above: Post-operative state (Primary Dx) Start: 02-03-2024 End: 02-03-2024 Telephone encounter Pily Da Silva MD Work Phone: OB/Gynecology Start: 02-01-2024 End: 02-01-2024 Telephone encounter Pily Da Silva MD Work Phone: OB/Gynecology Comment on above: Post Op Drainage Start: 02-01-2024 End: 02-01-2024 ambulatory PILY DA SILVA Facility:[facility] Start: 02-01-2024 End: 02-01-2024 Patient encounter procedure Pily Da Silva MD Work Phone: OB/Gynecology Comment on above: Post-operative state (Primary Dx) Start: 01-28-2024 End: 01-28-2024 Admission to same day surgery center Dr Pily Izquierdo MD -[facility] Start: 01-28-2024 End: 01-28-2024 ambulatory Prashant Yanes Facility:[facility] Start: 01-12-2024 End: 01-12-2024 ambulatory PILY DA SILVA Facility:[facility] Start: 01-12-2024 End: 01-12-2024 Patient encounter procedure Pily Da Silva MD Work Phone: OB/Gynecology Comment on above: Abnormal uterine ble eding (AUB) (Primary Dx); Pelvic pain in female; Dysmenorrhea; Adenomyosis; Pre-op exam Start: 01-12-2024 End: 01-12-2024 Preprocedural examination done Pily Da Silva MD Work Phone: [facility] Start: 12-29-2023 End: 12-29-2023 Admission to same day surgery center [facility] OB/Gynecology Comment on above: Surgery confirmation Start: 12-29-2023 End: 12-29-2023 E-mail encounter from caregiver [facility] OB/Gynecology Start: 12-16-2023 Encounter for genera l adult medical examination without abnormal findings [facility] Start: 12-09-2023 End: 12-22-2023 ambulatory Pily Da Silva MD Work Phone: OB/Gynecology Comment on above: Papers Start: 12-06-2023 End: 01-03-2024 Admission to same day surgery center Pily Da Silva MD Work Phone: OB/Gynecology Comment on above: Surgery dates Start: 12-06-2023 End: 01-03-2024 E-mail encounter from caregiver Pily Da Silva MD Work Phone: OB/Gynecology Start: 12-06-2023 End: 12-06-2023 ambulatory PILY DA SILVA Facility:[facility] Start: 12-06-2023 End: 12-06-2023 Patient encounter procedure Pily Da Silva MD Work Phone: OB/Gynecology Comment on above: Dysmenorrhea (Primar y Dx); Abnormal uterine bleeding (AUB); Adenomyosis Start: 11-25-2023 End: 11-25-2023 Telephone encounter Janie Hopkins APRN.CNP Work Phone: OB/Gynecology Comment on above: Appointment Start: 11-23-2023 End: 11-23-2023 ambulatory JANIE HOPKINS [facility] [facility] Start: 11-23-2023 End: 11-23-2023 Patient encounter procedure Janie Hopkins APRN.MATERIAL ASSISTANT Work Phone: OB/Gynecology Comment on above: Abnormal uterine ble eding (AUB) (Primary Dx); Adenomyosis Start: 11-18-2023 End: 11-18-2023 ambulatory YISSEL MELTON OB/Gynecology Start: 11-18-2023 End: 11-18-2023 Patient encounter procedure Whi Tech 1 Butane Compressor Operator Wstr Mob OB/Gynecology Start: 11-18-2023 End: 11-18-2023 ambulatory Oliver Hargroveelsen Facility:[facility] Start: 11-15-2023 End: 11-15-2023 ambulatory Pily Da Silva MD Work Phone: OB/Gynecology Comment on above: iud Start: 07-08-2023 Documentation procedure Mammog nathan Coordinator [facility] Department Start: 07-08-2023 Letter encounter Mammography Coordinator [facility] Start: 07-07-2023 End: 07-07-2023 Subsequent hospital visit by physician Screen Mammo [facility] M[facility]ogram Comment on above: Encounter for screen ing mammogram for breast cancer [Z12.31] Start: 06-14-2023 End: 06-14-2023 ambulatory [facility] Work Phone: Start: 06-14-2023 End: 06-14-2023 Patient encounter procedure [facility] Work Phone: Start: 04-14-2023 ambulatory Pily Da Silva MD Work Phone: OB/Gynecology Comment on above: Iud Hot flashes (Primary Dx) Start: 02-08-2023 Telephone encounter Lena Hernandez MD Work Phone: General Surgery Comment on above: Request Outside Medi maria Records (EGD & colonoscopy) Request Outside Medi maria Records (OV notes from 09/2022 & 01/2023) [...] End: 11-25-2022 Subsequent hospital visit by physician [facility] (I-Stat) Work Phone: Cat Scan Comment [...] Bloating Start: 10-05-2022 Admission to same da surgery center Pily Da Silva MD Work Phone: OB/Gynecology Comment on above: Discharge after surg enzo Start: 10-05-2022 ambulatory Pily Da Silva MD Work Phone: [facility] Start: 10-02-2022 Telephone encounter Pily Da Silva MD Work Phone: OB/Gynecology Comment on above: post op pain Start: 10-01-2022 End: 10-01-2022 Admission to same day surgery center [facility] Start: 10-01-2022 End: 10-01-2022 ambulatory [facility] Work Phone: Start: 09-16-2022 End: 09-16-2022 Patient encounter procedure Pily Da Silva MD Work Phone: OB/Gynecology Comment on above: Cyst, ovary, dermoid , right (Primary Dx); Pelvic pain in female; Pre-op exam Start: 09-16-2022 End: 09-16-2022 Preprocedural examination done Pily Da Silva MD Work Phone: [facility] Work Phone: Start: 08-19-2022 End: 08-19-2022 Patient encounter procedure Pily Da Silva MD Work Phone: OB/Gynecology Comment on above: Dermoid cyst of righ t ovary (Primary Dx); Pelvic pain in female; Dysmenorrhea; Ovulation pain Start: 07-29-2022 End: 07-29-2022 Subsequent hospital visit by physician Mri [facility] (I-Stat/1.5t) Work Phone: Radiology Comment on above: Pelvic and perineal pain [R10.2] Start: 07-24-2022 Telephone encounter Janie ulloa APRN.CNP Work Phone: OB/Gynecology Comment on above: Results Start: 11-26-2021 End: 11-26-2021 ambulatory [facility] Work Phone: Start: 11-26-2021 End: 11-26-2021 Patient encounter procedure [facility]Laboratory, Specimen Start: 09-17-2021 End: 09-17-2021 Patient encounter procedure [facility] [place] Procedures Date Procedure Procedure Detail Performing Clinician Start: 08-23-2024 Us breast uni real time with image limited Pily Da Silva MD Work Phone: Start: 08-23-2024 Digital breast tomosynthesis unilateral Pily Da Silva MD Work Phone: Start: 08-23-2024 Radionuclide imaging of perfusion of myocardium under exercise stress Dr. Oliver Wong MD Work Phone: Start: 07-12-2024 Screening digital breast tomosynthesis bi [...] pelvis w/o & w/contrast material Janie Hopkins APRN.CNP Work Phone: H/O: hysterectomy S/P partial hysterectomy Dr. Oliver Wong MD Work Phone: Comment on above: 12/2023 Plan of Treatment Date Care Activity Detail Author Start: 10-28-2032 Colonoscopy Colonoscopy [facility] Start: 10-28-2032 Colorectal Cancer Screening Colorectal Cancer Screening [facility] Start: 10-28-2032 Screening for malign ant neoplasm of colon [facility] Start: 11-27-2031 Urine microalbumin profile DTaP,Tdap,Td Vaccine (6 - Td or Tdap) [facility] Start: 07-24-2027 HPV TESTING HPV TESTING [facility] Start: 07-24-2027 PAP TESTING PAP TESTING [facility] Start: 07-24-2027 Screening for malign ant neoplasm of cervix [facility] Start: 07-16-2025 End: 07-16-2025 Patient encounter procedure Mammogram Comment on above: Encounter for screen ing mammogram for breast cancer [Z12.31] annual Start: 07-12-2025 Screening for malign ant neoplasm of breast Mammogram Screening [facility] Start: 10-30-2024 Influenza vaccination [facility] Start: 08-23-2024 End: 08-23-2024 Patient encounter procedure Mammogram Comment on above: right breast diag ma mm and us per sm right breast diag ma m and us cb per sm Start: 07-26-2024 Evaluation of diagno stic study results [facility] Start: 07-12-2024 End: 07-12-2024 Patient encounter procedure Mammogram Comment on above: Screening Annual Exam did phone note for o rder 07/03 Screening Start: 07-06-2024 Screening for malign ant neoplasm of breast Mammogram Screening [facility] Start: 03-23-2024 End: 03-23-2024 Patient encounter procedure 03/23/2024 1:20 PM EST Office Visit OB/Gynecology [address] [place] [address] Pily Gallardo MD [address] [place] [address] Annual Exam OB/Gynecology Comment on above: Annual Exam Start: 03-09-2024 End: 03-09-2024 Patient encounter procedure OB/Gynecology Comment on above: PP Post-op Start: 02-09-2024 End: 02-09-2024 Patient encounter procedure OB/Gynecology Comment on above: PP Post-op Start: 01-28-2024 Anesthesia intraperitoneal lower abd w/laps nos ANESTH SURG LOWER ABDOMEN [facility] Start: 01-28-2024 Laparoscopy w total hysterectomy uterus 250 gm/< TLH UTERUS 250 G OR LESS [facility] Start: 01-28-2024 Patient discharge [facility] Start: 01-28-2024 Ambulation without limitation [facility] Start: 01-28-2024 Medication education [facility] Start: 01-28-2024 Planned voiding [facility] Start: 01-28-2024 Procedure discontinued [facility] Start: 01-28-2024 Taking patient vital signs [facility] Start: 01-28-2024 Vital signs measurements [facility] Start: 01-28-2024 [facility] Start: 01-12-2024 End: 01-12-2024 Patient encounter procedure 01/12/2024 8:10 AM EST Office Visit OB/Gynecology [address] [place] [address] Pily Gallardo MD [address] [place] [address] surgery 01/27 [facility] OB/Gynecology Comment on above: surgery 01/27 [facility] Start: 12-06-2023 End: 12-06-2023 Patient encounter procedure 12/06/2023 8:20 AM EDT Office Visit OB/Gynecology [address] [place] [address] Pily Gallardo MD [address] [place] [address] Discuss surgical options OB/Gynecology Comment on above: Discuss surgical opt ions Start: 11-23-2023 End: 11-23-2023 Patient encounter procedure 11/23/2023 3:00 PM EDT Office Visit OB/Gynecology [address] [place] [address] Janie Hopkins APRN.MATERIAL ASSISTANT [address] [place] [address] Discuss U/S and IUD OB/Gynecology Comment on above: Discuss U/S and IUD Start: 11-18-2023 End: 11-18-2023 Manual pelvic examination 11/18/2023 9:00 AM EDT Procedure OB/Gynecology [address] [place] [address] Pelvic Ultrasound OB/Gynecology Comment on above: Pelvic Ultrasound Start: 11-15-2023 End: 11-14-2024 US Pelvis PELVIC US [facility] Anc Imaging Routine Pelvic pain in female Abnormal uterine bleeding (AUB) Expected: 11/15/2023, Expires: 11/14/2024 [facility] Work Phone: Comment on above: Expected: 11/15/2023 , Expires: 11/14/2024 Start: 10-31-2023 Covid-19 Vaccine ( season) Covid-19 Vaccine () [facility] Start: 10-31-2023 Covid-19 Vaccine () Covid-19 Vaccine () [facility] Start: 10-31-2023 Influenza vaccination [facility] Start: 2023 Screening for malign ant neoplasm of breast Mammogram Screening [facility] Start: 04-14-2023 End: 07-14-2023 Estradiol (E2) [Mass/volume] in Serum or Plasma ESTRADIOL-17B BLD Lab Routine Hot flashes Expected: 04/14/2023, Expires: 07/14/2023 [facility] Work Phone: Comment on above: Expected: 04/14/2023 , Expires: 07/14/2023 Start: 04-14-2023 End: 07-14-2023 Follitropin [Units/volume] in Serum or Plasma FSH BLD Lab Routine Hot flashes Expected: 04/14/2023, Expires: 07/14/2023 [facility] Work Phone: Comment on above: Expected: 04/14/2023 , Expires: 07/14/2023 Start: 04-14-2023 End: 07-14-2023 Thyrotropin [Units/volume] in Serum or Plasma TSH BLD Lab Routine Hot flashes Expected: 04/14/2023, Expires: 07/14/2023 [facility] Work Phone: Comment on above: Expected: 04/14/2023 , Expires: 07/14/2023 Start: 03-01-2023 Behavioral Health Screening Behavioral Health Screening [facility] Start: 03-01-2023 Depression Assessment Depression Ass essment [facility] Start: 10-30-2022 Covid-19 Vaccine () Covid-19 Vaccine () [facility] Start: 10-30-2022 Influenza vaccination [facility] Start: 10-01-2022 Patient discharge [facility] Start: 10-01-2022 Procedure discontinued [facility] Start: 10-01-2022 Ambulation without limitation [facility] Start: 10-01-2022 Medical regimen orde rs management [facility] Start: 10-01-2022 Medication education [facility] Start: 10-01-2022 Taking patient vital signs [facility] Start: 10-01-2022 Vital signs measurements [facility] Start: 10-01-2022 [facility] Start: 03-01-2022 DEPRESSION ASSESSMENT DEPRESSION ASS ESSMENT [facility] Start: 09-06-2021 Urine microalbumin profile [facility] Start: 10-24-2019 PAP TESTING PAP TESTING [facility] Start: 06-08-2002 Hepatitis B Vaccine (1 of 3 - 19+ 3-dose series) Hepatitis B Vaccine (1 of 3 - 19+ 3-dose series) [facility] Start: 06-08-2002 Pneumococcal vaccination Pneum ococcal Vaccine (1 of 2 - PCV) [facility] Start: 06-08-2001 Anxiety Screening Anxiety Screening [facility] Start: 06-08-2001 Depression Screening Depression Scre ening [facility] Start: 06-08-2001 HEPATITIS C SCREENING HEPATITIS C [facility] Start: 06-08-2001 Hepatitis C screening Hepatitis C [facility] Start: 06-08-2001 HIV SCREENING HIV SCREENING [facility] Start: 06-08-2001 HIV screening HIV Screening [facility] Start: 06-08-1989 PNEUMOCOCCAL (1 - PCV) PNEUMOCOCCAL (1 - PCV) [facility] Start: 06-08-1989 Pneumococcal vaccination [facility] Start: 1985 COVID-19 VACCINE (#1) COVID-19 VACCI NE (#1) [facility] Start: 1985 HEPATITIS B (1 of 3 - 3-dose series) HEPATITIS B (1 of 3 - 3-dose series) [facility] Start: 1985 Hepatitis B Vaccine (1 of 3 - 3-dose series) Hepatitis B Vaccine (1 of 3 - 3-dose series) [facility] End: 12-05-2023 Ct abdomen & pelvis w/contrast material CT ABD/PEL W IVCON Radiology Routine Right lower quadrant abdominal pain 1 Occurrences starting 11/05/2022 until 12/05/2023 [facility] Work Phone: Comment on above: 1 Occurrences starti ng 11/05/2022 until 12/05/2023 End: 04-08-2025 DBT Breast - bilateral screening PERRI SCREENING W ASHLEY Radiology Routine Encounter for screening mammogram for malignant neoplasm of breast 1 Occurrences starting 03/09/2024 until 04/08/2025 [facility] Work Phone: Comment on above: 1 Occurrences starti ng 03/09/2024 until 04/08/2025 End: 08-11-2025 DBT Breast - bilateral screening PERRI SCREENING W ASHLEY Radiology Routine Encounter for screening mammogram for breast cancer 1 Occurrences starting 07/12/2024 until 08/11/2025 [facility] Work Phone: Comment on above: 1 Occurrences starti ng 07/12/2024 until 08/11/2025 Insertion intrauteri ne device iud INSERT INTRAUTERINE DEVICE Procedures Routine Encounter for IUD insertion Ordered: 12/28/2022 [facility] Work Phone: Comment on above: Ordered: 12/28/2022 MG Breast Screening PERRI SCREENIN G Radiology Routine Encounter for screening mammogram for breast cancer 07/07/2023 4:02 PM EDT [facility] Work Phone: Path report.final Dx Spec [facility] Work Phone: Patient referral [facility] Work Phone: Radionuclide imaging of perfusion of myocardium under exercise stress [facility] Immunizations Immunization Date Immunization Notes Care Provider Dora dyer 11-26-2021 tetanus toxoid, redu ty diphtheria toxoid, and acellular pertussis vaccine, adsorbed Pily Da Silva MD Work Phone: [facility] 12-24-2015 influenza virus vaccine, unspecified formulation Pily Da Silva MD Work Phone: [facility] 09-07-2011 tetanus toxoid, redu ty diphtheria toxoid, and acellular pertussis vaccine, adsorbed Janie Laura ROLLED SEAT TR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 Work Phone: [facility] Work Phone: 05-02-2010 diphtheria, tetanus toxoids and acellular pertussis vaccine Pily Da Silva MD Work Phone: [facility] 02-27-2008 human papilloma viru s vaccine, quadrivalent Janie Rexford ROLLED SEAT TR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 Work Phone: [facility] Work Phone: 11-08-2007 human papilloma viru s vaccine, quadrivalent Janie Laura ROLLED SEAT TR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 Work Phone: [facility] Work Phone: 09-07-2007 human papilloma viru s vaccine, quadrivalent Janie Rexford ROLLED SEAT TR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 Work Phone: [facility] Work Phone: 09-10-1995 measles, mumps and rubella virus vaccine Pily Da Silva MD Work Phone: [facility] 09-29-1988 diphtheria, tetanus toxoids and acellular pertussis vaccine Pily Da Silva MD Work Phone: [facility] 09-29-1988 poliovirus vaccine, inactivated Pily Da Silva MD Work Phone: [facility] 11-30-1984 diphtheria, tetanus toxoids and acellular pertussis vaccine Pily Da Silva MD Work Phone: [facility] 11-30-1984 poliovirus vaccine, inactivated Pily Da Silva MD Work Phone: [facility] 09-09-1984 measles, mumps and rubella virus vaccine Pily Da Silva MD Work Phone: [facility] Payers Date Payer Category Payer Self-pay [id number] 2022 Private Health Insurance [id number] 2022 Private Health Insurance [id number] 1985 Unknown [id number] [id number] 1985 Unknown [id number] 2.16.8 [id number] Unknown [id number] Unknown [id number] 2.16.8 [id number] Unknown [id number] 2.16.8 [id number] Unknown [id number] 2.16.8 [id number] Unknown [id number] 2.16.8 [id number] Unknown [id number] 2.16.8 [id number] Unknown [id number] 2.16.8 [id number] Unknown [id number] 2.16.8 [id number] Unknown [id number] 2.16.8 [id number] Unknown [id number] 2.16.8 [id number] Unknown [id number] 2.16.8 [id number] Unknown [id number] 2.16.8 [id number] Social History Date Type Detail Facility Start: 04-27-2017 End: 09-24-2022 Tobacco smoking status AZIS Unknown if ever smoked [facility] Start: 1985 Sex Assigned At Female [facility] Start: 09-27-2013 End: 07-17-2024 Tobacco smoking status AZIS Smokes tobacco daily [facility] History of tobacco use Cigarette Smoker C [facility] Start: 09-27-2013 End: 07-23-2022 Cigarettes smoked current (pack per day) - Reported 1 [facility] Start: 09-27-2013 End: 11-23-2023 Tobacco use and exposure Smokeless tobacco non-user [facility] Start: 07-23-2022 End: 07-12-2024 Alcohol intake Current non-drinker of alcohol (finding) [facility] Start: 1985 Sex Assigned At Not on file C [facility] Start: 07-23-2022 End: 09-16-2022 Tobacco use panel [facility] National Score (1-100), lower number is lower risk 57 [facility] Start: 06-14-2023 Gender identity Identifies as female gender (finding) [facility] Start: 06-14-2023 Sexual orientation Heterosexual (fin prudencio) [facility] Start: 05-24-2024 Sex Female (finding) [facility] NEGATED: Highlighted row [facility] NEGATED: Highlighted row Not [facility] Medical Equipment Procedure Code Equipment Code Equipment Origin al Text Equipment Identifier Dates Laparoscopic abdominal hysterectomy Collagen haemostatic agent, non-antimicrobial ([id number] FDA Start: 01-28-2024 Goals Date Patient Goal Desired Activity /State Functional Status Date Assessment Result Facility 09-27-2013 Are you deaf, or do you have serious difficulty hearing No 09/27/2013 9:10 AM Deanne Charles, DANIEL No [facility] 09-27-2013 Are you blind, or do you have serious difficulty seeing, even when wearing glasses No 09/27/2013 9:10 AM Deanne Charles, DANIEL No [facility] 09-27-2013 Do you have serious difficulty walking or climbing stairs No 09/27/2013 9:10 AM Deanne Charles, DANIEL No [facility] 09-27-2013 Do you have difficul ty dressing or bathing No 09/27/2013 9:10 AM Deanne Charles, DANIEL [facility] 09-27-2013 Because of a physica l, mental, or emotional condition, do you have difficulty doing errands alone such as visiting a physician's office or shopping No 09/27/2013 9:10 AM Deanne Charles RN [facility] Mental Status Date Assessment Result Facility 01-28-2024 Cognitive function Level Of Cons ciousness Sedated [facility] Work Phone: 10-01-2022 Cognitive function Level Of Cons ciousness Appropriate;Drowsy [facility] Work Phone: 09-27-2013 Because of a physica l, mental, or emotional condition, do you have serious difficulty concentrating, remembering, or making decisions No 09/27/2013 9:10 AM Deanne Charles, DANIEL [facility] Clinical Notes 07-29-2022 to 08-23-2024 Shannon Wright RDMS - 08/23/2024 8:30 AM Anita Pollock RT(Ana Maria) - 08/23/2024 8:00 AM EDT Note Date & Type Note Facility 08-23-2024 History of Present illness Narrative Radiology Service Progress Note PATIENT NAME: Sree Cesar DATE OF SERVICE: August 23, 2024 TIME: 11:05 AM PATIENT IDENTITY VERIFICATION COMPLETED USING TWO [...] PATIENT PRESENTS WITH AN IMPLANTABLE OR ATTACHED BROACHING MACHINE OPERATOR: No RADIOLOGY DEPARTMENT: Ultrasound PERIPHERAL IV DATA: Not applicable SIGNED BY: Shannon Wright RDMS August 23, 2024 11:05 AM documented in this encounter [facility] 08-23-2024 Note HNO ID: [id number] Author: SHANNON WRIGHT RDMS Service: ? Author Type: Paper And Prints Restorer Type: Progress Notes Filed: 08/23/2024 11:05 Note Text: Radiology Service Progress Note PATIENT NAME: Sree Cesar DATE OF SERVICE: August 23, 2024 TIME: 11:05 AM PATIENT IDENTITY VERIFICATION COMPLETED USING TWO [...] PATIENT PRESENTS WITH AN IMPLANTABLE OR ATTACHED BROACHING MACHINE OPERATOR: No RADIOLOGY DEPARTMENT: Ultrasound PERIPHERAL IV DATA: Not applicable SIGNED BY: Shannon Wright RDMS August 23, 2024 11:05 AM [facility] 08-23-2024 History of Present illness Narrative Radiology Service Progress Note PATIENT NAME: Sree Cesar DATE OF SERVICE: August 23, 2024 TIME: 7:58 AM PATIENT IDENTITY VERIFICATION COMPLETED USING TWO [...] PATIENT PRESENTS WITH AN IMPLANTABLE OR ATTACHED BROACHING MACHINE OPERATOR: No RADIOLOGY DEPARTMENT: Mammography PERIPHERAL IV DATA: Not applicable SIGNED BY: RT Sarah(Ana Maria) August 23, 2024 7:58 AM documented in this encounter [facility] 08-23-2024 Note HNO ID: [id number] Author: ANITA OSMAN RT(R) Service: ? Author Type: Technologist Type: Progress Notes Filed: 08/23/2024 07:58 Note Text: Radiology Service Progress Note PATIENT NAME: Sree Cesar DATE OF SERVICE: August 23, 2024 TIME: 7:58 AM PATIENT IDENTITY VERIFICATION COMPLETED USING TWO [...] PATIENT PRESENTS WITH AN IMPLANTABLE OR ATTACHED BROACHING MACHINE OPERATOR: No RADIOLOGY DEPARTMENT: Mammography PERIPHERAL IV DATA: Not applicable SIGNED BY: RT Sarah(R) August 23, 2024 7:58 AM [facility] 07-26-2024 Evaluation note Diagnosis Onset Date Resolution PVCs (premature ventricular contractions) acute July 26, 2024 8 :45am Chest discomfort chronic June 8:45am Hiatal hernia chronic July 26 025 8:45am Nicotine dependence chronic June 302024 8:45am [facility] Work Phone: 1(524) 767-581405-28-2025 Evaluation note* Diagnosis Onset Date Resolution Status Admit Date PVCs (premature ventricular contractions) acute July 26, 2024 8 :45am Chest discomfort chronic June 8:45am Hiatal hernia chronic July 26, 025 8:45am Nicotine dependence chronic June 302024 8:45am PVCs (premature ventricular contractions) acute September 27, 2024 7:51am Chest discomfort chronic August 7:51am [facility] Work Phone: 1(545) 563-207205-28-2025 Progress [facility] [address] [place] [address] OFFICE VISIT Date of Service: 07/26/24 MR#: [id number] Acct: [id number] Name: SREE CESAR Rep #: [id number] : 1985 Provider: Dr. 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 Oliver Wong MD ~ [facility]05-28-2025 Progress note Author Quin Snider [facility] Note Date/Time July 26, 2024 9:31a [facility] [address] [place] [address]. [address] [place] [address] OFFICE VISIT Date of Service: 07/26/24 MR#: [id number] Acct: [id number] Name: SREE CESAR Rep #: [id number] : 1985 Provider: Dr. 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 Oliver Wong MD ~ [facility] Work Phone: 1(577) 644-298905-14-2025 NoteHNO ID: [id number] Author: PILY GALLARDO MD Service: ? Author Type: Physician Type: Progress Notes Filed: 07/12/2024 10:20 Note Text: Central Office Repairer offered: Patient declines. Obstetrics and Gynecology [place] Annual Exam Subjective Recording using ambient AI software for draft documentation of the visit was discussed with the patient/authorized education courses sales representative; all questions welcomed and answered. 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 As applicable, any other physician, advance practice provider, medical student, or other health professional student that will be observing or involved in the sensitive examination for educational or training purposes was discussed with the Patient or Authorized Assistant Front End Manager. The Patient or Authorized Assistant Front End Manager has agreed to proceed with the sensitive [...] thyroid normal DERMATOLOGY: Norm (more content not included)...[facility] 07-12-2024 History of Present illness Narrative* Pily Gallardo MD - 07/12/2024 9:48 AM EDT Images from the original note were not included. Central Office Repairer offered: Patient declines. Obstetrics and Gynecology [place] Annual Exam Subjective Recording using ambient [employer] software for draft documentation of the visit was discussed with the patient/authorized education courses sales representative; all questions welcomed and answered. Patient/authorized education courses sales representative agreed to proceed CHIEF COMPLAINT: The [...] Living1 SAB0 IAB0 Ectopic0 Multiple0 Live Births0 Machine Hoop Maker Helper History LMP: 01/27/2024, Hysterectomy Age at Menarche: Age at First : Age at Menopause: Machine Hoop Maker Helper History Comments: Sexual Activity: Yes; Male Contraception: Tubal Ligation PAST MEDICAL HISTORY Diagnosis Date IUD (intrauterine device) in place 11/19/2023 PMH - PAST MEDICAL HISTORY OF 03/01/2001 ovarian cysts PAST SURGICAL HISTORY Procedure Laterality Date APPENDECTOMY 1994 COLONOSCOPY FLX DX W/COLLJ SPEC WHEN PFRMD 10/28/2022 repeat in 10 years EGD W/O BRSH SPEC VARICIES INJ 10/28/2022 HYSTERECTOMY 01/28/2024 TL, cystoscopy L'SCOPE DX W/WO BRUSHINGS/WASHINGS 10/01/2022 was [...] discussed with the Patient or Patient's Authorized Assistant Front End Manager. As applicable, any other physician, advance practice provider, medical student, or other health professional student that will be observing or involved in the sensitive examination for educational or training purposes was discussed with the Patient or Authorized Assistant Front End Manager. The Patient or Authorized Assistant Front End Manager has agreed to proceed with the sensitive [...] external genitalia normal, normal Bartholin's glands, urethra, Sisquoc's glands, no vulvar lesions, good vaginal support, [...] mammograms. Pily Izquierdo MD [facility] History of Present illness Narrative* Cristina Keane, Mammo Tech - 07/12/2024 8:50 AM EDT [...] PATIENT PRESENTS WITH AN IMPLANTABLE OR ATTACHED BROACHING MACHINE OPERATOR: No RADIOLOGY DEPARTMENT: Mammography PERIPHERAL IV DATA: Not applicable SIGNED BY: Cameron Monahan July 12, 2024 8:55 AM documented in this encounterRiverside [facility] Hospital05-14-2025 NoteHNO ID: [id number] Author: CRISTINA KEANE Mammo Tech Service: ? Author Type: Paper And Prints Restorer Type: Progress Notes Filed: 07/12/2024 08:55 Note [...] PATIENT PRESENTS WITH AN IMPLANTABLE OR ATTACHED BROACHING MACHINE OPERATOR: No RADIOLOGY DEPARTMENT: Mammography PERIPHERAL IV DATA: Not applicable SIGNED BY: Cameron Monahan July 12, 2024 8:55 [facility]05-05-2025 Telephone encounter Note* Telephone Encounter - Tyesha Marti RN - 07/03/2024 3:36 PM EDT Linked order to mammogram appt. Tyesha Marti RN [facility]05-05-2025 Miscellaneous Notes* Telephone Encounter - Tyesha Marti RN - 07/03/2024 3:36 PM EDT Linked order to mammogram appt. Tyesha Marti RN * Telephone Encounter - Cristina Keane Mammo Tech - 07/03/2024 3:16 PM EDT Could we have a order for a screening mammogram order? Pt has appt 07/12. Thanks a million documented in this encounterRivers[facility]05-05-2025 Telephone encounter Note * Telephone Encounter - Cristina Keane Mammo Tech - 07/03/2024 3:16 PM EDT Could we have a order for a screening mammogram order? Pt has appt 07/12. Thanks a million [facility]01-10-[facility]25 Telephone encounter Note* Telephone Encounter - Andrea Hamm MA - 03/10/2024 1:26 PM EST Return to work form has been signed and faxed to employer. Patient notified via [employer]. Andrea Hamm MA [facility]01-10-2025 Miscellaneous Notes* Telephone Encounter - Andrea Hamm MA - 03/10/2024 1:26 PM EST Return to work form has been signed and faxed to employer. Patient notified via [employer]. Andrea Hamm MA * Telephone Encounter - [...] back. Annie Peter RN documented in this encounterRivers[facility]01-10-2025 Telephone encounter Note * Telephone Encounter - Pily Gallardo MD - 03/10/2024 1:[address] in my box and I will sign while I am here [facility]01-10-[facility] Telephone encounter Note* Telephone Encounter - Annie [...] able. Pt voiced understanding. Annie Peter RN [facility]01-10-2025 Telephone encounter Note* Telephone Encounter - Annie Peter RN - 03/10/2024 11:53 AM EST Pt states was seen in office 03/09/24 and had given a return to work form to be filled out/signed andher employer has not received it. Advised Pt would check into this and would call her back. Annie Peter RN [facility]01-09-2025 NoteHNO ID: [id number] Author: PILY GALLARDO MD Service: ? Author [...] surgical history, medications and allergies. Pily Izquierdo [facility]01-09-2025 History of Present illness Narrative* Pily [...] allergies. Pily Izquierdo MD documented in this encounterRivers[facility]12-11-2024 NoteHNO ID: [id number] Author: PILY GALLARDO MD Service: ? Author [...] surgical history, medications and allergies. Pily Izquierdo [facility]12-11-2024 History of Present illness Narrative* Pily Gallardo [...] allergies. Pily Izquierdo MD documented in this encounterRivers[facility]12-05-2024 Telephone encounter Note * Telephone Encounter - Yolanda Helton RN - 02/03/2024 4:10 PM EST Patient notified. Yolanda Helton RN [facility]12-05-2024 Miscellaneous Notes* Telephone Encounter - Yolanda Helton [...] post op appts asscheduled. documented in this encounterRiverside [facility] Hospital12-05-2024 Telephone encounter Note * Telephone Encounter - Tyesha Marti RN - 02/03/2024 3:42 PM EST Left message for patient to call office. Tyesha Marti RN [facility]12-05-2024 Telephone encounter Note* Telephone Encounter - Pily Gallardo MD - 02/03/2024 3:31 PM EST Please notify patient of benign Pathology from Hysterectomy. Will see her back for post op appts asscheduled. [facility]12-[facility]24 NoteHNO ID: [id number] Author: PILY GALLARDO MD Service: ? Author [...] and surgical history, medications and allergies. [facility] History of Present illness Narrative* Pily Gallardo [...] allergies. Pily Izquierdo MD documented in this encounterRivers[facility]12-03-2024 Telephone encounter Note * Telephone Encounter - Deanne Pickard RN - 02/01/2024 9:29 AM EST Patient notified and voiced understanding, appointment given for today. Deanne Pickard RN [facility]12-03-2024 Miscellaneous Notes* Telephone Encounter - Deanne Pickard [...] patient seen in office? Yolanda Helton RN documented in this encounterRivers[facility]12-03-2024 Telephone encounter Note * Telephone Encounter - Pily Gallardo MD - 02/01/2024 8:37 AM EST Or 11:40 sorry- that is a post op appt slot [facility]12-03-2024 Telephone encounter Note* Telephone Encounter - Pily Gallardo MD - 02/01/2024 8:35 AM EST A small amount of drainage can be normal as can be bruising - happy to see her today- She can come at 11:20 or at 9:20am [facility]12-03-2024 Telephone encounter Note* Telephone Encounter - [...] patient seen in office? Yolanda Helton RN [facility]11-13-2024 History and physical note* Pily Gallardo [...] 4 - Moderate Pily Da Silva MD [facility]11-13-2024 History and physical note* Pily Gallardo [...] Pily Da Silva MD documented in this encounterRivers[facility] Hospital10-23-2024 Telephone encounter Note * Telephone Encounter - Andrea Hamm MA - 12/22/2023 3:50 PM EDT FMLA paperwork complete and signed. Patient picked up paperwork in office today. Andrea Hamm MA [facility]10-23-2024 Miscellaneous Notes* Telephone Encounter - Andrea Hamm [...] 9:27 AM EDT Printed and placed in [facility] mailbox. Tyesha Marti RN documented in this encounterRiverside [facility] Hospital10-23-2024 Telephone encounter Note * Telephone Encounter - Andrea Hamm MA - 12/22/2023 2:32 PM EDT I apologize, I did not realize that. I fixed the dates and papers are back on your desk for signature. Andrea Hamm MA [facility]10-20-2024 Telephone encounter Note* Telephone Encounter - Pily Gallardo MD - 12/19/2023 7:13 AM EDT Maximum 6 weeks for FMLA- not 8-12. If there are any complications we will adjust then. She should not need any more time then that. [facility]10-18-[facility] Telephone encounter Note* Telephone Encounter - Andrea Hamm MA - 12/17/2023 3:40 PM EDT FMLA papework completed and placed on providers desk for signature. Andrea Hamm MA [facility]10-11-2024 Telephone encounter Note* Telephone Encounter - Tyesha Marti RN - 12/10/2023 9:27 AM EDT Printed and placed in [place] mailbox. Tyesha Marti RN [facility]10-07-2024 NoteHNO ID: [id number] Author: PILY GALLARDO MD Service: ? Author [...] clotting on days 1-2 lasts 7-10 days, chalk tester than previous but spots rest of month. Bleeding after sex, pain with sex. Pt can't take combined ocps which worked well for in past bc she smokes. Pt had previous tubal - is not interested in further childbearing capabilities. Pt offers no other concerns. OB History T1 L1 SAB0 IAB0 Ectopic0 Multiple0 Live Births0 Machine Hoop Maker Helper History LMP: 01/21/2023 (Approximate), IUD Age at Menarche: Age at First : Age at Menopause: Machine Hoop Maker Helper History Comments: Sexual Activity: Yes; Male Contraception: Tubal Ligation PAST MEDICAL HISTORY Diagnosis Date IUD (intrauterine device) in place 11/19/2023 PMH - PAST MEDICAL HISTORY OF 03/01/2001 ovarian cysts PAST SURGICAL HISTORY Procedure Laterality Date APPENDECTOMY 1994 COLONOSCOPY FLX DX W/COLLJ SPEC WHEN PFRMD 10/28/2022 repeat in 10 years EGD W/O [facility] SPEC VARICIES INJ 10/28/2022 L'SCOPE DX W/WO [...] discussed with the Patient or Patient's Authorized Assistant Front End Manager. As applicable, any other physician, advance practice provider, medical student, or other health professional student that will be observing or involved in the sensitive examination for educational or training purposes was discussed with the Patient or Authorized Assistant Front End Manager. The Patient or Authorized Assistant Front End Manager has agreed to proceed with the sensitive [...] external genitalia normal, normal Bartholin's glands, urethra, Sisquoc's glands, no vulvar lesions, no cervical lesions, [...] Adenomyosis N80.03 4. Discussed surgical intervention with TL, Cystoscopy, possible oophorectomy. Discussed would not want to remove both ovaries due to increased risk for bone disease, dementia, early menopause and need for hormone replacement therapy. Discussed that if either one of the ovaries looked disease or there was scar tissue/adhesions would remove. Patient was agreeable to this.OR booking sheet tati (more content not included)...[facility]10[facility] History of Present illness Narrative* Pily [...] clotting on days 1-2 lasts 7-10 days, chalk tester than previous but spots rest of month. Bleeding after sex, pain with sex. Pt can't take combined ocps which worked well for in past bc she smokes. Pt had previous tubal - is not interested in further childbearing capabilities. Pt offers no other concerns. OB History T1 L1 SAB0 IAB0 Ectopic0 Multiple0 Live Births0 Machine Hoop Maker Helper History LMP: 01/21/2023 (Approximate), IUD Age at Menarche: Age at First : Age at Menopause: Machine Hoop Maker Helper History Comments: Sexual Activity: Yes; Male Contraception: Tubal Ligation PAST MEDICAL HISTORY Diagnosis Date IUD (intrauterine device) in place 11/19/2023 PM - PAST MEDICAL HISTORY OF 03/01/2001 ovarian [...] discussed with the Patient or Patient's Authorized Assistant Front End Manager. As applicable, any other physician, advance practice provider, medical student, or other health professional student that will be observing or involved in the sensitive examination for educational or training purposes was discussed with the Patient or Authorized Assistant Front End Manager. The Patient or Authorized Assistant Front End Manager has agreed to proceed with the sensitive [...] external genitalia normal, normal Bartholin's glands, urethra, Sisquoc's glands, no vulvar lesions, no cervical lesions, [...] Moderate Pily Izquierdo MD documented in this encounterR[facility]09-26-2024 Telephone encounter Note * Telephone Encounter - Yolanda Helton RN - 11/25/2023 9:48 AM EDT Patient notified. Appointment scheduled. Yolanda Helton RN [facility]09-26-2024 Miscellaneous Notes* Telephone Encounter - Yolanda Helton RN - 11/25/2023 9:48 AM EDT Patient notified. Appointment scheduled. Yolanda Helton RN * Telephone Encounter - Janie Hopkins [...] options? Janie Hopkins APRN.CNP documented in this encounterRiverside [facility] Hospital09-26-2024 Telephone encounter Note * Telephone Encounter - Janie Hopkins APRN.CNP - 11/25/2023 9:23 AM EDT Please assist pt with scheduling an appt with DM to discuss surgical options. Janie Hopkins APRN.CNP [facility] Work Phone: [phone] 398-602509-26-2024 Telephone encounter Note* Telephone Encounter - Janie [...] to discuss surgical options? Janie Hopkins APRN.CNP [facility]09-24-2024 NoteHNO ID: [id number] Author: JANIE HOPKINS APRN.CNP Service: ? Author Type: Nurse Practitioner Type: [...] L1 SAB0 IAB0 Ectopic0 Multiple0 Live Births0 Machine Hoop Maker Helper History LMP: 01/21/2023 (Approximate), IUD Age at Menarche: Age at First : Age at Menopause: Machine Hoop Maker Helper History Comments: Sexual Activity: Yes; Male Contraception: [...] testing/treatment Medical Decision Making Level: 3 [facility] History of Present illness Narrative* Janie [...] L1 SAB0 IAB0 Ectopic0 Multiple0 Live Births0 Machine Hoop Maker Helper History LMP: 01/21/2023 (Approximate), IUD Age at Menarche: Age at First : Age at Menopause: Machine Hoop Maker Helper History Comments: Sexual Activity: Yes; Male Contraception: [...] Level: 3 - Low documented in this encounterRiverside [facility] Hospital09-20-2024 NoteHNO ID: [id number] Author: LITTLE TREVINO MD Service: ? Author Type: Physician Type: Progress Notes Filed: 11/19/2023 15:31 Note Text: The patient presents for requested ultrasound. Full report available in the Imaging tab in [facility]. Little Trevino, [facility]09-20-2024 History of Present illness Narrative* Little Trevino MD - 11/19/2023 2:55 PM EDT The patient presents for requested ultrasound. Full report available in the Imaging tab in [facility]. Little Trevino MD documented in this encounterRiverside [facility] Hospital09-16-2024 Telephone encounter Note * Telephone Encounter - Yissel Melton MD - 11/15/2023 12:17 PM EDT schedule f/u to discuss IUD after US (can be a couple of days later). DM patient Yissel Melton MD [facility]09-16-2024 Miscellaneous Notes* Telephone Encounter - Yissel Melton MD - 11/15/2023 12:17 PM EDT schedule f/u to discuss IUD after US (can be a couple of days later). DM patient Yissel Melton MD documented in this encounterRiverside [facility] Hospital05-09-2024 Note* Letter - Coordinator, Mammography - 07/08/2023 7:39 AM EDT July 08, 2023 PID: [id number] Sree Cesar [address] [place] [address] Dear Ms. Cesar, We are pleased to [...] report will be [facility] at [facility] as part of your permanent medical record and are available for your continuing care. Thank you for allowing us to help in meeting your health care needs. Sincerely, Dr. Syed Interpreting Radiologist [facility] (Normal over 40) [facility]05-09-2024 Miscellaneous Notes* Letter - Piper, Mammography - 07/08/2023 7:39 AM EDT July 08, 2023 PID: [id number] Sree Cesar [address] [place] [address] Dear Ms. Cesar, We are pleased to [...] report will be kept on [facility] at [facility] as part of your permanent medical record and are available for your continuing care. Thank you for allowing us to help in meeting your health care needs. Sincerely, Dr. Syed Interpreting Radiologist [facility] (Normal over 40) documented in this encounterRiverside Methodist Hospital05-08-2024 History of Present illness Narrative* Hugo Kaiser Mammo Tech - 07/07/2023 4:00 PM EDT [...] PATIENT PRESENTS WITH AN IMPLANTABLE OR ATTACHED BROACHING MACHINE OPERATOR: No RADIOLOGY DEPARTMENT: Mammography PERIPHERAL IV DATA: Not applicable SIGNED BY: Cameron Sethi July 07, 2023 3:38 PM documented in this encounterRiverside Methodist Hospital12-11-2023 Miscellaneous Notes* Telephone Encounter - Edilia Salas RN - 02/08/2023 12:23 PM EST Sridevi from Dr. Bernard Rodriguez's office (PCP) called to request copy of Pt's office visit notes from 09/2022 & 01/2023 be faxed to their office Attn Sridevi @ . Pt name and verified. Documents sent electronically. Edilia Salas RN February 08, 2023 12:24 PM documented in this encounterRiverside Methodist Hospital12-11-2023 Miscellaneous Notes* Telephone Encounter - Edilia Salas RN - 02/08/2023 12:14 PM EST Sridevi from Dr. Bernard Rodriguez's office (PCP) called to request copy of Pt's EGD and colonoscopy report from 09/2022 be faxed to their office Attn Sridevi @ . Pt name & confirmed. Documents sent electronically. Edilia Salas RN February 08, 2023 12:20 PM documented in this encounterRiverside [facility] Hospital12-06-2023 Instructions* Patient Instructions* Jessenia Cabrera Ma [...] please contact the office. documented in this encounterRiverside Methodist Hospital12-06-2023 History of Present illness Narrative* Pily Gallardo MD - 02/03/2023 2:41 PM EST Central Office Repairer offered: Patient declines. Sree presents today for [...] IUD source: office provided IUD lot #: [id number] Exp date: 01/2025 UNIVERSAL PROTOCOL / SAFETY [...] month. Pily Izquierdo MD documented in this [facility]10-30-2023 Miscellaneous Notes* Telephone Encounter - Pily Gallardo MD - 12/28/2022 1:11 PM EDT ordered * Telephone Encounter - Yolanda Helton RN - 12/28/2022 10:26 AM EDT Order for Mirena IUD insertion pending. Yolanda Helton RN documented in this [facility]10-18-2023 Miscellaneous Notes* Telephone Encounter - Agata Cid [...] - 12/15/2022 12:05 PM EDT See pt's [employer] message and advise. Pily Bhatia LPN documented in this encounterRiverside [facility] Hospital09-27-2023 History of Present illness Narrative* Pily [place] [...] 2022 TIME: 2:20 PM documented in this encounterRiverside Methodist Hospital09-07-2023 Instructions* Patient Instructions* Anita Del Rosario PA-C - 11/05/2022 4:35 PM EDT -Recommend PPI for 2-3 months -CT abdomen and pelvis The following instructions are important for you related to your office visit today with the [facility] General Surgeons. INSTRUCTIONS FOR PEPTIC [...] you should contact our office immediately @ [phone] and ask to be transferred to the General Surgery department. documented in this encounterRiverside Methodist Hospital09-07-2023 History of Present illness Narrative* Anita Del Rosario PA-C - 11/05/2022 4:01 PM EDT FOLLOW UP VISIT - ENDOSCOPY NAME: Sree Cesar [facility] NO.: [id number] DATE OF SERVICE: 11/05/2022 : 1985 REFERRING [...] which included preparing to see the patient, [id number] patient care, completing clinical documentation, obtaining and/or reviewing separately obtained history, counseling and educating the patient/family/caregiver, independently interpretin g results (not separately reported), and communicating results to the patient/family/caregiver. Anita Del Rosario PA-C documented in this encounterRiverside Methodist Hospital08-30-2023 Nurse Note* Irene Stone RN - 10/28/2022 [...] comfortably on left side. documented in this encounterRiverside Methodist Hospital08-30-2023 History and physical note * Lena Patricia [...] questions. Lena Patricia MD documented in this encounterRiverside Methodist Hospital08-22-2023 Miscellaneous Notes* Telephone Encounter - Silvana Lindsay - 10/20/2022 5:13 PM EDT Patient was added to your schedule on 10-28-2022. She requested that day since she was off work, Please send the Golytely Prescription to [facility] in [place]. Silvana Lindsay documented in this encounterRiverside Methodist Hospital08-14-2023 History of Present illness Narrative* Pily Gallardo [...] allergies. Pily Izquierdo MD documented in this encounterRiverside Methodist Hospital08-07-2023 Miscellaneous Notes* Telephone Encounter - Pily Bhatia [...] what she says please. documented in this encounterRiverside Methodist Hospital08-04-2023 Miscellaneous Notes* Telephone Encounter - Tyesha Marti [...] YISSEL MELTON Pharmacy Information Pharmacy Address Telephone [facility] [place] [address] * Addendum Note - Yissel Melton MD [...] RX to Marissa Younger documented in this encounterRiverside Methodist Hospital08-03-2023 Discharge summary Author Jose Armendariz-Paul bryant [facility] October 01, 2022 10:56am Note Date/Time October 01, 2022 10: 56am [facility] Medical Records Department [address] [place] [address] Instructions for Home/Discharge Instructions 10/01/22 1056 MR#: [id number] Acct: [id number] Name: SREE CESAR Rep #:[id number] : 1985 37 From: Pily Da Silva MD PCP: Dr. Bernard Rodriguez MD Status:[facility] Discharge Instructions Diet Discharge Diet: No restrictions [...] CC: Dr. Bernard Rodriguez MD ~ Signed [facility] Work Phone: 1(100) 932-783508-03-2023 History and physical note Author Jose bryant [facility] October 01, 2022 9:45am Note Date/Time September 16, 2022 12:1 8pm [facility] Medical Records Department [address] [place] [id number] H&P Exam - TRANSPORTATION AGENT 09/16/22 1217 MR#: [id number] Acct: [id number] Name: SREE CESAR Rep #:[id number] : 1985 37 From: Pily Da Silva MD PCP: Dr. Bernard Rodriguez MD Status:[facility] Location: [place] [address] History and Physical Date of Admission: 10/01/22 [...] HISTORY PAST MEDICAL HISTORY Diagnosis Date ? PMH - PAST MEDICAL HISTORY OF 2001 ? [...] Signature (if applicable): CC: Jose Izquierdo; Dr. Bernadr Rodriguez MD~ Signed ADDENDUM by Jose Izquierdo on 10/01/22 at 0945 Addendum I have examined the patient and the H&P has been reviewed. There are no clinical changes since date of exam. 10/01/22 0945<Electronically signed by Pily Izquierdo MD> Cosigner Signature (if applicable): cc: M Dr. Pily Izquierdo; Dr. Bernard Rodriguez MD ~* Signed [facility] Work Phone: 1(903) 204-437608-03-2023 Procedure [facility] 09-16-2022 History and physical note* Pily [...] Pily Da Silva MD [facility] History of Present illness Narrative* Pily Da [...] L1 SAB0 IAB0 Ectopic0 Multiple0 Live Births0 Machine Hoop Maker Helper History LMP: 07/06/2022, Having periods Age at Menarche: Age at First : Age at Menopause: Machine Hoop Maker Helper History Comments: Sexual Activity: Yes; Male Contraception: [...] Moderate Pily Izquierdo MD documented [facility] Miscellaneous Notes* Telephone Encounter - Deanne Pickard [...] 3:31 PM EDT Patient reviewed MRI on mychart and is asking for provider to review [...] Thanks, Janie Hopkins APRN.CNP documented in this encounter[facility] History of Present illness Narrative* Racquel Cordova RT(R) - 07/29/2022 9:20 AM EDT Radiology [...] 2022 TIME: 9:29 AM documented in this encounterR[facility] HospitalEval[facility]el[facility] noteNo assessment information availableWVeterans Health Administration Work Phone: Evaluation note* Diagnosis Pelvic and perineal pain- Primary Unspecified symptom associated with female genital organs documented [facility] this encounter [facility]* Diagnosis Dermoid cyst of right ovary- Primary Pelvic pain in female Unspecified symptom associated with female genital organs Dysmenorrhea Ovulation pain [place] [facility]* Diagnosis Cyst, ovary, dermoid, right- Primary Pelvic pain in female Unspecified symptom associated with female genital organs Pre-op exam Preoperative examination, unspecified documented in this encounter [facility] note* Diagnosis Postoperative pain- Primary Other acute postoperative pain documented in this encounter [facility] note* Diagnosis Post-operative state- Primary Other postprocedural status RLQ abdominal pain Abdominal pain, right lower quadrant Bloating Flatulence, eructation, and gas pain documented in this encounter [facility] note* Diagnosis Hiatal hernia- Primary Diaphragmatic hernia without mention of obstruction or gangrene GERD without esophagitis Esophageal reflux Generalized abdominal pain Abdominal pain, generalized Right lower quadrant abdominal pain Abdominal pain, right lower quadrant documented in this encounter [facility] note* Diagnosis Encounter for IUD insertion- Primary Encounter for insertion of intrauterine contraceptive device documented in this encounter [facility] note* Diagnosis Right lower quadrant abdominal pain Abdominal pain, right lower quadrant documented in this encounter [facility] note* Diagnosis Screening for colon cancer- Primary Special screening for malignant neoplasms, colon GERD without esophagitis Esophageal reflux Special screening for malignant neoplasm of colon Special screening for malignant neoplasms, colon documented in this encounter [facility] note* Diagnosis Pelvic and perineal pain Unspecified symptom associated with female genital organs documented in this encounter [facility] note* Diagnosis Encounter for IUD insertion- Primary Encounter for insertion of intrauterine contraceptive device Abnormal uterine bleeding (AUB) documented in this encounter [facility] note* Diagnosis Hot flashes- Primary Symptomatic menopausal or female climacteric states documented in this encounter [facility] note* Diagnosis Encounter for screening mammogram for breast cancer [facility] this encounter [facility]* Diagnosis Pelvic pain in female- Primary Unspecified symptom associated with female genital organs Abnormal uterine bleeding (AUB) documented in this encounter [facility] note* Diagnosis Pelvic pain in female- Primary Unspecified symptom associated with female genital organs Abnormal uterine bleeding (AUB) IUD (intrauterine device) in place Presence of intrauterine contraceptive device documented in this encounter [facility] note* Diagnosis Abnormal uterine bleeding (AUB)- Primary Adenomyosis Endometriosis of uterus [facility]* Diagnosis Dysmenorrhea- Primary Abnormal uterine bleeding (AUB) Adenomyosis Endometriosis of uterus documented [facility]* Diagnosis Abnormal uterine bleeding (AUB)- Primary Pelvic pain in female Unspecified symptom associated with female genital organs Dysmenorrhea Adenomyosis Endometriosis of uterus Pre-op exam Preoperative examination, unspecified documented [facility] this encounter [facility]* Diagnosis Post-operative state- Primary Other postprocedural status documented in this encounter [facility] note* Diagnosis Post-operative state- Primary Other postprocedural status documented [facility] this encounter [facility]* Diagnosis Post-operative state- Primary Other postprocedural status Encounter for screening mammogram for malignant neoplasm of breast Other screening mammogram [facility] encounter [facility]* Diagnosis Encounter for gynecological examination (general) (routine) without abnormal findings- Primary Encounter for screening mammogram for breast cancer [facility] encounter [facility]* Diagnosis Encounter for screening mammogram for malignant neoplasm of breast Other screening mammogram documented in this encounter [facility] note* Diagnosis Onset Date Resolution Status Admit Date PVCs (premature ventricular contractions) acute July 26, 2024 8 :45am Chest discomfort chronic June 8:45am Hiatal hernia chronic July 26, 025 8:45am Nicotine dependence chronic June 302024 8:45am [facility] Work Phone: Evaluation note* Diagnosis Abnormal mammogram Abnormal mammogram, unspecified documented in this encounter [facility] note* Diagnosis Abnormal mammogram Abnormal mammogram, unspecified documented in this encounter [facility] note* Diagnosis Abnormal mammogram- Primary Abnormal mammogram, unspecified Abnormal mammogram Abnormal mammogram, unspecified [facility] Additional Instructions Im[facility] Used?: [facility] Work Phone: Reason for referral (narrative)* Outpatient Procedure (Routine) - Pending Review Specialty Diagnoses / Procedures Referred By Abraham rios Referred To Contact [facility] Diagnoses Encounter for IUD insertion Procedures INSERT INTRAUTERINE DEVICE LEVONORGESTREL IU 52MG 5 YR INSERT INTRAUTERINE DEVICE Pily Gallardo MD [address] [place] [address] [facility] [address] [place] [address] Referral ID Status Reason Start Date Expiration Date Visits Requested Visits Authorized [id number] Pending Review Auto-Generat ed Referral 12/28/2023 1 1 [facility] for referral (narrative)* Outpatient Procedure (Routine) - Closed Specialty Diagnoses / Procedures [facility] Diagnoses Special screening for malignant neoplasm of colon Procedures COLONOSCOPY SCREENING COLONOSCOPY FLX DX W/COLLJ SPEC WHEN PFRMD Que Chowdhury MD [address] [place] [address] [facility] [address] [place] [address] Referral ID Status Reason Start Date Expiration Date V isits Requested Visits Authorized [id number] Closed Auto-Generate d Referral 10/28/2022 10/21/2023 1 1 * Outpatient Procedure (Routine) - Closed Specialty Diagnoses / Procedures [facility] To [facility] Diagnoses GERD without esophagitis Procedures EGD DIAGNOSTIC ESOPHAGOGASTRODUODENOSCOPY TRANSORAL DIAGNOSTIC Que Chowdhury MD [address] [place] [address] [facility] [address] [place] [address] Referral ID Status Reason Start Date Expiration Date V isits Requested Visits Authorized [id number] Closed Auto-Generate d Referral 10/28/2022 10/21/2023 1 1 [facility] for referral (narrative)* Diagnostic Procedure Only (Routine) - Authorized Specialty Diagnoses / Procedures Referred By Contac t Referred To Contact [facility] Diagnoses Pelvic pain in female Abnormal uterine bleeding (AUB) Procedures PELVIC US WHI US PELVIC NONOBSTETRIC REAL-TIME IMAGE COMPLETE Yissel Melton MD [address] [place] [address] [facility] [address] [place] [address] Referral ID Status Reason Start Date Expiration Date Visits Requested Visits Authorized [id number] Authorized Auto-Generat ed Referral 11/15/2023 11/14/2024 1 1 [facility] for referral (narrative)* Diagnostic Procedure Only (Routine) - New Request Specialty Diagnoses / Procedures Referred By Abraham rios Referred To Contact [facility] Diagnoses Encounter for screening mammogram for malignant neoplasm of breast Procedures PERRI SCREENING W ASHLEY SCREENING DIGITAL BREAST TOMOSYNTHESIS BI SCREENING MAMMOGRAPHY BI 2-VIEW BREAST INC CAD Pily Gallardo MD [address] [place] [address] [facility] [address] [place] [phone] Referral ID Status Reason Start Date Expiration Date Visits Requested Visits Authorized [id number] New Request Auto-Generat ed Referral 03/09/2024 04/08/2025 1 1 [facility] for referral (narrative)No reason for referral information availableWVeterans Health Administration Work Phone: Reason for visit Narrative* Outpatient Procedure (Routine) - Closed Specialty Diagnoses / Procedures Referred By Abraham rios Referred To Contact [facility] Diagnoses Special screening for malignant neoplasm of colon Procedures COLONOSCOPY SCREENING COLONOSCOPY FLX DX W/COLLJ SPEC WHEN Que Almanza MD [address] [place] [address] [facility] [address] [place] [address] Referral ID Status Reason Start Date Expiration Date V isits Requested Visits Authorized [id number] Closed Auto-Generate d Referral 10/28/2022 10/21/2023 1 1 [facility] for visit Narrative* Diagnostic Procedure Only (Routine) - Closed Specialty Diagnoses / Procedures Referred By Abraham t Referred To Contact [facility] Diagnoses Encounter for screening mammogram for breast cancer Procedures PERRI SCREENING SCREENING MAMMOGRAPHY BI 2-VIEW BREAST INC CAD Janie Hopkins APRN.MATERIAL ASSISTANT [address] [place] [address] [facility] [address] [place] [address] Referral ID Status Reason Start Date Expiration Date V isits Requested Visits Authorized [id number] Closed Auto-Generate d Referral 07/23/2022 08/22/2023 1 1 [facility] for visit Narrative* Diagnostic Procedure Only (Routine) - Closed Specialty Diagnoses / Procedures Referred By Abraham t Referred To Contact [facility] Diagnoses Pelvic pain in female Abnormal uterine bleeding (AUB) Procedures PELVIC US I US PELVIC NONOBSTETRIC REAL-TIME IMAGE COMPLETE Yissel Melton MD [address] [place] [address] [facility] [address] [place] [address] Referral ID Status Reason Start Date Expiration Date V isits Requested Visits Authorized [id number] Closed Auto-Generate d Referral 11/15/2023 11/14/2024 1 1 [facility] for visit Narrative* Consult, Test, Treat (Routine) - Closed Specialty Diagnoses / Procedures Referred By Abraham t Referred To Contact [facility] Diagnoses Encounter for screening mammogram for malignant neoplasm of breast Procedures PERRI SCREENING W ASHLEY SCREENING DIGITAL BREAST TOMOSYNTHESIS BI SCREENING MAMMOGRAPHY BI 2-VIEW BREAST INC CAD Pily Gallardo MD [address] [place] [address] Phone: tel: fax: [facility] [address] [place] [address] Referral ID Status Reason Start Date Expiration Date V isits Requested Visits Authorized [id number] Closed Auto-Generate d Referral 07/12/2024 02/28/2025 1 1 [facility] N[facility]* Consult, Test, Treat (Routine) - Closed Specialty Diagnoses / Procedures Referred By Contac t Referred To Contact [facility] Diagnoses Abnormal mammogram Procedures PERRI DIAGNOSTIC RIGHT DIAGNOSTIC MAMMOGRAPHY COMPUTER-AIDED DETCJ UNI Pily Gallardo MD [address] [place] [address] Phone: tel: fax: [facility] [address] [place] [address] Referral ID Status Reason Start Date Expiration Date V isits Requested Visits Authorized [id number] Closed Auto-Generate d Referral 08/23/2024 02/28/2025 1 1 [facility] Advance Directives No Advanced Directives Records Found Advance Directive Response Recorded Date/ Time Living Will Yes April 27 018 9:19am Power of Trim Carpenter Yes April 27, 2017 9:19am Advance Directive Response Recorded Date/ Time Living Will No September 24, 2022 10:05am Power of Trim Carpenter No September 24 10:05am Advance Directive Response Recorded Date/ Time Living Will No January 12 12:00pm Do you have a Healthcare Power of Trim Carpenter? No January 13, 2024 12:00pm Reason for Referral Specialty Diagnoses / Procedures Referred By Abraham t Referred To Contact [facility] Diagnoses Pelvic and perineal pain Procedures MRI PELVIS WO/W IVCON MRI PELVIS W/O & W/CONTRAST MATERIAL Janie Hopkins APRN.MATERIAL ASSISTANT [address] [place] [address] [facility] Referral ID Status Reason Start Date Expiration Date V isits Requested Visits Authorized [id number] Closed Auto-Generate d Referral 07/24/2022 08/23/2023 1 1 Specialty Diagnoses / Procedures Referred By Contac t Referred To Contact [facility] Surgery Diagnoses RLQ abdominal pain Bloating Procedures CONSULT TO GENERAL SURGERY OFFICE/OUTPATIENT NEW HIGH MDM 60-74 MINUTES Pily Gallardo MD [address] [place] [address] Referral ID Status Reason Start Date Expiration Date Visits Requested Visits Authorized [id number] Pending Review PCP Requested Referral 10/12/2022 10/12/2023 1 1 Specialty Diagnoses / Procedures Referred By Contac t Referred To Contact Gastroenterology Diagnoses RLQ abdominal pain Bloating Procedures CONSULT TO GASTROENTEROLOGY OFFICE/OUTPATIENT [facility] HIGH MDM 60-74 MINUTES Pily Gallardo MD [address] [place] [address] Referral ID Status Reason Start Date Expiration Date Visits Requested Visits Authorized [id number] Pending Review PCP Requested Referral 10/12/2022 10/12/2023 1 1 Specialty Diagnoses / Procedures Referred By Contac t Referred To Contact [facility] Diagnoses Right lower quadrant abdominal pain Procedures CT ABD/PEL W IVCON CT ABD & PELVIS W/CONTRAST Anita Del Rosario PA-C [address] [place] [address] [id number] Referral ID Status Reason Start Date Expiration Date Visits Requested Visits Authorized [id number] Authorized Auto-Generat ed Referral 11/05/2022 12/05/2023 1 1 Referral ID Status Reason Start Date Expiration Date V isits Requested Visits Authorized [id number] Closed Auto-Generate d Referral 11/05/2022 12/05/2023 1 1 Specialty Diagnoses / Procedures Referred By Contac t Referred To Contact [facility] Diagnoses Pelvic and perineal pain Procedures MRI PELVIS WO/W IVCON MRI PELVIS W/O & W/CONTRAST MATERIAL Janie Hopkins, ALYSSA.MATERIAL ASSISTANT [address] [place] [address] [place] [address] Chief Complaint and Reason for Visit Chief Complaint OVARIAN CYSTECTOMY Chief Complaint EORDER Chief Complaint Admit Date Hysterectomy,TLH, possible bilateral oop horectomy, January 28, 2024 5:27am Chief Complaint Admit Date VENTICULAR TACHYCARDIA July 26, 2024 8: 45am Reason for Visit Admit Date PVCs (premature ventricular contractions ) May 28th, 2025 8:45am Chest discomfort July 26, 2024 8:45a m Hiatal hernia July 26, 2024 8:45a m Nicotine dependence July 26, 2024 8:45a m Chief Complaint Admit Date VENTICULAR TACHYCARDIA July 26, 2024 8: 45am PT JUST LEFT OFFICE/INT LABS NOT SHOWING YET July 26, 2024 9:48am Chief Complaint Admit Date VENTICULAR TACHYCARDIA July 26, 2024 8: 45am PT JUST LEFT OFFICE/INT LABS NOT SHOWING YET July 26, 2024 9:48am ARRYTHMIA August 23, 2024 5:57 am ARRYTHMIA August 23, 2024 11:0 6am Chief Complaint Admit Date VENTICULAR TACHYCARDIA July 26, 2024 8: 45am PT JUST LEFT OFFICE/INT LABS NOT SHOWING YET July 26, 2024 9:48am ARRYTHMIA August 23, 2024 5:57 am ARRYTHMIA August 23, 2024 11:0 6am ARRYTHMIA August 31, 2024 7:42a m Amb Documentation September 05, 2024 12:53 pm Chief Complaint Admit Date VENTICULAR TACHYCARDIA July 26, 2024 8: 45am PT JUST LEFT OFFICE/INT LABS NOT SHOWING YET July 26, 2024 9:48am ARRYTHMIA August 23, 2024 5:57 am ARRYTHMIA August 23, 2024 11:0 6am ARRYTHMIA August 31, 2024 7:42a m Amb Documentation September 05, 2024 12:53 pm 3 M FU September 27, 2024 7:51 am Reason for Visit Admit Date PVCs (premature ventricular contractions ) July 26, 2024 8:45am Chest discomfort July 26, 2024 8:45a m Hiatal hernia July 26, 2024 8:45a m Nicotine dependence July 26, 2024 8:45a m PVCs (premature ventricular contractions ) September 27, 2024 7:51am Chest discomfort September 27, 2024 7:51 am Medications Administered Section Inactive Administered Medications - up to 3 most recent administrations Medication Order MAR Action Action Date Dose Rate Site benzocaine 20% 1 [place] (TOPEX) 1 [place], TOPICAL, DIRECTED, Starting on Wed10/28/22 at 1030, [...] TO 30 DAYS AMB), 1 dose, On 02/03/23 at 1530, Hazardous Potential Reproductive Risk Drug: [...] or prosecute any alcohol or drug abuse patient.[facility] HospitalIn the event this information is protected by the Federal Confidentiality of Alcohol and Drug Abuse Patient Records regulations: The Federal rules restrict any use of the information to criminally investigate or prosecute any alcohol or drug abuse patient.[facility] HospitalIn the event this information is protected by the Federal Confidentiality of Alcohol and Drug Abuse Patient Records regulations: The Federal rules restrict any use of the information to criminally investigate or prosecute any alcohol or drug abuse patient.[facility] HospitalIn the event this information is protected by the Federal Confidentiality of Alcohol and Drug Abuse Patient Records regulations: The Federal rules restrict any use of the information to criminally investigate or prosecute any alcohol or drug abuse patient.[facility] HospitalIn the event this information is protected by the Federal Confidentiality of Alcohol and Drug Abuse Patient Records regulations: The Federal rules restrict any use of the information to criminally investigate or prosecute any alcohol or drug abuse patient.[facility] HospitalIn the event this information is protected by the Federal Confidentiality of Alcohol and Drug Abuse Patient Records regulations: The Federal rules restrict any use of the information to criminally investigate or prosecute any alcohol or drug abuse patient.[facility] HospitalIn the event this information is protected by the Federal Confidentiality of Alcohol and Drug Abuse Patient Records regulations: The Federal rules restrict any use of the information to criminally investigate or prosecute any alcohol or drug abuse patient.[facility] HospitalIn the event this information is protected by the Federal Confidentiality of Alcohol and Drug Abuse Patient Records regulations: The Federal rules restrict any use of the information to criminally investigate or prosecute any alcohol or drug abuse patient.[facility] HospitalIn the event this information is protected by the Federal Confidentiality of Alcohol and Drug Abuse Patient Records regulations: The Federal rules restrict any use of the information to criminally investigate or prosecute any alcohol or drug abuse patient.[facility] HospitalIn the event this information is protected by the Federal Confidentiality of Alcohol and Drug Abuse Patient Records regulations: The Federal rules restrict any use of the information to criminally investigate or prosecute any alcohol or drug abuse patient.[facility] HospitalIn the event this information is protected by the Federal Confidentiality of Alcohol and Drug Abuse Patient Records regulations: The Federal rules restrict any use of the information to criminally investigate or prosecute any alcohol or drug abuse patient.[facility] HospitalIn the event this information is protected by the Federal Confidentiality of Alcohol and Drug Abuse Patient Records regulations: The Federal rules restrict any use of the information to criminally investigate or prosecute any alcohol or drug abuse patient.[facility] HospitalIn the event this information is protected by the Federal Confidentiality of Alcohol and Drug Abuse Patient Records regulations: The Federal rules restrict any use of the information to criminally investigate or prosecute any alcohol or drug abuse patient.[facility] HospitalIn the event this information is protected by the Federal Confidentiality of Alcohol and Drug Abuse Patient Records regulations: The Federal rules restrict any use of the information to criminally investigate or prosecute any alcohol or drug abuse patient.[facility] HospitalIn the event this information is protected by the Federal Confidentiality of Alcohol and Drug Abuse Patient Records regulations: The Federal rules restrict any use of the information to criminally investigate or prosecute any alcohol or drug abuse patient.[facility] HospitalIn the event this information is protected by the Federal Confidentiality of Alcohol and Drug Abuse Patient Records regulations: The Federal rules restrict any use of the information to criminally investigate or prosecute any alcohol or drug abuse patient.[facility] HospitalIn the event this information is protected by the Federal Confidentiality of Alcohol and Drug Abuse Patient Records regulations: The Federal rules restrict any use of the information to criminally investigate or prosecute any alcohol or drug abuse patient.[facility] HospitalIn the event this information is protected by the Federal Confidentiality of Alcohol and Drug Abuse Patient Records regulations: The Federal rules restrict any use of the information to criminally investigate or prosecute any alcohol or drug abuse patient.[facility] HospitalIn the event this information is protected by the Federal Confidentiality of Alcohol and Drug Abuse Patient Records regulations: The Federal rules restrict any use of the information to criminally investigate or prosecute any alcohol or drug abuse patient.[facility] HospitalIn the event this information is protected by the Federal Confidentiality of Alcohol and Drug Abuse Patient Records regulations: The Federal rules restrict any use of the information to criminally investigate or prosecute any alcohol or drug abuse patient.[facility] HospitalIn the event this information is protected by the Federal Confidentiality of Alcohol and Drug Abuse Patient Records regulations: The Federal rules restrict any use of the information to criminally investigate or prosecute any alcohol or drug abuse patient.[facility] HospitalIn the event this information is protected by the Federal Confidentiality of Alcohol and Drug Abuse Patient Records regulations: The Federal rules restrict any use of the information to criminally investigate or prosecute any alcohol or drug abuse patient.[facility] HospitalIn the event this information is protected by the Federal Confidentiality of Alcohol and Drug Abuse Patient Records regulations: The Federal rules restrict any use of the information to criminally investigate or prosecute any alcohol or drug abuse patient.[facility] HospitalIn the event this information is protected by the Federal Confidentiality of Alcohol and Drug Abuse Patient Records regulations: The Federal rules restrict any use of the information to criminally investigate or prosecute any alcohol or drug abuse patient.[facility] HospitalIn the event this information is protected by the Federal Confidentiality of Alcohol and Drug Abuse Patient Records regulations: The Federal rules restrict any use of the information to criminally investigate or prosecute any alcohol or drug abuse patient.[facility] HospitalIn the event this information is protected by the Federal Confidentiality of Alcohol and Drug Abuse Patient Records regulations: The Federal rules restrict any use of the information to criminally investigate or prosecute any alcohol or drug abuse patient.[facility] HospitalIn the event this information is protected by the Federal Confidentiality of Alcohol and Drug Abuse Patient Records regulations: The Federal rules restrict any use of the information to criminally investigate or prosecute any alcohol or drug abuse patient.[facility] HospitalIn the event this information is protected by the Federal Confidentiality of Alcohol and Drug Abuse Patient Records regulations: The Federal rules restrict any use of the information to criminally investigate or prosecute any alcohol or drug abuse patient.[facility] HospitalIn the event this information is protected by the Federal Confidentiality of Alcohol and Drug Abuse Patient Records regulations: The Federal rules restrict any use of the information to criminally investigate or prosecute any alcohol or drug abuse patient.[facility] HospitalIn the event this information is protected by the Federal Confidentiality of Alcohol and Drug Abuse Patient Records regulations: The Federal rules restrict any use of the information to criminally investigate or prosecute any alcohol or drug abuse patient.[facility] HospitalIn the event this information is protected by the Federal Confidentiality of Alcohol and Drug Abuse Patient Records regulations: The Federal rules restrict any use of the information to criminally investigate or prosecute any alcohol or drug abuse patient.[facility] HospitalIn the event this information is protected by the Federal Confidentiality of Alcohol and Drug Abuse Patient Records regulations: The Federal rules restrict any use of the information to criminally investigate or prosecute any alcohol or drug abuse patient.[facility] HospitalIn the event this information is protected by the Federal Confidentiality of Alcohol and Drug Abuse Patient Records regulations: The Federal rules restrict any use of the information to criminally investigate or prosecute any alcohol or drug abuse patient.[facility] HospitalIn the event this information is protected by the Federal Confidentiality of Alcohol and Drug Abuse Patient Records regulations: The Federal rules restrict any use of the information to criminally investigate or prosecute any alcohol or drug abuse patient.[facility] HospitalIn the event this information is protected by the Federal Confidentiality of Alcohol and Drug Abuse Patient Records regulations: The Federal rules restrict any use of the information to criminally investigate or prosecute any alcohol or drug abuse patient.[facility] HospitalIn the event this information is protected by the Federal Confidentiality of Alcohol and Drug Abuse Patient Records regulations: The Federal rules restrict any use of the information to criminally investigate or prosecute any alcohol or drug abuse patient.[facility] HospitalIn the event this information is protected by the Federal Confidentiality of Alcohol and Drug Abuse Patient Records regulations: The Federal rules restrict any use of the information to criminally investigate or prosecute any alcohol or drug abuse patient.[facility] HospitalIn the event this information is protected by the Federal Confidentiality of Alcohol and Drug Abuse Patient Records regulations: The Federal rules restrict any use of the information to criminally investigate or prosecute any alcohol or drug abuse patient.[facility] HospitalIn the event this information is protected by the Federal Confidentiality of Alcohol and Drug Abuse Patient Records regulations: The Federal rules restrict any use of the information to criminally investigate or prosecute any alcohol or drug abuse patient.[facility] HospitalIn the event this information is protected by the Federal Confidentiality of Alcohol and Drug Abuse Patient Records regulations: The Federal rules restrict any use of the information to criminally investigate or prosecute any alcohol or drug abuse patient.[facility] HospitalIn the event this information is protected by the Federal Confidentiality of Alcohol and Drug Abuse Patient Records regulations: The Federal rules restrict any use of the information to criminally investigate or prosecute any alcohol or drug abuse patient.[facility] HospitalIn the event this information is protected by the Federal Confidentiality of Alcohol and Drug Abuse Patient Records regulations: The Federal rules restrict any use of the information to criminally investigate or prosecute any alcohol or drug abuse patient.[facility] HospitalIn the event this information is protected by the Federal Confidentiality of Alcohol and Drug Abuse Patient Records regulations: The Federal rules restrict any use of the information to criminally investigate or prosecute any alcohol or drug abuse patient.[facility] HospitalIn the event this information is protected by the Federal Confidentiality of Alcohol and Drug Abuse Patient Records regulations: The Federal rules restrict any use of the information to criminally investigate or prosecute any alcohol or drug abuse patient.[facility] HospitalIn the event this information is protected by the Federal Confidentiality of Alcohol and Drug Abuse Patient Records regulations: The Federal rules restrict any use of the information to criminally investigate or prosecute any alcohol or drug abuse patient.[facility] HospitalIn the event this information is protected by the Federal Confidentiality of Alcohol and Drug Abuse Patient Records regulations: The Federal rules restrict any use of the information to criminally investigate or prosecute any alcohol or drug abuse patient.[facility] HospitalIn the event this information is protected by the Federal Confidentiality of Alcohol and Drug Abuse Patient Records regulations: The Federal rules restrict any use of the information to criminally investigate or prosecute any alcohol or drug abuse patient.[facility] Reason for Visit (unrecogniz ed section and content) Reason Comments Results Reason Comments Discussion Reason Comments Pre-Op Visit Reason Comments post op pain Reason Comments Post Op Reason Comments Follow Up EGD/ Colonoscopy Reason Comments Radiology CT Specialty Diagnoses / Procedures Referred By Contac t Referred To Contact CT IMAGING Diagnoses Right lower quadrant abdominal pain Procedures CT ABD/PEL W IVCON CT ABD & PELVIS W/CONTRAST Anita Del Rosario PA-C [address] [place] [address] [place] [address] Referral ID Status Reason Start Date Expiration Date V isits Requested Visits Authorized [id number] Closed Auto-Generate d Referral 11/05/2022 12/05/2023 1 1 Specialty Diagnoses / Procedures Referred By Contac t Referred To Contact MR IMAGING Diagnoses Pelvic and perineal pain Procedures MRI PELVIS WO/W IVCON MRI PELVIS W/O & W/CONTRAST MATERIAL Janie Hopkins APRN.MATERIAL ASSISTANT [address] [place] [address] [place] [address] Referral ID Status Reason Start Date Expiration Date V isits Requested Visits Authorized [id number] Closed Auto-Generate d Referral 07/24/2022 08/23/2023 1 1 Reason Onset Date Comments Insertion Of IUD 02/03/2023 Specialty Diagnoses / Procedures Referred By Abraham rios Referred To Contact [facility] Diagnoses Encounter for IUD insertion Procedures INSERT INTRAUTERINE DEVICE LEVONORGESTREL IU 52MG 5 YR INSERT INTRAUTERINE DEVICE REMOVE INTRAUTERINE DEVICE Pily Gallardo MD [address] [place] [address] Pily Gallardo MD [address] [place] [address] Referral ID Status Reason Start Date Expiration Date V isits Requested Visits Authorized [id number] Closed Auto-Generate d Referral 01/05/2023 02/28/2023 1 [...] Exam Specialty Diagnoses / Procedures Referred By Abraham rios Referred To Contact Chemical Project Engineer / TRANSPORTATION AGENT Diagnoses Post-operative state Annual Exam Procedures OFFICE/OUTPATIENT EST PT MAY NOT REQ PHYS/QHP OFFICE/OUTPATIENT ESTABLISHED HIGH MDM 40 MIN EST WHI ANNUAL PATIENT Self Pily Gallardo MD [address] [place] [address] Phone: tel: fax: Referral ID Status Reason Start Date Expiration Date V isits Requested Visits Authorized [id number] Authorized 07/12/2024 02/28/2025 99 99 Reason Comments Mammogram Result Call Back right breast diag mamm and us per Reason Comments Radiology US Specialty Diagnoses / Procedures Referred By Contac t Referred To Contact [facility] Diagnoses Abnormal mammogram Procedures US BREAST LTD RIGHT US BREAST UNI REAL TIME WITH IMAGE LIMITED Pily Gallardo MD [address] [place] [address] Phone: tel: fax: [facility] [address] [place] [address] Referral ID Status Reason Start Date Expiration Date V isits Requested Visits Authorized [id number] Closed Auto-Generate d Referral 07/12/2024 02/28/2025 1 1 Care Teams (unrecognized sec tion and content) Plate Grainer Apprentice Relationship Specialty Start Date End Date Srinivas Edenilson Urban PCP - General 03/23/03 Plate Grainer Apprentice Relationship Specialty Start Date End Date Edenilson Espino Wilmar PCP - General 03/23/03 Plate Grainer Apprentice Relationship Specialty Start Date End Date Edenilson Espino Wilmar PCP - General 03/23/03 Team Status: Active Member Role Status Dates Dr. Bernard Rodriguez MD Family Provider Active Dr. Bernard Rodriguez MD Primary Care Provider Active Team Status: Inactive Member Role Status Dates Dr. Pily Izquierdo MD Attending Provider, [facility] Provider Active Dr. Bernard Rodriguez MD Primary Care Provider Active Plate Grainer Apprentice Relationship Specialty Start Date End Date Edenilson Espino Wilmar PCP - General 03/23/03 Plate Grainer Apprentice Relationship Specialty Start Date End Date Srinivas Edenilson Urban PCP - General 03/23/03 Plate Grainer Apprentice Relationship Specialty Start Date End Date Edenilson Espino Wilmar PCP - General 03/23/03 Plate Grainer Apprentice Relationship Specialty Start Date End Date Srinivas Edenilson Urban PCP - General 03/23/03 Plate Grainer Apprentice Relationship Specialty Start Date End Date SrinivasEdenilson PCP - General 03/23/03 Plate Grainer Apprentice Relationship Specialty Start Date End Date Edenilson Espino Wilmar PCP - General 03/23/03 Plate Grainer Apprentice Relationship Specialty Start Date End Date Srinivas Edenilson Wilmar PCP - General 03/23/03 Plate Grainer Apprentice Relationship Specialty Start Date End Date Edenilson Espino PCP - General 03/23/03 Plate Grainer Apprentice Relationship Specialty Start Date End Date Edenilson Espino PCP - General 03/23/03 Plate Grainer Apprentice Relationship Specialty Start Date End Date Edenilson Espino PCP - General 03/23/03 Plate Grainer Apprentice Relationship Specialty Start Date End Date Edenilson Espino PCP - General 03/23/03 Plate Grainer Apprentice Relationship Specialty Start Date End Date Edenilson Espino PCP - General 03/23/03 Plate Grainer Apprentice Relationship Specialty Start Date End Date Bernard Rodriguez MD [address] [facility] [address] [place] [address] PCP - General Family Medicine 02/08/23 Plate Grainer Apprentice Relationship Specialty Start Date End Date Bernard Rodriguez MD [address] [facility] [address] [place] [address] PCP - General Family Medicine 02/08/23 Plate Grainer Apprentice Relationship Specialty Start Date End Date Bernard Rodriguez MD [address] [facility] [address] [place] [address] PCP - General Family Medicine 02/08/23 Team Status: Inactive Member Role Status Dates Dr. Bernard Rodriguez MD Primary Care Provider Active Rakel Mauircio , AIR REDUCTION EQUIPMENT OPERATOR-C Attending Provider, Referr ing Provider Active Plate Grainer Apprentice Relationship Specialty Start Date End Date Bernard Rodriguez MD [address] [facility] [address] [place] [address] PCP - General Family Medicine 02/08/23 Plate Grainer Apprentice Relationship Specialty Start Date End Date Bernard Rodriguez MD [address] [facility] [address] [place] [address] PCP - General Family Medicine 02/08/23 Plate Grainer Apprentice Relationship Specialty Start Date End Date Bernard Rodriguez MD [address] [facility] [address] [place] [address] PCP - General Family Medicine 02/08/23 Plate Grainer Apprentice Relationship Specialty Start Date End Date Bernard Rodriguez MD [address] [facility] [address] [place] [address] PCP - General Family Medicine 02/08/23 Plate Grainer Apprentice Relationship Specialty Start Date End Date Bernard Rodriguez MD [address] [facility] [address] [place] [address] PCP - General Family Medicine 02/08/23 Plate Grainer Apprentice Relationship Specialty Start Date End Date Bernard Rodriguez MD [address] [facility] [address] [place] [address] PCP - General Family Medicine 02/08/23 Plate Grainer Apprentice Relationship Specialty Start Date End Date Bernard Rodriguez MD [address] [facility] [address] [place] [address] PCP - General Family Medicine 02/08/23 Plate Grainer Apprentice Relationship Specialty Start Date End Date Bernard Rodriguez MD [address] [facility] [address] [place] [address] PCP - General Family Medicine 02/08/23 Plate Grainer Apprentice Relationship Specialty Start Date End Date Bernard Rodriguez MD [address] [facility] [address] [place] [address] PCP - General Family Medicine 02/08/23 Team Status: Active Member Role [...] May 17, 2024 End: May 17, 2024 Plate Grainer Apprentice Relationship Specialty Start Date End Date Bernard Rodriguez MD [address] [facility] [address] [place] [address] PCP - General [facility] Medicine 02/08/23 Plate Grainer Apprentice Relationship Specialty Start Date End Date Bernard Rodriguez MD [address] [facility] [address] [place], [place] [address] PCP - General [facility] Medicine 02/08/23 Team Status: Inactive Member Role [...] July 26, 2024 End: July 26, 2024 Plate Grainer Apprentice Relationship Specialty Start Date End Date Bernard Rodriguez MD [address] [facility] [address] [place] [address] PCP - General Family Medicine 02/08/23 Team Status: Active Member Role/Relationship Status Dates Dr. Oliver Wong MD Primary Care Provider Active Team Status: Inactive Member Role/Relationship Status Dates Dr. Oliver Wong MD Primary Care Provider Active Start: May 17, 2024 End: May 17, 2024 Dr. Oliver Wong MD Attending Provider Active Start: May 17, 2024 End: May 17, 2024 Dr. Oliver Wong MD Referring Provider Active Start: May 17, 2024 End: May 17, 2024 Team Status: Inactive Member Role/Relationship Status Dates Dr. Oliver Wong MD Primary Care Provider Active Start: July 26, 2024 End: July 26, 2024 Dr. Oliver Wong MD Referring Provider Active Start: July 26, 2024 End: July 26, 2024 Dr. Quin Snider MD Attending Provider Active Start: July 26, 2024 End: July 26, 2024 Team Status: Inactive Member Role/Relationship Status Dates Dr. Oliver Wong MD Primary Care Provider Active Start: July 26, 2024 End: July 26, 2024 Dr. Quin Snider MD Attending Provider Active Start: July 26, 2024 End: July 26, 2024 Dr. Quin Snider MD Referring Provider Active Start: July 26, 2024 End: July 26, 2024 Team Status: Inactive Member Role/Relationship Status Dates Dr. Oliver Wong MD Primary Care Provider Active Start: August 23, 2024 End: August 23, 2024 Dr. Quin Snider MD Attending Provider Active Start: August 23, 2024 End: August 23, 2024 Dr. Quin Snider MD Referring Provider Active Start: August 23, 2024 End: August 23, 2024 Team Status: Active Member Role/Relationship Status Dates Dr. Oliver Wong MD Primary Care Provider Active Start: August 23, 2024 Dr. Quin Snider MD Attending Provider Active Start: August 23, 2024 Dr. Quin Snider MD Referring Provider Active Start: August 23, 2024 Dr. Quin Snider MD Other Provider Active Star t: August 23, 2024 Team Status: Inactive Member Role/Relationship Status Dates Dr. Oliver Wong MD Primary Care Provider Active Start: August 31, 2024 End: August 31, 2024 Dr. Quin Snider MD Attending Provider Active Start: August 31, 2024 End: August 31, 2024 Dr. Quin Snider MD Referring Provider Active Start: August 31, 2024 End: August 31, 2024 Team Status: Active Member Role/Relationship Status Dates Dr. Oliver Wong MD Primary Care Provider Active Start: August 31, 2024 Dr. Quin Snider MD Attending Provider Active Start: August 31, 2024 Team Status: Active Member Role/Relationship Status Dates Dr. Oliver Wong MD Primary Care Provider Active Start: September 05, 2024 Yvette Gloria AIR REDUCTION EQUIPMENT OPERATOR, AIR REDUCTION EQUIPMENT OPERATOR-C Attending Provider Active Start: September 05, 2024 Plate Grainer Apprentice Relationship Specialty Start Date End Date Bernard Rodriguez MD [address] [facility] [address] [place] [address] PCP - General Family Medicine 02/08/23 Team Status: Inactive Member Role/Relationship Status Dates Dr. Oliver Wong MD Primary Care Provider Active Start: July 26, 2024 End: July 26, 2024 Dr. Oliver Wong MD Referring Provider Active Start: July 26, 2024 End: July 26, 2024 Dr. Quin Snider MD Attending Provider Active Start: July 26, 2024 End: July 26, 2024 Team Status: Inactive Member Role/Relationship Status Dates Dr. Oliver Wong MD Primary Care Provider Active Start: July 26, 2024 End: July 26, 2024 Dr. Quin Snider MD Attending Provider Active Start: July 26, 2024 End: July 26, 2024 Dr. Quin Snider MD Referring Provider Active Start: July 26, 2024 End: July 26, 2024 Team Status: Inactive Member Role/Relationship Status Dates Dr. Oliver Wong MD Primary Care Provider Active Start: August 23, 2024 End: August 23, 2024 Dr. Quin Snider MD Attending Provider Active Start: August 23, 2024 End: August 23, 2024 Dr. Quin Snider MD Referring Provider Active Start: August 23, 2024 End: August 23, 2024 Team Status: Active Member Role/Relationship Status Dates Dr. Oliver Wong MD Primary Care Provider Active Start: August 23, 2024 Dr. Quin Snider MD Attending Provider Active Start: August 23, 2024 Dr. Quin Snider MD Referring Provider Active Start: August 23, 2024 Dr. Quin Snider MD Other Provider Active Star t: August 23, 2024 Team Status: Inactive Member Role/Relationship Status Dates Dr. Oliver Wong MD Primary Care Provider Active Start: August 31, 2024 End: August 31, 2024 Dr. Quin Snider MD Attending Provider Active Start: August 31, 2024 End: August 31, 2024 Dr. Quin Snider MD Referring Provider Active Start: August 31, 2024 End: August 31, 2024 Team Status: Active Member Role/Relationship Status Dates Dr. Oliver Wong MD Primary Care Provider Active Start: August 31, 2024 Dr. Quin Snider MD Attending Provider Active Start: August 31, 2024 Team Status: Active Member Role/Relationship Status Dates Dr. Oliver Wong MD Primary Care Provider Active Start: September 05, 2024 Yvette Gloria AIR REDUCTION EQUIPMENT OPERATOR, AIR REDUCTION EQUIPMENT OPERATOR-C Attending Provider Active Start: September 05, 2024 Team Status: Inactive Member Role/Relationship Status Dates Dr. Oliver Wong MD Primary Care Provider Active Start: September 27, 2024 End: September 27, 2024 Dr. Oliver Wong MD Referring Provider Active Start: September 27, 2024 End: September 27, 2024 LEVI Holden Attending Provider Active St art: September 27, 2024 End: September 27, 2024 INFORMATION SOURCE (unrecogn ized section and content) DATE CREATED AUTHOR 06/19/2024 [facility] DATE CREATED AUTHOR AUTHOR'S ORGANIZ ATION 08/24/2024 [facility] DATE CREATED AUTHOR AUTHOR'S ORGANIZ ATION 10/04/2024 [facility] FOR RECORDS PERTAINING TO PATIENTS WHO [...] BE BASED ON THE PRIMARY CLINICAL RECORDS. [facility]. provides no warranty or guarantee of the accuracy or completeness of information in this document.
== END | disposition home or self-care (01) ==
LOC: MTRAD 16:09
PROVIDERS: PCP Family Medicine
DX: M79.642 Pain in left hand (principal)
CPT/HCPCS: 73130